=== PATIENT | male | born 1940 | race Caucasian/White ===

== ENCOUNTER 2017-03-28 22:15 | Emergency (ER) | payer MEDICARE, BC, OTHER ==
[2017-03-28 22:40] LABS: Hematocrit 40 % (42-52); Hemoglobin 13.2 g/dl (14.0-18.0); Mean Corpuscular HGB Conc 33 g/dl (31-36); Mean Corpuscular Hemoglobin 30 pg (27-31); Mean Corpuscular Volume 91 fL (80-94); Mean Platelet Volume 10 um3 (7.4-10.4); Red Blood Count 4.32 10^6/ul (4.0-5.4); Red Cell Distribution Width 13 % (10.5-15); White Blood Count 8.3 10^3/ul (3.5-10.8)
[2017-03-28 22:50] LABS: Albumin 4.1 g/dL (3.2-5.2); Calcium 8.6 mg/dL (8.6-10.3); EGFR African American 93.2 (>60); EGFR Non-African American 72.5 (>60); Globulin 2.7 g/dL (2-4); Potassium 3.8 mmol/L (3.5-5.0); Total Bilirubin 0.5 mg/dL (0.2-1.0); Total Protein 6.8 g/dL (6.4-8.9)
[2017-03-28 22:52] LABS: Troponin I 0.01 ng/mL (<0.04)
--- NOTE | 2017-03-28 23:06 | ED ---
Ronaldo Klein Benjamin, scribed for Say Sanford MD on 03/28/17 at 2226 . HPI Chest Pain - HPI Summary HPI Summary: 76yo male c/o sudden onset chest tightness tonight at rest watching TV. Pt has Hx of cardiac stent x2 and CABG. Pt states that deep breaths ease his pain. Previous CP episode was years ago. - History of Current Complaint Time Seen by Provider: 03/28/17 22:19 Hx Obtained From: Patient Onset/Duration: Started Hours Ago, Still Present Timing: Constant Initial Severity: Moderate Current Severity: Moderate Chest Pain Location: Diffuse Chest Pain Radiates: No Character: Tightness Aggravating Factor(s): Nothing Alleviating Factor(s): Other: - deep breaths Associated Signs and Symptoms: Positive: Negative - Additional Pertinent History Primary Care Physician: Dr Curran / Dr Johnson - Allergy/Home Medications Allergies/Adverse Reactions: Allergies Allergy/AdvReac Type Severity Reaction Status Date / Time Ciprofloxacin [From Cipro] Allergy Severe Spontaneous Verified 10/05/16 15:56 tendon rupture Diphenhydramine Allergy Severe See Comment Verified 10/05/16 15:56 [From Benadryl] Jaz Catechu Ext Allergy Intermediate Nausea And Verified 10/05/16 15:56 Vomiting Penicillins Allergy Unknown See Comment Verified 10/05/16 15:56 Mcrae Allergy ITCHY MOUTH Verified 10/05/16 15:56 GUM LAO Allergy Intermediate NAUSEA,VOMITING Uncoded 10/05/16 15:56 AND DIARRHEA opiates AdvReac See Comment Uncoded 10/05/16 15:56 PMH/Surg Hx/FS Hx/Imm Hx Endocrine/Hematology History: Reports: Hx Anticoagulant Therapy - plavix 75 mg po daily., Hx Thyroid Disease - thyroidectomy Denies: Hx Diabetes, Hx Anemia Cardiovascular History: Reports: Hx Angina, Hx Coronary Artery Disease, Hx Hypertension - on meds, Hx Myocardial Infarction, Other Cardiovascular Problems/ Disorders - CAD Denies: Hx Congestive Heart Failure, Hx Hypercholesterolemia, Hx Pacemaker/ ICD, Hx Valvular Heart Disease Respiratory History: Denies: Hx Asthma, Hx Chronic Obstructive Pulmonary Disease (COPD), Hx Lung Cancer GI History: Denies: Hx Gall Bladder Disease, Hx Gastrointestinal Bleed, Hx Jaundice, Hx Ulcer, Hx Urosepsis History: Reports: Hx Benign Prostatic Hyperplasia, Other Problems/ Disorders - BPH Denies: Hx Dialysis, Hx Kidney Stones, Hx Renal Disease Musculoskeletal History: Reports: Hx Gout Sensory History: Reports: Hx Contacts or Glasses Denies: Hx Hearing Aid Opthamlomology History: Reports: Hx Contacts or Glasses Neurological History: Reports: Hx Seizures - hit head 1982 and had 1 seizue. 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 Basal cell carcinoma left nose 07/2016 Hx Chemotherapy: No Hx Radiation Therapy: No Hx Palliative Cancer Treatment: No - Surgical History Surgery Procedure, Year, and Place: QUINTUPLE BYPASS/APPENDECTOMY/INGUINAL LEFT HERNIA REPAIR/Cardiac stent x 2 PROMUS ELEMENT OK FOR 1.5 OR 3T PER MRI SAFETY MANUAL , thyroidectomy, T&A Hx Anesthesia Reactions: No Infectious Disease History: Denies: Hx Clostridium Difficile, Hx Hepatitis, Hx Human Immunodeficiency Virus (HIV), Hx of Known/Suspected MRSA, Hx Shingles, Hx Tuberculosis, History Other Infectious Disease, Traveled Outside the in Last 30 Days - Family History Known Family History: Positive: None, Other - mother - CVA, father - leukemia - Social History Occupation: Retired Lives: With Family Alcohol Use: None Hx Substance Use: No Substance Use Type: Reports: None Hx Tobacco Use: No Smoking Status (MU): Never Smoked Tobacco Have You Smoked in the Last Year: No Review of Systems Constitutional: Negative Eyes: Negative ENT: Negative Positive: Chest Pain Respiratory: Negative Gastrointestinal: Negative Genitourinary: Negative Musculoskeletal: Negative Skin: Negative Neurological: Negative Psychological: Normal All Other Systems Reviewed And Are Negative: Yes Physical Exam Triage Information Reviewed: Yes Vital Signs On Initial Exam: Initial Vitals Temp Pulse Resp BP Pulse Ox 98 F 53 16 131/64 95 03/28/17 22:30 03/28/17 22:30 03/28/17 22:30 03/28/17 22:30 03/28/17 22:30 Vital Signs Reviewed: Yes Appearance: Positive: Well-Appearing, No Pain Distress Skin: Positive: Warm Head/Face: Positive: Normal Head/Face Inspection Eyes: Positive: BAM ENT: Positive: Hearing grossly normal Neck: Positive: Supple Respiratory/Lung Sounds: Positive: Clear to Auscultation, Breath Sounds Present Cardiovascular: Positive: RRR Abdomen Description: Positive: Nontender, No Organomegaly, Soft Bowel Sounds: Positive: Present Musculoskeletal: Positive: Strength/ROM Intact Neurological: Positive: Sensory/Motor Intact, Alert, Oriented to Person Place, Time, Normal Gait Psychiatric: Positive: Affect/Mood Appropriate Diagnostics - Vital Signs Vital Signs Temp Pulse Resp BP Pulse Ox 03/28/17 22:32 98 F 53 16 131/64 95 03/28/17 22:30 98 F 53 16 131/64 95 - Laboratory Lab Results: Lab Results 03/28/17 03/28/17 03/28/17 Range/Units 22:26 22:26 22:26 WBC 8.3 (3.5-10.8) 10^3/ul RBC 4.32 (4.0-5.4) 10^6/ul Hgb 13.2 L (14.0-18.0) g/dl Hct 40 L (42-52) % MCV 91 (80-94) fL MCH 30 (27-31) pg MCHC 33 (31-36) g/dl RDW 13 (10.5-15) % Plt Count 163 (150-450) 10^3/ul MPV 10 (7.4-10.4) um3 Neut % (Auto) 58.7 (38-83) % Lymph % (Auto) 20.4 L (25-47) % [place] % (Auto) 11.6 H (1-9) % Eos % (Auto) 8.5 H (0-6) % Baso % (Auto) 0.8 (0-2) % Absolute Neuts (auto) 4.9 (1.5-7.7) 10^3/ul Absolute Lymphs (auto) 1.7 (1.0-4.8) 10^3/ul Absolute Monos (auto) 1.0 H (0-0.8) 10^3/ul Absolute Eos (auto) 0.7 H (0-0.6) 10^3/ul Absolute Basos (auto) 0.1 (0-0.2) 10^3/ul Absolute Nucleated RBC 0 10^3/ul Nucleated RBC % 0 INR (Anticoag Therapy) (0.89-1.11) Sodium 137 (133-145) mmol/L Potassium 3.8 (3.5-5.0) mmol/L Chloride 100 L (101-111) mmol/L Carbon Dioxide 29 (22-32) mmol/L Anion Gap 8 (2-11) mmol/L BUN 27 H (6-24) mg/dL Creatinine 1.00 (0.67-1.17) mg/dL Est GFR ( Amer) 93.2 (>60) Est GFR (Non-Af Amer) 72.5 (>60) BUN/Creatinine Ratio 27.0 H (8-20) Glucose 106 H (70-100) mg/dL Lactic Acid 1.2 (0.5-2.0) mmol/L Calcium 8.6 (8.6-10.3) mg/dL Magnesium 2.0 (1.9-2.7) mg/dL Total Bilirubin 0.50 (0.2-1.0) mg/dL AST 21 (13-39) U/L ALT 16 (7-52) U/L Alkaline Phosphatase 48 (34-104) U/L Troponin I 0.01 (<0.04) ng/mL Total Protein 6.8 (6.4-8.9) g/dL Albumin 4.1 (3.2-5.2) g/dL Globulin 2.7 (2-4) g/dL Albumin/Globulin Ratio 1.5 (1-3) // Range/Units 22:26 WBC (3.5-10.8) 10^3/ul RBC (4.0-5.4) 10^6/ul Hgb (14.0-18.0) g/dl Hct (42-52) % MCV (80-94) fL MCH (27-31) pg MCHC (31-36) g/dl RDW (10.5-15) % Plt Count (150-450) 10^3/ul MPV (7.4-10.4) um3 Neut % (Auto) (38-83) % Lymph % (Auto) (25-47) % [place] % (Auto) (1-9) % Eos % (Auto) (0-6) % Baso % (Auto) (0-2) % Absolute Neuts (auto) (1.5-7.7) 10^3/ul Absolute Lymphs (auto) (1.0-4.8) 10^3/ul Absolute Monos (auto) (0-0.8) 10^3/ul Absolute Eos (auto) (0-0.6) 10^3/ul Absolute Basos (auto) (0-0.2) 10^3/ul Absolute Nucleated RBC 10^3/ul Nucleated RBC % INR (Anticoag Therapy) 0.90 (0.89-1.11) Sodium (133-145) mmol/L Potassium (3.5-5.0) mmol/L Chloride (101-111) mmol/L Carbon Dioxide (22-32) mmol/L Anion Gap (2-11) mmol/L BUN (6-24) mg/dL Creatinine (0.67-1.17) mg/dL Est GFR ( Amer) (>60) Est GFR (Non-Af Amer) (>60) BUN/Creatinine Ratio (8-20) Glucose (70-100) mg/dL Lactic Acid (0.5-2.0) mmol/L Calcium (8.6-10.3) mg/dL Magnesium (1.9-2.7) mg/dL Total Bilirubin (0.2-1.0) mg/dL AST (13-39) U/L ALT (7-52) U/L Alkaline Phosphatase (34-104) U/L Troponin I (<0.04) ng/mL Total Protein (6.4-8.9) g/dL Albumin (3.2-5.2) g/dL Globulin (2-4) g/dL Albumin/Globulin Ratio (1-3) Result Diagrams: 03/28/17 22:26 03/28/17 22:26 Lab Statement: Any lab studies that have been ordered have been reviewed, and results considered in the medical decision making process. - Radiology CXR Xray Interpretation: No Acute Changes Radiology Interpretation Completed By: Radiologist - EKG 0479. Cardiac Rate: Bradycardia - 56bpm EKG Rhythm: Sinus Bradycardia ST Segment: Normal Re-Evaluation - Re-Evaluation First Eval Re-Evaluation Time: 01:57 Comment: Discussed lab and imaging results with the pt, as well as disposition. Pt remains pain free Chest Pain Course/Dx - Diagnoses Provider Diagnoses: Chest pain Discharge - Discharge Plan Condition: Stable Disposition: HOME Patient Education Materials: Chest Pain (ED) Referrals: Andrzej Curran MD [Primary Care Provider] - The documentation as recorded by the Ronaldo mendez Benjamin accurately reflects the service I personally performed and the decisions made by me, Say Sanford MD.
--- NOTE | 2017-03-28 23:33 | RAD ---
INDICATION: Chest pain COMPARISON: Similar chest x-ray dated August 22, 2016 TECHNIQUE: PA and lateral views of the chest were obtained. FINDINGS: Postoperative findings include sternotomy wires overlying the midline chest. The heart and mediastinum are normal in size and contour. Similar to the previous chest x-ray the lungs appear hyperaerated, the diaphragm are flattened and there is a mildly increased retrosternal airspace. Otherwise the lungs are grossly clear. There is no evidence of large pleural effusion. Degenerative changes of the thoracic spine include loss of intervertebral disc height and marginal osteophyte formation, bridging at some levels. There is no radiographic evidence of free air beneath the diaphragm IMPRESSION: CHRONIC FINDINGS DESCRIBED ABOVE WITHOUT RADIOGRAPHIC EVIDENCE OF ACUTE CARDIOPULMONARY DISEASE.
[2017-03-29 02:10] VITALS: BP 132/71
== END 2017-03-29 02:09 | disposition home or self-care (01) ==
LOC: ED 22:15
DX: R07.9 Chest pain, unspecified (principal)
CPT/HCPCS: 36415; 71020; 80053; 83605; 83735; 84484; 85025; 85610; 93005; 99283

== ENCOUNTER 2017-06-02 07:17 | Day surgery (SDC) | payer MEDICARE, BC ==
--- NOTE | 2017-05-30 10:08 | HP ---
CC: Andrzej Curran MD * HISTORY AND PHYSICAL: DATE OF PLANNED ADMISSION AND SURGERY: 06/02/17 HISTORY OF PRESENT ILLNESS: Mr. Ryan is a 76-year-old white male, who is admitted with recurrent episodes of gross hematuria, prostate enlargement and bladder outlet obstruction and a 1 cm bladder calculus for cystoscopy and cystolitholapaxy. I have been following Mr. Ryan for the last 15 years because of prostate enlargement, elevated PSA, and bladder outlet obstruction. He had prostate biopsies in the past, which were benign. He had been maintained on tamsulosin and was placed in the past on finasteride because of prostate enlargement. He initially reported very good improvement in his voiding, however, he developed gynecomastia and the finasteride had to be discontinued. He has been maintained on tamsulosin only for his bladder outlet obstruction. The patient was worked up for microscopic hematuria and for recurrent episodes of gross painless hematuria. He had a CT urogram in October 2016 showing normal upper tracts without evidence of any renal masses or abnormal filling defects in the collecting systems or the ureters. The bladder wall was thickened and there was a large prostate and a 1 cm bladder calculus. Cystoscopy confirmed a large vascular prostate and a 1 cm calculus in the base of the bladder. The conclusion of the workup was that the gross hematuria is caused by either the bladder calculus or the vascular prostate enlargement or a combination of both. The patient's prostate was large measuring about 100 mL by transabdominal ultrasound. Because of the above history and findings, the patient is admitted for cystolitholapaxy. PAST MEDICAL HISTORY AND SYSTEM REVIEW: The patient gives past history of coronary artery disease and had undergone a coronary bypass surgery about 20 years ago. He has done very well and has had no recurrent cardiac symptoms. He was last evaluated by Dr. Johnson, his belt weaver, in November 2016. I am including a copy of his consultation note. Basically the patient is stable and has good cardiac function and has had no chest pain, shortness of breath, or cardiac symptoms. He takes a brisk walk of 2 miles every day. He denies any shortness of breath or difficulty breathing. The patient has hyperlipidemia, is maintained on Lipitor 40 mg daily. He is on 1 baby aspirin per day. He takes calcium supplement in the form of Tums and is on calcitriol 0.25 mcg twice a day because of hypoparathyroidism. He is on thyroid replacement. He is on enalapril 10 mg daily and on nitroglycerin sublingual as needed. He received Cipro in 2007 because of prostatitis. He developed a ruptured Achilles tendon and that was followed by a DVT of his lower extremity. He was maintained on anticoagulation and he did well and anticoagulation was discontinued. He was recently evaluated by Dr. Broussard because of spinal stenosis. The patient is scheduled to undergo a lumbar laminectomy in about 2 weeks. The patient otherwise is in very good health. ALLERGIES: The patient reports having allergy or intolerance to PENICILLIN, BENADRYL, NARCOTICS, QUINOLONES, FINASTERIDE, GUM SLOVENIAN. PHYSICAL EXAMINATION GENERAL: Pleasant, healthy and fit looking white male, who looks good for his age. VITAL SIGNS: Blood pressure 120/70, pulse of 55. LUNGS: Lungs are clear. HEART: Regular and rhythmic, no murmurs. ABDOMEN: Soft, no masses, no tenderness and no CVA tenderness. GENITALIA: External genitalia: he is circumcised. No penile lesions. Normal testes and no hernias. Rectal exam showed a large, but benign feeling prostate. IMPRESSION: Recurrent episodes of gross hematuria. The workup showed normal kidneys and ureters and a very large vascular prostate and a 1 cm bladder calculus. PLAN: Plan is for cystoscopy and cystolitholapaxy. If the gross hematuria persists in spite of the above procedure, then the patient will need a prostatectomy. I discussed the above plans with the patient. He understands that he might go into urinary retention postoperatively and might require catheter drainage. I also discussed his medical condition with his sugar cane planter machine operator, Dr. Curran, who reviewed his records and who had seen him recently for his physical. He thinks that the patient should tolerate the procedure and did not feel there is a need for a pre-op medical reevaluation and clearance. [id number]/[facility] #: [id number] ELADIO
[~2017-06-02 07:17] MED LIST: Buffered Lidocaine 0.9% SYRIN* 5 ML/SYR SYRINGE INTRADERM ONE
[2017-06-02] MEDS ORDERED: Midazolam* 1 MG/ML 2 ML VIAL (2 MG) ONE (09:15)
[2017-06-02] MEDS ORDERED: fentaNYL* 50 MCG/ML 2 ML VIAL (100 MCG VIAL) ONE (09:15)
[2017-06-02] MEDS ORDERED: Propofol* 10 MG/ML 20 ML BTL IV PUSH ONE (10:24)
[2017-06-02] MEDS ORDERED: Dexamethasone IV* 4 MG/ML 1 ML (4 MG) ONE (10:24)
[2017-06-02] MEDS ORDERED: Ondansetron INJ* 2 MG/ML VIAL ONE (10:24)
[2017-06-02] MEDS ORDERED: Lidocaine 2% PF * 5 ML VIAL ONE (10:24)
[2017-06-02] MEDS ORDERED: Acetaminophen TAB* 325 MG PO PRN (11:01)
[2017-06-02 12:42] VITALS: BP 135/75
--- NOTE | 2017-06-03 11:16 | OP ---
CC: Dr. Andrzej Curran. * DATE OF OPERATION: 06/02/17 - [facility] DATE OF : 38 SURGEON: Dr. Baldwin. ANESTHESIOLOGIST: Dr. Matthew. ANESTHESIA: General. PRE-OP DIAGNOSES: 1. Benign prostatic hyperplasia. 2. Bladder outlet obstruction due to above. 3. Bladder calculus. 4. Recurrent episodes of gross hematuria due to above. POST-OP DIAGNOSES: 1. Benign prostatic hyperplasia. 2. Bladder outlet obstruction due to above. 3. Bladder calculus. 4. Recurrent episodes of gross hematuria due to above. OPERATIVE PROCEDURES: 1. Cystoscopy. 2. Cystolitholapaxy. INDICATIONS FOR PROCEDURE: Mr. Ryan is a 76-year-old white male who has a large obstructing prostate who is maintained on tamsulosin. Finasteride had to be discontinued because of breast tenderness. He has had recurrent episodes of gross hematuria and had a full workup with CT urogram and cystoscopy and the only positive findings were large obstructing and vascular prostate and a 1 to 1.5 cm bladder calculus. Post void residual around 60 cc. The patient is now admitted for cystolitholapaxy to see if that would help decrease the frequency of the hematuria. PATHOLOGY AT CYSTOSCOPY: The penile and bulbar urethrae looked normal. The prostatic urethra measured about 4.5 cm in length and there was significant degree of obstruction by a large prostate with enlargement of the median as well as both lateral lobes. The prostate was very vascular and bled easily to instrumentation. There was elevation of the bladder neck. Examination of the bladder showed diffuse moderate to heavy trabeculations. The ureteral orifices looked normal. There were no suspicious bladder lesions seen. No diverticulae were noted. A 1.5 cm grayish spherical calculus was noted in the base of the bladder. DESCRIPTION OF PROCEDURE: After successful general anesthesia, the patient was placed in the lithotomy position and was prepped and draped for cystoscopy. Cystoscopy was performed. The findings in the prostatic urethra and in the bladder were noted. The stone crushing forceps were then introduced inside the bladder. The bladder was filled up with irrigation fluid. The bladder calculus was visualized, grabbed with the stone crusher supervisor and positioned in the middle of the bladder lumen away from the bladder wall. The stone was crushed. It was then crushed into multiple smaller pieces. This was performed without any injury to the bladder wall. The bladder was then irrigated and all the stone fragments were evacuated. After a final inspection, which showed intact bladder wall, there was still some bleeding from the prostatic urethra, and no residual stone fragments were noted. The scope was removed and an 18-Irish Ellison catheter was passed inside the bladder and the balloon inflated with 10 cc water. The patient tolerated the procedure well and left the operating room in good condition. The prostate is felt to be too large to perform a TURP in one setting. Will attempt to decrease the prostate volume and the prostate vascularity by starting him on dutasteride 0.4 mg daily. If he develops again breast tenderness or enlargement, it will be discontinued. I will see him next week in the office for followup [id number]/[facility] #: [id number] ELADIO
== END 2017-06-02 12:58 | disposition home or self-care (01) ==
LOC: OR 07:17
PROVIDERS: ATTEND Urology
DX: N21.0 Calculus in bladder (principal); R31.9 Hematuria, unspecified; N40.1 Benign prostatic hyperplasia with lower urinary tract symptoms; I25.10 Atherosclerotic heart disease of native coronary artery without angina pectoris; Z95.1 Presence of aortocoronary bypass graft; E78.5 Hyperlipidemia, unspecified; E03.9 Hypothyroidism, unspecified; Z79.82 Long term (current) use of aspirin; I10 Essential (primary) hypertension; J45.909 Unspecified asthma, uncomplicated
CPT/HCPCS: 82365; 88300; J1100; J1580; J2250; J2405; J2704; J3010

== ENCOUNTER 2017-07-11 06:19 | Observation (INO) | payer MEDICARE, BC ==
[~2017-07-11 06:19] MED LIST changes: -Buffered Lidocaine 0.9% SYRIN* 5 ML/SYR SYRINGE INTRADERM ONE; +Famotidine IV* 10 MG/ML 2 ML (20 mg) IV ONE; +Metoclopramide TAB* 10 MG PO ONE
[2017-07-11] MEDS ORDERED: Metoclopramide TAB* 10 MG ONE (06:38)
[2017-07-11] MEDS ORDERED: Famotidine IV* 10 MG/ML 2 ML (20 mg) ONE (06:38)
[2017-07-11] MEDS ORDERED: Clindamycin 900 MG IVPREMIX(* 900 MG/50 ML SDV IV ONE (06:39)
[2017-07-11] MEDS: Buffered Lidocaine 0.9% SYRIN* 5 ML/SYR SYRINGE INTRADERM ONE ×2 (07:09→17:15)
[2017-07-11] MEDS ORDERED: Bacitracin IV* 50,000 UNITS INJ ONE (07:10)
[2017-07-11] MEDS ORDERED: Lidocaine 1% MPF wEPI 200,000* 30 ML SDV ONE (07:10)
[2017-07-11] MEDS ORDERED: Thrombin 5,000 UNITS* 1 APPLIC KIT - topical use - TOPICAL ONE (07:10)
[2017-07-11] MEDS ORDERED: Artificial Tear OPHTH.OINT* 3.5 GM ONE (07:14)
[2017-07-11] MEDS ORDERED: Lidocaine 2% PF * 5 ML VIAL ONE (07:20)
[2017-07-11] MEDS ORDERED: Phenylephrine INJ* 10 MG/ML 1 ML VIAL (10 MG) ONE (07:20)
[2017-07-11] MEDS ORDERED: Ondansetron INJ* 2 MG/ML VIAL ONE (07:20)
[2017-07-11] MEDS ORDERED: Dexamethasone IV* 4 MG/ML 1 ML (4 MG) ONE (07:20)
[2017-07-11] MEDS ORDERED: Propofol* 10 MG/ML 20 ML BTL IV PUSH ONE (07:20)
[2017-07-11] MEDS ORDERED: EPHEDrine (Pressors)* 50 MG/ML VIAL ONE (07:20)
[2017-07-11] MEDS ORDERED: fentaNYL* 50 MCG/ML 5 ML VIAL (250 MCG VIAL) ONE (07:21)
[2017-07-11] MEDS ORDERED: Cisatracurium* 2 MG/ML MDV 5 ML ONE (07:21)
[2017-07-11] MEDS ORDERED: KETAMINE HCL* 50 MG/ML 10 ML VIAL ONE (07:21)
[2017-07-11] MEDS ORDERED: Midazolam* 1 MG/ML 5 ML VIAL (5 MG) ONE (07:21)
[2017-07-11] MEDS ORDERED: Ondansetron INJ* 2 MG/ML VIAL IV PRN ×2 (08:40→09:01)
[2017-07-11] MEDS ORDERED: Acetaminophen IV 1GM/100ML * 100 ML IVPB ONE (08:40)
[2017-07-11] MEDS ORDERED: Nitroglycerin TAB 0.4 MG* 0.4 MG TAB SL PRN (09:03)
[2017-07-11] MEDS ORDERED: Acetaminophen IV 1GM/100ML * 100 ML ONE (09:05)
[2017-07-11] MEDS ORDERED: traMADol TAB* 50 MG PO PRN (09:06)
--- NOTE | 2017-07-11 10:56 | RAD ---
INDICATION: L4-L5 lumbar laminectomy-operative control film COMPARISON: None TECHNIQUE: A single crosstable lateral image obtained at 0830 hours is submitted FINDINGS: There is a retractor in place which most closely approximates the L3-L4 level and there is a curved hemostat which is immediately inferior to L3-L4. IMPRESSION: OPERATIVE CONTROL FILMS ARE SUBMITTED.
[2017-07-11] MEDS ORDERED: Albuterol 2.5 MG/3 ML NEB.SOL* (0.083%) INH PRN (11:13)
--- NOTE | 2017-07-11 13:16 | CONS ---
CC: Dr. Curran; Dr. Broussard * CONSULTATION REPORT: DATE OF CONSULT: 07/11/17 PRIMARY CARE PROVIDER: Dr. Curran. ATTENDING PHYSICIAN WHILE IN THE HOSPITAL: Stephanie Farrell DO (report dictated by Scott Sawant NP). REQUESTING PHYSICIAN FOR CONSULT: Dr. Broussard. REASON FOR CONSULTATION: Evaluation and medical management of comorbid medical conditions. HISTORY OF PRESENT ILLNESS: Mr. Ryan is a 77-year-old male patient that presented to Dr. Broussard services in the outpatient setting with complaints of back pain and lumbar radiculopathy and with failing conservative therapy and ultimately he had an MRI, was evaluated and felt they may benefit from decompressive laminectomy at L4-5. The patient wished to proceed with this and he underwent the procedure. He does carry a history of hypertension, thyroid cancer, BPH, hyperlipidemia, CAD, [place], gout, and asthma. Because of his medical complexity, we were asked to evaluate in consult. He was evaluated in the postoperative surgical unit. He says that he just feel little drowsy. He denies having any chest pain or any shortness of breath. He denies having any abdominal pain. He says that he feels little hungry. He denies having any numbness or tingling in the lower extremities. He says he is having little pain at the incision sites probably 3/10. He says he denies any shortness of breath or chest pain currently and he did say that he saw Dr. Johnson just 4 days ago prior to his procedure for medical evaluation and risk stratification, but because of his complexity, we were asked to evaluate and consult. PAST MEDICAL HISTORY: Significant for: 1. Hypertension. 2. Thyroid cancer. 3. BPH. 4. Hyperlipidemia. 5. CAD. 6. [place]. 7. Gout. 8. Asthma. PAST SURGICAL HISTORY: 1. He has had CABG. 2. Cataract extraction. 3. Thyroidectomy. 4. Appendectomy. 5. Hernia. 6. Tonsillectomy. 7. Now recently had an L4-5 laminectomy. MEDICATIONS: Home meds according to the list provided include: 1. Vasotec 10 mg p.o. daily. 2. Dutasteride 0.5 mg p.o. daily. 3. Lotrisone 1 application topically b.i.d. 4. Aspirin 81 mg daily. 5. Flomax 0.4 mg p.o. q.p.m. 6. Nitro 0.4 mg sublingual every 5 minutes x3 p.r.n. chest pain. 7. Claritin 10 mg daily. 8. Synthroid 150 mcg daily. 9. Calcium carbonate 1000 mg p.o. 4 times a day. 10. Calcitriol 0.5 mcg p.o. b.i.d. 11. Lipitor 40 mg daily. 12. Lamisil spray 4% to the feet daily as needed. ALLERGIES: His allergies to medications include CIPRO, BENADRYL, CAM, PENICILLIN, ADHESIVE TAPE, CARDOZA, PROSCAR, LACTULOSE INTOLERANCE, GUM SLOVAK, CAT DANDER, HAY FEVER, OPIATES. FAMILY HISTORY: His mother had history of CVA and heart disease. His father had history of leukemia. SOCIAL HISTORY: The patient does not smoke, does not drink. Surrogate decision maker is his . REVIEW OF SYSTEMS: There is no documented fever. He denied having any significant weight change. There was no double vision. He denies having any ear discharge. There is no rhinorrhea. No sore throat, no thyroid enlargement. Denies having any chest pain. There is no orthopnea. There was no nocturnal dyspnea. There is no abdominal pain. There was no nausea, no vomiting. No dysuria, no frequency. No loss of consciousness, no pruritus, no skin ulcerations. Review of 14 systems was completed, all others negative. PHYSICAL EXAM: Vital signs: Reveals blood pressure 129/60, pulse 58, respirations 16, O2 sat 99% on 2 L, temperature 96.4. General: At this time, Mr. Ryan is a 77-year-old male patient. He is sitting in the surgical short stay bed. He does appear to be in any acute distress. HEENT: Head, atraumatic, normocephalic. Eyes, EOMs are intact. Sclerae anicteric. Neck: Supple. Throat, oral mucosa appears to be moist. No oropharyngeal erythema. Heart: Sounds S1, S2. Regular rate and rhythm. No murmurs, rubs, or gallops. Lungs: Clear to auscultation. No wheezes, rales, or rhonchi. Abdomen: Soft , flat, nontender. Bowel sounds present. Extremities: Pulses 2+ throughout. Able to move all 4 extremities with 5/5 strength. Neurologically, he is drowsy , but he is awake, he is alert, he is oriented x3. Consumer Educator were equal. Tongue midline. No gross focal deficits. Skin is intact with the exception he has CASI drain incision noted to the lumbar area of the spine, which is clean, dry, and intact. DIAGNOSTIC STUDIES/LAB DATA: His labs preoperatively revealed WBC of 7.8, RBC of 4.24, hemoglobin 13.1, hematocrit 38, platelet count of 204. His sodium 138 , potassium 4.3, chloride of 100, bicarb 31, BUN 20, creatinine of 1.06. He had preop chest x-ray showed no active cardiopulmonary disease. He had a preop EKG, which showed sinus bradycardia at rate of 55 with a PVC. No ST elevation or T- wave inversions. Old medical records were reviewed. ASSESSMENT AND PLAN: Mr. Ryan is a 77-year-old male patient with multiple medical problems coming into the hospital today for an elective L4-5 lumbar laminectomy. Hospitalist service was asked to evaluate in consult for medical management. Recommendations at this point are: 1. Status post L4-5 laminectomy. I defer further management with Dr. Broussard and his team. 2. Hypertension. We will continue meds as prescribed. 3. History of thyroid cancer. Continue his medications and he can follow up with his PCP and oncologist for surveillance. 4. Benign prostatic hypertrophy. Continue his Flomax and his Avodart. 5. Hyperlipidemia. Continue statin therapy. 6. Coronary artery disease. On aspirin, statin. We will continue these. He is not on beta-kingsley as his heart rates running around 60s to 50s. We will monitor. 7. Gout. Not an active issue. We will follow. 8. History of asthma. I have ordered p.r.n. albuterol. 9. Deep venous thrombosis prophylaxis. Deferred to primary team. 10. Code status. He is full code. 11. Fluid, electrolyte, nutrition. I would recommend heart healthy diet. TIME SPENT: Time spent on the consult was 60 minutes; greater than half that time was spent [id number] with the patient obtaining my history and physical, other half the time was spent going over the plan of care with the patient, implementing my plan of care. I discussed the plan of care with my attending, Dr. Farrell, she is in agreement. SCOTT SAWANT NP [id number]/[facility] #: [id number] ELADIO
[2017-07-11] MEDS: Calcium Carbonate CHEW TAB* 500 MG (TUMS) PO SCH ×3 (14:09→20:41)
[2017-07-11] MEDS: Acetaminophen TAB* 325 MG PO PRN ×2 (15:35→22:06)
[2017-07-11] MEDS ORDERED: Atorvastatin* 40 MG TAB PO SCH (18:00)
[2017-07-11] MEDS ORDERED: Tamsulosin CAP* 0.4 MG PO SCH (18:00)
[2017-07-11] MEDS: Calcitriol CAP* 0.25 MCG PO SCH (20:42)
[2017-07-11] MEDS: Clotrimazole/Betamethasone CREAM* 15 GM TOPICAL SCH (20:44)
[2017-07-12] MEDS: Acetaminophen TAB* 325 MG PO PRN (05:41)
[2017-07-12] MEDS ORDERED: Levothyroxine TAB* 150 MCG TAB PO SCH (06:00)
--- NOTE | 2017-07-12 07:51 | PN ---
Progress Note - Progress Note Date of Service: 07/12/17 SOAP: Subjective: [This is a 77 year old male s/p decompressive lumbar laminectomy L4-5, POD #1. He is feeling well this morning and pain is well controlled with tylenol. He does complain of some low back incisional discomfort. He has been up to ambulate. Pre-operative symptoms are improving. He is eating, drinking and voiding without difficulty. He denies headache. No nausea.] Objective: [ Vital Signs: Temp Pulse Resp BP Pulse Ox 97.8 F 79 16 131/73 95 07/12/17 03:44 07/12/17 03:44 07/12/17 03:44 07/12/17 03:44 07/12/17 03:44 General: Alert and oriented. No distress. Neuro: Motor and sensory intact. Incision: Intact with paulo. No swelling or infection. CASI drain removed today without complication. Extremities: Full ROM. CASI drain output 07/11/17 07/11/17 07/11/17 09:25 13:26 18:40 Output, CASI #1 20 85 30 07/11/17 07/12/17 07/12/17 22:00 02:05 05:40 Output, CASI #1 35 10 20 ] Assessment: [Satisfactory post-operative course. ] Plan: [1. Discharge home today. 2. Discharge instructions including activity level and follow up were discussed with the patient. ]
[2017-07-12 08:40] VITALS: BP 122/63
[2017-07-12] MEDS: Calcitriol CAP* 0.25 MCG PO SCH ×2 (08:40→08:42)
[2017-07-12] MEDS: Cetirizine* 10 MG TAB PO SCH ×2 (08:40→08:44)
[2017-07-12] MEDS: Calcium Carbonate CHEW TAB* 500 MG (TUMS) PO SCH (08:40)
[2017-07-12] MEDS: Clotrimazole/Betamethasone CREAM* 15 GM TOPICAL SCH (08:41)
[2017-07-12] MEDS ORDERED: DUTASTERIDE 0.5 MG PO SCH (09:00)
[2017-07-12] MEDS ORDERED: Enalapril TAB* 5 MG PO SCH (09:00)
[2017-07-12] MEDS ORDERED: Aspirin EC Low Dose* 81 MG TAB.EC PO SCH (09:00)
--- NOTE | 2017-07-13 02:23 | DS ---
DISCHARGE SUMMARY: DATE OF ADMISSION: 07/11/17 DATE OF DISCHARGE: 07/12/17 SUPERVISING PHYSICIAN: Dr. Broussard * (dictated by JANAY Deutsch) DISCHARGE DIAGNOSES: 1. Lumbar spinal stenosis, L4-5. 2. Hypertension. 3. Hyperlipidemia. 4. Hypothyroidism. 5. Coronary artery disease, status post CABG. SPECIAL PROCEDURES: Decompressive lumbar laminectomy, L4-5. HOSPITAL COURSE: This 77-year-old male was seen in office for symptomatic lumbar spinal stenosis at L4-5 consistent with MRI study. He failed to improve over several months with conservative treatment and was therefore admitted at this time for elective surgical treatment. On the day of admission, he was taken to surgery where under general anesthesia, a decompressive lumbar laminectomy at L4-5 operation was carried out. Postoperatively, he was feeling well. He was ambulating independently. He was eating, drinking, and voiding without difficulty. Pain was well controlled with oral Tylenol. On the first postoperative day, the CASI wound drain was removed and the patient was discharged home to the care of his family. DISCHARGE INSTRUCTIONS: Wound care and activity levels were discussed with the patient and information was provided. FOLLOWUP: The patient will be seen in office in approximately 7 days for followup and staple removal. DISCHARGE MEDICATIONS: None. JANAY DEUTSCH [id number]/[facility] #: [id number] MTDD
--- NOTE | 2017-07-24 09:07 | OP ---
DATE OF OPERATION: 07/11/17 - ROOM #335 DATE OF : 38. SURGEON: Rolando Broussard MD. IT NETWORK ADMINISTRATOR: JANAY Dennison. ANESTHESIA: General. PRE-OP DIAGNOSIS: Lumbar spinal stenosis, L4-5. POST-OP DIAGNOSIS: Lumbar spinal stenosis, L4-5. OPERATIVE PROCEDURE: Decompressive lumbar laminectomy, L4-5 with bilateral foraminotomies. DESCRIPTION OF PROCEDURE: After satisfactory general anesthesia was obtained, the patient was placed on the operating room table in the prone position with the chest supported on the Waldo frame and the back slightly flexed. The lumbar region was then clipped, prepped and draped in a sterile manner for lumbar laminectomy and a skin incision outlined from L4 to the sacrum. This incision was infiltrated with 1% Xylocaine with epinephrine, after which it was turned in sharply to level of the fascia. The fascia was divided along the spinous processes of L4 and L5 and the paraspinal musculature dissected free utilizing the periosteal elevator and monopolar cautery. An intraoperative x- ray was obtained verifying proper interspace localization, after which the L4 spinous process and the superior aspect of the L5 spinous process were removed with a combination of the Nancy rib shear and Leksell rongeur. A drill was then used to take down the inferior aspect of the L4 lamina and medial aspect of the facet complex after which a Kerrison was used to perform a decompression. The Kerrison was used to remove bone and ligament and this decompression was extended superiorly into the attachment and the ligament of flavum was taken down. The pathology at this level was noted to be a combination of ligamentous thickening as well as bony hypertrophy. The thickened ligament and lateral shielding edge of the overgrowth of the facet was removed and extended inferiorly until both the L5 nerve roots were noted to be free in their course. The disk was palpated and was noted to be quite firm and was not disturbed. After assuring adequate hemostasis, the wound was thoroughly irrigated after which a piece of Gelfoam was placed over the laminectomy defect. A drain was then placed in the epidural space and tunneled out toward the left side. The fascia was reapproximated with 0 Vicryl suture. The subcutaneous tissue was closed with 3-0 Vicryl and the skin closed with skin clips. The estimated blood loss was less than 50 mL and the final sponge, padding, and needle counts were correct. The patient was taken to the recovery room, extubated, and in stable condition. [id number]/[facility] #: [id number] [facility] CAMPUSTheresa
== END 2017-07-12 10:40 | disposition home or self-care (01) ==
LOC: OR 06:19 → SSU 09:01
PROVIDERS: ADMIT Neurological Surgery; ATTEND Neurological Surgery
DX: M48.06 Spinal stenosis, lumbar region (principal); J45.909 Unspecified asthma, uncomplicated; I10 Essential (primary) hypertension; I25.10 Atherosclerotic heart disease of native coronary artery without angina pectoris; E78.00 Pure hypercholesterolemia, unspecified; C73 Malignant neoplasm of thyroid gland; M54.5 Low back pain
CPT/HCPCS: 71020; 72100; 96374; A9270-GY; G0378; J1100; J2001; J2250; J2405; J2704; J3010

== ENCOUNTER 2017-07-13 07:45 | Emergency (ER) | payer MEDICARE, BC ==
[2017-07-13] MEDS ORDERED: NS 0.9% 1000 ML* 1,000 ML IV ONE (08:28)
[2017-07-13] MEDS ORDERED: traMADol TAB* 50 MG PO ONE ×2 (08:35→13:23)
[2017-07-13 08:52] LABS: Hematocrit 38 % (42-52); Hemoglobin 12.5 g/dl (14.0-18.0); Mean Corpuscular HGB Conc 33 g/dl (31-36); Mean Corpuscular Hemoglobin 30 pg (27-31); Mean Corpuscular Volume 90 fL (80-94); Mean Platelet Volume 9 um3 (7.4-10.4); Red Blood Count 4.16 10^6/ul (4.0-5.4); Red Cell Distribution Width 14 % (10.5-15); White Blood Count 12.1 10^3/ul (3.5-10.8)
[2017-07-13 09:07] LABS: Troponin I 0.01 ng/mL (<0.04)
[2017-07-13 09:09] LABS: Albumin 3.7 g/dL (3.2-5.2); BUN/Creatinine Ratio 19.8 (8-20); Calcium 8.2 mg/dL (8.6-10.3); EGFR African American 91.9 (>60); EGFR Non-African American 71.4 (>60); Globulin 2.9 g/dL (2-4); Magnesium 1.8 mg/dL (1.9-2.7); Potassium 3.7 mmol/L (3.5-5.0); Total Bilirubin 0.7 mg/dL (0.2-1.0); Total Protein 6.6 g/dL (6.4-8.9)
--- NOTE | 2017-07-13 09:23 | RAD ---
Indication: Fall, head and neck pain. CT of the brain was performed without IV contrast. Ventricular structures are midline. No midline shift is noted. The extra-axial spaces are unremarkable. There is hyperdensity in the right frontal lobe which is cortical in nature. This may be calcifications from prior AV malformation. Additional hyperdensity adjacent to the right occipital horn is also unchanged from previous exam. This was present on previous examination. A third hypodensity is noted right temporal horn of the right temporal lobe. The possibility of amyloid angiopathy should BE considered. Previous MRI demonstrates multiple areas of susceptibility artifact. Mastoid air cells and paranasal sinuses are otherwise unremarkable. IMPRESSION: Multiple hyperdensities in the right frontal convexity, right temporal lobe and adjacent to the atria of the right lateral ventricle likely represents areas of prior hemorrhage and calcifications. These are unchanged since 2012. Prior MRI demonstrates multiple areas of hemosiderin deposition and the possibility of amyloid angiopathy should BE considered.
--- NOTE | 2017-07-13 09:25 | RAD ---
Indication: Neck injury after fall. CT of the cervical spine was obtained in the axial plane. Sagittal and coronal reconstructed images were obtained. The mastoid air cells are well aerated. The skull base is unremarkable. The C1 ring is intact. Degenerative changes of the atlantoaxial joint is noted. At C2-C3 there is disc protrusion noted. No central foraminal stenosis is noted. At C3-C4 spondylitic ridge flattens the thecal sac. Right facet and right uncovertebral hypertrophy narrows the right foramen. At C4-C5 there is degenerative disc disease with spondylytic ridge flattening the thecal sac. Bilateral uncovertebral joint hypertrophy and facet arthropathy is noted. At C5-C6 spondylitic ridge with bilateral uncovertebral joint hypertrophy and facet arthropathy is noted. At C6-C7 spondylitic ridge flattens the thecal sac. No central or foraminal stenosis is noted. IMPRESSION: No fracture of the cervical spine is noted. Multilevel degenerative disc disease is noted.
[2017-07-13 09:48] LABS: TSH (Thyroid Stimulating Horm) 0.27 mcIU/mL (0.34-5.60)
--- NOTE | 2017-07-13 09:54 | RAD ---
Indication: Fall, myocardial infarction weakness. Single frontal view of the chest performed at 0853 hours was reviewed. Comparison is made with previous exam dated June 06, 2017. Cardiomegaly is noted. Lung jacobs are clear. Patient is status post transsternal thoracotomy. IMPRESSION: NO ACTIVE CARDIOPULMONARY DISEASE IS NOTED.
[2017-07-13 11:06] LABS: Urine Bilirubin Negative (Negative); Urine Glucose Negative (Negative); Urine Nitrite Negative (Negative)
[2017-07-13 11:20] VITALS: BP 116/61
--- NOTE | 2017-07-13 17:18 | ED ---
Kelly Klein Alfonso, scribed for Adeola Patten MD on 07/13/17 at 0812 . Adult Trauma - HPI Summary HPI Summary: This patient is a 77 year old M BIBA to [facility] accompanied by s/p fall earlier this morning. Patient states that he tripped and fell on his way out of the bathroom and it is hard for me to get up because it was painful when I fell. The pain is described as post-operative pain. The patient rates the pain 4/10 in severity. Pain aggravated by movement. Pain alleviated by nothing. reports head trauma (hit the back of his head on a dresser) and neck pain. Patient denies CP, SOB, bruising, LE pain, bleeding, urinary symptoms, and headache. PMHx includes CAD and HTN. PSHx includes Laminectomy L4-L5 surgery 2 days ago. 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 Character: Aching Aggravating Factor(s): Movement Alleviating Factor(s): Nothing Associated Signs & Symptoms: Positive: Other: - head trauma (hit the back of his head on a dresser) and neck pain. Patient denies CP, SOB, bruising, LE pain , bleeding, urinary symptoms, and headache. No LOC Related History: Anticoagulants - aspirin - Additional Pertinent History Primary Care Physician: [id number] - Allergy/Home Medications Allergies/Adverse Reactions: Allergies Allergy/AdvReac Type Severity Reaction Status Date / Time Ciprofloxacin [From Cipro] Allergy Severe Spontaneous Verified 07/11/17 06:48 tendon rupture Diphenhydramine Allergy Severe See Comment Verified 07/11/17 06:48 [From Benadryl] Jaz Catechu Ext Allergy Intermediate Nausea And Verified 07/11/17 06:48 Vomiting Penicillins Allergy Unknown Rash And Verified 07/11/17 06:48 Itching Adhesive Tape Allergy Rash Verified 07/11/17 06:48 Mcrae Allergy ITCHY MOUTH Verified 07/11/17 06:48 Finasteride Allergy TENDER Verified 07/11/17 06:48 BREAST TISSUE Lactose Intolerance (GI) Allergy Diarrhea Verified 07/11/17 06:48 GUM MAORI Allergy Intermediate NAUSEA,VOMITING Uncoded 07/11/17 06:48 AND DIARRHEA CAT DANDER Allergy Runny Nose Uncoded 07/11/17 06:48 HAY FEVER Allergy Runny Nose Uncoded 07/11/17 06:48 opiates AdvReac See Comment Uncoded 07/11/17 06:48 Home Medications: Home Medications Calcitriol CAP* [Rocaltrol CAP*] 0.5 mcg PO BID 07/13/17 [History Confirmed 05/22] Clotrimazole/Betamethasone* [Lotrisone Cream*] 1 applic TOPICAL BID 07/13/17 [ History Confirmed 07/13/17] LoraTADine TAB(NF) [Claritin 10 MG TAB(NF)] 10 mg PO DAILY 07/13/17 [History Confirmed 07/13/17] Terbinafine HCl (Topical) [Lamisil At [place]] 1 % TOPICAL DAILY PRN 07/13/17 [ History Confirmed 07/13/17] PMH/Surg Hx/FS Hx/Imm Hx Previously Healthy: No Endocrine/Hematology History: Reports: Hx Anticoagulant Therapy - aspirin , Hx Thyroid Disease - CANCER:thyroidectomy 2013 Denies: Hx Diabetes, Hx Anemia Cardiovascular History: Reports: Hx Angina, Hx Coronary Artery Disease - FOLLOWED BY DR SANTANA, Hx Hypertension - on meds, STATES WELL CONTROLLED, Hx Myocardial Infarction Denies: Hx Congestive Heart Failure, Hx Hypercholesterolemia, Hx Pacemaker/ ICD, Hx Valvular Heart Disease Respiratory History: Reports: Hx Asthma Denies: Hx Chronic Obstructive Pulmonary Disease (COPD), Hx Lung Cancer GI History: Reports: Other GI Disorders - lactose intolerance Denies: Hx Gall Bladder Disease, Hx Gastrointestinal Bleed, Hx Jaundice, Hx Ulcer, Hx Urosepsis History: Reports: Hx Benign Prostatic Hyperplasia, Other Problems/ Disorders - BPH, bladder stone, uti's Denies: Hx Dialysis, Hx Kidney Stones, Hx Renal Disease Musculoskeletal History: Reports: 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 Basal cell carcinoma left nose 07/2016 Hx Chemotherapy: No Hx Radiation Therapy: No Hx Palliative Cancer Treatment: No - Surgical History Surgery Procedure, Year, and Place: tonsillectomy and adenoidectomy as a child - [facility]. appendectomy - [place]. left inguinal hernia repair - [place] [facility] [place] [facility] [place] [facility] [place] [facility] [place] [facility] [place] [facility] [place] moh's [place]. Laminectomy 07/2017 [facility] [place] Hx Anesthesia Reactions: No Infectious Disease History: Denies: Hx Clostridium Difficile, Hx Hepatitis, Hx Human Immunodeficiency Virus (HIV), Hx of Known/Suspected MRSA, Hx Shingles, Hx Tuberculosis, History Other Infectious Disease, Traveled Outside the in Last 30 Days - Family History Known Family History: Positive: Other - mother - CVA, father - leukemia - Social History Occupation: Retired Lives: With Family Alcohol Use: None Hx Substance Use: No Substance Use Type: Reports: None Hx Tobacco Use: No Smoking Status (MU): Never Smoked Tobacco Have You Smoked in the Last Year: No Review of Systems Constitutional: Negative Eyes: Negative ENT: Negative Negative: Chest Pain Negative: Shortness Of Breath Gastrointestinal: Negative Positive: no symptoms reported Positive: Other - Fall, neck pain; Negative LE pain and headache. Positive: Other - Negative bleeding. Negative: Bruising Neurological: Other - head trauma Psychological: Normal All Other Systems Reviewed And Are Negative: Yes Physical Exam Triage Information Reviewed: Yes Vital Signs On Initial Exam: Initial Vitals Temp Pulse Resp BP Pulse Ox 99.0 F 58 20 110/49 96 07/13/17 07:48 07/13/17 07:48 07/13/17 07:48 07/13/17 07:48 07/13/17 07:48 Vital Signs Reviewed: Yes Appearance: Positive: Well-Appearing, Well-Nourished, Pain Distress Skin: Positive: Warm, Skin Color Reflects Adequate Perfusion, Other - No ecchymosis. Dressing in place. Head/Face: Positive: Normal Head/Face Inspection Eyes: Positive: Conjunctiva Clear ENT: Positive: Normal ENT inspection, Pharynx normal, TMs normal Neck: Positive: Supple, No Lymphadenopathy, Tenderness @ - posteriorly Respiratory/Lung Sounds: Positive: Clear to Auscultation, Breath Sounds Present , Other - no respiratory distress Cardiovascular: Positive: RRR, Pulses are Symmetrical in both Upper and Lower Extremities, Other - brisk capillary refill. Negative: Murmur Abdomen Description: Positive: Nontender, No Organomegaly, Soft Bowel Sounds: Positive: Present Musculoskeletal: Positive: Strength/ROM Intact, Other - No bony tenderness Neurological: Positive: Sensory/Motor Intact, Alert, Oriented to Person Place, Time, CN Intact II-III, Facial Symmetry, Speech Normal Psychiatric: Positive: Normal - [place] Coma Scale Coma Scale Total: 15 Diagnostics - Vital Signs Vital Signs Temp Pulse Resp BP Pulse Ox 07/13/17 07:50 99.0 F 63 20 110/49 96 07/13/17 07:48 99.0 F 58 20 110/49 96 - Laboratory Lab Results: Lab Results 07/13/17 07/13/17 07/13/17 Range/Units 08:43 08:43 08:43 WBC 12.1 H (3.5-10.8) 10^3/ul RBC 4.16 (4.0-5.4) 10^6/ul Hgb 12.5 L (14.0-18.0) g/dl Hct 38 L (42-52) % MCV 90 (80-94) fL MCH 30 (27-31) pg MCHC 33 (31-36) g/dl RDW 14 (10.5-15) % Plt Count 198 (150-450) 10^3/ul MPV 9 (7.4-10.4) um3 Neut % (Auto) 77.9 (38-83) % Lymph % (Auto) 7.9 L (25-47) % Reagan % (Auto) 11.5 H (1-9) % Eos % (Auto) 2.4 (0-6) % Baso % (Auto) 0.3 (0-2) % Absolute Neuts (auto) 9.4 H (1.5-7.7) 10^3/ul Absolute Lymphs (auto) 1.0 (1.0-4.8) 10^3/ul Absolute Monos (auto) 1.4 H (0-0.8) 10^3/ul Absolute Eos (auto) 0.3 (0-0.6) 10^3/ul Absolute Basos (auto) 0 (0-0.2) 10^3/ul Absolute Nucleated RBC 0 10^3/ul Nucleated RBC % 0 INR (Anticoag Therapy) 0.92 (0.89-1.11) APTT 26.5 (26.0-36.3) seconds Sodium (133-145) mmol/L Potassium (3.5-5.0) mmol/L Chloride (101-111) mmol/L Carbon Dioxide (22-32) mmol/L Anion Gap (2-11) mmol/L BUN (6-24) mg/dL Creatinine (0.67-1.17) mg/dL Est GFR ( Amer) (>60) Est GFR (Non-Af Amer) (>60) BUN/Creatinine Ratio (8-20) Glucose (70-100) mg/dL Lactic Acid (0.5-2.0) mmol/L Calcium (8.6-10.3) mg/dL Magnesium (1.9-2.7) mg/dL Total Bilirubin (0.2-1.0) mg/dL AST (13-39) U/L ALT (7-52) U/L Alkaline Phosphatase (34-104) U/L Troponin I (<0.04) ng/mL B-Natriuretic Peptide 70 ( - 100) pg/mL Total Protein (6.4-8.9) g/dL Albumin (3.2-5.2) g/dL Globulin (2-4) g/dL Albumin/Globulin Ratio (1-3) TSH (0.34-5.60) mcIU/mL Urine Color Urine Appearance Urine pH (5-9) Ur Specific [place] (1.010-1.030) Urine Protein (Negative) Urine Ketones (Negative) Urine Blood (Negative) Urine Nitrate (Negative) Urine Bilirubin (Negative) Urine Urobilinogen (Negative) Ur Leukocyte Esterase (Negative) Urine Glucose (Negative) 07/13/17 07/13/17 07/13/17 Range/Units 08:43 08:43 10:43 WBC (3.5-10.8) 10^3/ul RBC (4.0-5.4) 10^6/ul Hgb (14.0-18.0) g/dl Hct (42-52) % MCV (80-94) fL MCH (27-31) pg MCHC (31-36) g/dl RDW (10.5-15) % Plt Count (150-450) 10^3/ul MPV (7.4-10.4) um3 Neut % (Auto) (38-83) % Lymph % (Auto) (25-47) % Reagan % (Auto) (1-9) % Eos % (Auto) (0-6) % Baso % (Auto) (0-2) % Absolute Neuts (auto) (1.5-7.7) 10^3/ul Absolute Lymphs (auto) (1.0-4.8) 10^3/ul Absolute Monos (auto) (0-0.8) 10^3/ul Absolute Eos (auto) (0-0.6) 10^3/ul Absolute Basos (auto) (0-0.2) 10^3/ul Absolute Nucleated RBC 10^3/ul Nucleated RBC % INR (Anticoag Therapy) (0.89-1.11) APTT (26.0-36.3) seconds Sodium 138 (133-145) mmol/L Potassium 3.7 (3.5-5.0) mmol/L Chloride 100 L (101-111) mmol/L Carbon Dioxide 29 (22-32) mmol/L Anion Gap 9 (2-11) mmol/L BUN 20 (6-24) mg/dL Creatinine 1.01 (0.67-1.17) mg/dL Est GFR ( Amer) 91.9 (>60) Est GFR (Non-Af Amer) 71.4 (>60) BUN/Creatinine Ratio 19.8 (8-20) Glucose 111 H (70-100) mg/dL Lactic Acid 1.7 (0.5-2.0) mmol/L Calcium 8.2 L (8.6-10.3) mg/dL Magnesium 1.8 L (1.9-2.7) mg/dL Total Bilirubin 0.70 (0.2-1.0) mg/dL AST 20 (13-39) U/L ALT 17 (7-52) U/L Alkaline Phosphatase 57 (34-104) U/L Troponin I 0.01 (<0.04) ng/mL B-Natriuretic Peptide ( - 100) pg/mL Total Protein 6.6 (6.4-8.9) g/dL Albumin 3.7 (3.2-5.2) g/dL Globulin 2.9 (2-4) g/dL Albumin/Globulin Ratio 1.3 (1-3) TSH 0.27 L (0.34-5.60) mcIU/mL Urine Color Yellow Urine Appearance Clear Urine pH 7.0 (5-9) Ur Specific [place] 1.013 (1.010-1.030) Urine Protein Negative (Negative) Urine Ketones Negative (Negative) Urine Blood Negative (Negative) Urine Nitrate Negative (Negative) Urine Bilirubin Negative (Negative) Urine Urobilinogen Negative (Negative) Ur Leukocyte Esterase Negative (Negative) Urine Glucose Negative (Negative) Result Diagrams: 07/13/17 08:43 07/13/17 08:43 Lab Statement: Any lab studies that have been ordered have been reviewed, and results considered in the medical decision making process. - Radiology CXR Radiology Interpretation Completed By: Radiologist - NO ACTIVE CARDIOPULMONARY DISEASE IS NOTED. ED physician has reviewed this radiology report and agrees. C- Spine CT reveals No fracture of the cervical spine is noted. Multilevel degenerative disc disease is noted. ED physician has reviewed this radiology report and agrees. - CT brain CT Interpretation Completed By: Radiologist - Multiple hyperdensities in the right frontal convexity, right temporal lobe and adjacent to the atria of the right lateral ventricle likely represents areas of prior hemorrhage and calcifications. These are unchanged since 2012. Prior MRI demonstrates multiple areas of hemosiderin deposition and the possibility of amyloid angiopathy should BE considered. ED physician has reviewed this radiology report and agrees. c-spine CT Interpretation Completed By: Radiologist - No fracture of the cervical spine is noted. Multilevel degenerative disc disease is noted. ED physician has reviewed this radiology report and agrees. - EKG 0911 Cardiac Rate: Bradycardia - BPM 59 EKG Rhythm: Sinus Bradycardia EKG Interpretation: RBBB. Increased IV conduction time. Normal QTc. Normal axis. EKG Comparison: No Significant Change - 06/06/17 Re-Evaluation - Re-Evaluation First Eval Re-Evaluation Time: 10:28 Change: Improved Comment: Labs reviewed. Pt is feeling better. Adult Trauma Course/Dx - Course Assessment/Plan: This patient is a 77 year old M BIBA to [facility] accompanied by s/p fall earlier this morning. Patient states that he tripped and fell on his way out of the bathroom and it is hard for me to get up because it was painful when I fell. The pain is described as post-operative pain. The patient rates the pain 4/10 in severity. Pain aggravated by movement. Pain alleviated by nothing. reports head trauma (hit the back of his head on a dresser) and neck pain. Patient denies CP, SOB, bruising, LE pain, bleeding, urinary symptoms, and headache. PMHx includes CAD and HTN. PSHx includes Laminectomy L4-L5 surgery 2 days ago. Medications include Flomax, Lipitor, ASA 81 mg, Vasotec 10 mg, Synthroid, tums, Dutasteride, and Claritin 10 mg. An EKG reveals sinus bradycardia and RBBB. CXR reveals NO ACTIVE CARDIOPULMONARY DISEASE IS NOTED. ED physician has reviewed this radiology report and agrees. C- Spine CT reveals No fracture of the cervical spine is noted. Multilevel degenerative disc disease is noted. ED physician has reviewed this radiology report and agrees. CT brain reveals Multiple hyperdensities in the right frontal convexity, right temporal lobe and adjacent to the atria of the right lateral ventricle likely represents areas of prior hemorrhage and calcifications. These are unchanged since 2012. Prior MRI demonstrates multiple areas of hemosiderin deposition and the possibility of amyloid angiopathy should BE considered. Pt and are aware of these abnormalities and state the evaluation for amyloid angiopathy has been done. ED physician has reviewed this radiology report and agrees. Consulted [facility] (neurosurgery) at 1302 who recommends tramadol, and agrees with the case management and plan for discharge. Patient reports relief of the pain with tramadol. Patient will be discharged with follow up from PCP and Dr. Broussard as scheduled. The patient and are agreeable with this plan. - Diagnoses Differential Diagnosis/HQI/PQRI: Positive: Contusion(s), Sprain, Strain Provider Diagnoses: Fall, S/P laminectomy, CAD (coronary artery disease) - Physician Notifications Discussed Care Of Patient With: [place] Time Discussed With Above Provider: 13:37 Instructed by Provider To: Other - Consulted [facility] (neurosurgery) at 1302 who recommends tramadol, and agrees with the case management and plan for discharge. Discharge - Discharge Plan Condition: Stable Disposition: HOME Patient Education Materials: Acute Low Back Pain (ED) Referrals: Rolando Broussard MD [Medical Doctor] - (call the office today to be seen on Jul 19 for follow up. ) Andrzej Curran MD [Primary Care Provider] - () Additional Instructions: Your CT brain and CT cervical spine did not show any acute abnormalities. We have given you a copy of your labs and CTs. The urine test was also normal. Keep your appointment with Dr. Broussard for 07/19/17. Dr. Patten spoke with Dr. Bobo Sanders's PA, and she will send in a prescription for tramadol for you and she will notify Dr. Broussard that you have fallen and had this visit to the ER today. Return to the ER if you have any new or worsening symptoms. The documentation as recorded by the Kelly mendez Alfonso accurately reflects the service I personally performed and the decisions made by me, Adeola Patten MD.
== END 2017-07-13 13:46 | disposition home or self-care (01) ==
LOC: ED 07:45
DX: I25.10 Atherosclerotic heart disease of native coronary artery without angina pectoris (principal); M54.2 Cervicalgia; M96.1 Postlaminectomy syndrome, not elsewhere classified; Z91.81 History of falling; Z79.82 Long term (current) use of aspirin; Z79.01 Long term (current) use of anticoagulants
CPT/HCPCS: 36415; 70450; 71010; 72125; 80053; 81003; 83605; 83735; 83880; 84443; 84484; 85025; 85610; 85730; 93005; 99284; A9270-GY

== ENCOUNTER 2017-10-28 08:42 | Emergency (ER) | payer MEDICARE, BC, OTHER ==
[2017-10-28 08:57] VITALS: BP 136/85
--- NOTE | 2017-10-28 09:49 | UC ---
Respiratory Complaint HPI - HPI Summary HPI Summary: COUGH, CONGESTION AND ST FOR 2 DAYS. NO FEVER, EAR PAIN, N/V/D. - History of Current Complaint Chief Complaint: UCGeneralIllness Stated Complaint: cough Time Seen by Provider: 10/28/17 09:42 Hx Obtained From: Patient Onset/Duration: Gradual Onset, Lasting Days, Still Present Timing: Constant Severity Initially: Moderate Severity Currently: Moderate Pain Intensity: 2 Pain Scale Used: 0-10 Numeric Character: Cough: Nonproductive Aggravating Factors: Nothing Alleviating Factors: Nothing Associated Signs And Symptoms: Positive: URI, Nasal Congestion. Negative: Fever , Wheezing - Allergies/Home Medications Allergies/Adverse Reactions: Allergies Allergy/AdvReac Type Severity Reaction Status Date / Time Ciprofloxacin [From Cipro] Allergy Severe Spontaneous Verified 10/28/17 08:57 tendon rupture Diphenhydramine Allergy Severe See Comment Verified 10/28/17 08:57 [From Benadryl] Jaz Catechu Ext Allergy Intermediate Nausea And Verified 10/28/17 08:57 Vomiting Penicillins Allergy Unknown Rash And Verified 10/28/17 08:57 Itching Adhesive Tape Allergy Rash Verified 10/28/17 08:57 Mcrae Allergy ITCHY MOUTH Verified 10/28/17 08:57 Finasteride Allergy TENDER Verified 10/28/17 08:57 BREAST TISSUE Lactose Intolerance (GI) Allergy Diarrhea Verified 10/28/17 08:57 GUM KYRGYZ Allergy Intermediate NAUSEA,VOMITING Uncoded 10/28/17 08:57 AND DIARRHEA CAT DANDER Allergy Runny Nose Uncoded 10/28/17 08:57 HAY FEVER Allergy Runny Nose Uncoded 07/11/17 06:48 opiates AdvReac See Comment Uncoded 07/11/17 06:48 Home Medications: Home Medications Ibuprofen TAB* [Motrin TAB* 600 MG] 600 mg PO Q6H PRN 10/28/17 [History Confirmed 10/28/17] PMH/Surg Hx/FS Hx/Imm Hx Endocrine History: Thyroid Disease Cardiovascular History: Cardiac Disease, Hypertension Respiratory History: Asthma Other Cancer History: THYROID CANCER Other History Of: Anticoagulant Therapy - aspirin Negative For: HIV, Hepatitis B - ASA taken daily., Hepatitis C - Surgical History Surgical History: Yes Surgery Procedure, Year, and Place: tonsillectomy and adenoidectomy as a child - [facility]. appendectomy - [place]. [place]inal [place] repair - [place]. [place] [facility] [place] - [facility]. [place] [facility] [place] [facility] [place] [facility] [place]axy [place] [facility] [place]. [place] [facility] [place] [facility] [place] Family History Known Family History: Positive: Hypertension, Other - mother - CVA, father - leukemia - Social History Alcohol Use: None Substance Use Type: None Smoking Status (MU): Never Smoked Tobacco Have You Smoked in the Last Year: No - Immunization History Most Recent Influenza Vaccination: 2012 Most Recent Tetanus Shot: 2011 Most Recent Pneumonia Vaccination: 2003 Review of Systems Constitutional: Negative ENT: Sore Throat, Nasal Discharge Respiratory: Cough Cardiovascular: Negative Gastrointestinal: Negative All Other Systems Reviewed And Are Negative: Yes Physical Exam Triage Information Reviewed: Yes Appearance: Well-Appearing, No Pain Distress, Well-Nourished Vital Signs: Initial Vital Signs Temp 98 F 10/28/17 08:52 Pulse 69 10/28/17 08:52 Resp 18 10/28/17 08:52 BP 136/85 10/28/17 08:52 Pulse Ox 99 10/28/17 08:52 Vital Signs Reviewed: Yes Eyes: Positive: Conjunctiva Clear ENT: Positive: Hearing grossly normal, Pharynx normal, TMs normal Neck: Positive: Supple, Nontender, No Lymphadenopathy Respiratory Exam: Normal Cardiovascular Exam: Normal Abdomen Description: Positive: Soft Musculoskeletal: Positive: No Edema Neurological: Positive: Alert Psychological: Positive: Normal Response To Family, Age Appropriate Behavior Skin: Negative: rashes UC Diagnostic Evaluation - Laboratory O2 Sat by Pulse Oximetry: 99 Respiratory Course/Dx - Differential Dx/Diagnosis Provider Diagnoses: ACUTE URI Discharge - Discharge Plan Condition: Stable Disposition: HOME Prescriptions: Azithromycin [Azithromycin 500 MG TAB] 500 mg PO DAILY #5 tab Benzonatate CAP* [Tessalon CAP*] 1 - 2 cap PO TID PRN #30 cap PRN Reason: Cough Patient Education Materials: Upper Respiratory Infection (ED) Referrals: Andrzej Curran MD [Primary Care Provider] - If Needed Additional Instructions: YOUR SYMPTOMS ARE LIKELY VIRALLY MEDIATED AND SHOULD RESOLVE ON THEIR OWN WITH TIME. GIVEN YOUR COMORBIDITIES AND CONCERN FOR DEVELOPMENT OF SECONDARY BACTERIAL INFECTION WILL COVER WITH ANTIBIOTICS. REST, HYDRATE, OTC MEDS NEEDED. SEEK FOLLOW-UP IF YOU ARE NOT IMPROVING OVER THE NEXT 1-2 WEEKS. TRY OTC AFRIN FOR NASAL CONGESTION. OKAY TO USE 2-3 SPRAYS IN EACH NOSTRIL UP TO 2 TIMES DAILY. DO NOT USE FOR MORE THAN 3-4 CONSECUTIVE DAYS TO PREVENT DEVELOPING REBOUND CONGESTION.
== END 2017-10-28 10:14 | disposition home or self-care (01) ==
LOC: UCEAST 08:42
DX: J06.9 Acute upper respiratory infection, unspecified (principal); I10 Essential (primary) hypertension; J45.909 Unspecified asthma, uncomplicated; Z88.1 Allergy status to other antibiotic agents; Z88.8 Allergy status to other drugs, medicaments and biological substances; Z91.048 Other nonmedicinal substance allergy status; Z88.0 Allergy status to penicillin; Z91.018 Allergy to other foods; Z91.011 Allergy to milk products; Z88.5 Allergy status to narcotic agent
CPT/HCPCS: 99212; G0463

== ENCOUNTER 2017-10-28 13:47 | Inpatient (IN) | payer MEDICARE, BC ==
[2017-10-28] MEDS ORDERED: Acetaminophen TAB* 325 MG PO ONE (14:16)
[2017-10-28] MEDS ORDERED: Azithromycin IV(*) 500 MG in NS 0.9% 250 ML* 250 ML IVPB ONE (14:22)
[2017-10-28] MEDS ORDERED: cefTRIAXone(*) 1 GM in NS 0.9% 50 ML* 50 ML IVPB ONE (14:22)
[2017-10-28] MEDS: NS 0.9% 1000 ML*IV.FLUID IV ONE ×2 (14:33→16:13)
--- NOTE | 2017-10-28 14:57 | RAD ---
Indication: Fever, confusion. CT of the brain was performed without IV contrast. Comparison is made with previous exam dated July 13, 2017. Ventricular structures are midline. No midline shift is noted. The extra-axial spaces are unremarkable. Again noted are hypodensities high in the right parietal convexity, in the left periventricular temporal lobe, right periatrial parietal and right para ventricular temporal lobe. These were present previously. Prior MRI of the brain demonstrates multiple susceptibility artifacts in this area and this may represent amyloid angiopathy. There is mucus retention cyst in the right maxillary sinus. IMPRESSION: Scattered areas of hyperdensities throughout the periventricular white matter in both cerebral hemispheres. These are unchanged. This may be sequela from prior hemorrhage or amyloid angiopathy. No acute changes are noted. Mucous retention cyst in the right maxillary sinus.
[2017-10-28 15:04] LABS: ALT 20 U/L (7-52); Albumin 4.2 g/dL (3.2-5.2); Alkaline Phosphatase 61 U/L (34-104); BUN/Creatinine Ratio 17.3 (8-20); Blood Urea Nitrogen 18 mg/dL (6-24); C Reactive Protein 30.39 mg/L (< 5.00); CO2 Carbon Dioxide 30 mmol/L (22-32); Calcium 8.7 mg/dL (8.6-10.3); Chloride 98 mmol/L (101-111); EGFR African American 88.8 (>60); EGFR Non-African American 69.1 (>60); Glucose 116 mg/dL (70-100); Sodium 135 mmol/L (133-145); Total Protein 7.2 g/dL (6.4-8.9)
[2017-10-28 15:05] LABS: Anion Gap 7 mmol/L (2-11); Troponin I 0.02 ng/mL (<0.04)
--- NOTE | 2017-10-28 15:24 | RAD ---
Indication: Confusion. Single frontal view of the chest performed at 1501 hours was reviewed. Comparison is made with previous exam dated July 13, 2017. No mediastinal shift is noted. Heart is of normal size and configuration. Lung jacobs appear clear. IMPRESSION: NO ACTIVE CARDIOPULMONARY DISEASE IS NOTED.
[2017-10-28 16:23] LABS: Hematocrit 34 % (42-52); Hemoglobin 11.6 g/dl (14.0-18.0); Mean Corpuscular HGB Conc 35 g/dl (31-36); Mean Corpuscular Hemoglobin 31 pg (27-31); Mean Corpuscular Volume 89 fL (80-94); Mean Platelet Volume 10 um3 (7.4-10.4); Red Blood Count 3.77 10^6/ul (4.0-5.4); Red Cell Distribution Width 14 % (10.5-15); White Blood Count 7.3 10^3/ul (3.5-10.8)
[2017-10-28 17:47] LABS: Urine Bacteria 1+ (Absent); Urine Bilirubin Negative (Negative); Urine Glucose Negative (Negative); Urine Nitrite Negative (Negative)
--- NOTE | 2017-10-28 19:54 | ED ---
Sukhi Klein Natalie, scribed for Santosh Davila MD on 10/28/17 at 1422 . Altered Mental Status - HPI Summary HPI Summary: The pt is a 77 y/o M presenting to the ED from [facility] c/o weakness and confusion starting this morning. Per , the patient was taken to [facility] because he was coughing and had a runny nose. At [facility], he was given an antibiotic. After lunch , the patient was unable to ambulate so he his brought him to the ED after the pt refused to let his call the ambulance. Pt additionally c/o fever since coming to ED, but was not present at [facility]. Pt states he does not feel confused and is not in pain. - History Of Current Complaint Chief Complaint: EDWeakness Stated Complaint: WEAKNESS Time Seen by Provider: 10/28/17 14:09 Hx Obtained From: Patient, Family/Neon Glass Bender - Onset/Duration: Still Present Severity Initially: Moderate Severity Currently: Moderate Character: Confusion Aggravating Factor(s): Nothing Alleviating Factor(s): Nothing Associated Signs And Symptoms: Positive: Fever, Weakness - Allergies/Home Medications Allergies/Adverse Reactions: Allergies Allergy/AdvReac Type Severity Reaction Status Date / Time Ciprofloxacin [From Cipro] Allergy Severe Spontaneous Verified 10/28/17 08:57 tendon rupture Diphenhydramine Allergy Severe See Comment Verified 10/28/17 08:57 [From Benadryl] Jaz Catechu Ext Allergy Intermediate Nausea And Verified 10/28/17 08:57 Vomiting Penicillins Allergy Unknown Rash And Verified 10/28/17 08:57 Itching Adhesive Tape Allergy Rash Verified 10/28/17 08:57 Mcrae Allergy ITCHY MOUTH Verified 10/28/17 08:57 Finasteride Allergy TENDER Verified 10/28/17 08:57 BREAST TISSUE Lactose Intolerance (GI) Allergy Diarrhea Verified 10/28/17 08:57 GUM KOREAN Allergy Intermediate NAUSEA,VOMITING Uncoded 10/28/17 08:57 AND DIARRHEA CAT DANDER Allergy Runny Nose Uncoded 10/28/17 08:57 HAY FEVER Allergy Runny Nose Uncoded 07/11/17 06:48 opiates AdvReac See Comment Uncoded 07/11/17 06:48 PMH/Surg Hx/FS Hx/Imm Hx Previously Healthy: No Endocrine/Hematology History: Reports: Hx Anticoagulant Therapy - aspirin , Hx Thyroid Disease - CANCER:thyroidectomy 2013 Denies: Hx Diabetes, Hx Anemia Cardiovascular History: Reports: Hx Angina, Hx Coronary Artery Disease - FOLLOWED BY DR SANTANA, Hx Hypertension - on meds, STATES WELL CONTROLLED, Hx Myocardial Infarction, Other Cardiovascular Problems/Disorders - DR. SANTANA FOLLOWS-LAST SEEN ABOUT 1 YEAR AGO Denies: Hx Congestive Heart Failure, Hx Hypercholesterolemia, Hx Pacemaker/ ICD, Hx Valvular Heart Disease Respiratory History: Reports: Hx Asthma Denies: Hx Chronic Obstructive Pulmonary Disease (COPD), Hx Lung Cancer GI History: Reports: Other GI Disorders - lactose intolerance Denies: Hx Gall Bladder Disease, Hx Gastrointestinal Bleed, Hx Jaundice, Hx Ulcer, Hx Urosepsis History: Reports: Hx Benign Prostatic Hyperplasia, Other Problems/ Disorders - BPH, bladder stone, uti's Denies: Hx Dialysis, Hx Kidney Stones, Hx Renal Disease Musculoskeletal History: Reports: 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 Basal cell carcinoma left nose 07/2016 Hx Chemotherapy: No Hx Radiation Therapy: No Hx Palliative Cancer Treatment: No - Surgical History Surgery Procedure, Year, and Place: tonsillectomy and adenoidectomy as a child - [facility]. appendectomy - [place]. left inguinal hernia repair - [place]. cardiac stents x2 - [facility] [place] quintuple bypass - [facility]. nasal cautery - [facility] [place]ide[place] [facility] [place] bilateral cataract extraction with iol's [place] [facility] [place] cystolitholapaxy [place] [facility] [place] moh's repair - [place]. Laminectomy 07/2017 [facility] Hx Anesthesia Reactions: No Infectious Disease History: No Infectious Disease History: Denies: Hx Clostridium Difficile, Hx Hepatitis, Hx Human Immunodeficiency Virus (HIV), Hx of Known/Suspected MRSA, Hx Shingles, Hx Tuberculosis, History Other Infectious Disease, Traveled Outside the [place] in Last 30 Days - Family History Known Family History: Positive: Hypertension, Other - mother - CVA, father - leukemia - Social History Alcohol Use: None Hx Substance Use: No Substance Use Type: Reports: None Hx Tobacco Use: No Smoking Status (MU): Never Smoked Tobacco Have You Smoked in the Last Year: No Review of Systems Positive: Fever Positive: Cough, Other - rhinorrhea Positive: Other - unable to ambulate All Other Systems Reviewed And Are Negative: Yes Physical Exam Triage Information Reviewed: Yes Vital Signs On Initial Exam: Initial Vitals Temp Pulse Resp BP Pulse Ox 100.8 F 65 18 143/66 96 10/28/17 13:55 10/28/17 13:55 10/28/17 13:55 10/28/17 13:55 10/28/17 13:55 Vital Signs Reviewed: Yes Appearance: Positive: Well-Appearing, No Pain Distress Skin: Positive: Warm, Skin Color Reflects Adequate Perfusion Head/Face: Positive: Normal Head/Face Inspection Eyes: Positive: EOMI, BAM ENT: Positive: Other - Rhinorrhea Respiratory/Lung Sounds: Positive: Clear to Auscultation, Breath Sounds Present Cardiovascular: Positive: RRR. Negative: Tachycardia Abdomen Description: Positive: Nontender, Soft Bowel Sounds: Positive: Present Musculoskeletal: Positive: Normal, Strength/ROM Intact Neurological: Positive: Sensory/Motor Intact, Alert, Oriented to Person Place, Time, Other - confused, no focal neurological deficit Psychiatric: Positive: Affect/Mood Appropriate Diagnostics - Vital Signs Vital Signs Temp Pulse Resp BP Pulse Ox 10/28/17 13:55 100.8 F 65 18 143/66 96 - Laboratory Lab Results: Lab Results 10/28/17 10/28/17 10/28/17 Range/Units 14:23 14:23 14:23 WBC (3.5-10.8) 10^3/ul RBC (4.0-5.4) 10^6/ul Hgb (14.0-18.0) g/dl Hct (42-52) % MCV (80-94) fL MCH (27-31) pg MCHC (31-36) g/dl RDW (10.5-15) % Plt Count (150-450) 10^3/ul MPV (7.4-10.4) um3 Neut % (Auto) (38-83) % Lymph % (Auto) (25-47) % [place] % (Auto) (1-9) % Eos % (Auto) (0-6) % Baso % (Auto) (0-2) % Absolute Neuts (auto) (1.5-7.7) 10^3/ul Absolute Lymphs (auto) (1.0-4.8) 10^3/ul Absolute Monos (auto) (0-0.8) 10^3/ul Absolute Eos (auto) (0-0.6) 10^3/ul Absolute Basos (auto) (0-0.2) 10^3/ul Absolute Nucleated RBC 10^3/ul Nucleated RBC % INR (Anticoag Therapy) 0.85 (0.77-1.02) APTT 16.6 L (26.0-36.3) seconds Sodium 135 (133-145) mmol/L Potassium TNP Chloride 98 L (101-111) mmol/L Carbon Dioxide 30 (22-32) mmol/L Anion Gap 7 (2-11) mmol/L BUN 18 (6-24) mg/dL Creatinine 1.04 (0.67-1.17) mg/dL Est GFR ( Amer) 88.8 (>60) Est GFR (Non-Af Amer) 69.1 (>60) BUN/Creatinine Ratio 17.3 (8-20) Glucose 116 H (70-100) mg/dL Lactic Acid (0.5-2.0) mmol/L Calcium 8.7 (8.6-10.3) mg/dL Total Bilirubin 0.50 (0.2-1.0) mg/dL AST TNP ALT 20 (7-52) U/L Alkaline Phosphatase 61 (34-104) U/L Troponin I 0.02 (<0.04) ng/mL C-Reactive Protein 30.39 H (< 5.00) mg/L B-Natriuretic Peptide 139 H ( - 100) pg/mL Total Protein 7.2 (6.4-8.9) g/dL Albumin 4.2 (3.2-5.2) g/dL Globulin 3.0 (2-4) g/dL Albumin/Globulin Ratio 1.4 (1-3) 10/28/17 10/28/17 10/28/17 Range/Units 14:23 16:17 16:17 WBC 7.3 (3.5-10.8) 10^3/ul RBC 3.77 L (4.0-5.4) 10^6/ul Hgb 11.6 L (14.0-18.0) g/dl Hct 34 L (42-52) % MCV 89 (80-94) fL MCH 31 (27-31) pg MCHC 35 (31-36) g/dl RDW 14 (10.5-15) % Plt Count 137 L (150-450) 10^3/ul MPV 10 (7.4-10.4) um3 Neut % (Auto) 86.4 H (38-83) % Lymph % (Auto) 2.9 L (25-47) % [place] % (Auto) 8.5 (1-9) % Eos % (Auto) 1.3 (0-6) % Baso % (Auto) 0.9 (0-2) % Absolute Neuts (auto) 6.3 (1.5-7.7) 10^3/ul Absolute Lymphs (auto) 0.2 L (1.0-4.8) 10^3/ul Absolute Monos (auto) 0.6 (0-0.8) 10^3/ul Absolute Eos (auto) 0.1 (0-0.6) 10^3/ul Absolute Basos (auto) 0.1 (0-0.2) 10^3/ul Absolute Nucleated RBC 0 10^3/ul Nucleated RBC % 0 INR (Anticoag Therapy) (0.77-1.02) APTT (26.0-36.3) seconds Sodium (133-145) mmol/L Potassium 3.4 L Chloride (101-111) mmol/L Carbon Dioxide (22-32) mmol/L Anion Gap (2-11) mmol/L BUN (6-24) mg/dL Creatinine (0.67-1.17) mg/dL Est GFR ( Amer) (>60) Est GFR (Non-Af Amer) (>60) BUN/Creatinine Ratio (8-20) Glucose (70-100) mg/dL Lactic Acid 2.0 (0.5-2.0) mmol/L Calcium (8.6-10.3) mg/dL Total Bilirubin (0.2-1.0) mg/dL AST 20 ALT (7-52) U/L Alkaline Phosphatase (34-104) U/L Troponin I (<0.04) ng/mL C-Reactive Protein (< 5.00) mg/L B-Natriuretic Peptide ( - 100) pg/mL Total Protein (6.4-8.9) g/dL Albumin (3.2-5.2) g/dL Globulin (2-4) g/dL Albumin/Globulin Ratio (1-3) Result Diagrams: 10/28/17 16:17 10/28/17 16:17 Lab Statement: Any lab studies that have been ordered have been reviewed, and results considered in the medical decision making process. - Radiology CXR Xray Interpretation: No Acute Changes - No active cardiopulmonary disease is noted. ED physician has reviewed this report. Radiology Interpretation Completed By: Radiologist - CT Brain CT CT Interpretation: No Acute Changes - Scattered areas of hyperdensities throughout the periventricular white matter In both cerebral hemispheres. These are unchanged. This may be sequela from prior Hemorrhage or amyloid angiopathy. No acute changes are noted. Mucous retention cyst in the right maxillary sinus. ED physician has reviewed this report. CT Interpretation Completed By: Radiologist - EKG 14:49 Cardiac Rate: NL EKG Rhythm: Sinus Rhythm - 66 BPM EKG Interpretation: Nml ST. No ectopy. Positive RBBB. Altered Mental Statu Course/Dx - Course Course Of Treatment: BP noted and advised to follow up with PCP. Allergies noted. Medications reviewed. ADMIT HOSPITALIST. CRITICAL CARE TIME LESS THAN 30 MINUTES. - Diagnoses Discharge Diagnoses: Influenza, Fever, Confusion, Weakness Discharge - Discharge Plan Condition: Stable Disposition: ADMITTED TO [facility] The documentation as recorded by the Sukhi mednez Natalie accurately reflects the service I personally performed and the decisions made by , Santosh Davila MD.
[2017-10-28] MEDS: NS 0.9% w/ 20 Meq KCL 1000 ML* 1,000 ML IV SCH (22:43)
[2017-10-28] MEDS: Heparin VIAL(*) 5000 UNITS/ML VIAL (FIVE THOUSAND) SUBCUT SCH (22:47)
[2017-10-28] MEDS ORDERED: Acetaminophen TAB* 325 MG PO PRN (23:16)
--- NOTE | 2017-10-29 03:12 | HP ---
CC: Dr. Curran ADMISSION HISTORY AND PHYSICAL: DATE OF ADMISSION: 10/28/17 CHIEF COMPLAINT: Cough. HISTORY OF PRESENT ILLNESS: Mr. Ryan is a 77-year-old man with a history of heart disease and asthma, who developed URI symptoms yesterday with fatigue, sore throat, rhinorrhea. Overnight, this progressed to a constant cough and kept him up from sleeping. His brought him to the [facility] this morning and he was assessed there by a provider and advised that he has a viral URI. He was sent home with azithromycin and a cough medicine. He went back home around lunch and took 1 tablet of antibiotic and then became confused and unable to walk. The said both legs seemed not to work. She was able to find a walker in the house and get him to the car after he refused transfer by ambulance. He does report the cough is nonproductive. Denies fevers at home. He denies shortness of breath. The was concerned because he was admitted to this hospital in July 2014 with sepsis due to enterococcus urinary infection. At that time, he had presented with back pain and confusion and this seems very similar to her. He does report backache in the emergency room tonight. He is worried about UTI, but denies any dysuria or frequency or hematuria. PAST MEDICAL HISTORY: Includes coronary artery disease, history of myocardial infarction, gout, BPH, asthma, hypertension, hyperlipidemia, hypothyroidism. PAST SURGICAL HISTORY: Thyroidectomy due to thyroid cancer, coronary artery bypass graft, appendectomy, cataract removal bilaterally, inguinal hernia repair. He had a recent lumbar laminectomy at L4-L5 in July of this year at this hospital. MEDICATIONS: On admission: 1. Aspirin 81 mg p.o. daily. 2. Atorvastatin 40 mg p.o. q.p.m. 3. Azithromycin 500 mg p.o. daily, started today. 4. Benzonatate 100 mg one p.o. t.i.d. p.r.n. cough. 5. Calcitriol 0.5 mcg p.o. b.i.d. 7. Calcium carbonate 1000 mg p.o. 4 times a day. 8. Clotrimazole/betamethasone 1 topically b.i.d. as needed. 9. Dutasteride 0.5 mg p.o. q.a.m. 10. Enalapril 10 mg p.o. q.a.m. 11. Ibuprofen 600 mg p.o. q.6 hours p.r.n. pain. 12. Levothyroxine 150 mcg p.o. daily. 13. Claritin 10 mg p.o. daily p.r.n. 14. Nitroglycerin 0.4 mg sublingual q.5 minutes x3 p.r.n. chest pain. 15. Tamsulosin 0.4 mg p.o. q.p.m. 16. Lamisil topical daily as needed. ALLERGIES: CIPRO, BENADRYL, PENICILLIN, and OPIATES. FAMILY HISTORY: Notable for mother of stroke, but she also had heart disease. Brother is alive and has diabetes. Father of leukemia at age 70. 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 He is . He has 2 children. He never smoked. No alcohol or drug use. REVIEW OF SYSTEMS: The patient denies any anorexia or weight loss. He does have a fever today. The patient denies any chest pain or palpitations. The patient denies any hemoptysis or shortness of breath, but does have a cough. The patient denies any nausea, vomiting, diarrhea, constipation, or abdominal pain. The patient does admit to back pain, but is low lumbar near the area of his surgery. Remainder of a 14-point review of systems was negative other than mentioned in the HPI. PHYSICAL EXAMINATION GENERAL: He is an elderly man, in no acute distress. VITAL SIGNS: Temperature is 38.2, pulse is 63, respirations are 21, blood pressure is 140/53, O2 sat is 94%. HEENT: Head is normocephalic and atraumatic. Sclerae anicteric. Pupils are equal, round, and reactive to light and accommodation. Oropharynx is most. No lesions. NECK: No JVD. No carotid bruits. No thyromegaly. LUNGS: Clear to auscultation and percussion bilaterally. No rales or wheezes. HEART: Regular rate and rhythm without murmurs, rubs, or gallops. ABDOMEN: Soft, nontender. Positive bowel sounds. No hepatosplenomegaly. EXTREMITIES: No peripheral edema. Dorsalis pedis pulses 1+ bilaterally. NEUROLOGIC: Cranial nerves II through XII are intact. Motor strength is 5/5 throughout. Deep tendon reflexes are 2+ and symmetric. MENTAL STATUS EXAM: He is alert, he is oriented to place, person. He took a little while to figure out that it was Monday, but eventually got it. He knows that Mary is coming up. He is a vague historian. His says that this is not his baseline. DIAGNOSTIC STUDIES/LAB DATA: Laboratory data, sodium 135, potassium 3.4, chloride 98, bicarb 30, BUN 18, creatinine 1.04, glucose 116, calcium 8.7, lactic acid 2.0, BNP 139, albumin 4.2, AST 20, ALT 20, bilirubin 0.5. White count 7.3, hemoglobin 11.6, hematocrit 34%, platelets 137. INR 0.85. PTT 16.6. Urinalysis is pending. EKG, normal sinus rhythm, left axis deviation, right bundle-branch block. No ischemic changes. Chest x-ray is negative. No infiltrates or effusions. Head CT showed some scattered white matter changes. No stroke. There is a cyst in the right frontal sinus. ASSESSMENT AND PLAN: A 77-year-old man presenting with acute infectious illness , likely influenza versus urinary tract infection. He does have concern for systemic inflammatory response syndrome as his temperature is elevated and reportedly had some tachycardia earlier. His white count was normal, lactic acid was normal, so I do not think he has sepsis. He has received 2.5 L of intravenous crystalloids in the emergency department per protocol. We are going to check a urinalysis and a rapid flu swab. He has been treated empirically with ceftriaxone and azithromycin for possible bronchitis versus urinary tract infection and this can be continued. He will be started on telemetry given his presentation of sepsis a couple of years ago in a similar way. We think also given his heart disease and the stress of this illness, he will have serial troponins and telemetry monitoring. He has hypokalemia presumably due to poor p.o. intake. He will have this repleted intravenously and rechecked in the morning. For DVT prophylaxis, he will have subcutaneous heparin. [id number]/[facility] #: [id number] [facility] HOSPITALTheresa
[2017-10-29 06:47] LABS: Hematocrit 33 % (42-52); Hemoglobin 11.3 g/dl (14.0-18.0); Mean Corpuscular HGB Conc 34 g/dl (31-36); Mean Corpuscular Hemoglobin 31 pg (27-31); Mean Corpuscular Volume 90 fL (80-94); Mean Platelet Volume 10 um3 (7.4-10.4); Red Blood Count 3.72 10^6/ul (4.0-5.4); Red Cell Distribution Width 15 % (10.5-15); White Blood Count 6.2 10^3/ul (3.5-10.8)
[2017-10-29 07:05] LABS: BUN/Creatinine Ratio 14.6 (8-20); C Reactive Protein 47.63 mg/L (< 5.00); Calcium 7.2 mg/dL (8.6-10.3); EGFR African American 106.3 (>60); EGFR Non-African American 82.7 (>60); Potassium 3.4 mmol/L (3.5-5.0)
[2017-10-29 07:14] LABS: Troponin I 0.13 ng/mL (<0.04)
[2017-10-29] MEDS: NS 0.9% w/ 20 Meq KCL 1000 ML* 1,000 ML IV SCH ×2 (07:38→18:41)
[2017-10-29] MEDS ORDERED: Nitroglycerin TAB 0.4 MG* 0.4 MG TAB SL PRN (08:39)
[2017-10-29] MEDS ORDERED: cefTRIAXone(*) 1 GM in NS 0.9% 50 ML* 50 ML IVPB SCH (09:00)
[2017-10-29] MEDS: Calcium Carbonate CHEW TAB* 500 MG (TUMS) PO SCH ×4 (09:25→21:08)
[2017-10-29] MEDS: Aspirin EC Low Dose* 81 MG TAB.EC PO SCH (09:27)
[2017-10-29] MEDS: Levothyroxine TAB* 150 MCG TAB PO SCH (09:27)
[2017-10-29] MEDS: Enalapril TAB* 5 MG PO SCH (09:27)
[2017-10-29] MEDS: Heparin VIAL(*) 5000 UNITS/ML VIAL (FIVE THOUSAND) SUBCUT SCH ×2 (09:30→21:10)
[2017-10-29] MEDS: Oseltamivir CAP* 75 MG PO SCH ×2 (10:38→21:09)
[2017-10-29] MEDS: Calcitriol CAP* 0.25 MCG PO SCH ×2 (10:39→21:08)
[2017-10-29] MEDS: DUTASTERIDE 0.5 MG PO SCH (10:40)
--- NOTE | 2017-10-29 13:56 | PN ---
Subjective Date of Service: 10/29/17 Interval History: Patient continues to have bothersome cough, somewhat productive. Denies SOB. No chest pain. is concerned she will get influenza. Patient has had difficulty walking for a few days, this is somewhat better. Nursing reports patient is impulsive. Family History: Unchanged from Admission Social History: Unchanged from Admission Past Medical History: Unchanged from Admission Objective Active Medications: Acetaminophen (Tylenol Tab*) 650 mg PO Q6H PRN PRN Reason: FEVER/PAIN Last Admin: 10/28/17 23:41 Dose: 650 mg Aspirin (Aspirin Ec Low Dose*) 81 mg PO QAM [facility] Last Admin: 10/29/17 09:27 Dose: 81 mg Atorvastatin Calcium (Lipitor*) 40 mg PO QPM [facility] Benzonatate (Tessalon Cap*) 100 mg PO BID PRN PRN Reason: COUGH Calcitriol (Rocaltrol Cap*) 0.5 mcg PO BID [facility] Last Admin: 10/29/17 10:39 Dose: 0.5 mcg Calcium Carbonate (Tums*) 1,000 mg PO QID [facility] Last Admin: 10/29/17 09:25 Dose: 1,000 mg Dutasteride (Avodart (Nf)) 0.5 mg PO QAM [facility] PRN Reason: Protocol Last Admin: 10/29/17 10:40 Dose: Not Given Enalapril Maleate (Vasotec Tab*) 10 mg PO QAM [facility] Last Admin: 10/29/17 09:27 Dose: 10 mg Heparin Sodium (Porcine) (Heparin Vial(*)) 5,000 units SUBCUT Q12HR [facility] Last Admin: 10/29/17 09:30 Dose: 5,000 units Potassium Chloride/Sodium Chloride (Ns 0.9% W/ 20 Meq Kcl 1000 Ml*) 1,000 mls @ 125 mls/hr IV PER RATE [facility] Last Admin: 10/29/17 07:38 Dose: 125 mls/hr Ceftriaxone Sodium 1 gm/ (Sodium Chloride) 50 mls @ 200 mls/hr IVPB Q24H [facility] Last Admin: 10/29/17 09:30 Dose: 200 mls/hr Azithromycin 500 mg/ Sodium (Chloride) 250 mls @ 250 mls/hr IVPB Q24H [facility] Levothyroxine Sodium (Synthroid Tab*) 150 mcg PO DAILY@0600 [facility] Last Admin: 10/29/17 09:27 Dose: 150 mcg Nitroglycerin (Nitroglycerin Tab 0.4 Mg*) 0.4 mg SL Q5M PRN PRN Reason: chest pain Oseltamivir Phosphate (Tamiflu Cap*) 75 mg PO BID [facility] Stop: 11/02/17 21:01 Last Admin: 10/29/17 10:38 Dose: 75 mg Tamsulosin HCl (Flomax Cap*) 0.4 mg PO QPM [facility] Vital Signs - 8 hr 10/29/17 12:47 Temperature 37.9 C Pulse Rate 55 Respiratory 18 Rate Blood Pressure 137/54 (mmHg) O2 Sat by Pulse 95 Oximetry Oxygen Devices in Use Now: None Appearance: alert, no distress Eyes: No Scleral Icterus Ears/Nose/Mouth/Throat: Clear Oropharnyx Respiratory: Symmetrical Chest Expansion and Respiratory Effort, Clear to Auscultation Cardiovascular: NL Sounds; No Murmurs; No JVD, RRR Abdominal: NL Sounds; No Tenderness; No Distention Extremities: No Edema Neurological: Alert and Oriented x 3 Lines/Tubes/Other Access: Clean, Dry and Intact Peripheral IV Result Diagrams: 10/29/17 06:32 10/29/17 06:32 Additional Lab and Data: La Laboratory Tests 10/28/17 10/28/17 10/28/17 16:17 17:23 18:51 WBC Hct Plt Count Potassium 3.4 L Troponin I 0.04 H* C-Reactive Protein Influenza A (Rapid) Positive H Influenza B (Rapid) Negative 10/28/17 10/29/17 10/29/17 21:33 06:32 06:32 WBC 6.2 Hct 33 L Plt Count 133 L Potassium 3.4 L Troponin I 0.06 H* 0.13 H* C-Reactive Protein 47.63 H Influenza A (Rapid) Influenza B (Rapid) Assess/Plan/Problems-Billing Assessment: 77 year old man admitted w/ weakness, confusion found to have influenza - Patient Problems (1) Influenza A Current Visit: Yes Status: Acute Priority: High Code(s): J10.1 - FLU DUE TO OTH IDENT INFLUENZA VIRUS W OTH RESP MANIFEST SNOMED Code(s): 009424981 Comment: -patient has cough, weakness, diarrhea from influenza -has been started on Tamiflu -confusion may be due to viral encephalitis -will stop empiric antibiotics for pneumonia and UTI (2) Troponin level elevated Current Visit: Yes Status: Acute Priority: Medium Code(s): R74.8 - ABNORMAL LEVELS OF OTHER SERUM ENZYMES SNOMED Code(s): 780289978 Comment: -Patient has mildly elevated troponin, known h/o CAD -likely elevated by demand ischemia, acute illness -will trend to peak, and follow on telemetry (3) Hypokalemia Current Visit: Yes Status: Acute Priority: Medium Code(s): E87.6 - HYPOKALEMIA SNOMED Code(s): 63597872 Comment: -hypokalemia is mild, related to dehydration -will continue supplement IV, recheck in AM (4) DVT prophylaxis Current Visit: Yes Status: Acute Priority: Low Code(s): EXJ7220 - SNOMED Code(s): 100163396 Comment: -SC heparin Status and Disposition: continued observation due to confusion, inability to walk
[2017-10-29] MEDS ORDERED: Azithromycin IV(*) 500 MG in NS 0.9% 250 ML* 250 ML IVPB SCH (16:00)
[2017-10-29 16:39] LABS: BUN/Creatinine Ratio 16.1 (8-20); Calcium 7.1 mg/dL (8.6-10.3); EGFR African American 109.1 (>60); EGFR Non-African American 84.9 (>60); Potassium 3.6 mmol/L (3.5-5.0)
[2017-10-29] MEDS: Atorvastatin* 40 MG TAB PO SCH (17:46)
[2017-10-29] MEDS: Tamsulosin CAP* 0.4 MG PO SCH (17:47)
[2017-10-29] MEDS: Benzonatate CAP* 100 MG PO PRN (21:10)
[2017-10-30] MEDS: NS 0.9% w/ 20 Meq KCL 1000 ML* 1,000 ML IV SCH (03:22)
[2017-10-30] MEDS: Levothyroxine TAB* 150 MCG TAB PO SCH (05:23)
[2017-10-30 06:18] LABS: BUN/Creatinine Ratio 13.5 (8-20); EGFR African American 106.3 (>60); EGFR Non-African American 82.7 (>60); Magnesium 1.6 mg/dL (1.9-2.7); Potassium 3.2 mmol/L (3.5-5.0)
[2017-10-30 06:25] LABS: Troponin I 0.15 ng/mL (<0.04)
[2017-10-30] MEDS: DUTASTERIDE 0.5 MG PO SCH (09:22)
[2017-10-30] MEDS: Heparin VIAL(*) 5000 UNITS/ML VIAL (FIVE THOUSAND) SUBCUT SCH ×2 (09:26→21:29)
[2017-10-30] MEDS: Aspirin EC Low Dose* 81 MG TAB.EC PO SCH (09:27)
[2017-10-30] MEDS: Benzonatate CAP* 100 MG PO PRN ×2 (09:27→21:37)
[2017-10-30] MEDS: Calcium Carbonate CHEW TAB* 500 MG (TUMS) PO SCH ×4 (09:27→21:18)
[2017-10-30] MEDS: Enalapril TAB* 5 MG PO SCH (09:27)
[2017-10-30] MEDS: Calcitriol CAP* 0.25 MCG PO SCH ×2 (09:28→21:37)
[2017-10-30] MEDS: Oseltamivir CAP* 75 MG PO SCH ×2 (09:28→21:17)
[2017-10-30] MEDS: Loperamide CAP* 2 MG PO PRN ×2 (10:20→21:37)
[2017-10-30] MEDS: Potassium Chlor TAB* 10 MEQ TAB.ER PO SCH ×2 (10:51→21:17)
[2017-10-30] MEDS: Magnesium Oxide TAB* 400 MG PO SCH ×2 (10:51→21:17)
--- NOTE | 2017-10-30 12:00 | PN ---
Subjective Date of Service: 10/30/17 Interval History: Patient has continued cough, but slightly improved. There is no dyspnea. His walking is better, he feels he can walk to bathroom unsupported. He has new diarrhea, irritating perianal area. Family History: Unchanged from Admission Social History: Unchanged from Admission Past Medical History: Unchanged from Admission Objective Active Medications: Acetaminophen (Tylenol Tab*) 650 mg PO Q6H PRN PRN Reason: FEVER/PAIN Last Admin: 10/28/17 23:41 Dose: 650 mg Aspirin (Aspirin Ec Low Dose*) 81 mg PO QAM [facility] Last Admin: 10/30/17 09:27 Dose: 81 mg Atorvastatin Calcium (Lipitor*) 40 mg PO QPM [facility] Last Admin: 10/29/17 17:46 Dose: 40 mg Benzonatate (Tessalon Cap*) 100 mg PO BID PRN PRN Reason: COUGH Last Admin: 10/30/17 09:27 Dose: 100 mg Calcitriol (Rocaltrol Cap*) 0.5 mcg PO BID [facility] Last Admin: 10/30/17 09:28 Dose: 0.5 mcg Calcium Carbonate (Tums*) 1,000 mg PO QID [facility] Last Admin: 10/30/17 09:27 Dose: 1,000 mg Dutasteride (Avodart (Nf)) [facility] [facility] Reason: Protocol Last Admin: 10/30/17 09:22 Dose: Not Given Enalapril Maleate (Vasotec Tab*) 10 mg PO QAM [facility] Last Admin: 10/30/17 09:27 Dose: 10 mg Heparin Sodium (Porcine) (Heparin Vial(*)) 5,000 units SUBCUT Q12HR [facility] Last Admin: 10/30/17 09:26 Dose: 5,000 units Levothyroxine Sodium (Synthroid Tab*) 150 mcg PO DAILY@0600 [facility] Last Admin: 10/30/17 05:23 Dose: 150 mcg Loperamide HCl (Imodium Cap*) 2 mg PO .SEE DIRECTIONS PRN PRN Reason: DIARRHEA Last Admin: 10/30/17 10:20 Dose: 2 mg Magnesium Oxide (Magox 400 Tab*) 400 mg PO BID [facility] Last Admin: 10/30/17 10:51 Dose: 400 mg Nitroglycerin (Nitroglycerin Tab 0.4 Mg*) 0.4 mg SL Q5M PRN PRN Reason: chest pain Oseltamivir Phosphate (Tamiflu Cap*) 75 mg PO BID [facility] Stop: 11/02/17 21:01 Last Admin: 10/30/17 09:28 Dose: 75 mg Potassium Chloride (Klor Con Er Tab*) 10 meq PO BID [facility] Last Admin: 10/30/17 10:51 Dose: 10 meq Tamsulosin HCl (Flomax Cap*) 0.4 mg PO QPM [facility] Last Admin: 10/29/17 17:47 Dose: Not Given Vital Signs - 8 hr 10/30/17 10/30/17 10/30/17 08:10 08:29 10:20 Temperature 36.8 C Pulse Rate 47 Respiratory 15 14 20 Rate Blood Pressure 139/57 (mmHg) O2 Sat by Pulse 95 Oximetry Oxygen Devices in Use Now: None Appearance: no distress, conversant Eyes: No Scleral Icterus Neck: NL Appearance and Movements; NL JVP Respiratory: - - rales at RT base Cardiovascular: NL Sounds; No Murmurs; No JVD Neurological: Alert and Oriented x 3 Lines/Tubes/Other Access: Clean, Dry and Intact Peripheral IV Result Diagrams: 10/29/17 06:32 10/30/17 05:34 Additional Lab and Data: Laboratory Tests 10/29/17 10/30/17 10/30/17 14:02 05:34 10:37 Potassium 3.2 L Magnesium 1.6 L Troponin I 0.15 H* 0.15 H* 0.11 H* Assess/Plan/Problems-Billing Assessment: 77 year old man admitted w/ weakness, confusion found to have influenza - Patient Problems (1) Influenza A Current Visit: Yes Status: Acute Priority: High Code(s): J10.1 - FLU DUE TO OTH IDENT INFLUENZA VIRUS W OTH RESP MANIFEST SNOMED Code(s): 844282216 Comment: -responding well to Tamiflu, off antibiotics -confusion may have been due to viral encephalitis (2) Troponin level elevated Current Visit: Yes Status: Acute Priority: Medium Code(s): R74.8 - ABNORMAL LEVELS OF OTHER SERUM ENZYMES SNOMED Code(s): 234261142 Comment: -Patient has mildly elevated troponin, known h/o CAD -likely elevated by demand ischemia, acute illness -troponin now peaked, will follow on telemetry -echocardiogram tomorrow (3) Hypokalemia Current Visit: Yes Status: Acute Priority: Medium Code(s): E87.6 - HYPOKALEMIA SNOMED Code(s): 64230015 Comment: -hypokalemia is mild, related to dehydration -will switch supplement to PO, recheck in AM -also required magnesium supplement (4) DVT prophylaxis Current Visit: Yes Status: Acute Priority: Low Code(s): ZSZ1149 - SNOMED Code(s): 454198229 Comment: -SC heparin Status and Disposition: continued inpatient stay due to recent confusion, inability to walk likely discharge in 1-2 days
[2017-10-30] MEDS: Tamsulosin CAP* 0.4 MG PO SCH (16:23)
[2017-10-30] MEDS: Atorvastatin* 40 MG TAB PO SCH (16:54)
[2017-10-31 05:26] LABS: Hematocrit 34 % (42-52); Hemoglobin 11.9 g/dl (14.0-18.0); Mean Corpuscular HGB Conc 35 g/dl (31-36); Mean Corpuscular Hemoglobin 30 pg (27-31); Mean Corpuscular Volume 88 fL (80-94); Mean Platelet Volume 10 um3 (7.4-10.4); Red Cell Distribution Width 15 % (10.5-15); White Blood Count 3.7 10^3/ul (3.5-10.8)
[2017-10-31 05:39] LABS: BUN/Creatinine Ratio 15.5 (8-20); Calcium 7.4 mg/dL (8.6-10.3); EGFR African American 113.7 (>60); EGFR Non-African American 88.4 (>60); Magnesium 1.7 mg/dL (1.9-2.7); Potassium 3.2 mmol/L (3.5-5.0)
[2017-10-31] MEDS: Levothyroxine TAB* 150 MCG TAB PO SCH (06:36)
[2017-10-31] MEDS: Potassium Chlor TAB* 10 MEQ TAB.ER PO SCH (08:18)
[2017-10-31] MEDS: Magnesium Oxide TAB* 400 MG PO SCH (08:18)
[2017-10-31] MEDS: Calcium Carbonate CHEW TAB* 500 MG (TUMS) PO SCH (08:18)
[2017-10-31] MEDS: Oseltamivir CAP* 75 MG PO SCH (08:19)
[2017-10-31] MEDS: Calcitriol CAP* 0.25 MCG PO SCH (08:19)
[2017-10-31] MEDS: DUTASTERIDE 0.5 MG PO SCH (08:19)
[2017-10-31] MEDS: Aspirin EC Low Dose* 81 MG TAB.EC PO SCH (08:19)
[2017-10-31] MEDS: Heparin VIAL(*) 5000 UNITS/ML VIAL (FIVE THOUSAND) SUBCUT SCH (08:19)
[2017-10-31] MEDS ORDERED: Potassium Chlor TAB* 20 MEQ TAB.ER PO ONE (08:24)
[2017-10-31] MEDS: Enalapril TAB* 5 MG PO SCH (09:44)
[2017-10-31] MEDS ORDERED: Magnesium Sulfate 2 GM IV* 2 GM/50 ML BAG IVPB ONE (10:33)
--- NOTE | 2017-10-31 11:02 | ECHO ---
Patient: NANCY MERINO [facility] Rec#: [id number] : 1940 Date: 10/31/2017 Age: 77y Height: 175.26 cm / 69.0 in Weight: 76.2 kg / 167.9 lbs Sex: M BSA: 1.92 Room#: 437 Admit Date#: 10/29/2017 Type: Inpatient Referring: Inderjit James MD Reading: Preston Rodrigues MD Index Clerk: Lucia Weinberg [facility] CC: Andrzej Curran MD Transthoracic Echocardiogram Indication: Acute Coronary Syndrome BP: 157/63 HR: 47 Rhythm: Bradycardia Findings History: CAD,prior AR,s/p CABG.gout,BPH,asthma,HTN,HLD,hypothyroid. Technical Comments: The study quality is good. Completed at 1011. Left Ventricle: The left ventricular chamber size is normal. Septal wall hypertrophy is observed. There is increased basal septal hypertrophy noted without evidence of an increased gradient across the left ventricular outflow tract. There is normal left ventricular systolic function.Sigmoid septum with mild increase in LVOT velocity to 1.4 mps but no significant obstruction. The estimated ejection fraction is 60-65%. Post surgical hypokinesis of the interventricular septum is observed consistent with coronary artery bypass. Abnormal left ventricular diastolic function is observed. The left ventricular diastolic filling pattern is consistent with pseudonormalization. Left Atrium: The left atrium is mild to moderately dilated. Right Ventricle: The right ventricle is mildly dilated. The right ventricular global systolic function is low normal. Flattened in systole and diastole consistent with right ventricular pressure and volume overload. Right Atrium: The right atrium is moderately dilated. Aortic Valve: The aortic valve is trileaflet. There is no evidence of aortic valve thickening. There is trace to mild aortic regurgitation. There is no evidence of aortic stenosis. Mitral Valve: The mitral valve leaflets are mildly thickened. There is mild to moderate mitral regurgitation. There is no evidence of mitral stenosis. Tricuspid Valve: The tricuspid valve leaflets are normal. There is moderate tricuspid regurgitation. The tricuspid regurgitant jet is directed toward the septum. There is evidence of mild pulmonary hypertension. There is no tricuspid stenosis. Pulmonic Valve: The pulmonic valve appears normal. There is mild pulmonic regurgitation. There is no pulmonic stenosis. Pericardium: The pericardium appears normal. Aorta: There is no dilatation of the ascending aorta. There is no dilatation of the aortic arch. There is mild dilatation of the aortic root. Pulmonary Artery: The main pulmonary artery appears normal. Venous: The venous system is not well visualized. Conclusions There is normal left ventricular systolic function.Sigmoid septum with mild increase in LVOT velocity to 1.4 mps but no significant obstruction. The estimated ejection fraction is 60-65%. Post surgical hypokinesis of the interventricular septum is observed consistent with coronary artery bypass. The left ventricular diastolic filling pattern is consistent with pseudonormalization. The left atrium is mild to moderately dilated. The right ventricle is mildly dilated. The right ventricular global systolic function is low normal. Flattened in systole and diastole consistent with right ventricular pressure and volume overload. There is trace to mild aortic regurgitation. There is mild to moderate mitral regurgitation. There is moderate tricuspid regurgitation. The tricuspid regurgitant jet is directed toward the septum. There is evidence of mild pulmonary hypertension. There is mild pulmonic regurgitation. Compared to 2012, the septal wall motion abnormality is newly decribed (perhaps related to interval CABG or RV volume overload) and the MR has increased from trace and the TR has increased from mild then to moderate now. Measurements Name Value Normal Range RVIDd (AP) 2D 2.9 cm (0.9 - 2.6) RVDdMajor (2D) 2.9 cm (2.2 - 4.4) RAd ISD 4CH 5.6 cm (3.4 - 4.9) RA (A4C)W 4.6 cm (2.9 - 4.6) IVSd (2D) 1.2 cm (0.6 - 1) LVPWd (2D) 1 cm (0.6 - 1) LVIDd (2D) 4.5 cm (3.6 - 5.4) LVIDs (2D) 3.4 cm - LV FS (2D) 25 % (25 - 45) Aortic Annulus 2.3 cm (1.4 - 2.6) Ao root diameter (2D) 3.6 cm (2.1 - 3.5) Ascending Ao 3.3 cm (2.1 - 3.4) Aortic arch 2.6 cm (1.8 - 3.4) Descending Ao 0.6 cm - LA dimension (AP) 2D 4.5 cm (2.3 - 3.8) LAd ISD 4CH 5.3 cm (2.9 - 5.3) LA ISD 4CH W 3.3 cm (2.5 - 4.5) Name Value Normal Range LA ESV SP 4CH (A/L) 51 ml - LA ESV SP 2CH (A/L) 59 ml - LA ESV BP (A/L) 57 ml - LA ESV BP (A/L) index 29.77 ml/m2 - LA ESV SP 4CH (MOD) 44 ml - LA ESV SP 2CH (MOD) 58 ml - Name Value Normal Range MV E-wave Vmax 0.9 m/sec - MV deceleration time 209 msec - MV A-wave Vmax 0.9 m/sec - MV E:A ratio 1 ratio - LV septal e' Vmax 0.07 m/sec - LV lateral e' Vmax 0.08 m/sec - LV E:e' septal ratio 12.85 ratio - LV E:e' lateral ratio 11.25 ratio - Name Value Normal Range AV Vmax 1.4 m/sec - AV VTI 33.4 cm - AV peak gradient 7.7 mmHg - AV mean gradient 3.42 mmHg - LVOT Vmax 1.3 m/sec - LVOT VTI 34.4 cm - LVOT peak gradient 6.9 mmHg - LVOT mean gradient 2.67 mmHg - AR PHT 615 msec - AR peak gradient 16.36 mmHg - Name Value Normal Range MR Vmax 4 m/sec - MR VTI 125 cm - Name Value Normal Range TR Vmax 2.8 m/sec - TR peak gradient 32 mmHg - RAP 8 mmHg - RVSP 40 mmHg - Name Value Normal Range PV Vmax 1.1 m/sec - PV peak gradient 4.78 mmHg -
--- NOTE | 2017-10-31 11:11 | PN ---
Subjective Date of Service: 10/31/17 Interval History: Patient seen and examined at bedside. Patient denies shortness of breath, chest pain. Confusion resolved. Able to ambulate independently. Afebrile. Family History: Unchanged from Admission Social History: Unchanged from Admission Past Medical History: Unchanged from Admission Objective Active Medications: Acetaminophen (Tylenol Tab*) 650 mg PO Q6H PRN Aspirin (Aspirin Ec Low Dose*) 81 mg PO QAM [facility] Atorvastatin Calcium (Lipitor*) 40 mg PO QPM [facility] Benzonatate (Tessalon Cap*) 100 mg PO BID PRN Calcitriol (Rocaltrol Cap*) 0.5 mcg PO BID [facility] Calcium Carbonate (Tums*) 1,000 mg PO QID [facility] Dutasteride (Avodart (Nf)) 0.5 mg PO QAM [facility] Enalapril Maleate (Vasotec Tab*) 10 mg PO QAM [facility] Heparin Sodium (Porcine) (Heparin Vial(*)) 5,000 units SUBCUT Q12HR [facility] Magnesium Sulfate (Magnesium Sulfate 2 Gm Iv*) 2 gm in 50 mls @ 50 mls/hr IVPB ONCE ONE Levothyroxine Sodium (Synthroid Tab*) 150 mcg PO DAILY@0600 [facility] Loperamide HCl (Imodium Cap*) 2 mg PO .SEE DIRECTIONS PRN Magnesium Oxide (Magox 400 Tab*) 400 mg PO BID [facility] Nitroglycerin (Nitroglycerin Tab 0.4 Mg*) 0.4 mg SL Q5M PRN Oseltamivir Phosphate (Tamiflu Cap*) 75 mg PO BID [facility] Potassium Chloride (Klor Con Er Tab*) 10 meq PO Q12HR [facility] Tamsulosin HCl (Flomax Cap*) 0.4 mg PO QPM [facility] Vital Signs Temp Pulse Resp BP Pulse Ox 97.9 F 45 18 141/61 94 10/31/17 07:50 10/31/17 07:50 10/31/17 07:50 10/31/17 07:50 10/31/17 07:50 Oxygen Devices in Use Now: None Appearance: sitting up in bed, NAD Eyes: No Scleral Icterus Ears/Nose/Mouth/Throat: NL Teeth, Lips, Gums, Mucous Membranes Moist Neck: NL Appearance and Movements; NL JVP Respiratory: Symmetrical Chest Expansion and Respiratory Effort, Clear to Auscultation Cardiovascular: NL Sounds; No Murmurs; No JVD, RRR Abdominal: NL Sounds; No Tenderness; No Distention Extremities: No Edema Skin: No Rash or Ulcers Neurological: Alert and Oriented x 3, NL Muscle Strength and Tone Lines/Tubes/Other Access: Clean, Dry and Intact Peripheral IV Nutrition: Taking PO's Result Diagrams: 10/31/17 04:57 10/31/17 04:57 Additional Lab and Data: . Assess/Plan/Problems-Billing 77 year old man hx of CAD, HTNadmitted w/ weakness, confusion found to have influenza - Patient Problems (1) Influenza A Comment: Responding well to Tamiflu, off antibiotics. Confusion may have been due to viral encephalitis (2) Hypokalemia Comment: Replete Mg and KCl. Will not need supplements at discharge. (3) Troponin level elevated Comment: Likely demand ischemia. There is a new septal wall motionabnormality that could be post-surgical. Stress test not indicated now d/t illness. Recommend outpatient stress for f/u. Normal LV function with low normal RV function. (4) CAD (coronary artery disease) Comment: Continue ASA and Lipitor; hx of CABG likely elevated troponin from demand ischemia. (5) BPH (benign prostatic hyperplasia) Comment: Continue Flomax (6) Dyslipidemia Comment: Continue Lipitor (7) Hypertension Comment: Continue enalapril (8) DVT prophylaxis Comment: SQ Heparin (9) Full code status Status and Disposition: Inpatient. Stable for discharge home. Please see full dictated discharge summary for detail.
[2017-10-31 11:38] VITALS: BP 119/54
[2017-10-31] MEDS ORDERED: Potassium Chlor TAB* 10 MEQ TAB.ER PO SCH (13:00)
--- NOTE | 2017-11-01 04:12 | DS ---
CC: Dr. Curran * DISCHARGE SUMMARY: DATE OF ADMISSION: 10/27/17 DATE OF DISCHARGE: 10/31/17 PRIMARY CARE PROVIDER: Dr. Curran. ATTENDING PHYSICIAN: Janice Barkley MD * (report dictated by Audrey Jimenez NP). PRIMARY DIAGNOSES: 1. Altered mental status secondary to influenza A. 2. Indeterminate troponin. 3. Hypokalemia. SECONDARY DIAGNOSES: 1. Coronary artery disease, status post bypass. 2. Gout. 3. Benign prostatic hypertrophy. 4. Asthma. 5. Hypertension. 6. Hyperlipidemia. 7. Hypothyroidism. STUDIES WHILE IN THE HOSPITAL: 1. Chest x-ray portable 10/28/17, no active cardiopulmonary disease. 2. CT brain without contrast 10/28/17, scattered areas of hyperdensity throughout the periventricular white matter in both cerebellar hemispheres. These are unchanged. This may be sequelae from prior hemorrhage or amyloid angiopathy. No acute changes are noted. Mucus retention cyst in the right maxillary sinus. 3. Transthoracic echocardiogram 10/31/17, there is normal left ventricular systolic function. Sigmoid septum with mild increase in LV outflow tract velocity to 1.4 MPS, but no significant obstruction. The estimated ejection fraction is 60% to 65%. Postsurgical hypokinesis of the intraventricular septum is observed consistent with coronary artery disease. The left ventricular diastolic filling pattern is consistent with pseudonormalization. The left atrium is [id number] dilated. The right ventricle is mildly dilated. The right ventricular global systolic function is low normal. Flattened in systole and diastole consistent with right ventricular pressure and volume overload. There was trace to mild aortic regurgitation. There is [id number]-[id number] mitral regurgitation. There is moderate tricuspid regurgitation. The tricuspid regurgitant jet is directed toward the septum. There was evidence of mild pulmonary hypertension. There was mild pulmonic regurgitation. Compared to 2012, the septal wall motion abnormality is newly described perhaps related to interval CABG or perhaps RV volume overload and the MR has increased from trace and the TR has increased from mild to moderate now. MEDICATIONS AT THE TIME OF DISCHARGE: New medications: 1. Imodium 2 mg every 6 hours as needed for diarrhea. 2. Tamiflu 75 mg oral twice daily. 3. Robitussin, cough and chest 5/100 mg/5 mL 1 dose every 6 hours as needed. The following medications are the medications the patient came in on that he should continue on discharge: 1. Flomax 0.4 mg oral daily. 2. Lipitor 40 mg oral daily. 3. Aspirin 81 mg oral daily. 4. Enalapril 10 mg oral in the morning. 5. Synthroid 150 mcg oral daily. 6. Calcium carbonate, Tums 1000 mg oral 4 times a daily. 7. Nitro 0.4 mg sublingual every 5 minutes as needed. 8. Dutasteride 0.5 mg oral in the morning. 9. Calcitriol 0.5 mcg oral twice daily. 10. Claritin 10 mg oral daily as needed. 11. Lotrisone cream one application topical twice daily as needed. 12. Lamisil 1% topical daily as needed. 13. Ibuprofen 600 mg oral every 6 hours as needed. 14. Yordy 1 to 2 capsules oral 3 times daily as needed. HISTORY OF PRESENT ILLNESS AND HOSPITAL COURSE: Mr. Ryan is a 77-year-old male with history of heart disease, asthma who developed upper respiratory symptoms on 10/27/17. He went to [facility] the next day and was discharged home with Zithromax and cough medicine. Later that day, the patient became significantly weak and confused. He was brought to the emergency room for further evaluation. In the emergency room, the patient was pancultured. He was tachycardic. There was concern for systemic inflammatory response syndrome because of his tachycardia and elevated temperature. He was given 2.5 L of fluid and treated empirically with ceftriaxone and Zithromax. The patient was positive for influenza and was started on Tamiflu. With the Tamiflu treatment and IV fluids, his confusion and weakness slowly began to improve. He continued to have low grade temperature but last temperature was 10/29/17 of 100 at 11 p.m. at night. Fevers have now resolved and from the flu standpoint, he is stable to be discharged home. The patient's weakness and confusion also improved with IV fluids and treatment with Tamiflu. He was mentating back at his baseline and was able to ambulate independently. In addition on admission, the patient was found to have indeterminate troponin. Given his history of coronary artery disease, he was placed on telemetry and this was trended, troponin peaked at 0.15. Likely this was demand ischemia. He had a transthoracic echocardiogram that showed a normal ejection fraction. There was a septal wall defect that could be postsurgical given his history of CABG. This resulted in a low normal function of his right ventricle. The patient had no EKG changes and did not complain of any chest pain. The patient did receive a significant amount of fluid and this could be a result of that. The patient is not in any respiratory distress and diuretics at this time are not indicated. Regarding these small changes, the patient should follow up with his bpo specialist as an outpatient and have a stress test. Because he is currently recovering from the flu, a stress test during this hospitalization is not indicated. During this hospitalization, enalapril was continued for blood pressure, Synthroid was continued for hypothyroidism, atorvastatin, aspirin were continued for his coronary artery disease, and Flomax and dutasteride were continued for BPH. When the patient presented, his potassium was slightly low at 3.4. He was given repletion. Subsequently, the patient developed some diarrhea, which likely could have been from the antibiotic he received early on in the admission. His magnesium and potassium required aggressive repletion. The patient does not have any history of any cardiac arrhythmia; hence at this point, I have opting to not send him home on any potassium supplementation. He should have his potassium and magnesium checked in 1 week and at that point once he is out of this acute illness, then his primary care provider can determine whether or not he needs long-term oral supplementation. For his diarrhea, he was started on Imodium which has helped thus far. On 10/31/17, vitals are as follows: Temperature 97.8, heart rate 47, respiratory rate 20, blood pressure 119/54, oxygen saturation 95%. At this point, he was stable for discharge. DISCHARGE PLAN: The patient was discharged on a heart healthy diet with activity as tolerated. The patient should follow up with his primary care provider, Dr. Curran, within 4 to 7 days. The patient at that time should have labs checked for potassium and magnesium as he was deficient of those during the hospitalization. The patient should also follow up with Dr. Johnson and have an outpatient stress test scheduled the next month. The patient should return to hospital if he has any chest pain, worsening confusion, weakness, high fever , or shortness of breath. I have reviewed all these instructions with the patient and his , they are agreeable with his discharge today. This is a summarized report of a complex medical history and hospital stay. For more details, please see the entire medical record. Time for discharge was 60 minutes and over 35 minutes were spent [id number] with the patient discussing discharge plan and follow-up instructions. CONDITION ON DISCHARGE: Stable. AUDREY JIMENEZ NP [id number]/[facility] #: [id number] ELADIO
== END 2017-10-31 12:52 | disposition home or self-care (01) | DRG 195 ==
LOC: ED 13:47 → MEDTELE 16:58 → OBSVTOIN 10-29 15:04
PROVIDERS: ADMIT Internal Medicine; ATTEND Internal Medicine
DX: J10.1 Influenza due to other identified influenza virus with other respiratory manifestations (principal); I08.3 Combined rheumatic disorders of mitral, aortic and tricuspid valves; I27.20 Pulmonary hypertension, unspecified; E73.9 Lactose intolerance, unspecified; J45.909 Unspecified asthma, uncomplicated; E78.5 Hyperlipidemia, unspecified; I10 Essential (primary) hypertension; I25.2 Old myocardial infarction; M10.9 Gout, unspecified; N40.0 Benign prostatic hyperplasia without lower urinary tract symptoms; E89.0 Postprocedural hypothyroidism; E87.6 Hypokalemia; M19.011 Primary osteoarthritis, right shoulder; G43.909 Migraine, unspecified, not intractable, without status migrainosus; R74.8 Abnormal levels of other serum enzymes; R41.82 Altered mental status, unspecified; R19.7 Diarrhea, unspecified; I25.10 Atherosclerotic heart disease of native coronary artery without angina pectoris; Z95.1 Presence of aortocoronary bypass graft; Z98.42 Cataract extraction status, left eye; Z98.41 Cataract extraction status, right eye; Z88.1 Allergy status to other antibiotic agents; Z88.8 Allergy status to other drugs, medicaments and biological substances; Z88.5 Allergy status to narcotic agent; Z88.0 Allergy status to penicillin; Z82.49 Family history of ischemic heart disease and other diseases of the circulatory system; Z83.3 Family history of diabetes mellitus; Z80.6 Family history of leukemia; Z82.3 Family history of stroke; Z87.440 Personal history of urinary (tract) infections; Z91.018 Allergy to other foods; Z91.048 Other nonmedicinal substance allergy status; Z79.82 Long term (current) use of aspirin
CPT/HCPCS: 36415; 70450; 71010; 80048; 80053; 81003; 81015; 83605; 83735; 83880; 84484; 85025; 85610; 85730; 86140; 87040; 87086; 87502; 93005; 93306; 99212; A9270-GY; G0378; G0463; G8978-GP-CK; G8979-GP-CI; J0456; J0696; J1644; J3475

== ENCOUNTER 2017-11-01 02:03 | Emergency (ER) | payer MEDICARE, BC ==
[2017-11-01] MEDS ORDERED: Albuterol/Ipratropium NEB.SOL* Albuterol 2.5 MG/Ipratropium 0.5 MG 3 ML INH ONE (03:00)
[2017-11-01] MEDS ORDERED: Albuterol 2.5 MG/3 ML NEB.SOL* (0.083%) INH ONE (03:00)
[2017-11-01 03:30] LABS: ABS Basophils 0 10^3/ul (0-0.2); ABS Eosinophils 0.1 10^3/ul (0-0.6); ABS Monocytes 0.7 10^3/ul (0-0.8); ABS Neutrophils 2.6 10^3/ul (1.5-7.7); ABS Nucleated RBC 0 10^3/ul; Eosinophil % 2.3 % (0-6); Hematocrit 35 % (42-52); Hemoglobin 11.9 g/dl (14.0-18.0); Lymphocyte % 22.7 % (25-47); Mean Corpuscular HGB Conc 34 g/dl (31-36); Mean Corpuscular Hemoglobin 30 pg (27-31); Mean Corpuscular Volume 88 fL (80-94); Mean Platelet Volume 9 um3 (7.4-10.4); Nucleated Red Blood Cells % 0.1; Platelet Count 161 10^3/ul (150-450); Red Blood Count 3.95 10^6/ul (4.0-5.4); Red Cell Distribution Width 15 % (10.5-15); White Blood Count 4.4 10^3/ul (3.5-10.8)
[2017-11-01 03:42] LABS: EGFR Non-African American 75.8 (>60)
[2017-11-01] MEDS ORDERED: Magnesium Sulfate 2 GM IV* 2 GM/50 ML BAG IVPB ONE (04:10)
[2017-11-01] MEDS ORDERED: Potassium Chlor TAB* 20 MEQ TAB.ER PO ONE (04:10)
[2017-11-01] MEDS ORDERED: methylPREDNISolone 125 MG* 2 ML VIAL IV ONE (04:37)
--- NOTE | 2017-11-01 05:24 | ED ---
Yakov Klein Tecjoon, scribed for Tania Flores MD on 11/01/17 at 0333 . HPI Cardiac - HPI Summary HPI Summary: This patient is a 77 year old male BIBA to [facility] accompanied by with a chief complaint of SOB while coughing since 214. Patient states that he cannot breath in when he coughs. Patients states patient chokes when he coughs so much so he loses his bowel and bladder. Pt was discharged from this facility last night for a 4 day admission d/t flu. Pt discharged on Tamiflu. Patient denies chest pain, fever, productive cough. - History of Current Complaint Chief Complaint: EDShortnessOfBreath Stated Complaint: DIFF BREATHING Time Seen by Provider: 11/01/17 02:13 Hx Obtained From: Patient, Family/Road Crew Member Onset/Duration: Started Hours Ago - 214, Still Present Time of Onset: 02:15 Timing: Intermittent - during coughing episodes Pain Intensity: 0 Pain Scale Used: 0-10 Numeric Aggravating Factor(s): Nothing Alleviating Factor(s): Nothing Associated Signs and Symptoms: Positive: Negative - chest pain, fever, productive cough. - Additional Pertinent History Primary Care Physician: [id number] - Allergy/Home Medications Allergies/Adverse Reactions: Allergies Allergy/AdvReac Type Severity Reaction Status Date / Time Ciprofloxacin [From Cipro] Allergy Severe Spontaneous Verified 11/01/17 02:39 tendon rupture Diphenhydramine Allergy Severe See Comment Verified 11/01/17 02:39 [From Benadryl] Jaz Catechu Ext Allergy Intermediate Nausea And Verified 11/01/17 02:39 Vomiting Penicillins Allergy Unknown Rash And Verified 11/01/17 02:39 Itching Adhesive Tape Allergy Rash Verified 11/01/17 02:39 Mcrae Allergy ITCHY MOUTH Verified 11/01/17 02:39 Finasteride Allergy TENDER Verified 11/01/17 02:39 BREAST TISSUE Lactose Intolerance (GI) Allergy Diarrhea Verified 11/01/17 02:39 [place] Allergy Intermediate NAUSEA,VOMITING Uncoded 11/01/17 02:39 AND DIARRHEA CAT DANDER Allergy Runny Nose Uncoded 11/01/17 02:39 HAY FEVER Allergy Runny Nose Uncoded 11/01/17 02:39 opiates AdvReac See Comment Uncoded 11/01/17 02:39 PMH/Surg Hx/FS Hx/Imm Hx Previously Healthy: No Endocrine/Hematology History: Reports: Hx Anticoagulant Therapy - aspirin , Hx Thyroid Disease - CANCER:thyroidectomy 2013 Denies: Hx Diabetes, Hx Anemia Cardiovascular History: Reports: Hx Angina, Hx Coronary Artery Disease - FOLLOWED BY DR SANTANA, Hx Hypertension - on meds, STATES WELL CONTROLLED, Hx Myocardial Infarction, Other Cardiovascular Problems/Disorders - DR. SANTANA FOLLOWS-LAST SEEN ABOUT 1 YEAR AGO Denies: Hx Congestive Heart Failure, Hx Hypercholesterolemia, Hx Pacemaker/ ICD, Hx Valvular Heart Disease Respiratory History: Reports: Hx Asthma Denies: Hx Chronic Obstructive Pulmonary Disease (COPD), Hx Lung Cancer GI History: Reports: Other GI Disorders - lactose intolerance Denies: Hx Gall Bladder Disease, Hx Gastrointestinal Bleed, Hx Jaundice, Hx Ulcer, Hx Urosepsis History: Reports: Hx Benign Prostatic Hyperplasia, Other Problems/ Disorders - BPH, bladder stone, uti's Denies: Hx Dialysis, Hx Kidney Stones, Hx Renal Disease Musculoskeletal History: Reports: 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 Basal cell carcinoma left nose 07/2016 Hx Chemotherapy: No Hx Radiation Therapy: No Hx Palliative Cancer Treatment: No - Surgical History Surgery Procedure, Year, and Place: tonsillectomy and adenoidectomy as a child - [facility]. appendectomy - [facility] [facility]. left inguinal hernia repair - [facility]. cardiac stents x2 - [facility] [place] quintuple bypass - [facility] nasal cautery - [facility] [place]roidectomy [place] [facility] [place]. bilateral cataract extraction with iol's - [facility] [place]. cystolitholapaxy - [facility] [place]. moh's repair - [place]. Laminectomy 07/2017 [facility] Hx Anesthesia Reactions: No Infectious Disease History: No Infectious Disease History: Denies: Hx Clostridium Difficile, Hx Hepatitis, Hx Human Immunodeficiency Virus (HIV), Hx of Known/Suspected MRSA, Hx Shingles, Hx Tuberculosis, History Other Infectious Disease, Traveled Outside the [place] in Last 30 Days - Family History Known Family History: Positive: None, Hypertension, Other - mother - CVA, father - leukemia - Social History Alcohol Use: None Hx Substance Use: No Substance Use Type: Reports: None Hx Tobacco Use: No Smoking Status (MU): Never Smoked Tobacco Have You Smoked in the Last Year: No Review of Systems Negative: Fever Negative: Chest Pain Positive: Cough - non-productive All Other Systems Reviewed And Are Negative: Yes Physical Exam - Summary Physical Exam Summary: VITAL SIGNS: Reviewed. GENERAL: Patient is a well-developed and nourished male who is lying comfortable in the stretcher. Patient is not in any acute respiratory distress. HEAD AND FACE: No signs of trauma. No ecchymosis, hematomas or skull depressions. No sinus tenderness. EYES: PERRLA, EOMI x 2, No injected conjunctiva, no nystagmus. EARS: Hearing grossly intact. Ear canals and tympanic membranes are within normal limits. MOUTH: Oropharynx within normal limits. NECK: Supple, trachea is midline, no adenopathy, no JVD, no carotid bruit, no c- spine tenderness, neck with full ROM. CHEST: Symmetric, no tenderness at palpation LUNGS: Decreased breath sounds bilaterally CVS: Regular rate and rhythm, S1 and S2 present, no murmurs or gallops appreciated. ABDOMEN: Soft, non-tender. No signs of distention. No rebound no guarding, and no masses palpated. Bowel sounds are normal. EXTREMITIES: FROM in all major joints, no edema, no cyanosis or clubbing. NEURO: Alert and oriented x 3. No acute neurological deficits. Speech is normal and follows commands. SKIN: Dry and warm Vital Signs On Initial Exam: Initial Vitals Temp Pulse Resp BP Pulse Ox 98.6 F 48 20 144/71 92 11/01/17 02:13 11/01/17 02:13 11/01/17 02:13 11/01/17 02:13 11/01/17 02:13 - [place] Coma Scale Coma Scale Total: 15 Diagnostics - Vital Signs Vital Signs Temp Pulse Resp BP Pulse Ox 11/01/17 03:19 46 19 99 11/01/17 02:13 98.6 F 48 20 144/71 92 - Laboratory Result Diagrams: 11/01/17 03:19 11/01/17 03:19 Lab Statement: Any lab studies that have been ordered have been reviewed, and results considered in the medical decision making process. - Radiology CXR Xray Interpretation: No Acute Changes Radiology Interpretation Completed By: ED Physician, Radiologist Disposition - Course Course Of Treatment: This patient is a 77 year old male BIBA to [facility] accompanied by with a chief complaint of SOB while coughing since 214. Patient states that he cannot breath in when he coughs. Patients states patient chokes when he coughs so much so he loses his bowel and bladder. CXR reveals, per radiologist, Impression: No acute process. ED physician has reviewed this radiology report. Bloodwork Obtained. In the ED course the patient was given Albuterol, Potassium Chloride, Magnesium Sulfate. Patient is diagnosed with 1. coughing spells and 2. chronic hypocalcemia. Take prednisone as directed. Take calcium supplement and follow up with PCP in 1 week to check calcium levels. The patient is agreeable with this plan. - Diagnoses Provider Diagnoses: Constitutional chronic hypocalcemia, Coughing Discharge - Discharge Plan Condition: Fair Disposition: HOME Prescriptions: predniSONE TAB* [Deltasone TAB*] 40 mg PO DAILY #10 tab predniSONE TAB* [Deltasone TAB*] 40 mg PO DAILY #10 tab Patient Education Materials: Hypocalcemia (ED) Referrals: Andrzej Curran MD [Primary Care Provider] - 1 Week Additional Instructions: Patient is diagnosed with 1. coughing spells and 2. chronic hypocalcemia. Take prednisone as directed. Take calcium supplement and follow up with PCP in 1 week to check calcium levels. The patient is agreeable with this plan. RETURN TO EMERGENCY DEPARTMENT FOR ANY NEW OR WORSENING SYMPTOMS The documentation as recorded by the Yakov mendez Tecjoon accurately reflects the service I personally performed and the decisions made by , Tania Flores MD.
[2017-11-01 05:31] VITALS: BP 139/62
--- NOTE | 2017-11-01 06:32 | ED ---
Yakov Klein Tecjoon, scribed for Tania Flores MD on 11/01/17 at 0527 . Course/Dx - Course Course Of Treatment: Patient is diagnosed with Low calcium level that is asymptomatic and most likely chronic. - Diagnoses Provider Diagnoses: Constitutional chronic hypocalcemia, Coughing The documentation as recorded by the Yakov mendez Tecjoon accurately reflects the service I personally performed and the decisions made by Sandra hines Abdul, MD.
--- NOTE | 2017-11-01 08:18 | RAD ---
INDICATION: Cough COMPARISON: Chest x-ray October 28, 2017 TECHNIQUE: Single AP portable view of the chest was obtained. FINDINGS: Image quality is compromised due to the relative inferiority of a portable chest x-ray. The heart and mediastinum exhibit normal size and contour. There is linear density at the left lung base consistent with atelectasis or less likely consolidation. Otherwise the lungs are adequately aerated. There is no evidence of a large pleural effusion. Visualized bones are normal for the patient's age. IMPRESSION: New linear density the left lung base could represent atelectasis or infectious pneumonia.
== END 2017-11-01 05:30 | disposition home or self-care (01) ==
LOC: ED 02:03
DX: E83.51 Hypocalcemia (principal); R05 Cough; R50.9 Fever, unspecified
CPT/HCPCS: 36415; 71010; 80053; 85025; 86140; 94640; 96374; 96375; 99283; A9270-GY; J2930; J3475

== ENCOUNTER 2018-01-04 15:41 | Emergency (ER) | payer MEDICARE, BC ==
[2018-01-04 15:53] VITALS: BP 136/66
--- NOTE | 2018-01-04 19:31 | ED ---
Back Pain - HPI Summary HPI Summary: Patient is a 77-year-old male who presents to the ED with chief complaint of right sided lower back pain which occurred 2 days ago while he was straining doing something. He states the pain radiates superiorly over to the right kidney, but denies any urinary symptoms. He denies any pain currently, but states the pain comes and goes depending on how he moves. He has been taking ibuprofen [id number] for relief. He has a long history of back pain specifically over the lumbar spine which he recently had spinal fusion. He denies any back pain over the cervical lumbar or thoracic spine. He does not have a history of sciatica and this pain does not radiate down into the buttocks or into the leg. He denies any fevers, sweats, chills, bladder or bowel dysfunction. - History of Current Complaint Chief Complaint: EDBackInjuryPain Stated Complaint: BACK PAIN Time Seen by Provider: 01/04/18 17:09 Hx Obtained From: Patient Onset/Duration: Sudden Onset Onset/Duration: Started Days Ago Timing: Constant Back Pain Location: Is Discrete @ Severity Initially: Moderate Severity Currently: Moderate Pain Intensity: 0 Pain Scale Used: 0-10 Numeric Character: Aching - Lower back Aggravating Symptom(s): Movement, Lifting, Bending Alleviating Symptom(s): Rest, Position Associated Signs And Symptoms: Positive: Negative. Negative: Weakness, Numbness , Tingling, Abdominal Pain, Bladder Incontinence, Bowel Incontinence, Weight Loss, Pain with Weight Bearing - Risk Factors AAA Risk Factors: Negative TAD Risk Factors: Negative Cauda Equina Risk Factors: Negative Epidural Abscess Risk Factors: Negative - Allergies/Home Medications Allergies/Adverse Reactions: Allergies Allergy/AdvReac Type Severity Reaction Status Date / Time hesham Allergy Nausea And Verified 01/04/18 17:10 Vomiting Adhesive Tape Allergy Rash Verified 01/04/18 15:51 dubon Allergy See Comment Verified 01/04/18 17:09 ciprofloxacin [From Cipro] Allergy See Comment Verified 01/04/18 17:05 diphenhydramine Allergy See Comment Verified 01/04/18 17:06 [From Benadryl] finasteride Allergy See Comment Verified 01/04/18 17:08 lactose Allergy Diarrhea Verified 01/04/18 17:09 Penicillins Allergy Rash And Verified 01/04/18 17:07 Itching GUM INDONESIAN Allergy Intermediate NAUSEA,VOMITING Uncoded 01/04/18 15:51 AND DIARRHEA CAT DANDER Allergy Runny Nose Uncoded 01/04/18 15:51 HAY FEVER Allergy Runny Nose Uncoded 01/04/18 15:51 opiates AdvReac See Comment Uncoded 01/04/18 15:51 PMH/Surg Hx/FS Hx/Imm Hx Previously Healthy: Yes Endocrine/Hematology History: Reports: Hx Anticoagulant Therapy - aspirin , Hx Thyroid Disease - CANCER:thyroidectomy 2013 Denies: Hx Diabetes, Hx Anemia Cardiovascular History: Reports: Hx Angina, Hx Coronary Artery Disease - FOLLOWED BY DR SANTANA, Hx Hypertension - on meds, STATES WELL CONTROLLED, Hx Myocardial Infarction, Other Cardiovascular Problems/Disorders - DR. SANTANA FOLLOWS-LAST SEEN ABOUT 1 YEAR AGO Denies: Hx Congestive Heart Failure, Hx Hypercholesterolemia, Hx Pacemaker/ ICD, Hx Valvular Heart Disease Respiratory History: Reports: Hx Asthma Denies: Hx Chronic Obstructive Pulmonary Disease (COPD), Hx Lung Cancer GI History: Reports: Other GI Disorders - lactose intolerance Denies: Hx Gall Bladder Disease, Hx Gastrointestinal Bleed, Hx Jaundice, Hx Ulcer, Hx Urosepsis History: Reports: Hx Benign Prostatic Hyperplasia, Other Problems/ Disorders - BPH, bladder stone, uti's Denies: Hx Dialysis, Hx Kidney Stones, Hx Renal Disease Musculoskeletal History: Reports: 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 Basal cell carcinoma left nose 07/2016 Hx Chemotherapy: No Hx Radiation Therapy: No Hx Palliative Cancer Treatment: No - Surgical History Surgery Procedure, Year, and Place: tonsillectomy and adenoidectomy as a child - [facility]. appendectomy - [place]. left inguinal hernia repair - [place]. cardiac stents x2 - [facility] [place] quintuple bypass - [facility] nasal cautery - [facility] [place] thyroidectomy - [facility] [place] bilateral cataract extraction with iol's - [facility] [place] cystolitholapaxy - [facility] [place]. moh's repair - [place]. Laminectomy 07/2017 [facility] [place] Hx Anesthesia Reactions: No - Immunization History Hx Pertussis Vaccination: No Immunizations Up to Date: Unable to Obtain/Confirm Infectious Disease History: No Infectious Disease History: Denies: Hx Clostridium Difficile, Hx Hepatitis, Hx Human Immunodeficiency Virus (HIV), Hx of Known/Suspected MRSA, Hx Shingles, Hx Tuberculosis, History Other Infectious Disease, Traveled Outside the in Last 30 Days - Family History Known Family History: Positive: None, Hypertension, Other - mother - CVA, father - leukemia - Social History Occupation: Unemployed Lives: With Family Alcohol Use: None Hx Substance Use: No Substance Use Type: Reports: None Hx Tobacco Use: No Smoking Status (MU): Never Smoked Tobacco Have You Smoked in the Last Year: No Review of Systems Constitutional: Negative Negative: Fever, Chills, Fatigue Eyes: Negative Cardiovascular: Negative Negative: Abdominal Pain, Vomiting, Diarrhea, Nausea Genitourinary: Negative Positive: no symptoms reported, see HPI Musculoskeletal: Negative Skin: Negative Negative: Headache, Weakness, Paresthesia, Numbness Psychological: Normal All Other Systems Reviewed And Are Negative: Yes Physical Exam Triage Information Reviewed: Yes Vital Signs On Initial Exam: Initial Vitals Temp Pulse Resp BP Pulse Ox 98.1 F 63 16 136/66 98 01/04/18 15:51 01/04/18 15:51 01/04/18 15:51 01/04/18 15:51 01/04/18 15:51 Vital Signs Reviewed: Yes Appearance: Positive: Well-Appearing, Well-Nourished Skin: Positive: Warm, Skin Color Reflects Adequate Perfusion Head/Face: Positive: Normal Head/Face Inspection Eyes: Positive: EOMI, BAM, Conjunctiva Clear Neck: Positive: Supple, No Lymphadenopathy Respiratory/Lung Sounds: Positive: Clear to Auscultation, Breath Sounds Present Cardiovascular: Positive: Normal, RRR, Pulses are Symmetrical in both Upper and Lower Extremities Musculoskeletal: Positive: Pain @ - right lower back. Negative: Edema Left, Edema Right Neurological: Positive: Speech Normal Psychiatric: Positive: Normal, Affect/Mood Appropriate Diagnostics - Vital Signs Vital Signs Temp Pulse Resp BP Pulse Ox 01/04/18 18:35 98.3 F 63 16 136/66 99 01/04/18 15:51 98.1 F 63 16 136/66 98 - Laboratory Lab Statement: Any lab studies that have been ordered have been reviewed, and results considered in the medical decision making process. Back Pain Course/Dx - Course Course Of Treatment: During the course of treatment, the patient's evaluated for right lower back pain. He does not have a history of sciatica and this pain does not radiate. He has discrete pain over the right lower side which radiates upward into the costovertebral angle. He denies any urinary symptoms or pulmonary symptoms. I have offered him Flexeril and he agrees to this. He is encouraged to take ibuprofen 600 mg 3 times a day and use lidocaine patches for relief. Lidocaine patches are not applying he is to use moist heat as much as possible. He will follow back up with his CP as soon as possible. I am not concerned with a kidney stone, pyelonephritis, UTI. I have offered a chest x- ray as the pain radiates up into the right posterior back over to the right lower lung but he declines this at this time as he has no other symptoms. - Diagnoses Provider Diagnoses: Muscle strain Discharge - Discharge Plan Condition: Stable Disposition: HOME Prescriptions: Cyclobenzaprine TAB* [Flexeril TAB*] 10 mg PO BID PRN #15 tab PRN Reason: Pain Lidocaine PATCH 5%* [Lidoderm 5% Patch*] 2 patch TRANSDERM DAILY #10 patch Patient Education Materials: Muscle Strain (ED), Muscle Spasm (ED), Lower Back Exercises (ED) Referrals: Andrzej Curran MD [Primary Care Provider] - Additional Instructions: Flexeril: Take up to 3 times daily, but attempt to only take twice daily for muscle pains Ibuprofen 600 mg 3 times daily for inflammation and pain Lidocaine patch apply and leave on for 12 hours at a time Do not use any heat if you are using lidocaine If he did not use the lidocaine patch, apply moist heat to the low right lower back as much as possible Low back exercise stretches have been given to you Possible Schedule: 8am Ibuprofen 600mg 11am Flexeril 10mg 2pm Ibuprofen 600mg 5pm Flexeril 10mg (if needed) 8pm Ibuprofen Immediately before bed (any time): Flexeril 10mg
== END 2018-01-04 18:36 | disposition home or self-care (01) ==
LOC: ED 15:41
DX: S39.012A Strain of muscle, fascia and tendon of lower back, initial encounter (principal); M54.5 Low back pain; X58.XXXA Exposure to other specified factors, initial encounter; Y92.9 Unspecified place or not applicable; Z79.01 Long term (current) use of anticoagulants; Z79.82 Long term (current) use of aspirin
CPT/HCPCS: 93005; 99281

== ENCOUNTER 2018-02-28 23:43 | Observation (INO) | payer MEDICARE, BC ==
[2018-03-01 00:54] LABS: ABS Basophils 0.1 10^3/ul (0-0.2); ABS Eosinophils 0.3 10^3/ul (0-0.6); ABS Lymphocytes 0.8 10^3/ul (1.0-4.8); ABS Monocytes 1.1 10^3/ul (0-0.8); ABS Neutrophils 9.6 10^3/ul (1.5-7.7); ABS Nucleated RBC 0 10^3/ul; Eosinophil % 2.6 % (0-6); Hematocrit 36 % (42-52); Hemoglobin 12.1 g/dl (14.0-18.0); Mean Corpuscular HGB Conc 34 g/dl (31-36); Mean Corpuscular Hemoglobin 30 pg (27-31); Mean Corpuscular Volume 89 fL (80-94); Mean Platelet Volume 9.6 um3 (7.4-10.4); Nucleated Red Blood Cells % 0; Platelet Count 179 10^3/ul (150-450); Red Blood Count 4.04 10^6/ul (4.0-5.4); Red Cell Distribution Width 14 % (10.5-15)
[2018-03-01 01:12] LABS: EGFR Non-African American 84.9 (>60)
[2018-03-01] MEDS ORDERED: NS 0.9% 1000 ML* 1,000 ML IV ONE (01:20)
[2018-03-01 01:22] LABS: INR 0.94 (0.77-1.02)
--- NOTE | 2018-03-01 02:22 | ED ---
Dizziness - HPI Summary HPI Summary: Complains of sudden onset tremors, dizziness, nausea lasting 10 minutes. Symptoms have resolved. He has no current complaints. states last time patient had tremors he was admitted to the hospital for urosepsis. Denies focal deficits, slurred speech, facial droop, unilateral weakness, vision change , change in mental status, CORCORAN, fever, cough, sore throat, CV, SOB, N/V/D, abdomen pain, change in urinary or BM. Medical hx = htn, hdl, CAD, thyroid, history of cardiac bypass 20 years ago, cardiac stents 2. states cardiac stress test 6 months ago negative. - History Of Current Complaint Chief Complaint: EDDizziness Stated Complaint: GENERAL ILLNESS Time Seen by Provider: 02/28/18 23:54 Hx Obtained From: Patient, Family/Hand Flesher Onset/Duration: Resolved Timing: Minutes Severity Initially: Moderate Severity Currently: None Character: Dizzy Aggravating Factor(s): Nothing Alleviating Factor(s): Nothing Associated Signs And Symptoms: Positive: Negative - Risk Factors Cardiac Risk Factors: Hypertension, Prior [place], CAD CVA Risk Factor: Hypertension, Hyperlipidemia - Allergies/Home Medications Allergies/Adverse Reactions: Allergies Allergy/AdvReac Type Severity Reaction Status Date / Time hesham Allergy Nausea And Verified 01/04/18 17:10 Vomiting Adhesive Tape Allergy Rash Verified 01/04/18 15:51 dubon Allergy See Comment Verified 01/04/18 17:09 ciprofloxacin [From Cipro] Allergy See Comment Verified 01/04/18 17:05 diphenhydramine Allergy See Comment Verified 01/04/18 17:06 [From Benadryl] finasteride Allergy See Comment Verified 01/04/18 17:08 lactose Allergy Diarrhea Verified 01/04/18 17:09 Penicillins Allergy Rash And Verified 01/04/18 17:07 Itching tramadol Allergy See Comment Verified 02/28/18 23:52 GUM TURKMEN Allergy Intermediate NAUSEA,VOMITING Uncoded 01/04/18 15:51 AND DIARRHEA CAT DANDER Allergy Runny Nose Uncoded 01/04/18 15:51 HAY FEVER Allergy Runny Nose Uncoded 01/04/18 15:51 opiates AdvReac See Comment Uncoded 01/04/18 15:51 PMH/Surg Hx/FS Hx/Imm Hx Endocrine/Hematology History: Reports: Hx Anticoagulant Therapy - aspirin , Hx Thyroid Disease - CANCER:thyroidectomy 2013 Denies: Hx Diabetes, Hx Anemia Cardiovascular History: Reports: Hx Angina, Hx Coronary Artery Disease - FOLLOWED BY DR SANTANA, Hx Hypertension - on meds, STATES WELL CONTROLLED, Hx Myocardial Infarction, Other Cardiovascular Problems/Disorders - DR. SANTANA FOLLOWS-LAST SEEN ABOUT 1 YEAR AGO Denies: Hx Congestive Heart Failure, Hx Hypercholesterolemia, Hx Pacemaker/ ICD, Hx Valvular Heart Disease Respiratory History: Reports: Hx Asthma Denies: Hx Chronic Obstructive Pulmonary Disease (COPD), Hx Lung Cancer GI History: Reports: Other GI Disorders - lactose intolerance Denies: Hx Gall Bladder Disease, Hx Gastrointestinal Bleed, Hx Jaundice, Hx Ulcer, Hx Urosepsis History: Reports: Hx Benign Prostatic Hyperplasia, Other Problems/ Disorders - BPH, bladder stone, uti's Denies: Hx Dialysis, Hx Kidney Stones, Hx Renal Disease Musculoskeletal History: Reports: Hx 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 Basal cell carcinoma left nose 07/2016 Hx Chemotherapy: No Hx Radiation Therapy: No Hx Palliative Cancer Treatment: No - Surgical History Surgery Procedure, Year, and Place: tonsillectomy and adenoidectomy as a child - [facility]. appendectomy - [place]. left inguinal hernia repair - [place]. cardiac stents x2 - [facility] [place]. quintuple bypass - [facility]. nasal cautery - [facility] [place]. thyroidectomy - [facility] [place] bilateral cataract extraction with iol's - [facility] [place]. cystolitholapaxy - [facility] [place]. moh's repair - [place]. Laminectomy 07/2017 [facility] Hx Anesthesia Reactions: No - Immunization History Date of Tetanus Vaccine: utd Date of Influenza Vaccine: fall 2016 Infectious Disease History: No Infectious Disease History: Denies: Hx Clostridium Difficile, Hx Hepatitis, Hx Human Immunodeficiency Virus (HIV), Hx of Known/Suspected MRSA, Hx Shingles, Hx Tuberculosis, History Other Infectious Disease, Traveled Outside the [place] in Last 30 Days - Family History Known Family History: Positive: None, Hypertension, Other - mother - CVA, father - leukemia - Social History Alcohol Use: None Hx Substance Use: No Substance Use Type: Reports: None Hx Tobacco Use: No Smoking Status (MU): Never Smoked Tobacco Have You Smoked in the Last Year: No Review of Systems Constitutional: Negative Eyes: Negative ENT: Negative Cardiovascular: Negative Respiratory: Negative Gastrointestinal: Negative Genitourinary: Negative Skin: Negative Neurological: Negative Psychological: Normal All Other Systems Reviewed And Are Negative: Yes Physical Exam - Summary Physical Exam Summary: Neuro exam normal. No active tremors during exam. Triage Information Reviewed: Yes Vital Signs On Initial Exam: Initial Vitals Temp Pulse Resp BP Pulse Ox 99.2 F 66 24 158/76 94 02/28/18 23:49 02/28/18 23:49 02/28/18 23:49 02/28/18 23:49 02/28/18 23:49 Vital Signs Reviewed: Yes Appearance: Positive: Well-Appearing Skin: Positive: Warm Head/Face: Positive: Normal Head/Face Inspection Eyes: Positive: Normal Neck: Positive: Supple Respiratory/Lung Sounds: Positive: Clear to Auscultation Cardiovascular: Positive: Normal Abdomen Description: Positive: Nontender Musculoskeletal: Positive: Normal Neurological: Positive: Normal Psychiatric: Positive: Normal AVPU Assessment: Alert - Irving Coma Scale Best Eye Response: 4 - Spontaneous Best Motor Response: 6 - Obeys Commands Best Verbal Response: 5 - Oriented Coma Scale Total: 15 Diagnostics - Vital Signs Vital Signs Temp Pulse Resp BP Pulse Ox 02/28/18 23:49 99.2 F 66 24 158/76 94 - Laboratory Lab Results: Lab Results 03/01/18 03/01/18 03/01/18 Range/Units 00:40 00:40 00:40 WBC 12.0 H (3.5-10.8) 10^3/ul RBC 4.04 (4.0-5.4) 10^6/ul Hgb 12.1 L (14.0-18.0) g/dl Hct 36 L (42-52) % MCV 89 (80-94) fL MCH 30 (27-31) pg MCHC 34 (31-36) g/dl RDW 14 (10.5-15) % Plt Count 179 (150-450) 10^3/ul MPV 9.6 (7.4-10.4) um3 Neut % (Auto) 80.5 (38-83) % Lymph % (Auto) 7.0 L (25-47) % Dorado % (Auto) 9.4 H (0-7) % Eos % (Auto) 2.6 (0-6) % Baso % (Auto) 0.5 (0-2) % Absolute Neuts (auto) 9.6 H (1.5-7.7) 10^3/ul Absolute Lymphs (auto) 0.8 L (1.0-4.8) 10^3/ul Absolute Monos (auto) 1.1 H (0-0.8) 10^3/ul Absolute Eos (auto) 0.3 (0-0.6) 10^3/ul Absolute Basos (auto) 0.1 (0-0.2) 10^3/ul Absolute Nucleated RBC 0 10^3/ul Nucleated RBC % 0 INR (Anticoag Therapy) (0.77-1.02) Sodium 136 L (139-145) mmol/L Potassium 3.7 (3.5-5.0) mmol/L Chloride 100 L (101-111) mmol/L Carbon Dioxide 27 (22-32) mmol/L Anion Gap 9 (2-11) mmol/L BUN 26 H (6-24) mg/dL Creatinine 0.87 (0.67-1.17) mg/dL Est GFR ( Amer) 109.1 (>60) Est GFR (Non-Af Amer) 84.9 (>60) BUN/Creatinine Ratio 29.9 H (8-20) Glucose 109 H (70-100) mg/dL Lactic Acid (0.5-2.0) mmol/L Calcium 8.3 L (8.6-10.3) mg/dL Total Bilirubin 0.80 (0.2-1.0) mg/dL AST 14 (13-39) U/L ALT 11 (7-52) U/L Alkaline Phosphatase 62 (34-104) U/L Troponin I 0.01 (<0.04) ng/mL B-Natriuretic Peptide 47 ( - 100) pg/mL Total Protein 6.5 (6.4-8.9) g/dL Albumin 3.8 (3.2-5.2) g/dL Globulin 2.7 (2-4) g/dL Albumin/Globulin Ratio 1.4 (1-3) TSH 0.08 L (0.34-5.60) mcIU/mL 03/01/18 03/01/18 Range/Units 00:40 00:40 WBC (3.5-10.8) 10^3/ul RBC (4.0-5.4) 10^6/ul Hgb (14.0-18.0) g/dl Hct (42-52) % MCV (80-94) fL MCH (27-31) pg MCHC (31-36) g/dl RDW (10.5-15) % Plt Count (150-450) 10^3/ul MPV (7.4-10.4) um3 Neut % (Auto) (38-83) % Lymph % (Auto) (25-47) % Dorado % (Auto) (0-7) % Eos % (Auto) (0-6) % Baso % (Auto) (0-2) % Absolute Neuts (auto) (1.5-7.7) 10^3/ul Absolute Lymphs (auto) (1.0-4.8) 10^3/ul Absolute Monos (auto) (0-0.8) 10^3/ul Absolute Eos (auto) (0-0.6) 10^3/ul Absolute Basos (auto) (0-0.2) 10^3/ul Absolute Nucleated RBC 10^3/ul Nucleated RBC % INR (Anticoag Therapy) 0.94 (0.77-1.02) Sodium (139-145) mmol/L Potassium (3.5-5.0) mmol/L Chloride (101-111) mmol/L Carbon Dioxide (22-32) mmol/L Anion Gap (2-11) mmol/L BUN (6-24) mg/dL Creatinine (0.67-1.17) mg/dL Est GFR ( Amer) (>60) Est GFR (Non-Af Amer) (>60) BUN/Creatinine Ratio (8-20) Glucose (70-100) mg/dL Lactic Acid 0.8 (0.5-2.0) mmol/L Calcium (8.6-10.3) mg/dL Total Bilirubin (0.2-1.0) mg/dL AST (13-39) U/L ALT (7-52) U/L Alkaline Phosphatase (34-104) U/L Troponin I (<0.04) ng/mL B-Natriuretic Peptide ( - 100) pg/mL Total Protein (6.4-8.9) g/dL Albumin (3.2-5.2) g/dL Globulin (2-4) g/dL Albumin/Globulin Ratio (1-3) TSH (0.34-5.60) mcIU/mL Result Diagrams: 03/01/18 00:40 03/01/18 00:40 Lab Statement: Any lab studies that have been ordered have been reviewed, and results considered in the medical decision making process. - Radiology cxr Xray Interpretation: No Acute Changes Radiology Interpretation Completed By: ED Physician - CT head CT Interpretation: Positive (See Comments) - MULTIPLE HYPERDENSITIES, STABLE SINCE 2017, WITH ONE NEW HYPERDENSITY IN LEFT PARIETAL LOBE THAT MIGHT BE BLEED CT Interpretation Completed By: Radiologist - EKG 1 Cardiac Rate: NL EKG Rhythm: Sinus Rhythm ST Segment: Non-Specific Ectopy: None EKG Interpretation: right bundle-branch block Re-Evaluation - Re-Evaluation 1 Re-Evaluation Time: 02:30 Change: Unchanged Comment: Patient remained stable, no new onset tremors Dizzy Course/Dx - Course Course Of Treatment: We'll admit for observation and short term follow-up of new hyperdensity in the left parietal lobe. DR Mcrae RADIOLOGY recommends reimaging in 6-8 hours. - Diagnoses Provider Diagnoses: Brain metastasis - Provider Notifications Discussed Care Of Patient With: Rafiq Montes De Oca Instructed by Provider To: Admit As Inpatient Discharge - Sign-Out/Discharge Documenting (check all that apply): Discharge/Admit/Transfer - Discharge Plan Condition: Stable Disposition: ADMITTED TO [facility] Referrals: Andrzej Curran MD [Primary Care Provider] - - Billing Disposition and Condition Condition: STABLE Disposition: [facility]P-[facility] [place]
[2018-03-01 04:59] LABS: Urine Appearance Cloudy; Urine Blood 3+ (Negative); Urine Color Yellow; Urine Ketones Negative (Negative); Urine Protein 1+(30 mg/dL) (Negative); Urine Urobilinogen Negative (Negative)
[2018-03-01] MEDS ORDERED: Levothyroxine TAB* 150 MCG TAB PO SCH (06:00)
--- NOTE | 2018-03-01 06:59 | HP ---
H&P (Free Text) History and Physical: PCP: Marcos Curran MD Date/Time: 03/01/2018 0645 CC: shaking HPI: Mr Ryan is a 77YO male HX thyroid CA s/p thyroidectomy, CAD/FL/CABG/ stent who was at home last evening when he had an ~10 minute episode of generalized shaking w/o loss of consciousness, focal W/N/T, headache, loss of bowel/bladder, chest pain, SOB, N/V, diarrhea, F/C, sweats, visual changes, or other issues. He had a CT of the brain WO performed read as metastatic disease, but after being admitted it was discovered that he has CT's in the system dating back to 2011 of these findings. As such, we will repeat his CT this AM as recommended by outside radiology and have it compared to his priors. Will also check EEG for completeness PMedHx thyroid CA s/p thyroidectomy hypothyroidism CAD/FL/CABG/stent HTN HLD BPH gout asthma Ambulatory Orders Nursing to reconcile. Aspirin EC TAB* [Ecotrin EC Low Dose 81 MG*] 81 mg PO QAM 03/22/13 Atorvastatin* [Lipitor 40 MG*] 40 mg PO QPM 03/22/13 Tamsulosin CAP* [Flomax CAP*] 0.4 mg PO QPM 03/22/13 Enalapril TAB* [Vasotec TAB*] 10 mg PO QAM 07/24/14 Levothyroxine TAB* [Synthroid 150 MCG TAB*] 150 mcg PO DAILY 07/24/14 Calcium Carbonate CHEW TAB* [Tums*] 1,000 mg PO QID 09/19/16 Dutasteride 0.5 mg PO QAM 06/06/17 Nitroglycerin TAB 0.4 MG* 0.4 mg SL Q5M PRN 06/06/17 Calcitriol CAP* [Rocaltrol CAP*] 0.5 mcg PO BID 07/13/17 Ibuprofen TAB* [Motrin TAB* 600 MG] 600 mg PO Q6H PRN 10/28/17 Loperamide CAP* [Imodium CAP*] 2 mg PO Q6H PRN #10 cap 10/31/17 Allergies hesham Allergy (Verified 01/04/18 17:10) Nausea And Vomiting Adhesive Tape Allergy (Verified 01/04/18 15:51) Rash dubon Allergy (Verified 01/04/18 17:09) See Comment ciprofloxacin [From Cipro] Allergy (Verified 01/04/18 17:05) See Comment diphenhydramine [From Benadryl] Allergy (Verified 01/04/18 17:06) See Comment urtheral spasms finasteride Allergy (Verified 01/04/18 17:08) See Comment lactose Allergy (Verified 01/04/18 17:09) Diarrhea Penicillins Allergy (Verified 01/04/18 17:07) Rash And Itching tramadol Allergy (Verified 02/28/18 23:52) See Comment causes severe tremors GUM URDU Allergy (Intermediate, Uncoded 01/04/18 15:51) NAUSEA,VOMITING AND DIARRHEA CAT DANDER Allergy (Uncoded 01/04/18 15:51) Runny Nose HAY FEVER Allergy (Uncoded 01/04/18 15:51) Runny Nose opiates Adverse Reaction (Uncoded 01/04/18 15:51) See Comment Urinary retention PSurgHx thyroidectomy for cancer CABG tonsillectomy OU cataracts appendecomy inguinal hernia repair lumbar laminectomy SocHx: no tobacco, alcohol, or recreational drugs; lives with his ; 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 Father passed of an unknown cancer ROS: as above, otherwise reviewed and all were negative vitals: Vital Signs Temp 37.3 C 02/28/18 23:49 Pulse 60 03/01/18 07:00 Resp 18 03/01/18 07:00 BP 141/83 03/01/18 06:51 Pulse Ox 93 03/01/18 07:00 Intake & Output 02/28/18 02/28/18 03/01/18 11:59 23:59 11:59 Intake Total 1000 Balance 1000 Weight 72.575 kg Intake: IV Fluids 1000 Constitutional: NAD, normally developed, well-nourished elderly white male HEENM: atraumatic; sclera/conjunctiva: anicteric/clear; hearing: clinically intact; oropharynx: clear, mucosa moist Neck: soft tissue: non-tender; thyroid: surgically absent Pulmonary: clear to auscultation bilaterally, good aeration, no accessory muscle use CV: RR/RR, normal S1S2, no carotid bruit, no jugular venous distention, 2+ B DP/ PT, no edema Abdominal: soft, non-distended, mild tender LLQ tenderness, no rebound/guarding/ rigidity, normoactive bowel sounds, no hepatosplenomegaly or masses, no costovertebral angle tenderness Musculoskeletal: general: grossly intact, non-tender to palpation Integumental: normal appearance and texture of exposed skin Psychiatric orientation: AA&O to PPS affect: calm mood: cooperative eye contact: fair content: reliable responses: timely insight: fair Testing: Lab Results 03/01/18 03/01/18 03/01/18 Range/Units 00:40 00:40 00:40 WBC 12.0 H (3.5-10.8) 10^3/ul RBC 4.04 (4.0-5.4) 10^6/ul Hgb 12.1 L (14.0-18.0) g/dl Hct 36 L (42-52) % MCV 89 (80-94) fL MCH 30 (27-31) pg MCHC 34 (31-36) g/dl RDW 14 (10.5-15) % Plt Count 179 (150-450) 10^3/ul MPV 9.6 (7.4-10.4) um3 Neut % (Auto) 80.5 (38-83) % Lymph % (Auto) 7.0 L (25-47) % Millard % (Auto) 9.4 H (0-7) % Eos % (Auto) 2.6 (0-6) % Baso % (Auto) 0.5 (0-2) % Absolute Neuts (auto) 9.6 H (1.5-7.7) 10^3/ul Absolute Lymphs (auto) 0.8 L (1.0-4.8) 10^3/ul Absolute Monos (auto) 1.1 H (0-0.8) 10^3/ul Absolute Eos (auto) 0.3 (0-0.6) 10^3/ul Absolute Basos (auto) 0.1 (0-0.2) 10^3/ul Absolute Nucleated RBC 0 10^3/ul Nucleated RBC % 0 INR (Anticoag Therapy) (0.77-1.02) Sodium 136 L (139-145) mmol/L Potassium 3.7 (3.5-5.0) mmol/L Chloride 100 L (101-111) mmol/L Carbon Dioxide 27 (22-32) mmol/L Anion Gap 9 (2-11) mmol/L BUN 26 H (6-24) mg/dL Creatinine 0.87 (0.67-1.17) mg/dL Est GFR ( Amer) 109.1 (>60) Est GFR (Non-Af Amer) 84.9 (>60) BUN/Creatinine Ratio 29.9 H (8-20) Glucose 109 H (70-100) mg/dL Lactic Acid (0.5-2.0) mmol/L Calcium 8.3 L (8.6-10.3) mg/dL Total Bilirubin 0.80 (0.2-1.0) mg/dL AST 14 (13-39) U/L ALT 11 (7-52) U/L Alkaline Phosphatase 62 (34-104) U/L Troponin I 0.01 (<0.04) ng/mL B-Natriuretic Peptide 47 ( - 100) pg/mL Total Protein 6.5 (6.4-8.9) g/dL Albumin 3.8 (3.2-5.2) g/dL Globulin 2.7 (2-4) g/dL Albumin/Globulin Ratio 1.4 (1-3) TSH 0.08 L (0.34-5.60) mcIU/mL Urine Color Urine Appearance Urine pH (5-9) Ur Specific Franklin (1.010-1.030) Urine Protein (Negative) Urine Ketones (Negative) Urine Blood (Negative) Urine Nitrate (Negative) Urine Bilirubin (Negative) Urine Urobilinogen (Negative) Ur Leukocyte Esterase (Negative) Urine WBC (Auto) (Absent) Urine RBC (Auto) (Absent) Urine Bacteria (Absent) Urine Yeast (Absent) Urine Glucose (Negative) 03/01/18 03/01/18 03/01/18 Range/Units 00:40 00:40 02:50 WBC (3.5-10.8) 10^3/ul RBC (4.0-5.4) 10^6/ul Hgb (14.0-18.0) g/dl Hct (42-52) % MCV (80-94) fL MCH (27-31) pg MCHC (31-36) g/dl RDW (10.5-15) % Plt Count (150-450) 10^3/ul MPV (7.4-10.4) um3 Neut % (Auto) (38-83) % Lymph % (Auto) (25-47) % Millard % (Auto) (0-7) % Eos % (Auto) (0-6) % Baso % (Auto) (0-2) % Absolute Neuts (auto) (1.5-7.7) 10^3/ul Absolute Lymphs (auto) (1.0-4.8) 10^3/ul Absolute Monos (auto) (0-0.8) 10^3/ul Absolute Eos (auto) (0-0.6) 10^3/ul Absolute Basos (auto) (0-0.2) 10^3/ul Absolute Nucleated RBC 10^3/ul Nucleated RBC % INR (Anticoag Therapy) 0.94 (0.77-1.02) Sodium (139-145) mmol/L Potassium (3.5-5.0) mmol/L Chloride (101-111) mmol/L Carbon Dioxide (22-32) mmol/L Anion Gap (2-11) mmol/L BUN (6-24) mg/dL Creatinine (0.67-1.17) mg/dL Est GFR ( Amer) (>60) Est GFR (Non-Af Amer) (>60) BUN/Creatinine Ratio (8-20) Glucose (70-100) mg/dL Lactic Acid 0.8 (0.5-2.0) mmol/L Calcium (8.6-10.3) mg/dL Total Bilirubin (0.2-1.0) mg/dL AST (13-39) U/L ALT (7-52) U/L Alkaline Phosphatase (34-104) U/L Troponin I (<0.04) ng/mL B-Natriuretic Peptide ( - 100) pg/mL Total Protein (6.4-8.9) g/dL Albumin (3.2-5.2) g/dL Globulin (2-4) g/dL Albumin/Globulin Ratio (1-3) TSH (0.34-5.60) mcIU/mL Urine Color Yellow Urine Appearance Cloudy Urine pH 6.0 (5-9) Ur Specific Franklin 1.020 (1.010-1.030) Urine Protein 1+(30 mg/dl) A (Negative) Urine Ketones Negative (Negative) Urine Blood 3+ A (Negative) Urine Nitrate Negative (Negative) Urine Bilirubin Negative (Negative) Urine Urobilinogen Negative (Negative) Ur Leukocyte Esterase Negative (Negative) Urine WBC (Auto) 1+(6-10/hpf) A (Absent) Urine RBC (Auto) 3+(>10/hpf) A (Absent) Urine Bacteria Absent (Absent) Urine Yeast Present A (Absent) Urine Glucose Negative (Negative) 03/01/18 03/01/18 Range/Units 03:35 06:20 WBC (3.5-10.8) 10^3/ul RBC (4.0-5.4) 10^6/ul Hgb (14.0-18.0) g/dl Hct (42-52) % MCV (80-94) fL MCH (27-31) pg MCHC (31-36) g/dl RDW (10.5-15) % Plt Count (150-450) 10^3/ul MPV (7.4-10.4) um3 Neut % (Auto) (38-83) % Lymph % (Auto) (25-47) % Millard % (Auto) (0-7) % Eos % (Auto) (0-6) % Baso % (Auto) (0-2) % Absolute Neuts (auto) (1.5-7.7) 10^3/ul Absolute Lymphs (auto) (1.0-4.8) 10^3/ul Absolute Monos (auto) (0-0.8) 10^3/ul Absolute Eos (auto) (0-0.6) 10^3/ul Absolute Basos (auto) (0-0.2) 10^3/ul Absolute Nucleated RBC 10^3/ul Nucleated RBC % INR (Anticoag Therapy) (0.77-1.02) Sodium (139-145) mmol/L Potassium (3.5-5.0) mmol/L Chloride (101-111) mmol/L Carbon Dioxide (22-32) mmol/L Anion Gap (2-11) mmol/L BUN (6-24) mg/dL Creatinine (0.67-1.17) mg/dL Est GFR ( Amer) (>60) Est GFR (Non-Af Amer) (>60) BUN/Creatinine Ratio (8-20) Glucose (70-100) mg/dL Lactic Acid (0.5-2.0) mmol/L Calcium (8.6-10.3) mg/dL Total Bilirubin (0.2-1.0) mg/dL AST (13-39) U/L ALT (7-52) U/L Alkaline Phosphatase (34-104) U/L Troponin I 0.01 0.01 (<0.04) ng/mL B-Natriuretic Peptide ( - 100) pg/mL Total Protein (6.4-8.9) g/dL Albumin (3.2-5.2) g/dL Globulin (2-4) g/dL Albumin/Globulin Ratio (1-3) TSH (0.34-5.60) mcIU/mL Urine Color Urine Appearance Urine pH (5-9) Ur Specific Franklin (1.010-1.030) Urine Protein (Negative) Urine Ketones (Negative) Urine Blood (Negative) Urine Nitrate (Negative) Urine Bilirubin (Negative) Urine Urobilinogen (Negative) Ur Leukocyte Esterase (Negative) Urine WBC (Auto) (Absent) Urine RBC (Auto) (Absent) Urine Bacteria (Absent) Urine Yeast (Absent) Urine Glucose (Negative) ECG, personally reviewed: sinus RBBB bradycardia rate 56, T-wave inversion V4-6 , Q-waves II/II/AVF CXR, personally reviewed: scoliosis, no acute process CT brain WO, personally reviewed: Findings suspicious for progressing metastatic disease. Impression: 77M presents with brief episode of lucent shaking w/ CT findings reported as concerning for metastatic disease DIAGNOSIS & PLAN Primary abnormal CT brain : repeat CT brain WO this AM : neurochecks : EEG this AM : in-house radiology should read & compare CT brains : supportive care Secondary thyroid CA s/p thyroidectomy hypothyroidism : review meds once reconciled CAD/FL/CABG/stent : review meds once reconciled HTN : review meds once reconciled HLD : review meds once reconciled BPH : review meds once reconciled gout : review meds once reconciled asthma : review meds once reconciled Admission Rational: observation for abnormal CT brain DVTp: SCDs Code Status: full HCP:
[2018-03-01] MEDS ORDERED: Acetaminophen TAB* 325 MG PO PRN (07:31)
[2018-03-01] MEDS ORDERED: Ondansetron INJ* 2 MG/ML VIAL IV PRN (07:31)
[2018-03-01] MEDS ORDERED: NS 0.9% 1000 ML* 1,000 ML IV SCH (07:45)
[2018-03-01 08:03] LABS: ABS Basophils 0.1 10^3/ul (0-0.2); ABS Eosinophils 0.2 10^3/ul (0-0.6); ABS Lymphocytes 0.9 10^3/ul (1.0-4.8); ABS Monocytes 1.1 10^3/ul (0-0.8); ABS Neutrophils 9.4 10^3/ul (1.5-7.7); ABS Nucleated RBC 0 10^3/ul; Eosinophil % 1.7 % (0-6); Hematocrit 36 % (42-52); Lymphocyte % 7.5 % (25-47); Mean Corpuscular HGB Conc 34 g/dl (31-36); Mean Corpuscular Hemoglobin 30 pg (27-31); Mean Corpuscular Volume 89 fL (80-94); Mean Platelet Volume 9.5 um3 (7.4-10.4); Nucleated Red Blood Cells % 0.1; Platelet Count 169 10^3/ul (150-450); Red Blood Count 3.98 10^6/ul (4.0-5.4); Red Cell Distribution Width 14 % (10.5-15); White Blood Count 11.6 10^3/ul (3.5-10.8)
--- NOTE | 2018-03-01 08:18 | RAD ---
INDICATION: Shakiness COMPARISON: Most recent comparison chest x-rays November 01, 2017 TECHNIQUE: Single AP portable view of the chest was obtained. FINDINGS: Image quality is compromised due to the relative inferiority of a portable chest x-ray. Again seen are sternotomy wires. The heart and mediastinum exhibit normal size and contour. The lungs are grossly clear. There is no evidence of a large pleural effusion. Visualized bones are normal for the patient's age. IMPRESSION: No radiographic evidence for acute cardiopulmonary abnormality on this portable chest x-ray.
--- NOTE | 2018-03-01 08:31 | RAD ---
HISTORY: Follow-up abnormal CT scan, history of papillary thyroid cancer COMPARISONS: March 01, 2018 at 1:15 AM, head CT dated July 13, 2017, MRI dated October 11, 2016 TECHNIQUE: Multiple contiguous axial CT scans were obtained of the head without intravenous contrast. FINDINGS: HEMORRHAGE/INFARCT: Again noted are multiple foci of increased attenuation throughout the cerebral hemispheres bilaterally. These are stable from the previous examination. Elsewhere, there is no hemorrhage or acute infarct MASSES/SHIFT: There is no space-occupying lesion or shift. EXTRA-AXIAL SPACES: There are no extra-axial fluid collections. SULCI AND VENTRICLES: The sulci and ventricles are normal in size and position for the patient's stated age. CEREBRUM: As noted above, there are multiple foci of increased attenuation throughout the cerebral hemispheres bilaterally. The largest is noted within the right frontal lobe measuring 1 cm in size. There has been mild progression compared to July 13, 2017. BRAINSTEM: There are no focal parenchymal abnormalities. CEREBELLUM: There are no focal parenchymal abnormalities. VESSELS: The vessels are grossly normal. PARANASAL SINUSES: The paranasal sinuses are clear. ORBITS: The orbits are unremarkable. BONES AND SOFT TISSUE: No bone or soft tissue abnormalities are noted. OTHER: None IMPRESSION: AGAIN NOTED ARE MULTIPLE HYPERATTENUATING LESIONS OF THE CEREBRAL HEMISPHERES BILATERALLY, MOST CONSISTENT WITH HEMORRHAGIC OR CALCIFIED METASTATIC DISEASE GIVEN THE HISTORY OF PAPILLARY THYROID CANCER. THESE HAVE BEEN IDENTIFIED ON PREVIOUS EXAMINATIONS, THOUGH THERE HAS BEEN SLIGHT PROGRESSION WHEN COMPARED TO 2016. RECOMMEND CONSIDERATION OF CONTRAST-ENHANCED MRI OF THE BRAIN IN THE NONACUTE SETTING.
--- NOTE | 2018-03-01 08:35 | RAD ---
INDICATION: Tremors and dizziness COMPARISON: CT of the brain dated October 28, 2017 TECHNIQUE: Contiguous axial sections of the brain were obtained from the skull base to the vertex without contrast. FINDINGS: Unless otherwise specified comparisons below reference to October 28, 2017 CT of the brain. The ventricles, cisterns and sulci are within normal limits. Again seen are multifocal hyperintense lesions in the brain. At the right of midline vertex there is an 11 mm hypodense lesion, previously 10 mm. At the gallagher-white matter junction of the left temporal lobe (image 21) there is a 6 mm lesion that was barely visible on the previous CT examination. At the left centrum semiovale (image 20) there is a 1 cm hypoattenuating lesion unchanged in the prior CT examination. At the white matter tracts of the right parietal-occipital lobe (image 18) there is a 9 mm lesion, previously 8 mm. A lesion at the right temporal lobe (image 12) measures 5 mm unchanged from the previous CT examination. There is no evidence for intracranial hemorrhage. No significant focal osseous abnormality is present. Fluid density inspissated secretion occupies most of the right maxillary sinus. There is mild mucosal thickening of the anterior ethmoid air cells. This is similar to the previous CT of the brain. There is partial effusion of the dependent right mastoid air cells that is new since the previous CT of the brain. IMPRESSION: 1. Again seen are multiple hypoattenuating foci throughout the brain, some of which are slightly larger when compared to the October 28, 2017 CT of the brain indicating progression. Superior characterization can be made with MRI of the brain. 2. Interval development of partial right mastoid air cell effusion of uncertain clinical significance.
[2018-03-01] MEDS ORDERED: Enalapril TAB* 5 MG PO SCH (09:00)
[2018-03-01] MEDS ORDERED: Calcitriol CAP* 0.25 MCG PO SCH (09:00)
[2018-03-01] MEDS ORDERED: Docusate CAP* 100 MG PO SCH (09:00)
[2018-03-01] MEDS ORDERED: DUTASTERIDE 0.5 MG PO SCH (09:00)
[2018-03-01 15:01] VITALS: BP 139/68
[2018-03-01] MEDS ORDERED: Gadoteridol* (CONTRAST) 279.3 MG/ML 10 ML IV ONE (15:20)
--- NOTE | 2018-03-01 15:49 | RAD ---
HISTORY: Abnormal CT scan, loss COMPARISONS: March 01, 2018 PET/CT, MRI dated October 11, 2016 TECHNIQUE: The following sequences were obtained of the head: Sagittal T1-weighted images, axial T2-weighted images, axial FLAIR images, axial susceptibility weighted images, axial T1-weighted images. Additionally, axial diffusion-weighted images were obtained with calculated apparent diffusion coefficients. Additionally, sagittal, coronal, and axial T1-weighted images were obtained after contrast enhancement with a gadolinium-based intravenous contrast agent. FINDINGS: HEMORRHAGE/INFARCT: There is no acute hemorrhage or acute infarct.. MASSES/SHIFT: There is no space-occupying lesion. There is no shift. EXTRA-AXIAL SPACES/MENINGES: There are no extra-axial fluid collections. SULCI AND VENTRICLES: Again noted is enlargement of the sulci and ventricles with disproportionate volume loss involving the mesial temporal bilaterally, stable. CEREBRUM: Again noted are innumerable foci susceptibility artifact throughout the cerebral hemispheres bilaterally. This includes lesions that demonstrate high precontrast T1 and FLAIR signal without appreciable enhancement. While direct comparison is limited due to the number of lesions, these appear stable when compared to October 11, 2016. There are scattered nonenhancing white matter lesions, also stable. BRAINSTEM: There are small foci of stability artifact within the brainstem, stable. CEREBELLUM: There are multiple foci of susceptibility effect within the cerebellum, including a high precontrast T1 and T2 signal lesion of the left inferior cerebellum, also stable from the previous examination. The cerebellar tonsils are normal in size and position. SELLA: The sella is normal. PINEAL: The pineal region is clear. CP ANGLE/TEMPORAL BONES: The labyrinthine structures are grossly normal. VESSELS: Normal flow-voids are noted within the visualized vertebral vasculature. DIFFUSION ABNORMALITIES: There are no diffusion abnormalities. PARANASAL SINUSES/MASTOIDS: There is a mucous retention cyst of the right maxillary sinus. There is large right mastoid effusion. ORBITS: The orbits are unremarkable. BONES AND SOFT TISSUE: No bone or soft tissue abnormalities are noted. OTHER: None IMPRESSION: 1. AGAIN NOTED ARE INNUMERABLE FOCI OF SUSCEPTIBILITY ARTIFACT THROUGHOUT THE CEREBRAL HEMISPHERES, BRAINSTEM, AND CEREBELLUM, WITH SEVERAL HIGH T1 AND HIGH T2 SIGNAL PRECONTRAST LESIONS. THE DIFFERENTIAL, MULTIPLE CAVERNOUS ANGIOMAS, WHICH CAN BE ASSOCIATED WITH THE SEQUELA OF WHOLE BRAIN RADIATION; MULTIPLE CHRONIC SMALL HEMORRHAGIC METASTASES; MULTIPLE AREAS OF CHRONIC HEMORRHAGIC EMBOLI; OR MULTIPLE CHRONIC MICROHEMORRHAGES IN THE SETTING OF UNCONTROLLED HYPERTENSION. WHEN COMPARED TO THE OctoberAPRIL 25, 2016 EXAMINATION, THERE HAS BEEN NO SIGNIFICANT CHANGE IN THE SIZE, NUMBER, AND DISTRIBUTION OF THESE LESIONS. THERE IS NO ASSOCIATED VASOGENIC EDEMA. 2. THERE ARE STABLE SCATTERED NONSPECIFIC WHITE MATTER CHANGES. 3. THERE IS NO RESTRICTED DIFFUSION TO SUGGEST ACUTE INFARCT. 4. RIGHT MASTOID EFFUSION.
[2018-03-01] MEDS ORDERED: Tamsulosin CAP* 0.4 MG PO SCH (18:00)
[2018-03-01] MEDS ORDERED: Atorvastatin* 40 MG TAB PO SCH (18:00)
--- NOTE | 2018-03-01 21:46 | DS ---
CC: Dr. Curran; Dr. Lewis* DISCHARGE SUMMARY: DATE OF ADMISSION: 02/28/18 DATE OF DISCHARGE: 03/01/18 HISTORY OF PRESENT ILLNESS: A 77-year-old man presented with a shaking spell. It was last evening at home that lasted 15 to 20 minutes. He shook both arms, there was no loss of consciousness or falling down. No incontinence or other associated changes. The patient had total thyroidectomy for papillary cancer of thyroid in 2013. He has had multiple CT scans, he had one in 2011 and several since 2016. The one in 2011 showed multiple lesions scattered in the right cerebral hemisphere. The report mentions that there was a prior MRI showing hemosiderin deposition. The patient and his remember Dr. Hobbs who said he had multiple old bleeds. This would be consistent with the MRI findings, although I cannot locate the MRI report or images. The current CT scan was reported as showing slight progression in the lesions and them being bilateral. I am not certain how much of a change this actually is. He is going to have an MRI scan with contrast this afternoon on the day of discharge. He will also have an EEG, which is being done very shortly. A thyroid tumor marker blood test was sent and the results should be available in a few days. I spoke to Dr. Lewis who will see the patient again and co-relate all these test results as mentioned above. The patient had no further spells in the hospital. I am not sure exactly how to explain the shaking episode. They did not seem typical of seizure and they have not recurred. He has not had a temperature. He had a white count of 12.0 with repeat of 11.6. I will not change any of his medications. I do note, however, that his TSH is below normal. Adjustment of his thyroid dose is a consideration, but I will leave this to Dr. Lewis. FINAL DIAGNOSES: 1. Shaking spell. 2. Hypothyroidism, status post thyroidectomy for thyroid cancer. 3. Prostatism. 4. Episode of hematuria. 5. Hyperlipidemia. DISCHARGE MEDICATIONS: 1. Tamsulosin 0.4 mg h.s. 2. Atorvastatin 40 mg h.s. 3. Aspirin 81 mg daily. 4. Enalapril 10 mg daily. 5. Levothyroxine 100 mcg daily. 6. Calcium carbonate 1000 mg 4 times a day. 7. Nitroglycerin 0.4 mg every 5 minutes p.r.n. 8. Dutasteride 0.5 mg daily. 9. Calcitriol 0.5 mg b.i.d. 10. Ibuprofen 600 mg every 6 hours p.r.n. 11. Loperamide 2 mg every 6 hours p.r.n. [id number]/[facility] #: [id number] MTDD
--- NOTE | 2018-03-01 22:29 | EEG ---
ELECTROENCEPHALOGRAPHY: DATE OF STUDY: 03/01/18 LOCATION: The patient is an inpatient. ORDERING PHYSICIAN: Dr. Montes De Oca. CLINICAL PROBLEM: This is a 77-year-old man with a history of thyroid cancer status post thyroidecto my, coronary artery disease as well as myocardial infarction who was admitted for a single shaking ep isode, which was witnessed by his last evening. His stated that he had a 10 minute episode of bilateral nonsynchronous upper extremity shaking without loss of consciousness. He has been conf used since the event and does not recall it. Prior to he felt dizzy and nauseated. His does no t feel he is back to his baseline yet. EEG is requested to evaluate for epileptiform abnormalities. MEDICATIONS: 1. Zofran. 2. Tylenol. 3. Flomax. 4. Lipitor. 5. Vasotec. 6. Avodart. 7. Colace. 8. Rocaltrol. 9. Synthroid. REPORT: The waking background showed appropriate organization with clearly defined anterior to poste rior voltage and frequency gradients. There was a well-defined posterior dominant rhythm of 9 Hz, wh ich was symmetrical and showed normal reactivity. Anteriorly, there was an expected pattern of lower voltage, irregular, mixed faster frequencies. The patient easily becomes drowsy during the study an d during drowsiness, there is excessive, frontally predominant intermittent rhythmic delta slowing in the 2 Hz range (FIRDA). Anteriorly, there is an expected pattern of lower voltage, irregular, mixed faster frequencies. Photic stimulation and hyperventilation were not performed. Attenuation of the occipital rhythm accompanied drowsiness. The sleep background was appropriately o rganized with well developed sleep spindles and vertex waves. The sleep transients showed appropriate morphology and were bilaterally synchronous and symmetrical. Throughout the recording, there were no epileptiform discharges. CLINICAL IMPRESSION: This is an abnormal waking and sleep EEG due to the presence of frontally predo minant intermittent rhythmic delta slowing during drowsiness. Findings are suggestive of a mild, nons pecific, diffuse encephalopathy. There are no epileptiform abnormalities. [id number]/[facility] #: [id number]
== END 2018-03-01 17:58 | disposition home or self-care (01) ==
LOC: ED 23:43 → MEDTELE 03-01 06:48
PROVIDERS: ADMIT Hospitalist; ATTEND Internal Medicine
DX: R94.02 Abnormal brain scan (principal); G25.89 Other specified extrapyramidal and movement disorders; Z85.850 Personal history of malignant neoplasm of thyroid; E03.9 Hypothyroidism, unspecified; N40.0 Benign prostatic hyperplasia without lower urinary tract symptoms; R31.9 Hematuria, unspecified; E78.5 Hyperlipidemia, unspecified; I25.10 Atherosclerotic heart disease of native coronary artery without angina pectoris; I25.2 Old myocardial infarction; Z95.1 Presence of aortocoronary bypass graft; J45.909 Unspecified asthma, uncomplicated; M10.9 Gout, unspecified; Z79.899 Other long term (current) drug therapy; Z88.1 Allergy status to other antibiotic agents; Z88.5 Allergy status to narcotic agent; Z88.0 Allergy status to penicillin; Z88.8 Allergy status to other drugs, medicaments and biological substances
CPT/HCPCS: 36415; 70450; 70553; 71045; 80053; 81003; 81015; 83605; 83880; 84432; 84443; 84484; 85025; 85610; 86800; 87086; 93005; 95819; 99283; A9270-GY; A9579; G0378

== ENCOUNTER 2018-03-02 08:19 | Emergency (ER) | payer MEDICARE, BC ==
[2018-03-02 09:57] LABS: ABS Basophils 0 10^3/ul (0-0.2); ABS Eosinophils 0.2 10^3/ul (0-0.6); ABS Lymphocytes 0.6 10^3/ul (1.0-4.8); ABS Monocytes 0.7 10^3/ul (0-0.8); ABS Nucleated RBC 0 10^3/ul; Eosinophil % 1.8 % (0-6); Hematocrit 35 % (42-52); Hemoglobin 12.1 g/dl (14.0-18.0); Lymphocyte % 6.6 % (25-47); Mean Corpuscular HGB Conc 34 g/dl (31-36); Mean Corpuscular Hemoglobin 31 pg (27-31); Mean Corpuscular Volume 89 fL (80-94); Mean Platelet Volume 9.5 um3 (7.4-10.4); Nucleated Red Blood Cells % 0; Platelet Count 181 10^3/ul (150-450); Red Blood Count 3.94 10^6/ul (4.0-5.4); Red Cell Distribution Width 14 % (10.5-15); White Blood Count 9.5 10^3/ul (3.5-10.8)
[2018-03-02 10:07] LABS: INR 1.02 (0.77-1.02)
[2018-03-02 10:49] LABS: Urine Appearance Clear; Urine Blood 3+ (Negative); Urine Color Yellow; Urine Ketones Negative (Negative); Urine Protein Negative (Negative); Urine Specific Gravity 1.008 (1.010-1.030); Urine Urobilinogen Negative (Negative)
[2018-03-02] MEDS ORDERED: Potassium Chloride LIQUID* 20 MEQ PACKET PO ONE (11:52)
--- NOTE | 2018-03-02 15:39 | ED ---
Cailin Klein Julia, scribed for Susi Mojica MD on 03/02/18 at 0859 . GI/ HPI - HPI Summary HPI Summary: This patient is a 77 year old M presenting to [facility] accompanied by his with a chief complaint of hematuria and significant bloody stool beginning this morning. Patient reports mild lower abdominal pain. Pt reports diarrhea occurring every half hour beginning yesterday afternoon, prior to being discharged from [facility] around 17:00. Pt was admitted to [facility] from the ED at 23:30 on 02/28/18 due to extreme tremors, possibly related to metastatic brain cancer. Pts states he had a history of thyroid cancer. She reports imaging, performed years ago, that was read as old bleeds, but are now told there is a possibility of cancer. reports enlarged prostate. PMHx includes UTIs resulting in sepsis, CABG, CAD (with 2 stents), thyroid cancer, herniated disc repair, [place], and appendectomy. - History of Current Complaint Chief Complaint: EDUrogenitalProblems Time Seen by Provider: 03/02/18 08:38 Stated Complaint: ABNORMAL BLEEDING Hx Obtained From: Patient Onset/Duration: Started Hours Ago, Still Present Timing: Constant Severity: Worse Since: - this morning Pain Intensity: 0 Location of Pain: Suprapubic Associated Signs and Symptoms: Positive: Blood w/Stool, Diarrhea, Hematuria, Abdominal Pain. Negative: Vomiting - Additional Pertinent History Primary Care Physician: [id number] - Allergy/Home Medications Allergies/Adverse Reactions: Allergies Allergy/AdvReac Type Severity Reaction Status Date / Time hesham Allergy Nausea And Verified 03/02/18 08:23 Vomiting Adhesive Tape Allergy Rash Verified 03/02/18 08:23 dubon Allergy See Comment Verified 03/02/18 08:23 ciprofloxacin [From Cipro] Allergy See Comment Verified 03/02/18 08:23 diphenhydramine Allergy See Comment Verified 03/02/18 08:23 [From Benadryl] finasteride Allergy See Comment Verified 03/02/18 08:23 lactose Allergy Diarrhea Verified 03/02/18 08:23 Penicillins Allergy Rash And Verified 03/02/18 08:23 Itching tramadol Allergy See Comment Verified 03/02/18 08:23 GUM SLOVAK Allergy Intermediate NAUSEA,VOMITING Uncoded 03/02/18 08:23 AND DIARRHEA CAT DANDER Allergy Runny Nose Uncoded 03/02/18 08:23 HAY FEVER Allergy Runny Nose Uncoded 03/02/18 08:23 opiates AdvReac See Comment Uncoded 03/02/18 08:23 Home Medications: Home Medications Dutasteride (NF) [Avodart (NF)] 0.5 mg PO QAM 03/02/18 [History Confirmed ] PMH/Surg Hx/FS Hx/Imm Hx Endocrine/Hematology History: Reports: Hx Anticoagulant Therapy - aspirin , Hx Thyroid Disease - CANCER:thyroidectomy 2013 Denies: Hx Diabetes, Hx Anemia Cardiovascular History: Reports: Hx Angina, Hx Coronary Artery Disease - FOLLOWED BY DR SANTANA, Hx Hypertension - on meds, STATES WELL CONTROLLED, Hx Myocardial Infarction Denies: Hx Congestive Heart Failure, Hx Hypercholesterolemia, Hx Pacemaker/ ICD, Hx Valvular Heart Disease Respiratory History: Reports: Hx Asthma Denies: Hx Chronic Obstructive Pulmonary Disease (COPD), Hx Lung Cancer GI History: Reports: Other GI Disorders - lactose intolerance Denies: Hx Gall Bladder Disease, Hx Gastrointestinal Bleed, Hx Jaundice, Hx Ulcer, Hx Urosepsis History: Reports: Hx Benign Prostatic Hyperplasia, Other Problems/ Disorders - BPH, bladder stone, uti's Denies: Hx Dialysis, Hx Kidney Stones, Hx Renal Disease Musculoskeletal History: Reports: Hx 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 Basal cell carcinoma left nose 07/2016 Hx Chemotherapy: No Hx Radiation Therapy: No Hx Palliative Cancer Treatment: No - Surgical History Surgery Procedure, Year, and Place: tonsillectomy and adenoidectomy as a child - [facility]. appendectomy - [place]. left inguinal hernia repair [place]. [place] [facility] [place] [facility]. [place] [facility] [place] [facility] [place] with [place]ol's [place] [facility] [place]olapaxy [place] [facility] [place]. moh's repair - [facility]. L[facility]ctomy 07/2017 [facility] Hx Anesthesia Reactions: No - Immunization History Date of Tetanus Vaccine: utd Date of Influenza Vaccine: fall 2016 Infectious Disease History: No Infectious Disease History: Denies: Hx Clostridium Difficile, Hx Hepatitis, Hx Human Immunodeficiency Virus (HIV), Hx of Known/Suspected MRSA, Hx Shingles, Hx Tuberculosis, History Other Infectious Disease, Traveled Outside the in Last 30 Days - Family History Known Family History: Positive: Hypertension, Other - mother - CVA, father - leukemia - Social History Lives: With Family Alcohol Use: None Hx Substance Use: No Substance Use Type: Reports: None Hx Tobacco Use: No Smoking Status (MU): Never Smoked Tobacco Have You Smoked in the Last Year: No Review of Systems Gastrointestinal: Other - bloody stool Positive: Abdominal Pain, Diarrhea. Negative: Vomiting Positive: hematuria All Other Systems Reviewed And Are Negative: Yes Physical Exam - Summary Physical Exam Summary: GENERAL: Patient is a well developed and nourished M who is lying comfortable in the stretcher. Patient is not in any acute respiratory distress. HEAD AND FACE: Normocephalic EYES: PERRLA, EOMI x 2. EARS: Hearing grossly intact. MOUTH: Oropharynx within normal limits. NECK: Supple, trachea is midline, no adenopathy, no JVD, no carotid bruit. CHEST: Symmetric, no tenderness at palpation LUNGS: Clear to auscultation bilaterally. No wheezing or crackles. CVS: Regular rate and rhythm, S1 and S2 present, no murmurs or gallops appreciated. ABDOMEN: Soft, non-tender. Bowel sounds are normal. No abdominal abnormal pulsations. EXTREMITIES: Full ROM in all major joints, no edema, no cyanosis or clubbing. NEURO: Alert and oriented x 3. No acute neurological deficits. Speech is normal and follows commands. SKIN: Dry and warm /GI: no gross bleeding, no hemorrhoids Triage Information Reviewed: Yes Vital Signs On Initial Exam: Initial Vitals Temp Pulse Resp BP Pulse Ox 98.3 F 72 16 121/59 95 03/02/18 08:23 03/02/18 08:23 03/02/18 08:23 03/02/18 08:23 03/02/18 08:23 Vital Signs Reviewed: Yes Diagnostics - Vital Signs Vital Signs Temp Pulse Resp BP Pulse Ox 03/02/18 08:23 98.3 F 72 16 121/59 95 - Laboratory Lab Results: Lab Results 03/02/18 03/02/18 03/02/18 Range/Units 09:37 09:37 09:37 WBC 9.5 (3.5-10.8) 10^3/ul RBC 3.94 L (4.0-5.4) 10^6/ul Hgb 12.1 L (14.0-18.0) g/dl Hct 35 L (42-52) % MCV 89 (80-94) fL MCH 31 (27-31) pg MCHC 34 (31-36) g/dl RDW 14 (10.5-15) % Plt Count 181 (150-450) 10^3/ul MPV 9.5 (7.4-10.4) um3 Neut % (Auto) 84.1 H (38-83) % Lymph % (Auto) 6.6 L (25-47) % [place] % (Auto) 7.0 (0-7) % Eos % (Auto) 1.8 (0-6) % Baso % (Auto) 0.5 (0-2) % Absolute Neuts (auto) 8.0 H (1.5-7.7) 10^3/ul Absolute Lymphs (auto) 0.6 L (1.0-4.8) 10^3/ul Absolute Monos (auto) 0.7 (0-0.8) 10^3/ul Absolute Eos (auto) 0.2 (0-0.6) 10^3/ul Absolute Basos (auto) 0 (0-0.2) 10^3/ul Absolute Nucleated RBC 0 10^3/ul Nucleated RBC % 0 INR (Anticoag Therapy) 1.02 (0.77-1.02) APTT 29.0 (26.0-36.3) seconds Sodium 138 L (139-145) mmol/L Potassium 3.1 L (3.5-5.0) mmol/L Chloride 102 (101-111) mmol/L Carbon Dioxide 28 (22-32) mmol/L Anion Gap 8 (2-11) mmol/L BUN 15 (6-24) mg/dL Creatinine 0.98 (0.67-1.17) mg/dL Est GFR ( Amer) 95.1 (>60) Est GFR (Non-Af Amer) 74.0 (>60) BUN/Creatinine Ratio 15.3 (8-20) Glucose 198 H (70-100) mg/dL Calcium 7.8 L (8.6-10.3) mg/dL Total Bilirubin 0.70 (0.2-1.0) mg/dL AST 13 (13-39) U/L ALT 10 (7-52) U/L Alkaline Phosphatase 65 (34-104) U/L Total Protein 6.2 L (6.4-8.9) g/dL Albumin 3.5 (3.2-5.2) g/dL Globulin 2.7 (2-4) g/dL Albumin/Globulin Ratio 1.3 (1-3) Urine Color Urine Appearance Urine pH (5-9) Ur Specific [place] (1.010-1.030) Urine Protein (Negative) Urine Ketones (Negative) Urine Blood (Negative) Urine Nitrate (Negative) Urine Bilirubin (Negative) Urine Urobilinogen (Negative) Ur Leukocyte Esterase (Negative) Urine WBC (Auto) (Absent) Urine RBC (Auto) (Absent) Urine Bacteria (Absent) Urine Glucose (Negative) Blood Type Antibody Screen 03/02/18 03/02/18 Range/Units 09:37 10:30 WBC (3.5-10.8) 10^3/ul RBC (4.0-5.4) 10^6/ul Hgb (14.0-18.0) g/dl Hct (42-52) % MCV (80-94) fL MCH (27-31) pg MCHC (31-36) g/dl RDW (10.5-15) % Plt Count (150-450) 10^3/ul MPV (7.4-10.4) um3 Neut % (Auto) (38-83) % Lymph % (Auto) (25-47) % [place] % (Auto) (0-7) % Eos % (Auto) (0-6) % Baso % (Auto) (0-2) % Absolute Neuts (auto) (1.5-7.7) 10^3/ul Absolute Lymphs (auto) (1.0-4.8) 10^3/ul Absolute Monos (auto) (0-0.8) 10^3/ul Absolute Eos (auto) (0-0.6) 10^3/ul Absolute Basos (auto) (0-0.2) 10^3/ul Absolute Nucleated RBC 10^3/ul Nucleated RBC % INR (Anticoag Therapy) (0.77-1.02) APTT (26.0-36.3) seconds Sodium (139-145) mmol/L Potassium (3.5-5.0) mmol/L Chloride (101-111) mmol/L Carbon Dioxide (22-32) mmol/L Anion Gap (2-11) mmol/L BUN (6-24) mg/dL Creatinine (0.67-1.17) mg/dL Est GFR ( Amer) (>60) Est GFR (Non-Af Amer) (>60) BUN/Creatinine Ratio (8-20) Glucose (70-100) mg/dL Calcium (8.6-10.3) mg/dL Total Bilirubin (0.2-1.0) mg/dL AST (13-39) U/L ALT (7-52) U/L Alkaline Phosphatase (34-104) U/L Total Protein (6.4-8.9) g/dL Albumin (3.2-5.2) g/dL Globulin (2-4) g/dL Albumin/Globulin Ratio (1-3) Urine Color Yellow Urine Appearance Clear Urine pH 6.0 (5-9) Ur Specific [place] 1.008 L (1.010-1.030) Urine Protein Negative (Negative) Urine Ketones Negative (Negative) Urine Blood 3+ A (Negative) Urine Nitrate Negative (Negative) Urine Bilirubin Negative (Negative) Urine Urobilinogen Negative (Negative) Ur Leukocyte Esterase Negative (Negative) Urine WBC (Auto) Trace(0-5/hpf) (Absent) Urine RBC (Auto) 3+(>10/hpf) A (Absent) Urine Bacteria Absent (Absent) Urine Glucose 1+(50 mg/dl) A (Negative) Blood Type A Positive Antibody Screen Negative Result Diagrams: 03/02/18 09:37 03/02/18 09:37 Lab Statement: Any lab studies that have been ordered have been reviewed, and results considered in the medical decision making process. Re-Evaluation - Re-Evaluation 1 Re-Evaluation Time: 14:45 Comment: Recommended transfer. Pt agrees to transfer. Pt is requesting to be transferred to [place]. GIGU Course/Dx - Course Course Of Treatment: 77 y/o M presents to ED c/o birght red blood per rectum. Workup remarakable for hemaglobin in stool. H&H and coag studies unremarkable. Spoke with Dr. Dewitt's PA (gastro) at he agree to see pt at 11:13. He called back at 14:30 saying he was tied up with OR pts and is unable to see this pt tonight. Due to lack of GI coverage tomorrow the decision was made to transfer to [facility] where there is GI coverage. Pt is accepted by Dr. Romeo. Pt is hemodyncamically stable at time for transfer. - Diagnoses Provider Diagnoses: Lower GI bleed - Physician Notifications Discussed Care Of Patient With: Gregory Dewitt - GI Time Discussed With Above Provider: 11:13 Instructed by Provider To: MD Will See In ED Discharge - Sign-Out/Discharge Documenting (check all that apply): Discharge/Admit/Transfer - transfer - Discharge Plan Condition: Stable Disposition: TRANS HIGHER LVL OF CARE FAC Referrals: Andrzej Curran MD [Primary Care Provider] - - Billing Disposition and Condition Condition: STABLE Disposition: EMTALA Consult Consult: At 11:13 Dr. Dewitt agrees to see this pt in the ED. At 14:30, Dr. Dewitt states he will no be seeing patient in the ED. At 15:00, Dr. Romeo at [facility] accepts the patient. The documentation as recorded by the Cailin mendez Julia accurately reflects the service I personally performed and the decisions made by me, Susi Mojica MD.
[2018-03-02 15:45] VITALS: BP 163/78
[2018-03-02] MEDS ORDERED: NS 0.9% 1000 ML* 1,000 ML IV SCH (16:00)
== END 2018-03-02 16:32 | disposition short-term general hospital (02) ==
LOC: ED 08:19
DX: K92.2 Gastrointestinal hemorrhage, unspecified (principal); Z85.850 Personal history of malignant neoplasm of thyroid; Z85.828 Personal history of other malignant neoplasm of skin; Z79.82 Long term (current) use of aspirin; I10 Essential (primary) hypertension; I25.2 Old myocardial infarction; J45.909 Unspecified asthma, uncomplicated
CPT/HCPCS: 36415; 80053; 81003; 81015; 82270; 85025; 85610; 85730; 86850; 86900; 86901; 87086; 96360; 99284; A9270-GY

== ENCOUNTER 2018-06-05 08:34 | Emergency (ER) | payer MEDICARE, BC ==
[2018-06-05] MEDS ORDERED: Meclizine TAB* 12.5 MG PO ONE (08:43)
--- NOTE | 2018-06-05 09:20 | ED ---
Dizziness - HPI Summary HPI Summary: The patient is a 77 y/o male BIBA to the [facility] c/o sudden onset dizziness since this morning, spontaneously resolved en route to ED. He had just left the bathroom when he felt like the room was spinning and fell into his bed. Staying still does not alleviate sx. He notes nausea but denies fever, CORCORAN, coughs, vomiting and a Hx of vertigo. The EMS report that the pt's blood sugar was 129mg/dL. This is jlibliz Zeng documenting for attending Dr. Kofi Martin - History Of Current Complaint Chief Complaint: EDDizziness Stated Complaint: DIZZINESS Hx Obtained From: Patient Onset/Duration: Still Present, Suddenly - This morning Timing: Hours - This morning after showering Character: Room Spinning, Lightheaded, Dizzy Alleviating Factor(s): Nothing - Not alleviated by staying still. Associated Signs And Symptoms: Positive: Nausea - Allergies/Home Medications Allergies/Adverse Reactions: Allergies Allergy/AdvReac Type Severity Reaction Status Date / Time hesham Allergy Nausea And Verified 06/05/18 08:52 Vomiting Adhesive Tape Allergy Rash Verified 06/05/18 08:52 dubon Allergy See Comment Verified 06/05/18 08:52 ciprofloxacin [From Cipro] Allergy See Comment Verified 06/05/18 08:52 diphenhydramine Allergy See Comment Verified 06/05/18 08:52 [From Benadryl] finasteride Allergy See Comment Verified 06/05/18 08:52 lactose Allergy Diarrhea Verified 06/05/18 08:52 Penicillins Allergy Rash And Verified 06/05/18 08:52 Itching tramadol Allergy See Comment Verified 06/05/18 08:52 GUM UZBEK Allergy Intermediate NAUSEA,VOMITING Uncoded 06/05/18 08:52 AND DIARRHEA CAT DANDER Allergy Runny Nose Uncoded 06/05/18 08:52 HAY FEVER Allergy Runny Nose Uncoded 06/05/18 08:52 opiates AdvReac See Comment Uncoded 06/05/18 08:52 PMH/Surg Hx/FS Hx/Imm Hx Previously Healthy: No Endocrine/Hematology History: Reports: Hx Anticoagulant Therapy - aspirin , Hx Thyroid Disease - CANCER:thyroidectomy 2013 Denies: Hx Diabetes, Hx Anemia Cardiovascular History: Reports: Hx Angina, Hx Coronary Artery Disease - FOLLOWED BY DR SANTANA, Hx Hypercholesterolemia, Hx Hypertension - on meds, STATES WELL CONTROLLED, Hx Myocardial Infarction, Other Cardiovascular Problems/ Disorders - DR. 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 Basal cell carcinoma left nose 07/2016 Hx Chemotherapy: No Hx Radiation Therapy: No Hx Palliative Cancer Treatment: No - Surgical History Surgery Procedure, Year, and Place: tonsillectomy and adenoidectomy as a child - [facility]. appendectomy - [place]. [place]inal [place] [facility] [place] [facility]. Typanostomy of the Right Ear. [place] [facility] [place] [facility] [place] [facility] [place] [facility] [place] moh's [place] - [place]. Laminectomy 07/2017 [facility] Hx Anesthesia Reactions: No - Immunization History Date of Tetanus Vaccine: utd Date of Influenza Vaccine: fall 2016 Infectious Disease History: No Infectious Disease History: Denies: Hx Clostridium Difficile, Hx Hepatitis, Hx Human Immunodeficiency Virus (HIV), Hx of Known/Suspected MRSA, Hx Shingles, Hx Tuberculosis, History Other Infectious Disease, Traveled Outside the [place] in Last 30 Days - Family History Known Family History: Positive: Hypertension, Other - mother - CVA, father - leukemia - Social History Occupation: Retired Lives: With Family Alcohol Use: None Hx Substance Use: No Substance Use Type: Reports: None Hx Tobacco Use: No Smoking Status (MU): Never Smoked Tobacco Have You Smoked in the Last Year: No Review of Systems Negative: Fever Negative: Cough Positive: Nausea. Negative: Vomiting Neurological: Other - Positive: Dizziness Negative: Headache All Other Systems Reviewed And Are Negative: Yes Physical Exam - Summary Physical Exam Summary: Appearance: Well appearing, no pain distress Skin: warm, dry, reflects adequate perfusion Head/face: normal Eyes: EOMI, BAM ENT: Tympanostomy tube in R. ear Neck: supple, non-tender Respiratory: CTA, breath sounds present Cardiovascular: RRR, pulses symmetrical Abdomen: non-tender, soft Bowel Sounds: present Musculoskeletal: normal, strength/ROM intact Neuro: Hallpike test negative,Brief episode of Vertigo w/o nystagmus after Hallpike on the right side Triage Information Reviewed: Yes Vital Signs On Initial Exam: Initial Vitals Temp Pulse Resp BP Pulse Ox 98.3 F 60 16 112/86 97 06/05/18 08:50 06/05/18 08:50 06/05/18 08:50 06/05/18 08:50 06/05/18 08:50 Vital Signs Reviewed: Yes Diagnostics - Vital Signs Vital Signs Temp Pulse Resp BP Pulse Ox 06/05/18 08:50 98.3 F 60 16 112/86 97 - Laboratory Lab Statement: Any lab studies that have been ordered have been reviewed, and results considered in the medical decision making process. Re-Evaluation - Re-Evaluation First Eval Re-Evaluation Time: 09:29 Change: Improved - Pt. reports feeling better and is ready to go home Dizzy Course/Dx - Course Course Of Treatment: Patient with abrupt onset of rotational dizziness on changing position this morning. By the time he presented to the ER his symptoms were gone. He does have a history of ear trouble with the right ear. He did have some symptoms following the Hallpike maneuver to his right. The patient was given oral meclizine with complete relief. He walked through the department and was able to change positions easily without rotational dizziness. He was instructed in the use of Isabella maneuvers and will follow up closely with his primary care physician. - Diagnoses Differential Diagnosis/HQI/PQRI: Benign Paroxysmal Positional Vertigo, Hypovolemia, Labyrinthitis, Medication Reaction Provider Diagnoses: Positional vertigo of right ear Discharge - Sign-Out/Discharge Documenting (check all that apply): Patient Departure - Discharged home - Discharge Plan Condition: Improved Disposition: HOME Prescriptions: Meclizine TAB* [Antivert 12.5 TAB*] 25 mg PO TID PRN #30 tab PRN Reason: Dizziness Patient Education Materials: Vertigo (ED) Referrals: Andrzej Curran MD [Primary Care Provider] - Additional Instructions: Do not drive today. Meclizine as needed. Stay well-hydrated. Watching video of Eply maneuvers and perform should you experience rotational dizziness. Return if worse, new symptoms, headaches, weakness/numbness, or other concerns. Call today to schedule appointment with her primary care physician. - Billing Disposition and Condition Condition: IMPROVED Disposition: Home
[2018-06-05 09:51] VITALS: BP 123/67
== END 2018-06-05 09:50 | disposition home or self-care (01) ==
LOC: ED 08:34
DX: H81.11 Benign paroxysmal vertigo, right ear (principal); I10 Essential (primary) hypertension; I25.10 Atherosclerotic heart disease of native coronary artery without angina pectoris; I25.2 Old myocardial infarction; Z95.1 Presence of aortocoronary bypass graft; Z95.5 Presence of coronary angioplasty implant and graft; Z79.899 Other long term (current) drug therapy; Z79.82 Long term (current) use of aspirin; Z88.3 Allergy status to other anti-infective agents; Z88.8 Allergy status to other drugs, medicaments and biological substances; Z88.5 Allergy status to narcotic agent; Z88.0 Allergy status to penicillin; R11.2 Nausea with vomiting, unspecified; I45.10 Unspecified right bundle-branch block; J98.11 Atelectasis; I25.119 Atherosclerotic heart disease of native coronary artery with unspecified angina pectoris; Z88.1 Allergy status to other antibiotic agents; Z91.048 Other nonmedicinal substance allergy status; Z85.828 Personal history of other malignant neoplasm of skin
CPT/HCPCS: 99283; A9270-GY

== ENCOUNTER 2018-06-05 20:13 | Emergency (ER) | payer MEDICARE, BC ==
[2018-06-05] MEDS ORDERED: Ondansetron INJ* 2 MG/ML VIAL IV ONE (20:41)
--- NOTE | 2018-06-05 20:41 | ED ---
Dizziness - HPI Summary HPI Summary: This is vanessa Valencia documenting for attending Pepe Hastings MD. This patient is a 77 year old M BIBA to [facility] accompanied by his with a chief complaint of dizziness that was worse tonight after his dinner. Pt states after dinner he stood up became dizzy and vomited, after 10 min the vomiting and dizziness resolved. The patient rates the pain 0/10 in severity. Patient reports nausea and vomiting. Pt was seen in the ED recently for the same sx and states that he never received a prescription so took OTC medication for motion sickness which did not alleviate his sx. - History Of Current Complaint Chief Complaint: EDDizziness Stated Complaint: DIZZINESS Time Seen by Provider: 06/05/18 20:17 Hx Obtained From: Patient Onset/Duration: Resolved Timing: Intermittent Episode Lasting - 10 min Severity Initially: Moderate Severity Currently: None Character: Dizzy Associated Signs And Symptoms: Positive: Nausea, Vomiting - Allergies/Home Medications Allergies/Adverse Reactions: Allergies Allergy/AdvReac Type Severity Reaction Status Date / Time hesham Allergy Nausea And Verified 06/05/18 08:52 Vomiting Adhesive Tape Allergy Rash Verified 06/05/18 08:52 dubon Allergy See Comment Verified 06/05/18 08:52 ciprofloxacin [From Cipro] Allergy See Comment Verified 06/05/18 08:52 diphenhydramine Allergy See Comment Verified 06/05/18 08:52 [From Benadryl] finasteride Allergy See Comment Verified 06/05/18 08:52 lactose Allergy Diarrhea Verified 06/05/18 08:52 Penicillins Allergy Rash And Verified 06/05/18 08:52 Itching tramadol Allergy See Comment Verified 06/05/18 08:52 GUM MAORI Allergy Intermediate NAUSEA,VOMITING Uncoded 06/05/18 08:52 AND DIARRHEA CAT DANDER Allergy Runny Nose Uncoded 06/05/18 08:52 HAY FEVER Allergy Runny Nose Uncoded 06/05/18 08:52 opiates AdvReac See Comment Uncoded 06/05/18 08:52 PMH/Surg Hx/FS Hx/Imm Hx Endocrine/Hematology History: Reports: Hx Anticoagulant Therapy - aspirin , Hx Thyroid Disease - CANCER:thyroidectomy 2013 Denies: Hx Diabetes, Hx Anemia Cardiovascular History: Reports: Hx Angina, Hx Coronary Artery Disease - FOLLOWED BY DR SANTANA, Hx Hypercholesterolemia, Hx Hypertension - on meds, STATES WELL CONTROLLED, Hx Myocardial Infarction, Other Cardiovascular Problems/ Disorders - DR. 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 Basal cell carcinoma left nose 07/2016 Hx Chemotherapy: No Hx Radiation Therapy: No Hx Palliative Cancer Treatment: No - Surgical History Surgery Procedure, Year, and Place: tonsillectomy and adenoidectomy as a child - [facility]. appendectomy - [place]. left inguinal hernia repair - [place]. [place] [facility] [place] quintuple bypass - [facility]. Typanostomy of the Right Ear. [place] [facility] [place] [facility] [place]. bilateral [place]ol's [place] [facility] [place]. [place]apaxy [place] [facility] [place]. moh's repair - [place]. Laminectomy 07/2017 [facility] [place] Hx Anesthesia Reactions: No - Immunization History Date of Tetanus Vaccine: utd Date of Influenza Vaccine: fall 2016 Infectious Disease History: No Infectious Disease History: Denies: Hx Clostridium Difficile, Hx Hepatitis, Hx Human Immunodeficiency Virus (HIV), Hx of Known/Suspected MRSA, Hx Shingles, Hx Tuberculosis, History Other Infectious Disease, Traveled Outside the in Last 30 Days - Family History Known Family History: Positive: None, Hypertension, Other - mother - CVA, father - leukemia - Social History Alcohol Use: None Hx Substance Use: No Substance Use Type: Reports: None Hx Tobacco Use: No Smoking Status (MU): Never Smoked Tobacco Have You Smoked in the Last Year: No Review of Systems Positive: Vomiting, Nausea Neurological: Other - dizziness All Other Systems Reviewed And Are Negative: Yes Physical Exam - Summary Physical Exam Summary: Appearance: Well appearing, no pain distress Skin: warm, dry, reflects adequate perfusion Head/face: normal Eyes: EOMI, BAM ENT: normal Neck: supple, non-tender Respiratory: CTA, breath sounds present Cardiovascular: RRR, pulses symmetrical Abdomen: non-tender, soft Bowel: present Musculoskeletal: normal, strength/ROM intact Neuro: normal, sensory motor intact, A&Ox3 Triage Information Reviewed: Yes Vital Signs On Initial Exam: Initial Vitals Temp Pulse Resp BP Pulse Ox 97.3 F 54 17 151/74 95 06/05/18 20:14 06/05/18 20:14 06/05/18 20:14 06/05/18 20:14 06/05/18 20:14 Vital Signs Reviewed: Yes Diagnostics - Vital Signs Vital Signs Temp Pulse Resp BP Pulse Ox 06/05/18 20:14 97.3 F 54 17 151/74 95 - Laboratory Result Diagrams: 06/05/18 20:47 06/05/18 20:47 Lab Statement: Any lab studies that have been ordered have been reviewed, and results considered in the medical decision making process. - Radiology CXR Radiology Interpretation Completed By: ED Physician - no acute disease, pending official report. - CT CT head CT Interpretation Completed By: Radiologist - no acute intracranial abnormality. 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 - EKG 2053 Cardiac Rate: Bradycardia EKG Rhythm: Sinus Bradycardia - at 56 BPM EKG Interpretation: RBBB Dizzy Course/Dx - Course Assessment/Plan: This patient is a 77 year old M BIBA to [facility] accompanied by his with a chief complaint of dizziness that was worse tonight after his dinner. Pt states after dinner he stood up became dizzy and vomited, after 10 min the vomiting and dizziness resolved. The patient rates the pain 0/10 in severity. Patient reports nausea and vomiting. Pt states that he never received a prescription and took OTC medication for motion sickness which did not alleviate his sx. I reviewed the patients previous visit and his discharge paperwork where he was given a rx for meclizine. CXR reveals, no acute disease , pending official report. CT Head reveals, per radiology, no acute intracranial abnormality. 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 Patient is being followed for the metastases and will be seeing Dr. Silver, neurology next week. When offered admission the patient declined. Blood work obtained. Patient will be discharged with prescription for meclizine and follow up from PCP and Dr. Silver. The patient is agreeable with this plan. - Diagnoses Differential Diagnosis/HQI/PQRI: CVA, Dysrhythmia, Meniere's Disease, Metabolic Abnormality, Vasovagal Reaction Provider Diagnoses: Dizziness, Vertigo Discharge - Sign-Out/Discharge Documenting (check all that apply): Patient Departure - Discharge Plan Condition: Stable Disposition: HOME Patient Education Materials: Vertigo (ED), Dizziness (ED) Referrals: Andrzej Curran MD [Primary Care Provider] - 3 Days Additional Instructions: RETURN TO THE EMERGENCY DEPARTMENT FOR CHANGING OR WORSENING SYMPTOMS - Billing Disposition and Condition Condition: STABLE Disposition: Home
[2018-06-05] MEDS ORDERED: Meclizine TAB* 12.5 MG PO ONE ×2 (20:42→23:48)
[2018-06-05] MEDS ORDERED: Ondansetron ODT TAB* 4 MG ONE (20:51)
[2018-06-05] MEDS ORDERED: Ondansetron ODT TAB* 4 MG PO ONE (20:53)
[2018-06-05 21:01] LABS: ABS Basophils 0.1 10^3/ul (0-0.2); ABS Eosinophils 0.5 10^3/ul (0-0.6); ABS Lymphocytes 1.1 10^3/ul (1.0-4.8); ABS Monocytes 0.6 10^3/ul (0-0.8); ABS Neutrophils 5.1 10^3/ul (1.5-7.7); ABS Nucleated RBC 0 10^3/ul; Eosinophil % 6.3 % (0-6); Hematocrit 39 % (42-52); Hemoglobin 13.3 g/dl (14.0-18.0); Lymphocyte % 14.9 % (25-47); Mean Corpuscular HGB Conc 34 g/dl (31-36); Mean Corpuscular Hemoglobin 31 pg (27-31); Mean Corpuscular Volume 89 fL (80-94); Mean Platelet Volume 9.6 um3 (7.4-10.4); Nucleated Red Blood Cells % 0.1; Platelet Count 188 10^3/ul (150-450); Red Blood Count 4.37 10^6/ul (4.00-5.40); Red Cell Distribution Width 15 % (10.5-15); White Blood Count 7.3 10^3/ul (3.5-10.8)
[2018-06-05 21:08] LABS: INR 0.91 (0.77-1.02)
[2018-06-05 21:20] LABS: EGFR Non-African American 71.4 (>60)
[2018-06-05 22:53] VITALS: BP 123/63
[2018-06-05 23:18] LABS: Urine Appearance Clear; Urine Blood 1+ (Negative); Urine Color Straw; Urine Ketones Negative (Negative); Urine Protein Negative (Negative); Urine Red Blood Cell Trace(0-2/hpf) (Absent); Urine Urobilinogen Negative (Negative); Urine White Blood Cell Trace(0-5/hpf) (Absent)
--- NOTE | 2018-06-06 07:42 | RAD ---
HISTORY: dizzy COMPARISONS: March 01, 2018 VIEWS: 1: frontal portable view of the chest at 9:05 PM FINDINGS: LINES AND TUBES: None. CARDIOMEDIASTINAL SILHOUETTE: The cardiomediastinal silhouette is normal for portable technique. PLEURA: The costophrenic angles are sharp. No pleural abnormalities are noted. LUNG PARENCHYMA: There is a calcified granuloma of the left upper lung. There is minimal linear opacification of the left lung base. ABDOMEN: The upper abdomen is clear. There is no subphrenic gas. BONES AND SOFT TISSUES: The patient is status post median sternotomy. IMPRESSION: MINIMAL LINEAR ATELECTASIS OF LEFT LUNG BASE. R2
--- NOTE | 2018-06-06 09:29 | RAD ---
Indication: Dizziness. CT of the brain was performed without IV contrast. Ventricular structures are midline. No midline shift is noted. Central and cortical atrophy is noted. Hyperdense subcortical masses are noted in the left frontal, right frontal and left periventricular and right periventricular areas. Additional small hyperdense mass is noted adjacent to the atria of the right lateral ventricle. Larger hyperdense lesion is noted in the right temporal lobe. These all appear to be stable since previous exam. These may represent hemorrhagic or calcified metastatic disease. Overall, no change is noted since previous exam. These have been present as far back as July 13, 2017 and as far back as September 26, 2012. IMPRESSION: No acute changes are noted with vague hyperdense nodules scattered throughout the subcortical and periventricular white matter. This likely represents calcified or hemorrhagic metastatic lesions. These have been present as far back as 2011.
== END 2018-06-06 00:04 | disposition home or self-care (01) ==
LOC: ED 20:13
DX: R42 Dizziness and giddiness (principal); R11.2 Nausea with vomiting, unspecified; I45.10 Unspecified right bundle-branch block; J98.11 Atelectasis; I25.119 Atherosclerotic heart disease of native coronary artery with unspecified angina pectoris; I10 Essential (primary) hypertension; Z79.82 Long term (current) use of aspirin; Z88.1 Allergy status to other antibiotic agents; Z88.5 Allergy status to narcotic agent; Z88.0 Allergy status to penicillin; Z88.8 Allergy status to other drugs, medicaments and biological substances; Z91.048 Other nonmedicinal substance allergy status; Z85.828 Personal history of other malignant neoplasm of skin
CPT/HCPCS: 36415; 70450; 71045; 80053; 81003; 81015; 83605; 84484; 85025; 85610; 87086; 93005; 99283; A9270-GY

== ENCOUNTER 2018-06-29 16:48 | Emergency (ER) | payer MEDICARE, BC, OTHER ==
[2018-06-29 17:41] LABS: ABS Basophils 0.1 10^3/ul (0-0.2); ABS Eosinophils 0.7 10^3/ul (0-0.6); ABS Lymphocytes 1.3 10^3/ul (1.0-4.8); ABS Monocytes 0.8 10^3/ul (0-0.8); ABS Neutrophils 4.2 10^3/ul (1.5-7.7); ABS Nucleated RBC 0 10^3/ul; Eosinophil % 10.3 % (0-6); Hematocrit 38 % (42-52); Hemoglobin 12.8 g/dl (14.0-18.0); Lymphocyte % 18.6 % (25-47); Mean Corpuscular HGB Conc 34 g/dl (31-36); Mean Corpuscular Hemoglobin 30 pg (27-31); Mean Corpuscular Volume 89 fL (80-94); Mean Platelet Volume 9.9 um3 (7.4-10.4); Nucleated Red Blood Cells % 0; Platelet Count 177 10^3/ul (150-450); Red Blood Count 4.24 10^6/ul (4.00-5.40); Red Cell Distribution Width 15 % (10.5-15); White Blood Count 7.2 10^3/ul (3.5-10.8)
[2018-06-29 17:48] LABS: INR 0.89 (0.77-1.02)
[2018-06-29 17:51] LABS: EGFR Non-African American 70.5 (>60)
--- NOTE | 2018-06-29 18:08 | RAD ---
Indication: Chest pain. Single frontal view of the chest performed at 1733 hours was reviewed. Comparison is made with previous exam dated June 05, 2018. No mediastinal shift is noted. Heart is of normal size and configuration. Lung jacobs appear clear. IMPRESSION: NO ACTIVE CARDIOPULMONARY DISEASE IS NOTED.
--- NOTE | 2018-06-29 19:13 | ED ---
HPI Chest Pain - HPI Summary HPI Summary: Patient is a 78 y/o M w/ c/o midsternal chest pain onsetting today about 1550. Chest pain lasted 40 minutes and resolved. He states he did not take any medication. Hx of stents, cardiac bypass. Bypass was [address] Johnson, his early childhood lead teacher, saw him a couple of weeks ago, did cardiogram, and found nothing abnormal. He denies SOB, tachycardia. Pain is described as pressure. He denies HX of clots in heart or lungs. Home medications and allergies reviewed, on triage nothing is noted to aggravate/alleviate Sx. - History of Current Complaint Chief Complaint: EDChestPainROMI Time Seen by Provider: 06/29/18 17:17 Hx Obtained From: Patient Onset/Duration: Started Minutes Ago - onset 1550, Resolved Current Severity: None - pain denied in room Pain Intensity: 0 Pain Scale Used: 0-10 Numeric - 0/10 Chest Pain Location: Mid Sternal Character: Pressure/Squeezing Aggravating Factor(s): Nothing Alleviating Factor(s): Nothing Associated Signs and Symptoms: Positive: Chest Pain, Other: - NEGATIVE: tachycardia. Negative: Shortness of Breath - Additional Pertinent History Primary Care Physician: [id number] - Allergy/Home Medications Allergies/Adverse Reactions: Allergies Allergy/AdvReac Type Severity Reaction Status Date / Time hesham Allergy Nausea And Verified 06/05/18 08:52 Vomiting Adhesive Tape Allergy Rash Verified 06/05/18 08:52 dubon Allergy See Comment Verified 06/05/18 08:52 ciprofloxacin [From Cipro] Allergy See Comment Verified 06/05/18 08:52 diphenhydramine Allergy See Comment Verified 06/05/18 08:52 [From Benadryl] finasteride Allergy See Comment Verified 06/05/18 08:52 lactose Allergy Diarrhea Verified 06/05/18 08:52 Penicillins Allergy Rash And Verified 06/05/18 08:52 Itching tramadol Allergy See Comment Verified 06/05/18 08:52 GUM CZECH Allergy Intermediate NAUSEA,VOMITING Uncoded 06/05/18 08:52 AND DIARRHEA CAT DANDER Allergy Runny Nose Uncoded 06/05/18 08:52 HAY FEVER Allergy Runny Nose Uncoded 06/05/18 08:52 opiates AdvReac See Comment Uncoded 07/31/18 08:52 PMH/Surg Hx/FS Hx/Imm Hx Endocrine/Hematology History: Reports: Hx Anticoagulant Therapy - aspirin , Hx Thyroid Disease - CANCER:thyroidectomy 2013 Denies: Hx Diabetes, Hx Anemia Cardiovascular History: Reports: Hx Angina, Hx Coronary Artery Disease - FOLLOWED BY DR JOHNSON, Hx Hypercholesterolemia, Hx Hypertension - on meds, STATES WELL CONTROLLED, Hx Myocardial Infarction, Other Cardiovascular Problems/ Disorders - DR. 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 Basal cell carcinoma left nose 07/2016 Hx Chemotherapy: No Hx Radiation Therapy: No Hx Palliative Cancer Treatment: No - Surgical History Surgery Procedure, Year, and Place: tonsillectomy and adenoidectomy as a child - [facility]. appendectomy - [place]. left inguinal hernia repair [place]. [place] [facility] [place] quint[place] - [facility]. Typanostomy of the Right Ear. nasal cautery [place] [facility] [place] [facility] [place]ol's [place] [facility] [place] cystolitholapaxy [place] [facility] [place]. moh's repair - [place]. Laminectomy 07/2017 [facility] Hx Anesthesia Reactions: No - Immunization History Date of Tetanus Vaccine: utd Date of Influenza Vaccine: fall 2016 Infectious Disease History: No Infectious Disease History: Denies: Hx Clostridium Difficile, Hx Hepatitis, Hx Human Immunodeficiency Virus (HIV), Hx of Known/Suspected MRSA, Hx Shingles, Hx Tuberculosis, History Other Infectious Disease, Traveled Outside the [place] in Last 30 Days - Family History Known Family History: Positive: Hypertension, Other - mother - CVA, father - leukemia - Social History Alcohol Use: None Hx Substance Use: No Substance Use Type: Reports: None Hx Tobacco Use: No Smoking Status (MU): Never Smoked Tobacco Have You Smoked in the Last Year: No Review of Systems Positive: Chest Pain, Other - NEGATIVE: tachycardia Negative: Shortness Of Breath All Other Systems Reviewed And Are Negative: Yes Physical Exam - Summary Physical Exam Summary: PE Normal GENERAL: Patient is a well developed and nourished male who is lying comfortable in the stretcher. Patient is not in any acute respiratory distress. HEAD AND FACE: Normocephalic EYES: PERRLA, EOMI x 2. MOUTH: Oropharynx within normal limits. NECK: Supple, trachea is midline, no adenopathy, no JVD, no carotid bruit. CHEST: Symmetric, no tenderness at palpation LUNGS: Clear to auscultation bilaterally. No wheezing or crackles. CVS: Regular rate and rhythm, S1 and S2 present, no murmurs or gallops appreciated. ABDOMEN: Soft, non-tender. Bowel sounds are normal. No abdominal abnormal pulsations. EXTREMITIES: Full ROM in all major joints, no edema, no cyanosis or clubbing. NEURO: Alert and oriented x 3. No acute neurological deficits. Speech is normal and follows commands. SKIN: Dry and warm Triage Information Reviewed: Yes Vital Signs On Initial Exam: Initial Vitals Temp Pulse Resp BP Pulse Ox 97.6 F 58 16 146/71 96 06/29/18 16:52 06/29/18 16:52 06/29/18 16:52 06/29/18 16:52 06/29/18 16:52 Vital Signs Reviewed: Yes Diagnostics - Vital Signs Vital Signs Temp Pulse Resp BP Pulse Ox 06/29/18 16:52 97.6 F 58 16 146/71 96 - Laboratory Lab Results: Lab Results 06/29/18 06/29/18 06/29/18 Range/Units 17:26 17:26 17:26 WBC 7.2 (3.5-10.8) 10^3/ul RBC 4.24 (4.00-5.40) 10^6/ul Hgb 12.8 L (14.0-18.0) g/dl Hct 38 L (42-52) % MCV 89 (80-94) fL MCH 30 (27-31) pg MCHC 34 (31-36) g/dl RDW 15 (10.5-15) % Plt Count 177 (150-450) 10^3/ul MPV 9.9 (7.4-10.4) um3 Neut % (Auto) 58.7 (38-83) % Lymph % (Auto) 18.6 L (25-47) % [place] % (Auto) 11.4 H (0-7) % Eos % (Auto) 10.3 H (0-6) % Baso % (Auto) 1.0 (0-2) % Absolute Neuts (auto) 4.2 (1.5-7.7) 10^3/ul Absolute Lymphs (auto) 1.3 (1.0-4.8) 10^3/ul Absolute Monos (auto) 0.8 (0-0.8) 10^3/ul Absolute Eos (auto) 0.7 H (0-0.6) 10^3/ul Absolute Basos (auto) 0.1 (0-0.2) 10^3/ul Absolute Nucleated RBC 0 10^3/ul Nucleated RBC % 0 INR (Anticoag Therapy) 0.89 (0.77-1.02) APTT 27.6 (26.0-36.3) seconds Sodium 139 (135-145) mmol/L Potassium 3.8 (3.5-5.0) mmol/L Chloride 103 (101-111) mmol/L Carbon Dioxide 29 (22-32) mmol/L Anion Gap 7 (2-11) mmol/L BUN 25 H (6-24) mg/dL Creatinine 1.02 (0.67-1.17) mg/dL Est GFR ( Amer) 85.2 (>60) Est GFR (Non-Af Amer) 70.5 (>60) BUN/Creatinine Ratio 24.5 H (8-20) Glucose 95 (70-100) mg/dL Lactic Acid (0.5-2.0) mmol/L Calcium 8.5 L (8.6-10.3) mg/dL Magnesium 1.9 (1.9-2.7) mg/dL Total Bilirubin 0.50 (0.2-1.0) mg/dL AST 18 (13-39) U/L ALT 16 (7-52) U/L Alkaline Phosphatase 59 (34-104) U/L Troponin I 0.01 (<0.04) ng/mL B-Natriuretic Peptide ( - 100) pg/mL Total Protein 6.5 (6.4-8.9) g/dL Albumin 4.0 (3.2-5.2) g/dL Globulin 2.5 (2-4) g/dL Albumin/Globulin Ratio 1.6 (1-3) 06/29/18 06/29/18 Range/Units 17:26 17:26 WBC (3.5-10.8) 10^3/ul RBC (4.00-5.40) 10^6/ul Hgb (14.0-18.0) g/dl Hct (42-52) % MCV (80-94) fL MCH (27-31) pg MCHC (31-36) g/dl RDW (10.5-15) % Plt Count (150-450) 10^3/ul MPV (7.4-10.4) um3 Neut % (Auto) (38-83) % Lymph % (Auto) (25-47) % [place] % (Auto) (0-7) % Eos % (Auto) (0-6) % Baso % (Auto) (0-2) % Absolute Neuts (auto) (1.5-7.7) 10^3/ul Absolute Lymphs (auto) (1.0-4.8) 10^3/ul Absolute Monos (auto) (0-0.8) 10^3/ul Absolute Eos (auto) (0-0.6) 10^3/ul Absolute Basos (auto) (0-0.2) 10^3/ul Absolute Nucleated RBC 10^3/ul Nucleated RBC % INR (Anticoag Therapy) (0.77-1.02) APTT (26.0-36.3) seconds Sodium (135-145) mmol/L Potassium (3.5-5.0) mmol/L Chloride (101-111) mmol/L Carbon Dioxide (22-32) mmol/L Anion Gap (2-11) mmol/L BUN (6-24) mg/dL Creatinine (0.67-1.17) mg/dL Est GFR ( Amer) (>60) Est GFR (Non-Af Amer) (>60) BUN/Creatinine Ratio (8-20) Glucose (70-100) mg/dL Lactic Acid 0.8 (0.5-2.0) mmol/L Calcium (8.6-10.3) mg/dL Magnesium (1.9-2.7) mg/dL Total Bilirubin (0.2-1.0) mg/dL AST (13-39) U/L ALT (7-52) U/L Alkaline Phosphatase (34-104) U/L Troponin I (<0.04) ng/mL B-Natriuretic Peptide 137 H ( - 100) pg/mL Total Protein (6.4-8.9) g/dL Albumin (3.2-5.2) g/dL Globulin (2-4) g/dL Albumin/Globulin Ratio (1-3) Result Diagrams: 06/29/18 17:26 06/29/18 17:26 Lab Statement: Any lab studies that have been ordered have been reviewed, and results considered in the medical decision making process. - Radiology CXR Xray Interpretation: No Acute Changes Radiology Interpretation Completed By: Radiologist - no active cardiopulmonary disease is noted. This report was reviewed by ED physician. - EKG 1700 Cardiac Rate: Bradycardia - rate of 57 BPM EKG Rhythm: Sinus Bradycardia EKG Interpretation: RBBB EKG Comparison: Other - present EKG similar to one on 06/05/18 Re-Evaluation - Re-Evaluation First Eval Re-Evaluation Time: 18:21 Comment: Because it is weekend, patient was offered admission but explained cannot get nclear stress test until Monday. Patient would prefer to go home and arrange with early childhood lead teacher with stress test. We are going to trend patients trop here in ED and patient will be sign out. Chest Pain Course/Dx - Course Course Of Treatment: Patient is a 78 y/o M w/ c/o midsternal chest pain onsetting today about 1550. Chest pain lasted 40 minutes and resolved. He states he did not take any medication. Hx of stents, cardiac bypass. Bypass was [address] Johnson, his early childhood lead teacher, saw him a couple of weeks ago, did cardiogram, and found nothing abnormal. He denies SOB, tachycardia. Pain is described as pressure. He denies HX of clots in heart or lungs. Physical exam normal, CXR normal, EKG shows bradycardia and RBBB. No change from earlier EKG. BNP 137, lactic acid 0.8. Re-eval at 18:21 -- Because it is weekend, patient was offered admission but explained cannot get nclear stress test until Monday. Patient would prefer to go home and arrange with early childhood lead teacher with stress test. We are going to trend patients trop here in ED and patient will be sign out. Patient diagnosed with chest pain and signed out to Dr. Mcknight. - Diagnoses Provider Diagnoses: Chest pain Discharge - Sign-Out/Discharge Documenting (check all that apply): Sign-Out Patient Signing out patient TO: Martin Mcknight Receiving patient FROM: Susi Mojica - Discharge Plan Referrals: Andrzej Curran MD [Primary Care Provider] - - Attestation Statements Document Initiated by Scribe: Yes Documenting Scribe: Esdras James Provider For Whom Scribe is Documenting (Include Credential): Suis Mojica M.D. Scribe Attestation: Esdras Klein, scribed for Susi Mojica M.D. on 06/29/18 at 1917.
--- NOTE | 2018-06-29 21:32 | ED ---
Re-Evaluation - Re-Evaluation First Eval Re-Evaluation Time: 18:21 Comment: Because it is weekend, patient was offered admission but explained cannot get nclear stress test until Monday. Patient would prefer to go home and arrange with occupational medicine specialist with stress test. We are going to trend patients trop here in ED and patient will be sign out. Course/Dx - Course Course Of Treatment: Patient is a 78 y/o M w/ c/o midsternal chest pain onsetting today about 1550. Chest pain lasted 40 minutes and resolved. He states he did not take any medication. Hx of stents, cardiac bypass. Bypass was [address] Johnson, his occupational medicine specialist, saw him a couple of weeks ago, did cardiogram, and found nothing abnormal. He denies SOB, tachycardia. Pain is described as pressure. He denies HX of clots in heart or lungs. Physical exam normal, CXR normal, EKG shows bradycardia and RBBB. No change from earlier EKG. BNP 137, lactic acid 0.8. Re-eval at 18:21 -- Because it is weekend, patient was offered admission but explained cannot get nclear stress test until Monday. Patient would prefer to go home and arrange with occupational medicine specialist with stress test. We are going to trend patients trop here in ED and patient will be sign out. Patient diagnosed with chest pain and signed out to Dr. Mcknight. - Diagnoses Provider Diagnoses: Chest pain Discharge - Sign-Out/Discharge Documenting (check all that apply): Patient Departure, Receiving Sign-Out Signing out patient TO: Martin Mcknight Receiving patient FROM: Susi Mojica - Discharge Plan Condition: Good Disposition: HOME Patient Education Materials: Chest Pain (ED) Referrals: Andrzej Curran MD [Primary Care Provider] - - Billing Disposition and Condition Condition: GOOD Disposition: Home
[2018-06-29 21:48] VITALS: BP 134/74
--- NOTE | 2018-06-29 22:08 | ED ---
Progress - Progress Note Progress Note: This patient is signed out from Dr. Mojica, awaiting second troponin. Discharge - Sign-Out/Discharge Documenting (check all that apply): Patient Departure - Discharge - Discharge Plan Condition: Good Disposition: HOME Patient Education Materials: Chest Pain (ED) Referrals: Andrzej Curran MD [Primary Care Provider] - - Attestation Statements Document Initiated by Scribe: Yes Documenting Scribe: Fransisca Link Provider For Whom Scribe is Documenting (Include Credential): Martin Mcknight MD Scribe Attestation: IFransisca, scribed for Martin Mcknight MD on 06/29/18 at 2208.
== END 2018-06-29 21:47 | disposition home or self-care (01) ==
LOC: ED 16:48
DX: R07.9 Chest pain, unspecified (principal); Z79.01 Long term (current) use of anticoagulants; I25.10 Atherosclerotic heart disease of native coronary artery without angina pectoris
CPT/HCPCS: 36415; 71045; 80053; 83605; 83735; 83880; 84484; 85025; 85610; 85730; 93005; 99283

== ENCOUNTER 2019-01-19 09:04 | Emergency (ER) | payer MEDICARE, BC ==
[2019-01-19 09:17] VITALS: BP 113/64
[2019-01-19 09:42] LABS: Influenza A Molecular NEGATIVE (Negative); Influenza B Molecular NEGATIVE (Negative)
--- NOTE | 2019-01-19 10:00 | UC ---
FLU HPI - HPI Summary HPI Summary: 78 y/o male presents to the urgent care accompany by c/o body aches, sore throat, chills, dry cough, nasal congestion w/ clear discharge since yesterday. Pain is 2/10. He reports he had the influenza vaccine this season. However he thinks he has been exposed to the flu recently. Pt states last year he was hospitalized due to the flu. He has taken Tylenol PO to alleviate symptoms. Pt denies fever, CORCORAN, dizziness, SOB, chest pain,abdominal pain, N/V/D. - History of Current Complaint Chief Complaint: UCGeneralIllness Stated Complaint: SORE THOAT/FLU SYMP Time Seen by Provider: 01/19/19 09:37 Hx Obtained From: Patient Onset/Duration: Gradual Onset, Lasting Days - 1 day, Still Present Severity Currently: Mild Severity Initially: Mild Pain Intensity: 3 - sore throat Pain Scale Used: 0-10 Numeric Associated Signs & Symptoms: Positive: Myalgia, Sore Throat, Nasal Congestion - clear. Negative: Headache Related Hx: Possible Flu/Infectious Exposure - Risk Factors Influenza Risk Factors: Negative - Allergy/Home Medications Allergies/Adverse Reactions: Allergies Allergy/AdvReac Type Severity Reaction Status Date / Time hesham Allergy Diarrhea Verified 01/19/19 09:19 Adhesive Tape Allergy Rash Verified 01/19/19 09:19 dubon Allergy Hives Verified 01/19/19 09:19 ciprofloxacin [From Cipro] Allergy Tore an Verified 01/19/19 09:19 achilles tendon diphenhydramine Allergy See Comment Verified 01/19/19 09:19 [From Benadryl] finasteride Allergy Hives Verified 01/19/19 09:19 lactose Allergy Gas Verified 01/19/19 09:19 Penicillins Allergy Hives Verified 01/19/19 09:19 tramadol Allergy See Comment Verified 01/19/19 09:19 GUM DANISH Allergy Intermediate Intestinal Uncoded 01/19/19 09:19 cramps CAT DANDER Allergy Anaphylatic Uncoded 01/19/19 09:19 Shock HAY FEVER Allergy Runny Nose Uncoded 01/19/19 09:19 opiates Allergy See Comment Uncoded 01/19/19 09:19 PMH/Surg Hx/FS Hx/Imm Hx Previously Healthy: Yes Endocrine History: Hypothyroidism, Dyslipidemia Cardiovascular History: Cardiac Disease, Hypertension Other GI/ History: BPH Other History Of: Anticoagulant Therapy - aspirin Negative For: HIV, Hepatitis B - ASA taken daily., Hepatitis C - Surgical History Surgical History: Yes Surgery Procedure, Year, and Place: tonsillectomy and adenoidectomy as a child - [facility]. appendectomy - [place]. left inguinal hernia repair - [place]. cardiac stents x2 - [facility] – [place]. quintuple bypass - [facility]. Typanostomy of the Right Ear. nasal cautery - [facility] [place]. thyroidectomy - [facility] [place]. bilateral cataract extraction with iol's - [facility] [place]. cystolitholapaxy - [facility] [place]. moh's repair - [place]. Laminectomy 07/2017 [facility] [place] - Family History Known Family History: Positive: Hypertension, Other - mother - CVA, father - leukemia - Social History Occupation: Retired Lives: With Family Alcohol Use: None Substance Use Type: None Smoking Status (MU): Never Smoked Tobacco Have You Smoked in the Last Year: No - Immunization History Most Recent Influenza Vaccination: 2016 Most Recent Tetanus Shot: 2011 Most Recent Pneumonia Vaccination: 2003 Review of Systems All Other Systems Reviewed And Are Negative: Yes Constitutional: Positive: Chills, Other - body ahces Skin: Positive: Negative Eyes: Positive: Negative ENT: Positive: Sore Throat, Nasal Discharge - clear, Sinus Congestion Respiratory: Positive: Negative Cardiovascular: Positive: Negative Gastrointestinal: Positive: Negative Genitourinary: Positive: Negative Motor: Positive: Negative Neurovascular: Positive: Negative Musculoskeletal: Positive: Myalgia Neurological: Positive: Negative Psychological: Positive: Negative Is Patient Immunocompromised?: No Physical Exam - Summary Physical Exam Summary: VITAL SIGNS: Reviewed. GENERAL: Patient is a well developed and nourished old male who is sitting comfortable in the examining table. Patient is not in any acute respiratory distress. HEAD AND FACE: No signs of trauma. No ecchymosis, hematomas or skull depressions. No sinus tenderness. EYES: PERRLA, EOMI x 2, No injected conjunctiva, no nystagmus. No photophobia. EARS: Hearing grossly intact. Ear canals and tympanic membranes are within normal limits. Nose: edematous and erythematous nasal mucosa w/ clear nasal discharge. MOUTH: Positive no erythema, no tonsillar enlargement. Uvula in midline. NECK: Supple, trachea is midline, Positive anterior cervical lymphadenopathy, no JVD, no carotid bruit, no c-spine tenderness, neck with full ROM. No meningeal signs, no Kernig's or brudzinskis signs. CHEST: Symmetric, no tenderness at palpation LUNGS: Clear to auscultation bilaterally. No wheezing or crackles. CVS: Regular rate and rhythm, S1 and S2 present, no murmurs or gallops appreciated. ABDOMEN: Soft, non-tender. No signs of distention. No rebound no guarding, and no masses palpated. Bowel sounds are normal. EXTREMITIES: FROM in all major joints, no edema, no cyanosis or clubbing. NEURO: Alert and oriented x 3. No acute neurological deficits. Speech is normal and follows commands. SKIN: Dry and warm Triage Information Reviewed: Yes Vital Signs: Initial Vital Signs Temp 97.8 F 01/19/19 09:15 Pulse 69 01/19/19 09:15 Resp 16 01/19/19 09:15 BP 113/64 01/19/19 09:15 Pulse Ox 99 01/19/19 09:15 Flu Course/Dx - Course Course Of Treatment: 78 y/o male presents to the urgent care accompany by c/o body aches, sore throat, chills, dry cough, nasal congestion w/ clear discharge since yesterday. Pain is 2/10. He reports he had the influenza vaccine this season. However he thinks he has been exposed to the flu recently. Pt states last year he was hospitalized due to the flu. He has taken Tylenol PO to alleviate symptoms. Pt denies fever, CORCORAN, dizziness, SOB, chest pain,abdominal pain, N/V/D. Hx obtained. pt w/ viral syndrome on examination. Pt is hemodynamically stable, O2SAt:99%, Rapid influenza A&B:negative. However since influenza exposure. Pt will be Tx prophylactically w/ Tamiflu PO as directed below. Pt advised if symptoms worsen to f/u w/ his PCP for further management. D/C instructions explained. Pt understood and agreed w/ plan of care. - Differential Dx/Diagnosis Differential Diagnosis/HQI/PQRI: Influenza, Upper Respiratory Infection Provider Diagnosis: Viral syndrome Discharge - Sign-Out/Discharge Documenting (check all that apply): Patient Departure - d/c home All imaging exams completed and their final reports reviewed: No Studies - Discharge Plan Condition: Stable Disposition: HOME Prescriptions: Oseltamivir CAP* [Tamiflu CAP*] 75 mg PO DAILY #10 cap Patient Education Materials: Viral Syndrome (ED) Referrals: Andrzej Curran MD [Primary Care Provider] - Additional Instructions: 1- Please take the full course of the antiviral to avoid resistance for prophylactic treatment against the influenza. Encourage hand washing and wear a mask to avoid spreading. 2-Please continue taking Tylenol PO q6-8hrs prn as instructed after meals to alleviate sore throat. Increase fluid intake, eat well, rest and avoid strenuous exercise 3-If symptoms do not improve or worsen please return to the urgent care or f/u with your PCP in 3 days for further evaluation and treatment. - Billing Disposition and Condition Condition: STABLE Disposition: Home
== END 2019-01-19 10:12 | disposition home or self-care (01) ==
LOC: UCEAST 09:04
DX: B34.9 Viral infection, unspecified (principal); J02.9 Acute pharyngitis, unspecified; I10 Essential (primary) hypertension; M79.10 Myalgia, unspecified site; R05 Cough; R09.81 Nasal congestion; R68.83 Chills (without fever); Z88.8 Allergy status to other drugs, medicaments and biological substances; Z91.09 Other allergy status, other than to drugs and biological substances; Z91.018 Allergy to other foods; Z88.1 Allergy status to other antibiotic agents; Z91.011 Allergy to milk products; Z88.0 Allergy status to penicillin; Z88.5 Allergy status to narcotic agent; Z79.82 Long term (current) use of aspirin
CPT/HCPCS: 99212; G0463

== ENCOUNTER 2019-01-28 03:20 | Emergency (ER) | payer MEDICARE, BC ==
--- NOTE | 2019-01-28 03:36 | ED ---
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 The patient rates the pain 0/10 in severity. Symptoms aggravated by nothing. Symptoms alleviated by nothing. Patient reports nausea. Patient states he has previously had vertigo. - History Of Current Complaint Chief Complaint: EDDizziness Stated Complaint: "VERTIGO" PER EMS Time Seen by Provider: 01/28/19 03:24 Hx Obtained From: Patient Onset/Duration: Still Present Timing: Constant Severity Initially: Mild Severity Currently: Mild Character: Room Spinning Aggravating Factor(s): Nothing Alleviating Factor(s): Nothing Associated Signs And Symptoms: Positive: Nausea - Allergies/Home Medications Allergies/Adverse Reactions: Allergies Allergy/AdvReac Type Severity Reaction Status Date / Time hesham Allergy Diarrhea Verified 01/19/19 09:19 Adhesive Tape Allergy Rash Verified 01/19/19 09:19 dubon Allergy Hives Verified 01/19/19 09:19 ciprofloxacin [From Cipro] Allergy Tore an Verified 01/19/19 09:19 achilles tendon diphenhydramine Allergy See Comment Verified 01/19/19 09:19 [From Benadryl] finasteride Allergy Hives Verified 01/19/19 09:19 lactose Allergy Gas Verified 01/19/19 09:19 Penicillins Allergy Hives Verified 01/19/19 09:19 tramadol Allergy See Comment Verified 01/19/19 09:19 GUM CHINESE Allergy Intermediate Intestinal Uncoded 01/19/19 09:19 cramps CAT DANDER Allergy Anaphylatic Uncoded 01/19/19 09:19 Shock HAY FEVER Allergy Runny Nose Uncoded 01/19/19 09:19 opiates Allergy See Comment Uncoded 01/19/19 09:19 PMH/Surg Hx/FS Hx/Imm Hx Previously Healthy: No Endocrine/Hematology History: Reports: Hx Anticoagulant Therapy - aspirin , Hx Thyroid Disease - CANCER:thyroidectomy 2013 Denies: Hx Diabetes, Hx Anemia Cardiovascular History: Reports: Hx Angina, Hx Coronary Artery Disease - FOLLOWED BY DR SANTANA, Hx Hypercholesterolemia, Hx Hypertension - on meds, STATES WELL CONTROLLED, Hx Myocardial Infarction, Other Cardiovascular Problems/ Disorders - DR. 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 Basal cell carcinoma left nose 07/2016 Hx Chemotherapy: No Hx Radiation Therapy: No Hx Palliative Cancer Treatment: No - Surgical History Surgery Procedure, Year, and Place: tonsillectomy and adenoidectomy as a child - [facility]. appendectomy - [place]. left inguinal hernia repair - [place]. cardiac [place]2 [place] [facility] [place] quintuple bypass - [facility]. Typanostomy of the Right Ear. nasal cautery - [facility] [place]. [place] - [facility] [place]. bilateral cataract extraction with iol's - [facility] [place]. cystolitholapaxy - [facility] [place]. moh's repair - [place]. Laminectomy 07/2017 [facility] Hx Anesthesia Reactions: No - Immunization History Date of Tetanus Vaccine: utd Date of Influenza Vaccine: fall 2016 Infectious Disease History: No Infectious Disease History: Denies: Hx Clostridium Difficile, Hx Hepatitis, Hx Human Immunodeficiency Virus (HIV), Hx of Known/Suspected MRSA, Hx Shingles, Hx Tuberculosis, History Other Infectious Disease, Traveled Outside the in Last 30 Days - Family History Known Family History: Positive: Hypertension, Other - mother - CVA, father - leukemia - Social History Occupation: Retired Lives: With Family Alcohol Use: None Hx Substance Use: No Substance Use Type: Reports: None Hx Tobacco Use: No Smoking Status (MU): Never Smoked Tobacco Have You Smoked in the Last Year: No Review of Systems Positive: Nausea Neurological: Other - Positive dizziness All Other Systems Reviewed And Are Negative: Yes Physical Exam - Summary Physical Exam Summary: VITAL SIGNS: Reviewed. GENERAL: Patient is a well-developed and nourished male who is lying comfortable in the stretcher. Patient is not in any acute respiratory distress. HEAD AND FACE: No signs of trauma. No ecchymosis, hematomas or skull depressions. No sinus tenderness. EYES: PERRLA, EOMI x 2, No injected conjunctiva, no nystagmus. EARS: Hearing grossly intact. Ear canals and tympanic membranes are within normal limits. MOUTH: Oropharynx within normal limits. NECK: Supple, trachea is midline, no adenopathy, no JVD, no carotid bruit, no c- spine tenderness, neck with full ROM. CHEST: Symmetric, no tenderness at palpation LUNGS: Clear to auscultation bilaterally. No wheezing or crackles. CVS: Regular rate and rhythm, S1 and S2 present, no murmurs or gallops appreciated. ABDOMEN: Soft, non-tender. No signs of distention. No rebound no guarding, and no masses palpated. Bowel sounds are normal. EXTREMITIES: FROM in all major joints, no edema, no cyanosis or clubbing. NEURO: Alert and oriented x 3. No acute neurological deficits. Speech is normal and follows commands. SKIN: Dry and warm Triage Information Reviewed: Yes Vital Signs On Initial Exam: Initial Vitals Temp Pulse Resp BP Pulse Ox 98.6 F 61 18 122/72 94 01/28/19 03:23 01/28/19 03:23 01/28/19 03:23 01/28/19 03:23 01/28/19 03:23 Vital Signs Reviewed: Yes Diagnostics - Vital Signs Vital Signs Temp Pulse Resp BP Pulse Ox 01/28/19 03:23 98.6 F 61 18 122/72 94 - Laboratory Result Diagrams: 01/28/19 03:57 01/28/19 03:57 Lab Statement: Any lab studies that have been ordered have been reviewed, and results considered in the medical decision making process. - EKG 406 Cardiac Rate: Bradycardia EKG Rhythm: Sinus Rhythm - 56 BPM Summary of EKG Findings: An EKG taken at 0407 reveals sinus bradycardia at 56 BPM with first degree AV block and RBBB. Re-Evaluation - Re-Evaluation First Eval Re-Evaluation Time: 04:40 Change: Improved Comment: Patieng ambulated. 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 Physical Exam Findings : Nml. An EKG taken at 0407 reveals sinus bradycardia at 56 BPM with first degree AV block and RBBB. Bloodwork obtained. In the ED course the patient was given meclizine, fluids, and Zofran. Patient will be discharged with prescription for Meclizine and follow up from PCP. The patient is agreeable with this plan. - Diagnoses Provider Diagnoses: Benign positional vertigo Discharge - Sign-Out/Discharge Documenting (check all that apply): Patient Departure - Discharge home Patient Received Moderate/Deep Sedation with Procedure: No - Discharge Plan Condition: Stable Disposition: HOME Patient Education Materials: Vertigo (ED) Referrals: Andrzej Curran MD [Primary Care Provider] - 2 Days Additional Instructions: RETURN TO THE EMERGENCY DEPARTMENT FOR NEW OR WORSENING SYMPTOMS - Attestation Statements Document Initiated by Scribe: Yes Documenting Scribe: Tori Mcdonald Provider For Whom Scribe is Documenting (Include Credential): Dr. Tania Flores MD Scribe Attestation: I, Tori Mcdonald, scribed for Dr. Tania Flores MD on 01/28/19 at 0443. Status of Scribe Document: Ready
[2019-01-28] MEDS ORDERED: NS 0.9% 1000 ML** 1,000 ML IV ONE (03:37)
[2019-01-28] MEDS ORDERED: Ondansetron INJ* 2 MG/ML VIAL IV ONE (03:37)
[2019-01-28] MEDS ORDERED: Meclizine TAB* 12.5 MG PO ONE (03:38)
[2019-01-28] MEDS ORDERED: Meclizine TAB* 12.5 MG ONE (04:01)
[2019-01-28 04:05] LABS: ABS Basophils 0.1 10^3/ul (0-0.2); ABS Eosinophils 0.3 10^3/ul (0-0.6); ABS Lymphocytes 1.1 10^3/ul (1.0-4.8); ABS Monocytes 0.5 10^3/ul (0-0.8); ABS Neutrophils 5.6 10^3/ul (1.5-7.7); ABS Nucleated RBC 0 10^3/ul; Eosinophil % 3.8 %; Hematocrit 40 % (36-46); Hemoglobin 13.5 g/dL (14.0-18.0); Lymphocyte % 14.9 %; Mean Corpuscular HGB Conc 33 g/dL (31-36); Mean Corpuscular Hemoglobin 30 pg (27-31); Mean Corpuscular Volume 90 fL (80-94); Mean Platelet Volume 9.1 fL (7.4-10.4); Nucleated Red Blood Cells % 0; Platelet Count 206 10^3/uL (150-450); Red Blood Count 4.51 10^6 /uL (4.18-5.48); Red Cell Distribution Width 14 % (10.5-15); White Blood Count 7.6 10^3/uL (3.5-10.8)
[2019-01-28 04:11] LABS: Activated Partial Thrombo Time 27.3 seconds (26.0-36.3); INR 0.9 (0.77-1.02)
[2019-01-28 04:20] LABS: Albumin/Globulin Ratio 1.5 (1-3); BUN/Creatinine Ratio 19.6 (8-20); Calcium 8.4 mg/dL (8.6-10.3); EGFR African American 85.2 (>60); EGFR Non-African American 70.5 (>60); Globulin 2.6 g/dL (2-4); Potassium 3.8 mmol/L (3.5-5.0); Total Bilirubin 0.5 mg/dL (0.2-1.0); Total Protein 6.6 g/dL (6.4-8.9)
[2019-01-28 05:05] VITALS: BP 112/64
== END 2019-01-28 04:50 | disposition home or self-care (01) ==
LOC: ED 03:20
DX: H81.10 Benign paroxysmal vertigo, unspecified ear (principal); R11.0 Nausea; R00.1 Bradycardia, unspecified; I44.0 Atrioventricular block, first degree; I45.10 Unspecified right bundle-branch block; I25.119 Atherosclerotic heart disease of native coronary artery with unspecified angina pectoris; I25.2 Old myocardial infarction; I10 Essential (primary) hypertension; Z79.82 Long term (current) use of aspirin; Z95.5 Presence of coronary angioplasty implant and graft; Z95.1 Presence of aortocoronary bypass graft; Z88.1 Allergy status to other antibiotic agents; Z88.5 Allergy status to narcotic agent; Z88.0 Allergy status to penicillin; Z88.8 Allergy status to other drugs, medicaments and biological substances; Z91.018 Allergy to other foods; Z91.048 Other nonmedicinal substance allergy status
CPT/HCPCS: 36415; 80053; 85025; 85610; 85730; 93005; 96361; 96374; 99283; A9270-GY; J2405

== ENCOUNTER 2019-02-23 08:24 | Emergency (ER) | payer MEDICARE, BC ==
--- OUTSIDE RECORDS SUMMARY | 2019-02-23 08:34 | XMS REPORT | Continuity of Care Document ---
:1940 External Reference #:[id number] Author Name Maria Fernanda Montes PA-C Address [address] [place] [address] Care Team Providers Name Role Phone Deib Reza M.D. 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 [place] [address] Policy Number: [id number] [facility] Bradley Ryan PayID: [id number] [address] [place] [address] Advance Directives Description No Information Available Problems Date Description Provider Status Onset: 11/11/2010 Essential hypertension Nena Red NP Active Family History Date Family Member(s) Observation Comments General Allergies General Asthma General Heart Disease Social History Type Date Description Comments Sex Unknown Occupation Retired Tobacco Use Start: Unknown Never Smoked Cigarettes Tobacco Use Start: Unknown Never Smoked Cigars Tobacco Use Start: Unknown Never Smoked A Pipe Smokeless Tobacco Never Used Smokeless Tobacco ETOH Use Currently rarely consumes alcohol Tobacco Use Start: Unknown Patient has never smoked Smoking Status Reviewed: 01/29/19 Patient has never smoked Allergies, Adverse Reactions, Alerts Date Description Reaction Status Severity Comments 11/11/2010 Penicillin Active 11/11/2010 Opiates Active 11/11/2010 Benadryl Active 11/11/2010 Gum Setswana Active Medications Medication Date Status Form Strength Qnty SIG Indications Ordering Provider Enalapril / Active 10mg Bina, Maleate 0000 Andrzej CANTRELL Baby Aspirin / Active 81mg Bina, 0000 Andrzej CANTRELL Levothyroxine / Active Tablets 150mcg 1 by Bina, Sodium 0000 mouth Andrzej CANTRELL every day Calcitriol / Active Capsules 0.5mcg 1 tab by Matt Curran MD twice daily Lipitor / Active Tablets 40mg 1 by Bina 0000 brittney Donnelly MD every day Tamsulosin HCL / Active Capsules 0.4mg 1 by Matt Curran MD every day Tums / Active Chewtabs 500mg 1 po qid Matt Curran MD Medrol 04/26/ Hx TBPK 4mg 1pack take as Preston 2018 - directed Mary Nance 01/28/ 2018 Fluticasone 12/20/ Hx Suspension 50mcg/Act 16gm 2 sprays Preston Propionate 2017 - each Mary Nance 01/28/ nostril 2018 daily Diflucan 11/11/ Hx Tablets 100mg 11tabs 2 tabs by Preston 2010 - mouth on Mary Nance, MD ozzy 2015 then 1 tablet a day until finished Clotrimazole Hx Lozenges 10mg 50unit 1 lozenge Preston 2010 - s 5 times a Mary Nance 2015 Atenolol / Hx Unknown - 2015 Simvastatin / Hx Unknown - 2015 Afrin Nodrip / Hx Solution 0.05% as needed Unknown Sinus - 2018 Immunizations CPT Code Status Date Vaccine Lot # [id number] Given Unknown Influenza Virus Vaccine, 3 Years Of Age And Above, Intramuscular Vital Signs Date Vital Result Comment 01/29/2019 10:03am Weight 165.00 lb Weight 74.844 kg Height 69 inches 5'9" Height in cm's 175.3 cm BMI (Body Mass Index) 24.4 kg/m2 07/31/2018 10:39am Weight 162.00 lb Weight 73.483 kg Height 69 inches 5'9" Height in cm's 175.3 cm BMI (Body Mass Index) 23.9 kg/m2 04/26/2018 11:38am Weight 162.00 lb Weight 73.483 kg Height 69 inches 5'9" Height in cm's 175.3 cm BMI (Body Mass Index) 23.9 kg/m2 03/27/2018 8:39am Weight 162.00 lb Weight 73.483 kg Height 69 inches 5'9" Height in cm's 175.3 cm BMI (Body Mass Index) 23.9 kg/m2 02/22/2018 8:35am Weight 162.00 lb Weight 73.483 kg Height 69 inches 5'9" Height in cm's 175.3 cm BMI (Body Mass Index) 23.9 kg/m2 01/25/2018 10:38am Weight 162.00 lb Weight 73.483 kg Height 69 inches 5'9" Height in cm's 175.3 cm BMI (Body Mass Index) 23.9 kg/m2 12/20/2017 2:43pm Weight 162.00 lb Weight 73.483 kg Height 69 inches 5'9" Height in cm's 175.3 cm BMI (Body Mass Index) 23.9 kg/m2 09/28/2016 4:12pm BP Systolic 128 mmHg BP Diastolic 82 mmHg Heart Rate 55 /min Respiratory Rate 17 /min Weight 156.00 lb Weight 70.762 kg Height 69 inches 5'9" Height in cm's 175.3 cm BMI (Body Mass Index) 23.0 kg/m2 02/25/2016 11:12am BP Systolic 108 mmHg BP Diastolic 61 mmHg Heart Rate 50 /min Respiratory Rate 17 /min Weight 156.00 lb Weight 70.762 kg Height 69 inches 5'9" Height in cm's 175.3 cm BMI (Body Mass Index) 23.0 kg/m2 02/12/2016 10:25am BP Systolic 103 mmHg BP Diastolic 67 mmHg Heart Rate 60 /min Respiratory Rate 17 /min Weight 156.00 lb Weight 70.762 kg Height 69 inches 5'9" Height in cm's 175.3 cm BMI (Body Mass Index) 23.0 kg/m2 02/11/2016 2:51pm BP Systolic 118 mmHg BP Diastolic 67 mmHg Heart Rate 59 /min Respiratory Rate 16 /min Weight 156.00 lb Weight 70.762 kg Height 69 inches 5'9" Height in cm's 175.3 cm BMI (Body Mass Index) 23.0 kg/m2 11/11/2010 2:54pm BP Systolic 118 mmHg BP Diastolic 79 mmHg Heart Rate 59 /min Respiratory Rate 16 /min Results Test Date Facility Test Result H/L Range Note Laboratory test [facility] Blood Urea 26 mg/ dL High 6-24 finding 6 c/o Department of [place] [address] [phone] Creatinine [facility] Creatinine 1.09 mg/dL N 0.67-1.17 6 c/o Department of Laboratories [place], [place] [id number] [phone] Egfr Non- 65.6 N >60 Egfr 84.4 N >60 1 1 Because ethnic data is not always readily available, this report includes an eGFR for both -Americans and non- Americans. The National Kidney Disease Education Program (NKDEP) does not endorse the use of the MDRD equation for patients that are not between the ages of 18 and 70, are , have extremes of body size, muscle mass, or nutritional status, or are non- or non-. According to the National Kidney Foundation, irrespective of diagnosis, the stage of the disease is based on the level of kidney function: Stage Description GFR(mL/min/1.73 m(2)) 1 Kidney damage with normal or decreased GFR 90 2 Kidney damage with mild decrease in GFR 60-89 3 Moderate decrease in GFR 30-59 4 Severe decrease in GFR 15-29 5 Kidney failure <15 (or dialysis) Procedures Date Code Description Status 01/29/2019 70335 Binocular Microscopy Completed 05/14/2018 47469 Tympanometry Completed 05/14/2018 62823 Comprehensive Audiogram Completed 04/19/2018 21857 Tympanometry Completed 04/19/2018 99019 Comprehensive Audiogram Completed 02/22/2018 51674 Tympanostomy W/Tube Local Or Topical Anes. Completed 01/25/2018 22242 Nasopharyngoscopy Completed 10/20/2016 18142 Tympanometry Completed 10/20/2016 16514 Comprehensive Audiogram Completed 02/12/2016 13443 Contol Nasal Hemorrhage, Anterior, Simple Completed 02/11/2016 62409 Contol Nasal Hemorrhage, Anterior, Simple Completed 11/03/2010 79090 Endoscopic Nasal Cautery Completed Encounters Type Date Location Provider Dx Diagnosis Office Visit 01/29/2019 [place],After Maria Fernanda Montes, S00.451A Superficial foreign 10:00a 11/06/07 PA-C body of right ear, initial encounter Office Visit 07/31/2018 [place],After Preston Hernandez H90.3 Sensorineural 10:15a 11/06/07 MD Goyo hearing loss, bilateral H81.399 Other peripheral vertigo, unspecified ear Office Visit 04/26/2018 11:30a [place],After Preston Hernandez 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 ear, w unrestr hear cntra side Office Visit 02/25/2016 11:00a [place],After Preston Hernandez R04.0 Epistaxis 11/06/07 MD Goyo Office Visit 02/11/2016 3:00p [place],After Preston Hernandez R04.0 Epistaxis 11/06/07 MD Goyo Office Visit 12/16/2010 10:15a [place],After Preston Hernandez 112.0 Thrush, Oral Or 11/06/07 MD Goyo Mouth 784.7 Epistaxis 401.9 High Blood Pressure Or Hypertension/Unspecified Office Visit 12/02/2010 10:15a [place],After 11/06/07 Preston Hernandez 112.0 Thrush, Oral MD Goyo Or Mouth 401.9 High Blood Pressure Or Hypertension/Unspecified Office Visit 11/11/2010 2:30p [place],After 11/06/07 Nena Red 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
[2019-02-23 08:35] VITALS: BP 117/65
--- NOTE | 2019-02-23 08:53 | UC ---
Skin Complaint HPI - HPI Summary HPI Summary: Last night started w/ itchy/pruritic scrotum. 2.5% hydrocortizone cream helped a bit, nothing makes it worse. - History of Current Complaint Chief Complaint: UCGU Time Seen by Provider: 02/23/19 08:41 Stated Complaint: PERSONAL Hx Obtained From: Patient Onset/Duration: Sudden Onset Pain Intensity: 6 Pain Scale Used: 0-10 Numeric - Allergy/Home Medications Allergies/Adverse Reactions: Allergies Allergy/AdvReac Type Severity Reaction Status Date / Time hesham Allergy Diarrhea Verified 01/19/19 09:19 Adhesive Tape Allergy Rash Verified 02/23/19 08:35 dubon Allergy Hives Verified 02/23/19 08:35 ciprofloxacin [From Cipro] Allergy Tore an Verified 02/23/19 08:35 achilles tendon diphenhydramine Allergy See Comment Verified 02/23/19 08:35 [From Benadryl] finasteride Allergy Hives Verified 02/23/19 08:35 lactose Allergy Gas Verified 02/23/19 08:35 Penicillins Allergy Hives Verified 02/23/19 08:35 tramadol Allergy See Comment Verified 02/23/19 08:35 GUM TAJIK Allergy Intermediate Intestinal Uncoded 02/23/19 08:35 cramps CAT DANDER Allergy Anaphylatic Uncoded 02/23/19 08:35 Shock HAY FEVER Allergy Runny Nose Uncoded 02/23/19 08:35 opiates Allergy See Comment Uncoded 02/23/19 08:35 PMH/Surg Hx/FS Hx/Imm Hx Previously Healthy: Yes Endocrine History: Thyroid Disease Cardiovascular History: Cardiac Disease Cancer History: Other - thyroid Other History Of: Anticoagulant Therapy - aspirin Negative For: HIV, Hepatitis B - ASA taken daily., Hepatitis C - Surgical History Surgical History: Yes Surgery Procedure, Year, and Place: tonsillectomy and adenoidectomy as a child - [facility]. appendectomy - [place]. left inguinal hernia repair [place]. [place] [facility] [place] - [facility]. Typanostomy of the Right Ear. nasal cautery [place] [facility] [place] [facility] [place] bilateral cataract [place] with iol's [place] [facility] [place]apaxy [place] [facility] [place]oh's [place]. [place] [facility] [place] Family History Known Family History: Positive: Hypertension, Other - mother - CVA, father - leukemia - Social History Alcohol Use: None Substance Use Type: None Smoking Status (MU): Never Smoked Tobacco Have You Smoked in the Last Year: No - Immunization History Most Recent Influenza Vaccination: 2016 Most Recent Tetanus Shot: 2011 Most Recent Pneumonia Vaccination: 2003 Review of Systems All Other Systems Reviewed And Are Negative: Yes Constitutional: Positive: Negative Skin: Positive: Rash, Other - itching Genitourinary: Positive: Other - itching groin/scrotum. Negative: Dysuria, Vaginal/Penile Discharge, Vaginal/Penile Pain, Ulceration/Lesion Physical Exam Triage Information Reviewed: Yes Appearance: Well-Appearing Vital Signs: Initial Vital Signs Temp 97.4 F 02/23/19 08:31 Pulse 66 02/23/19 08:31 Resp 18 02/23/19 08:31 BP 117/65 02/23/19 08:31 Pulse Ox 98 02/23/19 08:31 Vital Signs Reviewed: Yes Male Genital Exam: Positive: Normal Genitalia, Other - L groin there was a healing skin ulceration from procedure.. Negative: Lesions, Scrotum Tenderness (R), Scrotum Tenderness (L), Testicular Tenderness (R), Testicular Tenderness (L ) Skin: Negative: Rashes - in scrotal area. Course/Dx - Course Course Of Treatment: Started w/ scrotal pruritus last night. Early signs of possible tinea and nystatin rx'd. There is an area in the groin where a derm procedure was performed that is healing which could also contribute to pruritus. Vitals are good. Not infectious. - Differential Diagnoses - Skin Complaint Differential Diagnoses: Poison Kaia, Scabies, Tinea - Diagnoses Provider Diagnosis: Jock itch Discharge - Sign-Out/Discharge Documenting (check all that apply): Patient Departure All imaging exams completed and their final reports reviewed: No Studies - Discharge Plan Condition: Good Disposition: HOME Prescriptions: Nystatin TOP POWDER* 1 applic TOPICAL BID 7 Days #1 btl Patient Education Materials: Danilo Itch (ED) Referrals: Andrzej Curran MD [Primary Care Provider] - Additional Instructions: I do think you may be developing a fungal infection but the itching could also be the area where you got your dermatology procedure as it heals it can itch. - Billing Disposition and Condition Condition: GOOD Disposition: Home
== END 2019-02-23 09:05 | disposition home or self-care (01) ==
LOC: UCEAST 08:24
DX: B35.6 Tinea cruris (principal); E07.9 Disorder of thyroid, unspecified; I51.9 Heart disease, unspecified; Z95.5 Presence of coronary angioplasty implant and graft; Z95.1 Presence of aortocoronary bypass graft; Z79.82 Long term (current) use of aspirin; Z88.1 Allergy status to other antibiotic agents; Z88.5 Allergy status to narcotic agent; Z88.0 Allergy status to penicillin; Z88.8 Allergy status to other drugs, medicaments and biological substances; Z91.048 Other nonmedicinal substance allergy status
CPT/HCPCS: 99212; G0463

== ENCOUNTER 2019-04-26 14:43 | Emergency (ER) | payer MEDICARE, BC ==
[2019-04-26 15:19] VITALS: BP 104/58
--- NOTE | 2019-04-26 16:50 | UC ---
Hand/Wrist HPI - HPI Summary HPI Summary: 78 y/o male presents to the urgent care c/o Right hand third finger pain- pain started two days ago. Does not remember injuring it. Hurts to bend. - History Of Current Complaint Chief Complaint: UCUpperExtremity Stated Complaint: FINGER PAIN Time Seen by Provider: 04/26/19 16:48 Hx Obtained From: Patient Pain Intensity: 6 - Allergies/Home Medications Allergies/Adverse Reactions: Allergies Allergy/AdvReac Type Severity Reaction Status Date / Time hesham Allergy Diarrhea Verified 04/26/19 15:20 Adhesive Tape Allergy Rash Verified 04/26/19 15:20 dubon Allergy Hives Verified 04/26/19 15:20 ciprofloxacin [From Cipro] Allergy Tore an Verified 04/26/19 15:20 achilles tendon diphenhydramine Allergy See Comment Verified 04/26/19 15:20 [From Benadryl] finasteride Allergy Hives Verified 04/26/19 15:20 lactose Allergy Gas Verified 04/26/19 15:20 Penicillins Allergy Hives Verified 04/26/19 15:20 tramadol Allergy See Comment Verified 04/26/19 15:20 GUM PERSIAN Allergy Intermediate Intestinal Uncoded 02/23/19 08:35 cramps CAT DANDER Allergy Anaphylatic Uncoded 02/23/19 08:35 Shock HAY FEVER Allergy Runny Nose Uncoded 02/23/19 08:35 opiates Allergy See Comment Uncoded 02/23/19 08:35 PMH/Surg Hx/FS Hx/Imm Hx Previously Healthy: Yes Endocrine History: Hypothyroidism Cardiovascular History: Hypertension Other History Of: Anticoagulant Therapy - aspirin Negative For: HIV, Hepatitis B - ASA taken daily., Hepatitis C - Surgical History Surgical History: Yes Surgery Procedure, Year, and Place: tonsillectomy and adenoidectomy as a child - [facility]. appendectomy - [place]. [place]inal [place] [facility] [place] bypass - [facility]. Typanostomy of the Right Ear. nasal [place] [facility] [place] [facility] [place] bilateral cataract extraction with [place]ol's [place] [facility] [place]apaxy [place] [facility] [place] moh's [place] - [place]. L[place]ctomy 07[place]2017 [facility] [place] - Family History Known Family History: Positive: Hypertension, Other - mother - CVA, father - leukemia - Social History Alcohol Use: Occasionally Substance Use Type: None Smoking Status (MU): Never Smoked Tobacco Have You Smoked in the Last Year: No - Immunization History Most Recent Influenza Vaccination: 2016 Most Recent Tetanus Shot: 2011 Most Recent Pneumonia Vaccination: 2003 Physical Exam Vital Signs: Initial Vital Signs Temp 98.6 F 04/26/19 15:15 Pulse 61 04/26/19 15:15 Resp 12 04/26/19 15:15 BP 104/58 04/26/19 15:15 Pulse Ox 96 04/26/19 15:15 Hand/Wrist Course/Dx - Differential Dx/Diagnosis Differential Diagnosis/HQI/PQRI: Contusion, Fracture, Gout, Sprain, Strain, Tendonitis, Other - osteoarthritis 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 2-Please immerse your finger in ice water, avoid repetitive movement w/ your finger of heavy lifting. 3- Please f/u with Orthopedic from Sports Medicine or your PCP in 3 days if not improvement of symptoms for further evaluation and treatment. - Billing Disposition and Condition Condition: STABLE Disposition: Home
== END 2019-04-26 17:45 | disposition home or self-care (01) ==
LOC: UCEAST 14:43
DX: M19.041 Primary osteoarthritis, right hand (principal); E03.9 Hypothyroidism, unspecified; I10 Essential (primary) hypertension; Z79.82 Long term (current) use of aspirin; Z88.5 Allergy status to narcotic agent; Z88.0 Allergy status to penicillin; Z91.011 Allergy to milk products
CPT/HCPCS: 73140; 99212; G0463

== ENCOUNTER 2019-08-01 04:53 | Observation (INO) | payer MEDICARE, BC ==
[2019-08-01 05:37] LABS: ABS Basophils 0.1 10^3/ul (0-0.2); ABS Eosinophils 0.6 10^3/ul (0-0.6); ABS Lymphocytes 1.3 10^3/ul (1.0-4.8); ABS Monocytes 0.6 10^3/ul (0-0.8); ABS Neutrophils 3.1 10^3/ul (1.5-7.7); Eosinophil % 10.9 %; Hematocrit 38 % (42-52); Hemoglobin 12.8 g/dL (14.0-18.0); Lymphocyte % 23.2 %; Mean Corpuscular HGB Conc 33 g/dL (31-36); Mean Corpuscular Hemoglobin 30 pg (27-31); Mean Corpuscular Volume 90 fL (80-94); Mean Platelet Volume 9.3 fL (7.4-10.4); Nucleated Red Blood Cells % 0.1; Platelet Count 176 10^3/uL (150-450); Red Blood Count 4.26 10^6 /uL (4.18-5.48); Red Cell Distribution Width 14 % (10-15); White Blood Count 5.8 10^3/uL (3.5-10.8)
[2019-08-01 06:00] LABS: Albumin 3.9 g/dL (3.2-5.2); Albumin/Globulin Ratio 1.7 (1-3); BUN/Creatinine Ratio 24.5 (8-20); EGFR Non-African American 73.6 (>60); Globulin 2.3 g/dL (2-4); Potassium 3.8 mmol/L (3.5-5.0); Total Bilirubin 0.5 mg/dL (0.2-1.0); Total Protein 6.2 g/dL (6.4-8.9)
--- OUTSIDE RECORDS SUMMARY | 2019-08-01 06:28 | XMS REPORT | Continuity of Care Document ---
:1940 External Reference #:[id number] Author Name Preston Nance MD Address [address] [address] Care Team Providers Name Role Phone Andrzej Curran MD Primary Care Physician Unavailable Payers Date Identification Numbers Payment Provider Subscriber Policy Number: [id number] [place] [employer] Bradley Ryan PayID: [id number] 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/2010 Family History Date Family Member(s) Observation Comments [...] Patient has never smoked Smoking Status Reviewed: 06/06/19 Patient has never smoked Allergies, Adverse Reactions, Alerts Active Allergies Reaction Severity Comments Date Penicillin 11/11/2010 Opiates 11/11/2010 Benadryl 11/11/2010 Gum Yi 11/11/2010 Medications Active Medications SIG Qnty Indications Ordering Date Provider Mupirocin apply to left 22gm Preston Hernandez 06/06/2019 2% Ointment nostril twice a MD Goyo day for 2 weeks Clonazepam 1 by mouth every 30tabs Preston Hernandez 06/06/2019 0.5mg Tablets 12 hours as MD Goyo Dispers needed for vertigo Ondansetron 1 by mouth every 30tabs Preston Hernandez 06/06/2019 8mg Tablets 8 hours as needed MD Goyo Dispers for nausea Meclizine HCL Take 2 Tablets By Unknown 12.5mg Mouth Three Times Tablets A Day as Needed For Dizziness Colchicine Take 2 Tablets By Unknown 0.6mg Tablets Mouth With Gout Flare Then 1 Tablet 1 Hour Later Tums 1 po qid Bina Andrzej 500mg Chewtabs Tamsulosin HCL 1 by mouth every Bina [facility] 0.4mg day MD Capsules Lipitor 1 by mouth every Bina [facility] 40mg Tablets day Calcitriol 1 tab by mouth Bina [facility] 0.5mcg twice daily MD Capsules Levothyroxine Sodium 1 by mouth every Bina Andrzej day 150mcg Tablets Baby Aspirin Bina [facility] 81mg Enalapril Maleate Bina [facility] 10mg History Medications Medrol take as directed 1pack Preston Hernandez 04/26/2018 - 4mg TBPK MD Goyo 01/28/2019 Fluticasone Propionate 2 sprays each 16gm Preston Hernandez 12/20/2017 - nostril daily MD Goyo 01/28/2019 50mcg/Act Suspension Diflucan 2 tabs by mouth 11tabs Preston Hernandez 11/11/2010 - 100mg Tablets on day one, then MD Goyo 02/11/2016 1 tablet a day until finished Clotrimazole 1 lozenge 5 times 50units Preston Hernandez 11/11/2010 - 10mg a day MD Goyo 02/11/2016 Lozenges Atenolol Unknown - 02/11/2016 Simvastatin Unknown - 02/11/2016 Afrin Nodrip Sinus as needed Unknown - 0.05% 01/28/2019 Solution Immunizations CPT Code Status Date Vaccine Lot # [id number] Given Unknown Influenza Virus Vaccine, 3 Years Of Age And Above, Intramuscular Vital Signs Date Vital Result Comment 06/06/2019 10:31am Weight 165.00 lb Weight 74.844 kg Height 69 inches 5'9" Height in cm's 175.3 cm BMI (Body Mass Index) 24.4 kg/m2 01/29/2019 10:03am Weight 165.00 lb Weight 74.844 [...] Test Result H/L Range Note Laboratory test [facility] Blood Urea 26 mg/ dL High 6-24 finding 6 c/o Department [place] [address] [phone] [facility] Creatinine 1.09 mg/dL Normal 0.67-1.17 6 c/o [place] [address] [phone] Egfr Non- 65.6 Normal >60 Egfr 84.4 Normal >60 1 1 Because ethnic data is [...] (or dialysis) Procedures Date Code Description Status 06/06/2019 00418 Tympanometry Completed 06/06/2019 58858 Comprehensive Audiogram Completed 01/29/2019 18141 Binocular Microscopy Completed 05/14/2018 12377 Tympanometry Completed 05/14/2018 42490 Comprehensive Audiogram Completed 04/19/2018 41750 Tympanometry Completed 04/19/2018 45296 Comprehensive Audiogram Completed 02/22/2018 85822 Tympanostomy W/Tube Local Or Topical Anes. 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 10:30a 11/06/07 MD Goyo otitis media, right ear H90.3 Sensorineural hearing loss, bilateral H81.399 Other peripheral vertigo, unspecified ear Office Visit 01/29/2019 [place],After Maria Fernanda Montes, S00.451A Superficial 10:00a 11/06/07 PA-C foreign body of right ear, initial encounter Office Visit 07/31/2018 [place],After Preston Hernandez H90.3 Sensorineural 10:15a 11/06/07 MD Goyo hearing loss, bilateral H81.399 Other peripheral vertigo, unspecified ear Office Visit 04/26/2018 11:30a [place],After Preston Hernandez H91.22 Sudden 11/06/07 MD Goyo idiopathic hearing loss, left ear Office Visit 03/27/2018 8:45a [place],After Preston Hernandez 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 ear, w unrestr hear cntra side Office Visit 02/25/2016 11:00a [place],After Preston Hernandez R04.0 Epistaxis 11/06/07 MD Goyo Office Visit 02/11/2016 3:00p [place],After Preston Hernandez R04.0 Epistaxis 11/06/07 MD Goyo Office Visit 12/16/2010 10:15a [place],After Preston Hernandez 112.0 Thrush, Oral Or 11/06/07 MD Goyo Mouth 784.7 Epistaxis 401.9 High Blood Pressure Or Hypertension/Unspecified Office Visit 12/02/2010 10:15a [place],After 11/06/07 Preston Hernandez 112.0 Thrush, Oral MD Goyo Or Mouth 401.9 High Blood Pressure Or Hypertension/Unspecified Office Visit 11/11/2010 2:30p [place],After 11/06/07 Nena Red 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
--- OUTSIDE RECORDS SUMMARY | 2019-08-01 06:28 | XMS REPORT | Continuity of Care Document ---
:1940 External Reference #:[id number] Author Name Onesimo Johnson M.D. (transmitted by agent of provider Isha Guerrero) Address [address] [place] [id number] Care Team Providers Name Role Phone Jc Lewis MD - Endocrinology, Care Team Information Promotion Writer Diabetes & Metabolism Janae Riley MD - Gastroenterology Care Team Information Promotion Writer Isiah Silver M.D. - Neurology Care Team Information Promotion Writer Problems Active Problems Provider Date Coronary arteriosclerosis Inderjit James M.D.,FACP Onset: 11/01/2010 Gout Inderjit James M.D.,FACP Onset: 11/01/2010 Chest pain Andrzej Curran M.D. Onset: 02/27/2012 Plain X-ray skull abnormal Andrzej Curran M.D. Onset: 11/12/2012 Chronic ischemic heart disease Andrzej Curran M.D. Onset: 12/11/2012 Benign essential hypertension Andrzej Curran M.D. Onset: 12/11/2012 Pure hypercholesterolemia Andrzej Curran M.D. 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 Onset: 04/03/2014 Spinal stenosis of lumbar region Rolando Broussard M.D. Onset: 04/28/2017 Convalescence after surgery Rolando Broussard M.D. Onset: 07/19/2017 Benign paroxysmal positional vertigo Isiah Silver M.D. Onset: 06/14/2018 Cerebrovascular disease Isiah Silver M.D. Onset: 06/14/2018 Mild cognitive disorder Isiah Silver M.D. Onset: 06/14/2018 Abnormal gait Isiah Silver M.D. Onset: 06/14/2018 Chronic fatigue syndrome Isiah Silver M.D. Onset: 06/14/2018 Dizziness and giddiness Isiah Silver M.D. Onset: 09/21/2018 Mild cognitive disorder Isiah Silver M.D. Onset: 11/05/2018 Social History Type Date Description Comments Sex Unknown Tobacco Use Start: Unknown Never Smoked Cigarettes ETOH Use Denies alcohol use Tobacco Use Start: Unknown Patient has never smoked Recreational Drug Use Denies Drug Use Smoking Status Reviewed: 07/23/19 Patient has never smoked Exercise Type/Frequency Exercises regularly 30 minutes daily walking Allergies, Adverse Reactions, Alerts Active Allergies Reaction Severity Comments Date PCN 06/11/2007 Benadryl 06/11/2007 narcotics 06/11/2007 Jaz 06/11/2007 Cipro tore achilles tendon 01/16/2012 Proscar itching/hives 12/04/2014 Cat Dander 01/19/2015 Pollen 04/30/2015 Fresh Mcrae itchy throat per patient 04/30/2015 Tramadol tremors 07/19/2017 Medications Active Medications SIG Qnty Indications Ordering Date Provider Calcitriol As directed Other Ordering 06/14/2018 0.5mcg Provider Capsules Colcrys 2 by mouth with 6tabs Andrzej Hernandez 03/07/2017 0.6mg Tablets acute gout flare, Miya Curran then 1 tab 1 hour later Levothyroxine Sodium Take One Tablet 90tabs Andrzej Hernandez 05/28/2014 By Mouth Every Miya Curran 150mcg Tablets Day Enalapril Maleate 1 tab by mouth 90tabs Onesimo Lopez 07/29/2013 10mg every day Miya Johnson Tablets Nitroglycerin 1 sl as needed 25tabs Susanna Armstrong 0.4mg M.DChey Tablets Sub Lipitor 1 tab by mouth 90tabs Gerber Daily 40mg Tablets every day Miya Russo, FACC, FASNC Tylenol 2 tabs by mouth Unknown 325mg Tablets every 4 hours as needed Claritin 1 by mouth every Unknown 10mg Tablets day as needed Tums Ultra 1000 4 tabs daily Unknown 1000mg Chewtabs Meclizine HCL 1 tab by mouth as Unknown 25mg needed Tablets Aspirin Adult Low Dose 1 by mouth every Unknown day 81mg Tablets DR History Medications Doxycycline Hyclate 1 tablet twice a 20tabs Debi Reza, 01/28/2019 - 100mg day x 10 days M.D. 02/07/2019 Tablets Tessalon Perles 1-2 tab by mouth 14caps Debi Reza, 01/24/2019 - 100mg daily at night M.D. 02/20/2019 Capsules for cough Medications Administered in Office Medication SIG Qnty Indications Ordering Provider Date Technetium TC 99M Onesimo Guardado M.D. 10/23/2013 Per Unit Dose Up To 40 Millicuries Injection Immunizations CPT Code Status Date Vaccine Lot # [id number] Given 07/23/2018 Fluzone High Dose 04423 Given 07/27/2017 Influenza Virus Vaccine, Quadrivalent, Split, [id number] Preservative Free 65387 Given 09/01/2016 Influ Virus Vaccine, Quadrivalent, Split Virus, [place] [id number] [address] Given 07/20/2015 Influenza Virus Vaccine, Quadrivalent, Split, [id number] Preservative Free 89096 Given 01/19/2015 Pneumococcal Conjugate Vaccine 13 Valent For [id number] Intramuscular Use 84355 Given 08/12/2014 Influenza Virus Vaccine, Quadrivalent, Split, [id number] Preservative Free 15290 Given 08/23/2013 Flu Vaccine Split Virus Preservative Free For [id number] Indiv 3Yr Older 56666 Given 09/26/2012 Tdap - Tetanus/Diptheria/Acellular Pertussis Q2038 Given 08/03/2012 Fluzone Vaccine 81022 Given 08/17/2011 Influenza Virus 3Yrs & Over 84790 Given 08/15/2010 Influenza Virus 3Yrs & Over 44010 Given 08/14/2008 Influenza Virus 3Yrs & Over 59182 Given 08/13/2007 Influenza Virus 3Yrs & Over 39564 Given 08/13/2007 Influenza Virus 3Yrs & Over 32482 02483 Given 11/22/2004 Pneumovax (History By Patient) 68064 Given 09/13/2002 Td (History By Patient) Vital Signs Date Vital Result Comment 07/23/2019 9:59am Height 68 inches 5'8" Weight 156.00 lb Heart Rate 55 /min BP Systolic 110 mmHg BP Diastolic 72 mmHg BMI (Body Mass Index) 23.7 kg/m2 05/14/2019 11:01am Height 68 inches 5'8" Weight 159.00 lb Heart Rate 56 /min BP Systolic Sitting 108 mmHg BP Diastolic Sitting 65 mmHg O2 % BldC Oximetry 95 % BMI (Body Mass Index) 24.2 kg/m2 Results Test Date Facility Test Result H/L Range Note Comp Metabolic 03/06/2019 [facility] Sodium 143 mmol/L Normal 135-145 1 Panel [address] [place] [address] [phone] Potassium 3.8 mmol/L Normal 3.5-5.0 Chloride 103 mmol/L Normal 101-111 Co2 Carbon Dioxide 30 mmol/L Normal 22-32 Anion Gap 10 mmol/L Normal 2-11 Glucose 94 mg/dL Normal 70-100 Blood Urea Nitrogen 21 mg/dL Normal 6-24 Creatinine 1.05 mg/dL Normal 0.67-1.17 BUN/Creatinine Ratio 20.0 Normal 8-20 Calcium 9.2 mg/dL Normal 8.6-10.3 Total Protein 7.0 g/dL Normal 6.4-8.9 Albumin 4.5 g/dL Normal 3.2-5.2 Globulin 2.5 g/dL Normal 2-4 Albumin/Globulin Ratio 1.8 Normal 1-3 Total Bilirubin 0.70 mg/dL Normal 0.2-1.0 Alkaline Phosphatase 60 U/L Normal 34-104 Alt 19 U/L Normal 7-52 Ast 22 U/L Normal 13-39 Egfr Non- 68.1 >60 Egfr 82.4 >60 2 Urinalysis Profile 03/06/2019 [facility] Urine Color Yellow [address] [place] [address] [phone] Urine Appearance Clear Urine Specific [place] 1.011 Normal 1.010-1.030 Urine pH 6.0 Normal 5-9 Urine Urobilinogen Negative Negative Urine Ketones Negative Negative Urine Protein Negative Negative Urine Leukocytes Negative Negative Urine Blood 1+ Abnormal Negative Urine Nitrite Negative Negative Urine Bilirubin Negative Negative Urine Glucose Negative Negative Urine White Blood Cell Trace(0-5/hpf) Absent Urine Red Blood Cell 1+(3-5/hpf) Abnormal Absent Urine Bacteria Absent Absent Lipid Profile 03/06/2019 [facility] Triglycerides 126 mg/dL 3 (Trig/Chol/HDL) [address] [place] [address] [phone] Cholesterol 146 mg/dL 4 HDL Cholesterol 34.0 mg/dL 5 LDL Cholesterol 87 mg/dL 6 Testosterone Free 03/06/2019 [facility] Free 8.10 3.08-11.3 7 & Total [address] Testosterone ng/[place] [address] ng/dl [phone] Testosterone 352 ng/dL 240-950 8 Laboratory test 03/06/2019 [facility] TSH (Thyroid 0.08 Low 0.34-5.60 [address] Stim Horm) mcIU/[place] [address] [phone] Thyroglobulin 03/06/2019 [facility] Thyroglobulin <1.8 <4.0 Tumor Mark[address] Antibody IU/mL [place], [place] [id number] [phone] Thyroglobulin Tumor Marker <0.1 ng/mL 10 Thyroglobulin Interpretation See Comment 11 Urine Culture And 03/06/2019 [facility] Urine SEE RESULT [address] [place] [address] [phone] Inr/Protime 01/28/2019 [facility] Inr 0.90 Normal 0.[address] -1.0 [place] [address] 2 [phone] Laboratory test 01/28/2019 [facility] Partial 27.3 Normal 26.[address] Thrombo Time seconds -36. [place] [address] PTT 3 [phone] CBC Auto Diff 01/28/2019 [facility] White Blood 7.6 10^3/uL Normal 3.5- [address] Count 10.8 [place] [address] [phone] Red Blood Count 4.51 10^6/uL Normal 4.18-5.48 Hemoglobin 13.5 g/dL Low 14.0-18.0 Hematocrit 40 % Normal 36-46 Mean Corpuscular Volume 90 fL Normal 80-94 Mean Corpuscular Hemoglobin 30 pg Normal 27-31 Mean Corpuscular HGB Conc 33 g/dL Normal 31-36 Red Cell Distribution Width 14 % Normal 10.5-15 Platelet Count 206 10^3/uL Normal 150-450 Mean Platelet Volume 9.1 fL Normal 7.4-10.4 Abs Neutrophils 5.6 10^3/uL Normal 1.5-7.7 Abs Lymphocytes 1.1 10^3/uL Normal 1.0-4.8 Abs Monocytes 0.5 10^3/uL Normal 0-0.8 Abs Eosinophils 0.3 10^3/uL Normal 0-0.6 Abs Basophils 0.1 10^3/uL Normal 0-0.2 Abs Nucleated RBC 0 10^3/uL Granulocyte % 73.3 % Lymphocyte % 14.9 % Monocyte % 7.1 % Eosinophil % 3.8 % Basophil % 0.9 % Nucleated Red Blood Cells % 0 Comp Metabolic 01/28/2019 [facility] Sodium 137 mmol/L Normal 135-[address] [place] [id number] [phone] Potassium 3.8 mmol/L Normal 3.5-5.0 Chloride 102 mmol/L Normal 101-111 Co2 Carbon Dioxide 28 mmol/L Normal 22-32 Anion Gap 7 mmol/L Normal 2-11 Glucose 120 mg/dL High 70-100 Blood Urea Nitrogen 20 mg/dL Normal 6-24 Creatinine 1.02 mg/dL Normal 0.67-1.17 BUN/Creatinine Ratio 19.6 Normal 8-20 Calcium 8.4 mg/dL Low 8.6-10.3 Total Protein 6.6 g/dL Normal 6.4-8.9 Albumin 4.0 g/dL Normal 3.2-5.2 Globulin 2.6 g/dL Normal 2-4 Albumin/Globulin Ratio 1.5 Normal 1-3 Total Bilirubin 0.50 mg/dL Normal 0.2-1.0 Alkaline Phosphatase 62 U/L Normal 34-104 Alt 18 U/L Normal 7-52 Ast 19 U/L Normal 13-39 Egfr Non- 70.5 >60 Egfr 85.2 >60 13 1 FASTING 2 Because ethnic data is not always readily [...] 15-29 5 Kidney failure <15 (or dialysis) 3 Desirable: <150 Borderline High: 150-199 High: 200-499 Very High: >500 4 Desirable: <200 Borderline High: 200-239 High: >239 5 Low: <40 Desirable: 40-60 High: >60 6 Desirable: <100 Near Optimal: 100-129 Borderline High: 130-159 High: 160-189 Very High: >189 7 ADDITIONAL INFORMATION Testing performed by [facility]. This test was developed and its performance characteristics determined by [facility] in a manner consistent with CLIA requirements. This test has not been cleared or approved by the U.S. Food and Drug Administration. 8 ADDITIONAL INFORMATION Testing performed by Liquid Chromatography-Tandem Mass Spectrometry (LC-MS/MS). This test was developed and its performance characteristics determined by [facility] in a manner consistent with CLIA requirements. This test has not been cleared or approved by the U.S. Food and Drug Administration. Test Performed by: [facility] - [address] [address] 9 FASTING 10 REFERENCE VALUE Athyrotic <0.1 Intact Thyroid <=33 11 Thyroglobulin (Tg) levels must be interpreted in the context of TSH levels, serial Tg measurements and radioiodine ablation status. Tg levels <0.1 ng/mL in athyrotic individuals on suppressive therapy indicate a minimal risk (<1-2%) of clinically detectable recurrent papillary/follicular thyroid cancer. ADDITIONAL INFORMATION PLEASE NOTE: Thyroglobulin flagging is based on athyrotic reference values. The thyroglobulin and thyroglobulin antibody testing methods are immunoenzymatic assays manufactured by [employer]. and performed on the [employer] 800. Values obtained from different assay methods or kits may be different and cannot be used interchangeably. The results cannot be interpreted as absolute evidence for the presence or absence of malignant disease. Test Performed by: [facility] [address] [place] [id number] 12 SEE RESULT BELOW Name: NANCY MERINO : [address]: Andrzej Curran III, MD Acct: [id number] Unit: [id number] AGE: 78 Location: [facility] Re03/06/19 SEX: M Status: REG REF SPEC: [id number] GIULIA: 03/06/[address]: Andrzej Curran III, MD REQ: [id number] RECD: 03/06/19 STATUS: COMP _ SOURCE: URINE SPDESC: ORDERED: Urine Culture Procedure Result Reported Site Urine Culture Final 03/07/19- 1211 ML No Growth (<1,000 CFU/mL) * ML - Main Lab . END OF REPORT DEPARTMENT OF PATHOLOGY, [address] [place] [address] Vinicio Mendoza M.D. Director [facility] # [id number] 13 Because ethnic data is not always readily [...] (or dialysis) Procedures Date Code Description Status 02/15/2019 24696997 Mammogram Completed 10/25/2018 [id number] Colonoscopy Completed 01/21/2014 [id number] Colonoscopy Completed 02/20/2013 [id number] Diabetic Foot Exam Completed 08/09/2007 [id number] Colonoscopy Completed Medical Devices Description No Information Available Encounters Type Date Location Provider Dx Diagnosis Office Visit 05/14/2019 [facility] Hilario Sawant, R42 Dizziness and 11:00a N.P. giddiness G31.84 Mild cognitive impairment, so stated I68.0 Cerebral amyloid angiopathy Office Visit 03/11/2019 9:00a [facility] Internal Andrzej Hernandez L98.9 Disorder of the Medicine - Miya Curran skin and Adithyaob subcutaneous tissue, unspecified R31.9 Hematuria, unspecified Office Visit 02/21/2019 Amada Silver, G31.84 Mild cognitive 11:15a Neurologic M.DChey impairment, so Services [facility] stated I68.0 Cerebral amyloid angiopathy Office Visit 02/11/2019 3:40p [facility] Internal Andrzej Hernandez Z80.3 Family history of Medicine - Jing Curran M.D. malignant neoplasm of breast Office Visit 01/21/2019 9:50a DoNotUse [facility] Debi J06.9 Acute upper Internal Miya Reza respiratory Medicine-[facility] infection, od unspecified T16.1xxA Foreign body in right ear, initial encounter Assessments Date Code Description Provider 07/23/2019 G31.84 Mild cognitive impairment, so stated Hilario Sawant, N.P. 07/23/2019 I68.0 Cerebral amyloid angiopathy Hilario Sawant N.P. 07/23/2019 R42 Dizziness and giddiness Hilario Sawant N.P. 05/14/2019 R42 Dizziness and giddiness Hilario Sawant, N.P. 05/14/2019 G31.84 Mild cognitive impairment, so stated Hilario Sawant, N.P. 05/14/2019 I68.0 Cerebral amyloid angiopathy Hilario Sawant, N.P. 03/11/2019 L98.9 Disorder of the skin and subcutaneous Andrzej Curran M.D. tissue, unspecified 03/11/2019 R31.9 Hematuria, unspecified Andrzej Curran M.D. 03/05/2019 Z00.00 Encounter for general adult medical Andrzej Curran M.D. examination without abno 03/05/2019 R68.82 Decreased libido Andrzej Curran M.D. 03/05/2019 N52.9 Male erectile dysfunction, unspecified Andrzej Curran M.D. 03/05/2019 I10 Essential (primary) hypertension Andrzej Curran M.D. 03/05/2019 I25.10 Atherosclerotic heart disease of [place] Andrzej Curran M.D. coronary artery with 03/05/2019 C73 Malignant neoplasm of thyroid gland Andrzej Curran M.D. 03/05/2019 N40.0 Benign prostatic hyperplasia without lower Andrzej Curran M.D. urinary tract sym 03/05/2019 E78.00 Pure hypercholesterolemia, enidified Andrzej Curran M.D. 03/05/2019 R35.0 Frequency of micturition Andrzej Curran M.D. 02/21/2019 G31.84 Mild cognitive impairment, so stated Isiah Silver M.D. 02/21/2019 I68.0 Cerebral amyloid angiopathy Isiah Silver M.D. 02/11/2019 Z80.3 Family history of malignant neoplasm of Andrzej Curran M.D. breast 01/21/2019 J06.9 Acute upper respiratory infection, Debi Reza M.D. unspecified 01/21/2019 T16.1xxA Foreign body in right ear, initial Debi Reza M.D. encounter Plan of Treatment Future Appointment(s):10/15/2019 9:15 am - Isiah Silver M.D. at [facility]09/04/2019 9:00 am - Andrzej Curran M.D. at [facility] Internal [facility] - [facility]07/23/2019 - Hilario Sawant N.P.G31.84 Mild cognitive impairment, so statedFollow up:3 [id number] Cerebral amyloid [id number] Dizziness and giddiness Functional Status Description No Information Available Mental Status Description No Information Available Referrals Refer to Dr Reason for Referral Status Appt Date Preston Nance MD Sent [address] [place] [address] [phone] Preston Nance MD Received Partial 01/29/2019 [address] [place] [address] [phone]
--- OUTSIDE RECORDS SUMMARY | 2019-08-01 06:28 | XMS REPORT | Continuity of Care Document ---
:1940 External Reference #:[id number] Author Name Hilario Sawant N.P. (transmitted by agent of provider Yary Pittman) Address [address], [place] [address] Care Team Providers Name Role Phone Jc Lewis MD - Endocrinology, Care Team Information Ground Wirer [phone] Diabetes & Metabolism Janae Riley MD - Gastroenterology Care Team Information Ground Wirer [phone] Isiah Silver M.D. - Neurology Care Team Information Ground Wirer Problems Active Problems Provider Date Coronary arteriosclerosis [...] Capsules Colcrys 2 by mouth with 6tabs Andrezj Hernandez 03/07/2017 0.6mg Tablets acute gout flareBina M.D. then 1 tab 1 hour later Levothyroxine Sodium Take One Tablet 90tabs Andrzej Hernandez 05/28/2014 By Mouth Every Miya Curran 150mcg Tablets Day Enalapril Maleate 1 tab by mouth 90tabs Onesimo Lopez 07/29/2013 10mg every day Miya Johnson Tablets Nitroglycerin 1 sl as needed 25tabs Susanna Armstrong, 0.4mg M.DChey Tablets Sub Lipitor 1 tab by mouth 90tabs Gerber Daily 40mg Tablets every day Miya Russo, FAC, FASNC Tylenol 2 tabs by mouth Unknown [...] CPT Code Status Date Vaccine Lot # [id number] Given 07/23/2018 Fluzone High Dose 29792 Given 07/27/2017 Influenza Virus Vaccine, Quadrivalent, Split, [id number] Preservative Free 38930 Given 09/01/2016 Influ Virus Vaccine, Quadrivalent, Split Virus, [place] [id number] [address] Given 07/20/2015 Influenza Virus Vaccine, Quadrivalent, Split, [id number] Preservative Free 39531 Given 01/19/2015 Pneumococcal Conjugate Vaccine 13 Valent For [id number] Intramuscular Use 99508 Given 08/12/2014 Influenza Virus Vaccine, Quadrivalent, Split, [id number] Preservative Free 32499 Given 08/23/2013 Flu Vaccine Split Virus Preservative Free For [id number] Indiv 3Yr Older 10365 Given 09/26/2012 Tdap - Tetanus/Diptheria/Acellular Pertussis [id number] Given 08/03/2012 Fluzone Vaccine 71768 Given 08/17/2011 Influenza Virus 3Yrs & Over 30480 Given 08/15/2010 Influenza Virus 3Yrs & Over 98533 Given 08/14/2008 Influenza Virus 3Yrs & Over 66650 Given 08/13/2007 Influenza Virus 3Yrs & Over 18484 Given 08/13/2007 Influenza Virus 3Yrs & Over 28079 17080 Given 11/22/2004 Pneumovax (History By Patient) 51188 Given 09/13/2002 Td (History By Patient) Vital [...] Result H/L Range Note Comp Metabolic 03/06/2019 [facility] Sodium 143 mmol/L Normal 135-145 1 Panel [address] [place] [address] [phone] Potassium 3.8 mmol/L Normal 3.5-5.0 Chloride 103 [...] Egfr 82.4 >60 2 Urinalysis Profile 03/06/2019 [facility] Urine Color Yellow [address] [place] [address] [phone] Urine Appearance Clear Urine Specific [place] 1.011 Normal 1.010-1.030 Urine pH 6.0 Normal 5-9 Urine Urobilinogen Negative Negative Urine Ketones Negative Negative Urine Protein Negative Negative Urine Leukocytes Negative Negative Urine Blood 1+ Abnormal Negative Urine Nitrite Negative Negative Urine Bilirubin Negative Negative Urine Glucose Negative Negative Urine White Blood Cell Trace(0-5/hpf) Absent Urine Red Blood Cell 1+(3-5/hpf) Abnormal Absent Urine Bacteria Absent Absent Lipid Profile 03/06/2019 [facility] Triglycerides 126 mg/dL 3 (Trig/Chol/HDL) [address] [place] [address] [phone] Cholesterol 146 mg/dL 4 HDL Cholesterol 34.0 mg/dL 5 LDL Cholesterol 87 mg/dL 6 Testosterone Free 03/06/2019 [facility] Free 8.10 3.08-11.3 7 & Total [address] Testosterone ng/[place] [address] ng/dl [phone] Testosterone 352 ng/dL 240-950 8 Laboratory test 03/06/2019 [facility] TSH (Thyroid 0.08 Low 0.34-5.60 [address] Stim Horm) mcIU/[place] [address] [phone] Thyroglobulin 03/06/2019 [facility] Thyroglobulin <1.8 <4.0 Tumor Mark[address] Antibody IU/mL [place], [place] [address]47 [phone] Thyroglobulin Tumor Marker <0.1 ng/mL 10 Thyroglobulin Interpretation See Comment 11 Urine Culture And 03/06/2019 [facility] Urine SEE RESULT [address] [place] [address] [phone] Inr/Protime 01/28/2019 [facility] Inr 0.90 Normal 0.[address] -1.0 [place] [address] 2 [phone] Laboratory test 01/28/2019 [facility] Partial 27.3 Normal 26.[address] Thrombo Time seconds -36. [place] [address] PTT 3 [phone] CBC Auto Diff 01/28/2019 [facility] White Blood 7.6 10^3/uL Normal 3.5- [address] Count 10.8 [place] [address] [phone] Red Blood Count 4.51 10^6/uL Normal 4.18-5.48 [...] Blood Cells % 0 Comp Metabolic 01/28/2019 [facility] Sodium 137 mmol/L Normal 135-[address] [place] [address] [phone] Potassium 3.8 mmol/L Normal 3.5-5.0 Chloride 102 [...] developed and its performance characteristics determined by [facility] in a manner consistent with CLIA requirements. This test has not been cleared or approved by the U.S. Food and Drug Administration. 8 ADDITIONAL INFORMATION Testing performed by Liquid Chromatography-Tandem Mass Spectrometry (LC-MS/MS). This test was developed and its performance characteristics determined by [facility] in a manner consistent with CLIA requirements. This test has not been cleared or approved by the U.S. Food and Drug Administration. Test Performed by: [facility] [address] [place] [id number] 9 FASTING 10 REFERENCE VALUE Athyrotic <0.1 [...] testing methods are immunoenzymatic assays manufactured by [employer] and performed on the [employer] 800. Values obtained from different assay methods or kits may be different and cannot be used interchangeably. The results cannot be interpreted as absolute evidence for the presence or absence of malignant disease. Test Performed by: [facility] [address] [place] [id number] 12 SEE RESULT BELOW Name: NANCY MERINO : [address]: Andrzej Curran III, MD Acct: [id number] Unit: [id number] AGE: 78 Location: [facility] Re03/06/19 SEX: M Status: REG REF SPEC: [id number] GIULIA: 03/06/[address]: Andrzej Curran III, MD REQ: [id number] RECD: 03/06/19 STATUS: COMP _ SOURCE: URINE [facility]: ORDERED: Urine Culture Procedure Result Reported Site Urine Culture Final 03/07/19- 1211 ML No Growth (<1,000 CFU/mL) * ML - Main Lab . END OF REPORT DEPARTMENT OF PATHOLOGY, [address] [place] [address] Vinicio Mendoza M.D. Director [facility] # [id number] 13 Because ethnic data is not always [...] dialysis) Procedures Date Code Description Status 02/15/2019 66194156 Mammogram Completed 10/25/2018 27397224 Colonoscopy Completed 01/21/2014 [id number] Colonoscopy Completed 02/20/2013 518586090 Diabetic Foot Exam Completed 08/09/2007 06617635 Colonoscopy Completed Medical Devices Description No Information Available Encounters Type Date Location Provider Dx Diagnosis Office Visit 07/23/2019 [facility] Hilario Sawant, G31.84 Mild cognitive 10:00a [facility] N.PChey impairment, so stated I68.0 Cerebral amyloid angiopathy R42 Dizziness and giddiness Office Visit 05/14/2019 [facility] Hilario R4Rick Dizziness and 11:00a [facility] Jese NChelsie giddiness G31.84 Mild cognitive impairment, so stated I68.0 Cerebral amyloid angiopathy Office Visit 03/11/2019 9:00a [facility] Internal Andrzej Hernandez L98.9 Disorder of the Medicine - Miya Curran skin and Adithyaob subcutaneous tissue, unspecified R31.9 Hematuria, unspecified Office Visit 02/21/2019 [place] Isiah Silver G31.84 Mild cognitive 11:15a [facility]rolog[facility] MOtis impairment, so [facility] G31.84 Mild cognitive impairment, so stated Hilario Sawant N.PChey 07/23/2019 I68.0 Cerebral amyloid angiopathy Hilario Sawant, N.P. 07/23/2019 R42 Dizziness and giddiness Hilario Sawant, N.P. 05/14/2019 R42 Dizziness and giddiness Hilario [...] M.D. 03/05/2019 I25.10 Atherosclerotic heart disease of [place] Andrzej Curran M.D. coronary artery with 03/05/2019 [...] 9:15 am - Isiah Silver M.D. at [facility]09/04/2019 9:00 am - Andrzej Curran M.D. at [facility] Internal [facility] - [facility]07/23/2019 - Hilario Sawant N.P.G31.84 Mild cognitive impairment, so statedFollow up:3 atndyjV10.0 Cerebral amyloid [id number] Dizziness and giddiness Functional Status Description No Information Available Mental Status Description No Information Available Referrals Refer to Dr Reason for Referral Status Appt Date Preston Nance MD Sent [address] [place] [address] [phone] Preston Nance MD Received Partial 01/29/2019 [address] [place] [address] [phone]
--- OUTSIDE RECORDS SUMMARY | 2019-08-01 06:28 | XMS REPORT | Continuity of Care Document ---
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 [phone] Problems Active Problems Provider Date Essential hypertension Nena Red NP Onset: 11/11/2010 Social History Type Date Description Comments Sex [...] Penicillin 11/11/2010 Opiates 11/11/2010 Benadryl 11/11/2010 Gum Telugu 11/11/2010 Medications Active Medications SIG Qnty Indications [...] as needed MD Goyo Dispers for nausea Enalapril Maleate Andrzej Curran 10mg Baby Aspirin Andrzej Curran 81mg Levothyroxine Sodium 1 by mouth every Andrzej Curran day 150mcg Tablets Calcitriol 1 tab by mouth Andrzej Curran 0.5mcg twice daily MD Capsules Lipitor 1 by mouth every Andrzej Curran 40mg Tablets day Tamsulosin HCL 1 by mouth every Andrzej Curran 0.4mg day Capsules Tums 1 po qid Andrzej Curran 500mg Chewtabs Colchicine Take 2 Tablets By Unknown 0.6mg Tablets Mouth With Gout Flare Then 1 Tablet 1 Hour Later Meclizine HCL Take 2 Tablets By Unknown 12.5mg Mouth Three Times Tablets A Day as Needed For Dizziness History Medications Ofloxacin (Otic) 4 drops to right 10ml Preston Nance, 06/20/2019 - 0.3% ear twice a day 07/25/2019 Solution for 3 days Immunizations CPT Code Status Date Vaccine Lot # [id number] Given Unknown Influenza Virus Vaccine, 3 Years Of Age And Above, Intramuscular Vital Signs Date Vital Result Comment 07/25/2019 9:23am Weight 165.00 lb Weight 74.844 kg Height 69 inches 5'9" Height in cm's 175.3 cm BMI (Body Mass Index) 24.4 kg/m2 06/20/2019 11:11am Weight 165.00 lb Weight 74.844 kg Height 69 inches 5'9" Height in cm's 175.3 cm BMI (Body Mass Index) 24.4 kg/m2 Results Description No Information Available Procedures Date Code Description Status 06/20/2019 26227 Tympanostomy W/Tube Local Or Topical Anes. Completed 06/06/2019 78048 Tympanometry Completed 06/06/2019 21298 Comprehensive Audiogram Completed 01/29/2019 38140 Binocular Microscopy Completed Medical Devices Description No Information Available Encounters Type Date Location Provider Dx Diagnosis Office Visit 07/25/2019 [place] Preston Hernandez 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 9:30a 11/06/07 MD Goyo otitis media, right ear H90.3 Sensorineural hearing loss, bilateral Office Visit 06/06/2019 10:30a [place] 11/06/07 Preston Hernandez 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 MD [place]oyo otitis media, right ear H90.3 Sensorineural hearing loss, bilateral H81.399 Other peripheral vertigo, unspecified ear Office Visit 01/29/2019 10:00a [place] Maria Fernanda Corona S00.451A Superficial 11/06/07 NELA [place] foreign body of right ear, initial encounter Assessments Date Code Description Provider 07/25/2019 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, right Preston Nance MD ear 07/25/2019 H90.3 Sensorineural hearing loss, Preston Nance MD bilateral 06/20/2019 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, right Preston Nance MD ear 06/06/2019 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, right Preston Nance MD ear 06/06/2019 H90.3 Sensorineural hearing loss, Romel Vazquez MA, [facility] bilateral 06/06/2019 H90.3 Sensorineural hearing loss, Preston Nance MD bilateral 06/06/2019 H81.399 Other peripheral vertigo, Preston Nance MD unspecified ear 01/29/2019 S00.451A Superficial foreign body of right Maria Fernanda [place] PA-C ear, initial encounter Plan of Treatment Future Appointment(s):01/24/2020 9:00 am - Maria Fernanda [place] PA-C at [place],After Functional Status Description No Information Available Mental Status Description No Information Available Referrals Description No Information Available
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
--- OUTSIDE RECORDS SUMMARY | 2019-08-01 06:28 | XMS REPORT | Continuity of Care Document ---
:1940 External Reference #:[id number] Author Name Onesimo Johnson M.D. 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 Onset: 02/27/2012 Plain X-ray skull abnormal Andrzej Curran M.D. Onset: 11/12/2012 Chronic ischemic heart disease Andrzje Curran M.D. Onset: 12/11/2012 Benign essential hypertension [...] Use Denies Drug Use Smoking Status Reviewed: 07/24/19 Patient has never smoked Exercise Type/Frequency Exercises [...] CPT Code Status Date Vaccine Lot # [id number] Given 07/23/2018 Fluzone High Dose 44767 Given 07/27/2017 Influenza Virus Vaccine, Quadrivalent, Split, [id number] Preservative Free 29350 Given 09/01/2016 Influ Virus Vaccine, Quadrivalent, Split Virus, [id number] [address] Given 07/20/2015 Influenza Virus Vaccine, Quadrivalent, Split, [id number] Preservative Free 90553 Given 01/19/2015 Pneumococcal Conjugate Vaccine 13 Valent For [id number] Intramuscular Use 82025 Given 08/12/2014 Influenza Virus Vaccine, Quadrivalent, Split, [id number] Preservative Free 38430 Given 08/23/2013 Flu Vaccine Split Virus Preservative Free For [id number] Indiv 3Yr Older 34946 Given 09/26/2012 Tdap - Tetanus/Diptheria/Acellular Pertussis [id number] Given 08/03/2012 Fluzone Vaccine 38318 Given 08/17/2011 Influenza Virus 3Yrs & Over 84828 Given 08/15/2010 Influenza Virus 3Yrs & Over 53019 Given 08/14/2008 Influenza Virus 3Yrs & Over 62100 Given 08/13/2007 Influenza Virus 3Yrs & Over 10188 Given 08/13/2007 Influenza Virus 3Yrs & Over 09182 80850 Given 11/22/2004 Pneumovax (History By Patient) 92647 Given 09/13/2002 Td (History By Patient) Vital Signs Date Vital Result Comment 07/24/2019 3:31pm Height 68 inches 5'8" Weight 161.00 lb with shoes Heart Rate 62 /min BP Systolic Sitting 108 mmHg RUe reg cuff BP Diastolic Sitting 70 mmHg RUe reg cuff BP Systolic Standing 102 mmHg Rue reg cuff BP Diastolic Standing 80 mmHg Rue reg cuff Respiratory Rate 13 /min BMI (Body Mass Index) 24.5 kg/m2 Ejection Fraction 50-55% ECHO 08/07/2013 07/23/2019 9:59am Height 68 inches 5'8" Weight 156.00 lb Heart Rate 55 /min BP Systolic 110 mmHg BP Diastolic 72 mmHg BMI (Body Mass Index) 23.7 kg/m2 Results Test Date Facility Test Result H/L Range Note Comp Metabolic 03/06/2019 [facility] Sodium 143 mmol/L Normal 135-145 1 Panel [address] [place] [address] [phone] Potassium 3.8 mmol/L Normal 3.5-5.0 Chloride 103 [...] Egfr 82.4 >60 2 Urinalysis Profile 03/06/2019 [facility] Urine Color Yellow [address] [place] [address] [phone] Urine Appearance Clear Urine Specific Diamond 1.011 Normal 1.010-1.030 Urine pH 6.0 Normal 5-9 Urine Urobilinogen Negative Negative Urine Ketones Negative Negative Urine Protein Negative Negative Urine Leukocytes Negative Negative Urine Blood 1+ Abnormal Negative Urine Nitrite Negative Negative Urine Bilirubin Negative Negative Urine Glucose Negative Negative Urine White Blood Cell Trace(0-5/hpf) Absent Urine Red Blood Cell 1+(3-5/hpf) Abnormal Absent Urine Bacteria Absent Absent Lipid Profile 03/06/2019 [facility] Triglycerides 126 mg/dL 3 (Trig/Chol/HDL) [address] [place] [id number] [phone] Cholesterol 146 mg/dL 4 HDL Cholesterol 34.0 mg/dL 5 LDL Cholesterol 87 mg/dL 6 Testosterone Free 03/06/2019 [facility] Free 8.10 3.08-11.3 7 & Total [address] DR[address] Testosterone ng/[place] [address] ng/dl [phone] Testosterone 352 ng/dL 240-950 8 Laboratory test 03/06/2019 [facility] TSH (Thyroid 0.08 Low 0.34-5.60 [address] Stim Horm) mcIU/[place] [address] [phone] Thyroglobulin 03/06/2019 [facility] Thyroglobulin <1.8 <4.0 Tumor Marker [address] Antibody IU/mL [place], [place] [address] [phone] Thyroglobulin Tumor Marker <0.1 ng/mL 10 Thyroglobulin Interpretation See Comment 11 Urine Culture And 03/06/2019 [facility] Urine SEE RESULT [address] [place] [address] [phone] Inr/Protime 01/28/2019 [facility] Inr 0.90 Normal 0.[address] -1.0 [place] [address] 2 [phone] Laboratory test 01/28/2019 [facility] Partial 27.3 Normal 26.[address] Thrombo Time seconds -36. [place] [address] PTT 3 [phone] CBC Auto Diff 01/28/2019 [facility] White Blood 7.6 10^3/uL Normal 3.5- [address] Count 10.8 [place] [address] [phone] Red Blood Count 4.51 10^6/uL Normal 4.18-5.48 [...] Blood Cells % 0 Comp Metabolic 01/28/2019 [facility] Sodium 137 mmol/L Normal 135-[address] [place] [address] [phone] Potassium 3.8 mmol/L Normal 3.5-5.0 Chloride 102 [...] developed and its performance characteristics determined by [facility] in a manner consistent with CLIA requirements. This test has not been cleared or approved by the U.S. Food and Drug Administration. 8 ADDITIONAL INFORMATION Testing performed by Liquid Chromatography-Tandem Mass Spectrometry (LC-MS/MS). This test was developed and its performance characteristics determined by [facility] in a manner consistent with CLIA requirements. This test has not been cleared or approved by the U.S. Food and Drug Administration. Test Performed by: [facility] - [address] [address] 9 FASTING 10 REFERENCE VALUE Athyrotic <0.1 [...] testing methods are immunoenzymatic assays manufactured by [employer]. and performed on the [employer] 800. Values obtained from different assay methods or kits may be different and cannot be used interchangeably. The results cannot be interpreted as absolute evidence for the presence or absence of malignant disease. Test Performed by: [facility] - [facility] [address] [place] [address] 12 SEE RESULT BELOW Name: NANCY MERINO : [address]: Andrzej Curran III, MD Acct: [id number] Unit: [id number] AGE: 78 Location: [facility] Re03/06/19 SEX: M Status: REG REF SPEC: [id number] GIULIA: 03/06/[address]: Andrzej Curran III, MD REQ: [id number] RECD: 03/06/19 STATUS: COMP _ SOURCE: URINE SPDESC: ORDERED: Urine Culture Procedure Result Reported Site Urine Culture Final 03/07/19- 1211 ML No Growth (<1,000 CFU/mL) * ML - Main Lab . END OF REPORT DEPARTMENT OF PATHOLOGY, [address] [place] [address] Vinicio Mendoza M.D. Director [facility] # [id number] 13 Because ethnic data is not always [...] (or dialysis) Procedures Date Code Description Status 07/24/2019 92883 EKG Tracing & Interpretation Completed 02/15/2019 93069317 Mammogram Completed 10/25/2018 [id number] Colonoscopy Completed 01/21/2014 [id number] Colonoscopy Completed 02/20/2013 [id number] Diabetic Foot Exam Completed 08/09/2007 [id number] Colonoscopy Completed Medical Devices Description No Information Available Encounters Type Date Location Provider Dx Diagnosis Office Visit 05/14/2019 [facility] Hilario Sawant, R42 Dizziness and 11:00a N.P. giddiness G31.84 Mild cognitive impairment, so stated I68.0 Cerebral amyloid angiopathy Office Visit 03/11/2019 9:00a [facility] Andrzej Hernandez L98.9 Disorder of the Medicine - Miya Curran skin and Adithyaob subcutaneous tissue, unspecified R31.9 Hematuria, unspecified Office Visit 02/21/2019 Amada Joyce Nadeem, G31.84 Mild cognitive 11:15a Neurologic M.DChey impairment, so [facility] stated I68.0 Cerebral amyloid angiopathy Office Visit 02/11/2019 3:40p [facility] Andrzej Hernandez Z80.3 Family history of Medicine - Jing Curran M.D. malignant neoplasm of breast Assessments Date Code Description Provider 07/24/2019 I10 Essential (primary) hypertension Onesimo Johnson M.D. 07/24/2019 I25.10 Atherosclerotic heart disease of ute Onesimo Johnson M.D. coronary artery with 07/23/2019 G31.84 Mild cognitive impairment, so stated Hilario Sawant N.P. 07/23/2019 I68.0 Cerebral amyloid angiopathy Hilario Sawant, [...] M.D. 03/05/2019 I25.10 Atherosclerotic heart disease of ute Andrzej Curran M.D. coronary artery with 03/05/2019 C73 Malignant neoplasm of thyroid gland Andrzej Curran M.D. 03/05/2019 N40.0 Benign prostatic hyperplasia without lower Andrzej Curran M.D. urinary tract sym 03/05/2019 E78.00 Pure hypercholesterolemia, unspecified Andrzej Curran M.D. 03/05/2019 R35.0 Frequency of micturition Andrzej Curran M.D. 02/21/2019 G31.84 Mild cognitive impairment, so stated Isiah Silver M.D. 02/21/2019 I68.0 Cerebral amyloid angiopathy Isiah Silver M.D. 02/11/2019 Z80.3 Family history of malignant neoplasm of Andrzej Curran M.D. breast Plan of Treatment Future Appointment(s):10/15/2019 9:15 am - Isiah Silver M.D. at [facility]09/04/2019 9:00 am - Andrzej Curran M.D. at [facility] Internal Medicine - [facility]07/24/2019 - Onesimo Johnson M.D.I10 Essential ( primary) hypertensionFollow up:1 yearI25.10 Atherosclerotic heart disease of ute coronary artery with Functional Status Description No Information Available Mental Status Description No Information Available Referrals Refer to Dr Reason for Referral Status Appt Date Preston Nance MD Sent [address] [place] [address] [phone]
--- NOTE | 2019-08-01 06:36 | ED ---
HPI Chest Pain - HPI Summary HPI Summary: Pt is an 79 y/o M presenting to the ED for chest pain that began at 04:00 on . When the chest pain began, the pt took NTG and rates the pain as a 3/10. Pt does not regularly take NTG. The pain is on the left side of the chest, did not radiate, and is now resolved. The pt describes the pain as a sharp sensation. Pt also had associated palpitations and SOB. Pt admits similar chest pain in the past. He has a PMHx of angina, HTN, a cardiac stent placement 10 years ago, and bypass surgery 20 years ago. He also notes occasional gout and memory problems for which he takes medication. Pt denies nausea, diaphoresis, fever, cough, or being sick recently. Allergies noted. - History of Current Complaint Chief Complaint: EDChestPainROMI Time Seen by Provider: 08/01/19 04:57 Hx Obtained From: Patient, Family/Rn Allergy - Onset/Duration: Started Hours Ago, Atraumatic, Resolved Timing: Lasting Hours Initial Severity: Mild Current Severity: None Pain Intensity: 3 Pain Scale Used: 0-10 Numeric Chest Pain Location: Diffuse Chest Pain Radiates: No Character: Sharp/Stabbing Aggravating Factor(s): Nothing Alleviating Factor(s): NTG 123 Associated Signs and Symptoms: Positive: Chest Pain, Shortness of Breath, Palpitations, Other: - Negative recent sickness.. Negative: Fever, Diaphoresis , Nausea, Cough, Productive Cough, Nonproductive Cough - Additional Pertinent History Primary Care Physician: JOHN - Allergy/Home Medications Allergies/Adverse Reactions: Allergies Allergy/AdvReac Type Severity Reaction Status Date / Time hesham Allergy Diarrhea Verified 04/26/19 15:20 Adhesive Tape Allergy Rash Verified 04/26/19 15:20 cat dander Allergy Anaphylatic Verified 08/01/19 08:01 Shock dubon Allergy Hives Verified 04/26/19 15:20 ciprofloxacin [From Cipro] Allergy Tore an Verified 04/26/19 15:20 achilles tendon diphenhydramine Allergy See Comment Verified 04/26/19 15:20 [From Benadryl] finasteride Allergy Hives Verified 04/26/19 15:20 lactose Allergy Gas Verified 04/26/19 15:20 Opioids - Morphine Analogues Allergy See Comment Verified 08/01/19 08:00 Opioids-Meperidine and Allergy See Comment Verified 08/01/19 08:00 Related Opioids-Methadone and Related Allergy See Comment Verified 08/01/19 08:00 Penicillins Allergy Hives Verified 04/26/19 15:20 tramadol Allergy See Comment Verified 04/26/19 15:20 GUM OCCITAN Allergy Intermediate Intestinal Uncoded 02/23/19 08:35 cramps HAY FEVER Allergy Runny Nose Uncoded 02/23/19 08:35 PMH/Surg Hx/FS Hx/Imm Hx Previously Healthy: Yes Endocrine/Hematology History: Reports: Hx Anticoagulant Therapy - aspirin , Hx Thyroid Disease - CANCER:thyroidectomy 2013 Denies: Hx Diabetes, Hx Anemia Cardiovascular History: Reports: Hx Angina, Hx Coronary Artery Disease - FOLLOWED BY DR SANTANA, Hx Hypercholesterolemia, Hx Hypertension - on meds, STATES WELL CONTROLLED, Hx Myocardial Infarction, Other Cardiovascular Problems/ Disorders - DR. 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 Basal cell carcinoma left nose 07/2016 Hx Chemotherapy: No Hx Radiation Therapy: No Hx Palliative Cancer Treatment: No - Surgical History Surgery Procedure, Year, and Place: tonsillectomy and adenoidectomy as a child - [facility]. appendectomy - [place]. left inguinal hernia repair - [place] [facility] [place] Typanostomy - TUBE IN EAR FOR FLUID - Right Ear. [place] [facility] [place] [facility] [place] [facility] [place] [facility] [place] moh's repair [place] [facility]. LUMBAR -Laminectomy 07/2017 [facility] Hx Anesthesia Reactions: No - Immunization History Date of Tetanus Vaccine: utd Date of Influenza Vaccine: fall 2016 Immunizations Up to Date: Yes Infectious Disease History: No Infectious Disease History: Denies: Hx Clostridium Difficile, Hx Hepatitis, Hx Human Immunodeficiency Virus (HIV), Hx of Known/Suspected MRSA, Hx Shingles, Hx Tuberculosis, History Other Infectious Disease, Traveled Outside the in Last 30 Days - Family History Known Family History: Positive: Hypertension, Other - mother - CVA, father - leukemia - Social History Alcohol Use: Occasionally Hx Substance Use: No Substance Use Type: Reports: None Hx Tobacco Use: No Smoking Status (MU): Never Smoked Tobacco Have You Smoked in the Last Year: No Review of Systems - ROS Summary Review of Systems Summary: Pt is an 79 y/o M presenting to the ED for chest pain that began at 04:00 on . When the chest pain began, the pt took NTG and rates the pain as a 3/10. . Pt does not regularly take NTG. The pain is on the left side of the chest, did not radiate, and is now resolved. The pt describes the pain as a sharp sensation. Pt also had associated palpitations and SOB. Pt admits similar chest pain in the past. He has a PMHx of angina, a cardiac stent placement 10 years ago, a bypass surgery, occasional gout, memory problems, and HTN for which he takes medication. Pt denies nausea, diaphoresis, fever, cough, or being sick recently. Allergies noted. Positive: Other - No recent sickness. Negative: Fever, Skin Diaphoresis Positive: Palpitations, Chest Pain Positive: Shortness Of Breath. Negative: Cough Negative: Nausea All Other Systems Reviewed And Are Negative: Yes Physical Exam - Summary Physical Exam Summary: General: Well-developed, Well-nourished. Male. No acute distress. HEENT: Normocephalic, Atraumatic. Eyes: Conjuctiva normal, PERRL. Ears: TMs within normal limits. Nares: (-) discharge, (-) erythema. Oropharynx: Clear, mucous membranes moist, (-) exudates. Neck: Soft, FROM, (-) lymphadenopathy, (-) thyromegaly, (-) JVD. Cardiovascular: Normal sinus rhythm, (-) murmur. Lungs: Clear to auscultation bilaterally (-) wheezes, (-) rales, (-) rhonchi. Abdomen: Soft, non-tender, non-distended, (-) organomegaly, normal bowel sounds. Back: (-) CVA tenderness Extremities: No edema. Skin: Warm, dry, (-) rash. Neuro: Alert and oriented x3, no focal deficits. Psychiatric: Mood normal, affect normal. Triage Information Reviewed: Yes Vital Signs On Initial Exam: Initial Vitals Temp Pulse Resp BP Pulse Ox 97.3 F 51 18 133/66 94 08/01/19 04:57 08/01/19 04:57 08/01/19 04:57 08/01/19 04:57 08/01/19 04:57 Vital Signs Reviewed: Yes Diagnostics - Vital Signs Vital Signs Temp Pulse Resp BP Pulse Ox 08/01/19 05:06 19 129/63 08/01/19 04:57 97.3 F 51 18 133/66 94 - Laboratory Lab Results: Lab Results 08/01/19 08/01/19 08/01/19 Range/Units 05:17 05:17 05:17 WBC 5.8 (3.5-10.8) 10^3/uL RBC 4.26 (4.18-5.48) 10^6 /uL Hgb 12.8 L (14.0-18.0) g/dL Hct 38 L (42-52) % MCV 90 (80-94) fL MCH 30 (27-31) pg MCHC 33 (31-36) g/dL RDW 14 (10-15) % Plt Count 176 (150-450) 10^3/uL MPV 9.3 (7.4-10.4) fL Neut % (Auto) 53.8 % Lymph % (Auto) 23.2 % Reeves % (Auto) 11.0 % Eos % (Auto) 10.9 % Baso % (Auto) 1.1 % Absolute Neuts (auto) 3.1 (1.5-7.7) 10^3/ul Absolute Lymphs (auto) 1.3 (1.0-4.8) 10^3/ul Absolute Monos (auto) 0.6 (0-0.8) 10^3/ul Absolute Eos (auto) 0.6 (0-0.6) 10^3/ul Absolute Basos (auto) 0.1 (0-0.2) 10^3/ul Absolute Nucleated RBC 0.0 10^3/ul Nucleated RBC % 0.1 INR (Anticoag Therapy) 1.00 (0.82-1.09) Sodium 140 (135-145) mmol/L Potassium 3.8 (3.5-5.0) mmol/L Chloride 104 (101-111) mmol/L Carbon Dioxide 29 (22-32) mmol/L Anion Gap 7 (2-11) mmol/L BUN 24 (6-24) mg/dL Creatinine 0.98 (0.67-1.17) mg/dL Est GFR ( Amer) 89.0 (>60) Est GFR (Non-Af Amer) 73.6 (>60) BUN/Creatinine Ratio 24.5 H (8-20) Glucose 93 (70-100) mg/dL Lactic Acid (0.5-2.0) mmol/L Calcium 8.0 L (8.6-10.3) mg/dL Total Bilirubin 0.50 (0.2-1.0) mg/dL AST 19 (13-39) U/L ALT 17 (7-52) U/L Alkaline Phosphatase 64 (34-104) U/L Troponin I 0.00 (<0.04) ng/mL B-Natriuretic Peptide (<=100) pg/mL Total Protein 6.2 L (6.4-8.9) g/dL Albumin 3.9 (3.2-5.2) g/dL Globulin 2.3 (2-4) g/dL Albumin/Globulin Ratio 1.7 (1-3) 08/01/19 08/01/19 Range/Units 05:17 05:17 WBC (3.5-10.8) 10^3/uL RBC (4.18-5.48) 10^6 /uL Hgb (14.0-18.0) g/dL Hct (42-52) % MCV (80-94) fL MCH (27-31) pg MCHC (31-36) g/dL RDW (10-15) % Plt Count (150-450) 10^3/uL MPV (7.4-10.4) fL Neut % (Auto) % Lymph % (Auto) % Reeves % (Auto) % Eos % (Auto) % Baso % (Auto) % Absolute Neuts (auto) (1.5-7.7) 10^3/ul Absolute Lymphs (auto) (1.0-4.8) 10^3/ul Absolute Monos (auto) (0-0.8) 10^3/ul Absolute Eos (auto) (0-0.6) 10^3/ul Absolute Basos (auto) (0-0.2) 10^3/ul Absolute Nucleated RBC 10^3/ul Nucleated RBC % INR (Anticoag Therapy) (0.82-1.09) Sodium (135-145) mmol/L Potassium (3.5-5.0) mmol/L Chloride (101-111) mmol/L Carbon Dioxide (22-32) mmol/L Anion Gap (2-11) mmol/L BUN (6-24) mg/dL Creatinine (0.67-1.17) mg/dL Est GFR ( Amer) (>60) Est GFR (Non-Af Amer) (>60) BUN/Creatinine Ratio (8-20) Glucose (70-100) mg/dL Lactic Acid 1.3 (0.5-2.0) mmol/L Calcium (8.6-10.3) mg/dL Total Bilirubin (0.2-1.0) mg/dL AST (13-39) U/L ALT (7-52) U/L Alkaline Phosphatase (34-104) U/L Troponin I (<0.04) ng/mL B-Natriuretic Peptide 49 (<=100) pg/mL Total Protein (6.4-8.9) g/dL Albumin (3.2-5.2) g/dL Globulin (2-4) g/dL Albumin/Globulin Ratio (1-3) Result Diagrams: 08/01/19 05:17 08/01/19 05:17 Lab Statement: Any lab studies that have been ordered have been reviewed, and results considered in the medical decision making process. - Radiology CXR Radiology Interpretation Completed By: Radiologist Summary of Radiographic Findings: IMPRESSION: NO ACTIVE CARDIOPULMONARY DISEASE. THIS REPORT WAS REVIEWED BY ED PHYSICIAN. - EKG 04:56 Cardiac Rate: Bradycardia - 48 BPM EKG Rhythm: Sinus Bradycardia ST Segment: Normal Ectopy: None Summary of EKG Findings: EKG at 04:56 shows 48 BPM with sinus bradycardia, no STEMI, no acute changes. Reviewed and interpreted by ED physician. Chest Pain Course/Dx - Course Course Of Treatment: Pt is an 79 y/o M presenting to the ED for chest pain that began at 04:00 on 08/01/19. When the chest pain began, the pt took NTG and rates the pain as a 3/10. Pt does not regularly take NTG. The pain is on the left side of the chest, did not radiate, and is now resolved. The pt describes the pain as a sharp sensation. Pt also had associated palpitations and SOB. Pt admits similar chest pain in the past. He has a PMHx of angina, HTN, a cardiac stent placement 10 years ago, and bypass surgery 20 years ago. He also notes occasional gout and memory problems for which he takes medication. Pt denies nausea, diaphoresis, fever, cough, or being sick recently. Allergies noted. On exam, unremarkable findings. Trop was negative. Laboratory abnormal findings: Hgb 12.8, Hct 38, BUN/Creatinine ratio 24.5, calcium 8.0, and total protein 6.2. EKG at 04:56 shows 48 BPM with sinus bradycardia, no STEMI, no acute changes. Pt's case was discussed with Dr. Farrell at 0616. Patient will be admitted to [facility] with a diagnosis of chest pain and bradycardia. - Diagnoses Provider Diagnoses: Chest pain, Bradycardia - Provider Notifications Discussed Care Of Patient With: Stephanie Farrell Time Discussed With Above Provider: 06:16 Instructed by Provider To: Other - Pt's case was discussed with Dr. Farrell at 0616. Patient will be admitted to [facility] Discharge ED - Sign-Out/Discharge Documenting (check all that apply): Patient Departure - Admit Patient Received Moderate/Deep Sedation with Procedure: No - Discharge Plan Condition: Stable Disposition: ADMITTED TO [facility] - Billing Disposition and Condition Condition: STABLE Disposition: Admitted to [facility] - Attestation Statements Document Initiated by Scribe: Yes Documenting Scribe: Esdras James Provider For Whom Davinibe is Documenting (Include Credential): Nadine Howard MD. Scribe Attestation: Esdras Klein, scribed for Nadine Howard MD. on 08/02/19 at 0038. Scribe Documentation Reviewed: Yes Provider Attestation: The documentation as recorded by the davinibEsdras hill accurately reflects the service I personally performed and the decisions made by me, Nadine Howard MD. Status of Scribe Document: Viewed
[2019-08-01] MEDS ORDERED: Morphine INJ* 2 MG/ML 1 ML SYRINGE (TWO MG - NEW SYRINGE VERSION) IV PRN (07:53)
[2019-08-01] MEDS ORDERED: Acetaminophen TAB* 325 MG PO PRN (07:53)
[2019-08-01] MEDS ORDERED: Nitroglycerin TAB 0.4 MG* 0.4 MG TAB SL PRN (07:57)
[2019-08-01] MEDS ORDERED: NS 0.9% 1000 ML** 1,000 ML IV SCH (08:15)
[2019-08-01] MEDS ORDERED: Docusate CAP* 100 MG PO SCH (09:00)
[2019-08-01] MEDS ORDERED: Levothyroxine TAB* 150 MCG TAB PO SCH (09:00)
[2019-08-01] MEDS ORDERED: Aspirin EC TAB* 81 MG TAB.EC PO SCH (09:00)
[2019-08-01 09:10] VITALS: BP 136/67
[2019-08-01 09:13] LABS: TSH (Thyroid Stimulating Horm) 0.04 mcIU/mL (0.34-5.60)
--- NOTE | 2019-08-01 11:06 | HP ---
CC: Dr. Curran; Dr. Silver; Scott Sawant, CHUNG; Dr. Johnson; Dr. Lewis. * HISTORY AND PHYSICAL: DATE OF ADMISSION: 08/01/19 PRIMARY CARE PROVIDER: Dr. Curran. CHIEF COMPLAINT: Chest pain. HISTORY OF PRESENT ILLNESS: Bradley Ryan is an 79-year-old male with history of coronary artery disease status post stenting in 2012 as well as coronary bypass grafting remotely who presented to the hospital complaining of chest pain. The patient has problems with memory and his is helping with recalling the recent events. The patient stated that he woke up in the middle of the night, felt somewhat short of breath and felt sensation of mild to moderate pain in his left chest. He also stated that his heart was beating fast. He stated that he woke up his who decided to give him nitroglycerin and the pain resolved within 10 minutes. The patient stated that he does not remember the last time he had pain like that or needed to use nitroglycerin. He stated that when he had his stent in 2012, he developed jaw pain. The patient has a history of bradycardia and his heart rate in the emergency department was noted to be in the 50s and there was 1 brief episode when it was recorded at 39, but after discussing it with the nurse the thought was that maybe there was a problem with telemetry sensitivity settings and the patient throughout the remaining observation in the emergency department, did not have heart rate below 40. The patient currently is chest pain free. He is going to be placed on overnight observation with followup troponins and if troponins continue to be negative, a treadmill stress test is going to be administered. PAST MEDICAL HISTORY: 1. History of coronary artery disease status post 5-vessel bypass in 1995. 2. Last cardiac catheterization was in 2012, which resulted in drug-eluting stent to ostial and SVG. 3. The patient's last stress test documented in Dr. Johnson's note was in October 2013, was noted to have EF of 68%, TID of 0.95, and no perfusion defects. 4. The patient has history of hypertension. 5. Dyslipidemia. 6. History of bladder stent in 2016. 7. History of thyroidectomy. 8. History of basal cell carcinoma. 9. History of spinal surgery. 10. History of recent ear surgery performed by Dr. Nance. 11. History of episodes of dizziness that resolved after ear surgery a couple of months ago. 12. History of chronic fatigue syndrome. 13. History of memory issues for which the patient is seeing Dr. Silver and Scott Sawant NP. MEDICATIONS: Include: 1. Aspirin 81 mg daily. 2. Calcium carbonate 1000 mg 4 times a day. 3. Calcitriol 0.5 mcg b.i.d. 4. Atorvastatin 40 mg daily. 5. Levothyroxine 150 mcg daily. 6. Ibuprofen on a p.r.n. basis. 7. Enalapril 10 mg daily. 8. Flomax 0.4 mg daily. 9. Nitroglycerin on a p.r.n. basis. 10. Meclizine 25 mg t.i.d. p.r.n. 11. Tylenol on a p.r.n. basis. ALLERGIES: ADHESIVE TAPE, CAT DANDER, CARDOZA, CIPROFLOXACIN, CAM TREE, BENADRYL, FINASTERIDE, LACTOSE, OPIOIDS cause urinary retention, PENICILLIN causes hives, TRAMADOL causes severe tremors. FAMILY HISTORY: Father due to leukemia, with history of colon cancer. Mother due to stroke. 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 He denies any alcohol, drug use, or tobacco use. He lives with his who is his healthcare proxy. He is a full code. REVIEW OF SYSTEMS: Please see history of present illness. As above mentioned, the patient stated that he walks on a daily basis for about 30 minutes and he has not had any problems with exercise intolerance. He does not remember when was the last time he had chest pain like that. Last night he ate at about 9 p.m. and for dinner he had a castro chicken made by his . All the remaining 12 systems were reviewed with the patient and were otherwise negative. PHYSICAL EXAMINATION GENERAL: The patient is a very pleasant 79-year-old male who is in no acute distress. Alert, awake, and oriented x3. VITAL SIGNS: Blood pressure of 136/75, heart rate of 52 and regular, respiratory rate 16, oxygen saturation 94% on room air, temperature 97.9. HEENT: Head atraumatic and normocephalic. Eyes: Pupils are equal, round, and reactive to light and accommodation. Oropharynx clear. Mucosa moist. NECK: Supple. No JVD. No bruits bilaterally. RESPIRATORY: Clear to auscultation bilaterally. CARDIOVASCULAR: Regular rate and rhythm. No murmur. ABDOMEN: Soft and nontender. Bowel sounds are present in all 4 quadrants. EXTREMITIES: There is no edema, pulses +2 bilaterally. No clubbing or cyanosis. NEUROLOGIC: Speech is clear. Cranial nerves II through XII grossly intact. Motor strength is 5/5 bilaterally. PSYCHIATRIC: The patient is pleasant and cooperative with evaluation. Oriented x3. He seems to have problems with memory and occasionally he would defer to his for details. LABORATORY DATA: Shows white blood cell count of 5.8, hemoglobin of 12.8, hematocrit of 37, and platelets 176,000. Sodium of 140, potassium 3.8, chloride 104, carbon dioxide 29, BUN 24, creatinine 0.98. Liver functions are unremarkable. Troponin of 0. TSH pending. Portable chest x-ray. Impression: "No active cardiopulmonary disease." The patient's EKG showed known right bundle branch block with sinus bradycardia and a heart rate of 48 beats per minute. ASSESSMENT AND PLAN: 1. In regards to the patient's chest pain. It resolved with nitroglycerin. Otherwise, interestingly so, the patient has had very good exercise tolerance without any evidence of decreased exercise tolerance or chest pain with exercise in the past indicating angina. At this point, the patient is going to be placed on overnight observation and after his troponins reported negative, the patient will likely undergo a treadmill Myoview tonight. 2. In regards to the patient's bradycardia. This is chronic. He is not on any rate controlling agents. His heart rate had been in the 50s after this 1 episode when he was actually at a lower rate. He is not hemodynamically unstable and his episodes of dizziness resolved after his ear surgery. At this point, I do not believe that he needs to be evaluated for a pacemaker. His TSH is pending at the time of dictation. 3. In regards to the patient's hypothyroidism, his Synthroid is going to be continued at home dose. 4. For DVT prophylaxis, the patient will be placed on heparin subcutaneously. 5. The patient's code status is full. His surrogate is his . TIME SPENT: Approximately 62 minutes were spent on admission of this patient, more than half that time was spent [id number] with the patient during the interview, physical exam. [id number]/[facility] #: [id number] [facility]
[2019-08-01] MEDS ORDERED: Regadenoson* 0.4 MG/5 ML SYRINGE ONE (11:44)
[2019-08-01] MEDS ORDERED: Heparin VIAL(*) 5000 UNITS/ML VIAL (FIVE THOUSAND) SUBCUT SCH (14:00)
[2019-08-01] MEDS ORDERED: Calcium Carbonate TAB* 1250 MG (CALCIUM 500 MG) PO ONE (14:53)
[2019-08-01] MEDS ORDERED: Calcium Carbonate CHEW TAB* 500 MG (TUMS) PO SCH (17:00)
[2019-08-01] MEDS ORDERED: Tamsulosin CAP* 0.4 MG PO SCH (18:00)
[2019-08-01] MEDS ORDERED: Atorvastatin* 40 MG TAB PO SCH (18:00)
--- NOTE | 2019-08-01 19:53 | ECHO ---
*[facility]* [place] [address] Fax #: [phone] Transthoracic Echocardiogram Patient: Bradley Ryan : 1940 Study Date: 08/01/2019 Age: 79 Gender: M HR: 56 bpm Height: 69 in /175.3 cm BSA: 1.86 m^2 Weight: 155.7 lb /70.8 kg BMI: 23 kg/m^2 *Scheduling Manager: * Evelin Lee [facility] *Referring Physician: * Janice Barkley *Reading Physician: * Pipo Gómez MD Indications: Chest Pain, unspecified. History: Palpitations and dyspnea. Asthma. Risk factors: Hypertension. Dyslipidemia. Labs, prior tests, procedures, and surgery: Catheterization. There was a stenosis which was treated with a stent. Coronary artery bypass grafting. Conclusions Summary: - Left ventricle: Systolic function is normal. The estimated ejection fraction is 60-65%. - Left atrium: The atrium is mildly dilated. - Right atrium: The atrium is mildly dilated. - Mitral valve: There is mild to moderate regurgitation. - Aortic valve: There is trace to mild regurgitation. - C/t 10/31/2017, no overt sig changes. Study data: Transthoracic echocardiogram. Procedure: Transthoracic echocardiography was performed. Image quality was good. Complete 2D, spectral Doppler, and color flow Doppler. Location: Bedside. Patient status: Inpatient. Patient room number: 442-2. Rhythm: Bradycardia. Findings Left ventricle: The cavity size is below normal. Wall thickness is moderately increased. Systolic function is normal. The estimated ejection fraction is 60-65%. Regional wall motion abnormalities: Hypokinesis of the basalanterolateral and inferior myocardium. Doppler parameters are consistent with abnormal left ventricular relaxation (grade 1 diastolic dysfunction). Right ventricle: The cavity size is mildly dilated. Systolic function is low normal. Systolic pressure is within the normal range. Ventricular septum: There is septal flattening of the interventricular septum consistent with RV volume or pressure overload. Left atrium: The atrium is mildly dilated. Right atrium: The atrium is mildly dilated. Mitral valve: The leaflets are mildly thickened. There is no evidence of stenosis. There is mild to moderate regurgitation. Aortic valve: The valve is trileaflet. The leaflets are mildly thickened. Thickening, consistent with sclerosis. There is no evidence of stenosis. There is trace to mild regurgitation. Tricuspid valve: The leaflets are normal thickness. There is no evidence of stenosis. There is trace to mild regurgitation. Pulmonic valve: The leaflets are normal thickness. There is no evidence of stenosis. There is trace to mild regurgitation. Aorta: Aortic root: The aortic root is appears normal. Ascending aorta: The ascending aorta is appears normal. Aortic arch: The aortic arch is poorly visualized. Pericardium: A prominent pericardial fat pad is present. There is no significant pericardial effusion. Pulmonary arteries: The main pulmonary artery is normal-sized. Systolic pressure is within the normal range. Systemic veins: Inferior vena cava: The vessel is normal in size. There is (>= 50%) respiratory change in the IVC dimension. Measurements Left ventricle Value Ref Aortic valve Value Ref IDRIS, LAX (L) 3.5 cm 4.2 - 5.8 Nabeel diam, ED 2.0 cm ----- ESD, LAX (L) 2.3 cm 2.5 - 4.0 Peak v, S 1.21 m/sec ----- FS, LAX 35 % 25 - 43 VTI, S 28.8 cm ----- PW, ED, LAX (H) 1.4 cm 0.6 - 1.0 Mean grad, S 3.0 mm Hg ----- FS 35 % 25 - 43 Peak grad, S 6.0 mm Hg ----- PW, ED (H) 1.4 cm 0.6 - 1.0 LVOT/AV, VTI ratio 0.8 ----- E', lat nabeel, TDI (L) 7.3 cm/sec >=10.0 E/e', lat nabeel, 11 Mitral valve Value Ref TDI Peak E 0.79 m/sec ----- E', med nabeel, TDI (L) 6.6 cm/sec >=7.0 Peak A 0.91 m/sec --- -- E/e', med nabeel, 12 Decel time 190 ms ----- TDI Peak grad, D 2.5 mm Hg ----- E', avg, TDI 7.0 cm/sec Peak E/A ratio 0.9 ----- E/e', avg, TDI 11 <=14 Pulmonic valve Value Ref LVOT Value Ref Peak v, S 0.92 m/sec ----- Peak salvador, S 1.17 m/sec Peak grad, S 3.0 mm Hg ----- VTI, S 23.0 cm AL v, ED 0.81 m/sec ----- Peak grad, S 5 mm Hg Mean grad, S 3 mm Hg Tricuspid valve Value Ref TR peak v 2.4 m/sec <=2.8 Ventricular septum Value Ref Peak RV-RA grad, S 23 mm Hg ----- IVS, ED (H) 1.6 cm 0.6 - 1.0 Aortic root Value Ref Right ventricle Value Ref Root diam 3.2 cm <4.0 AW thickness, ED (H) 0.6 cm 0.1 - 0.5 IDRIS, LAX 4.0 cm Ascending aorta Value Ref IDRIS minor ax, A4C (H) 4.7 cm 1.9 - 3.5 AAo AP diam, S 3.3 cm ----- mid Pressure, S 26 mm Hg Decending aorta Value Ref Sridevi peak salvador 0.77 m/sec ----- Left atrium Value Ref AP dim, ES 3.00 cm 3.00 - Pulmonary artery Value Ref 4.00 Pressure, S 23.0 mm Hg ----- ML dim, A4C 4.3 cm SI dim, A4C 5.8 cm Inferior vena cava Value Ref Vol/bsa, ES, 1-p 29 ml/m^2 12 - 37 Diam 1.4 cm ----- A4C Vol/bsa, ES, A/L 30 ml/m^2 16 - 34 Right atrium Value Ref SI dim, ES 5.2 cm 3.4 - 5.3 ML dim, ES, A4C (H) 5.1 cm 2.6 - 4.4 SI dim, ES, A4C 5.2 cm 3.4 - 5.3 Estimated RAP 3 mm Hg Legend: (L) and (H) arie values outside specified reference range. Prepared and electronically signed by Pipo Gómez MD 08/01/2019 19:53
[2019-08-01] MEDS ORDERED: Calcitriol CAP* 0.25 MCG PO SCH (21:00)
--- NOTE | 2019-08-01 23:22 | DS ---
CC: Dr. Johnson; Dr. Curran; Dr. Silver; Scott Sawant NP * DISCHARGE SUMMARY: DATE OF ADMISSION: 08/01/19 DATE OF DISCHARGE: 08/01/19 PRIMARY CARE PROVIDER: Dr. Curran. ASSISTANT PROFESSOR: Dr. Johnson. CONDITION ON DISCHARGE: Stable. DISPOSITION ON DISCHARGE: Home. DISCHARGE DIAGNOSIS: Chest pain with low probability cardiac stress test documented on 08/01/19. MEDICATIONS AT DISCHARGE: Unchanged from admission and include: 1. Tylenol on a p.r.n. basis. 2. Antivert 25 mg t.i.d. p.r.n. 3. Nitroglycerin 0.4 mg sublingually p.r.n. 4. Levothyroxine 150 mcg daily. 5. Ibuprofen on a p.r.n. basis. 6. Vasotec 10 mg daily. 7. Calcium carbonate 1000 mg 4 times a day. 8. Calcitriol 0.5 mcg b.i.d. 9. Lipitor 40 mg daily. 10. Aspirin 81 daily. LABORATORY DATA DURING THE HOSPITAL: Included troponin that ranged from 0 to 0.01. The patient had a pharmacologic cardiac stress test documented on 08/01/19, showed impression: "Small area of reversible change in the anteroseptal wall. Normal ejection fraction. Assessment: Low risk." HOSPITALIZATION COURSE: Bradley Ryan is an 79-year-old male with history of coronary artery disease, who presented to the hospital with complaining of chest pain. For further details, please see history and physical dictated on the same day for details. Shortly, the patient experienced no further chest pain at admission. He was placed on observation, during which telemetry monitoring showed no marked abnormalities. He had troponins that were negative throughout his hospital stay and his chest pain did not recur. Later on into his hospital stay, he had a pharmacologic cardiac stress, which showed low risk , although it did show a small area of reversibility in the septum. I discussed with the patient that the area is likely from a very small blood vessel and at this point cardiac catheterization is not indicated. The patient was educated that he can take dose of nitroglycerin for chest pain and if it goes away, he should be monitored for chest pain, but does not necessary have to come to the hospital emergently. He can call Dr. Johnson for further advice. If the pain does not go away, he should to the hospital or call 911. The patient understood the recommendations. His medications are unchanged from admission. He is recommended to follow up his primary care provider with a scheduled appointment on 08/07/[address] Johnson in approximately 2 weeks after discharge. Physical exam at discharge is unchanged from admission. [id number]/[facility] #: [id number] ELADIO
[2019-08-02] MEDS ORDERED: Enalapril TAB* 5 MG PO SCH (09:00)
== END 2019-08-01 16:48 | disposition home or self-care (01) ==
LOC: ED 04:53 → MEDTELE 07:53
PROVIDERS: ADMIT Internal Medicine; ATTEND Internal Medicine
DX: R07.9 Chest pain, unspecified (principal); I25.10 Atherosclerotic heart disease of native coronary artery without angina pectoris; I10 Essential (primary) hypertension; I25.2 Old myocardial infarction; E78.5 Hyperlipidemia, unspecified; Z79.82 Long term (current) use of aspirin; Z79.899 Other long term (current) drug therapy; R00.2 Palpitations; Z95.5 Presence of coronary angioplasty implant and graft; E03.9 Hypothyroidism, unspecified; R00.1 Bradycardia, unspecified
CPT/HCPCS: 36415; 71045; 78452; 80053; 83605; 83880; 84443; 84484; 85025; 85610; 93005; 93017; 93306; 96372; 99285; A9270-GY; A9502; G0378; J1644; J2785

== ENCOUNTER 2019-08-05 18:38 | Emergency (ER) | payer MEDICARE, BC ==
--- OUTSIDE RECORDS SUMMARY | 2019-08-05 18:53 | XMS REPORT | Continuity of Care Document ---
:1940 External Reference #:[id number] Author Name Rolando Mcfarland Care Team Providers Name Role Phone Jc Lewis MD - Endocrinology, Care Team Information Train Operator Diabetes & Metabolism Janae Riley MD - Gastroenterology Care Team Information Train Operator Isiah Silver M.D. - Neurology Care Team Information Train Operator Problems Active Problems Provider Date Coronary arteriosclerosis Inderjit James M.D.,FACP Onset: 11/01/2010 Gout Inderjit James M.D.,ARJUNP Onset: 11/01/2010 Chest pain Andrzej Curran M.D. [...] 12/04/2014 Cat Dander 01/19/2015 Pollen 04/30/2015 Fresh Mcare itchy throat per patient 04/30/2015 Tramadol tremors 07/19/2017 Medications Active Medications SIG Qnty Indications Ordering Date Provider Calcitriol As directed Other Ordering 06/14/2018 0.5mcg Provider Capsules Colcrys 2 by mouth with 6tabs Andrzej Hernandez 03/07/2017 0.6mg Tablets acute gout flare, Miya Curran then 1 tab 1 hour later Levothyroxine Sodium Take One Tablet 90tabs Andrzej Hernandez 05/28/2014 By Mouth Eileen Curran M.D. 150mcg Tablets Day Enalapril Maleate 1 tab by mouth 90tabs Onesimo Lopez 07/29/2013 10mg every day Miya Johnson Tablets Nitroglycerin 1 sl as needed 25tabs Susanna Armstrong, 0.4mg Miya Tablets Sub Lipitor 1 tab by mouth 90tabs Gerber Daily 40mg Tablets every day Miya Russo, FAC, FASHERLINDA Tylenol 2 tabs by mouth Unknown 325mg Tablets every 4 hours as needed Claritin 1 by mouth every Unknown 10mg Tablets day as needed Tums Ultra 1000 4 tabs daily Unknown 1000mg Chewtabs Meclizine HCL 1 tab by mouth as Unknown 25mg needed Tablets Aspirin Adult Low Dose 1 by mouth every Unknown day 81mg Tablets DR Medications Administered in Office Medication SIG Qnty Indications Ordering Provider Date Technetium TC 99M Onesimo Guardado M.D. 10/23/2013 Per Unit Dose Up To 40 Millicuries Injection Immunizations CPT Code Status Date Vaccine Lot # [id number] Given 07/26/2019 Influenza Virus Vaccine, Quadrivalent, Split, Preservative Free [id number] Given 07/23/2018 Fluzone High Dose 70045 Given 07/27/2017 Influenza Virus Vaccine, Quadrivalent, Split, [id number] Preservative Free 81349 Given 09/01/2016 Influ Virus Vaccine, Quadrivalent, Split Virus, [place] [id number] [address] Given 07/20/2015 Influenza Virus Vaccine, Quadrivalent, Split, [id number] Preservative Free 92652 Given 01/19/2015 Pneumococcal Conjugate Vaccine 13 Valent For [id number] Intramuscular Use 43680 Given 08/12/2014 Influenza Virus Vaccine, Quadrivalent, Split, [id number] Preservative Free 11697 Given 08/23/2013 Flu Vaccine Split Virus Preservative Free For [id number] Indiv 3Yr Older 14186 Given 09/26/2012 Tdap - Tetanus/Diptheria/Acellular Pertussis [id number] Given 08/03/2012 Fluzone Vaccine 40188 Given 08/17/2011 Influenza Virus 3Yrs & Over 95925 Given 08/15/2010 Influenza Virus 3Yrs & Over 74625 Given 08/14/2008 Influenza Virus 3Yrs & Over 92783 Given 08/13/2007 Influenza Virus 3Yrs & Over 17892 Given 08/13/2007 Influenza Virus 3Yrs & Over 69910 69069 Given 11/22/2004 Pneumovax (History By Patient) 36456 Given 09/13/2002 Td (History By Patient) Vital [...] Test Result H/L Range Note Laboratory test [facility] B-Type 49 pg/mL <=100 finding [address] [place] [address] Peptide BNP [phone] CBC Auto Diff [facility] White Blood 5.8 10^3/uL Normal 3.5-10.[address] [place] [address] [phone] Red Blood Count 4.26 10^6/uL Normal 4.18-5.48 Hemoglobin 12.8 g/dL Low 14.0-18.0 Hematocrit 38 % Low 42-52 Mean Corpuscular Volume 90 fL Normal 80-94 Mean Corpuscular Hemoglobin 30 pg Normal 27-31 Mean Corpuscular HGB Conc 33 g/dL Normal 31-36 Red Cell Distribution Width 14 % Normal 10-15 Platelet Count 176 10^3/uL Normal 150-450 Mean Platelet Volume 9.3 fL Normal 7.4-10.4 Abs Neutrophils 3.1 10^3/uL Normal 1.5-7.7 Abs Lymphocytes 1.3 10^3/uL Normal 1.0-4.8 Abs Monocytes 0.6 10^3/uL Normal 0-0.8 Abs Eosinophils 0.6 10^3/uL Normal 0-0.6 Abs Basophils 0.1 10^3/uL Normal 0-0.2 Abs Nucleated RBC 0.0 10^3/uL Granulocyte % 53.8 % Lymphocyte % 23.2 % Monocyte % 11.0 % Eosinophil % 10.9 % Basophil % 1.1 % Nucleated Red Blood Cells % 0.1 Inr/Protime 08/01/2019 [facility] Inr 1.00 Normal 0.82-1.[address] [place] [address] [phone] Laboratory test 08/01/2019 [facility] Lactic Acid 1.3 Normal 0.5-2.0 [address] mmol/[place] [address] [phone] Comp Metabolic 08/01/2019 [facility] Sodium 140 Normal 135- [address] mmol/[place] [address] [phone] Potassium 3.8 mmol/L Normal 3.5-5.0 Chloride 104 mmol/L Normal 101-111 Co2 Carbon Dioxide 29 mmol/L Normal 22-32 Anion Gap 7 mmol/L Normal 2-11 Glucose 93 mg/dL Normal 70-100 Blood Urea Nitrogen 24 mg/dL Normal 6-24 Creatinine 0.98 mg/dL Normal 0.67-1.17 BUN/Creatinine Ratio 24.5 High 8-20 Calcium 8.0 mg/dL Low 8.6-10.3 Total Protein 6.2 g/dL Low 6.4-8.9 Albumin 3.9 g/dL Normal 3.2-5.2 Globulin 2.3 g/dL Normal 2-4 Albumin/Globulin Ratio 1.7 Normal 1-3 Total Bilirubin 0.50 mg/dL Normal 0.2-1.0 Alkaline Phosphatase 64 U/L Normal 34-104 Alt 17 U/L Normal 7-52 Ast 19 U/L Normal 13-39 Egfr Non- 73.6 >60 Egfr 89.0 >60 3 Laboratory test 08/01/2019 [facility] Troponin-I (TnI) 0.00 ng/ mL <0.[address] [place] [address] [phone] TSH (Thyroid Stim Horm) 0.04 mcIU/mL Low 0.34-5.60 Comp Metabolic 03/06/2019 [facility] Sodium 143 mmol/L Normal 135-145 [address] [place] [address] [phone] Potassium 3.8 mmol/L Normal 3.5-5.0 Chloride 103 [...] Egfr Non- 68.1 >60 Egfr 82.4 >60 6 Urinalysis Profile 03/06/2019 [facility] Urine Color Yellow [address] [place] [address] [phone] Urine Appearance Clear Urine Specific Brewster 1.011 Normal 1.010-1.030 Urine pH 6.0 Normal 5-9 Urine Urobilinogen Negative Negative Urine Ketones Negative Negative Urine Protein Negative Negative Urine Leukocytes Negative Negative Urine Blood 1+ Abnormal Negative Urine Nitrite Negative Negative Urine Bilirubin Negative Negative Urine Glucose Negative Negative Urine White Blood Cell Trace(0-5/hpf) Absent Urine Red Blood Cell 1+(3-5/hpf) Abnormal Absent Urine Bacteria Absent Absent Lipid Profile 03/06/2019 [facility] Triglycerides 126 mg/dL 7 (Trig/Chol/HDL) [address] [place] [address] [phone] Cholesterol 146 mg/dL 8 HDL Cholesterol 34.0 mg/dL 9 LDL Cholesterol 87 mg/dL 10 Testosterone 03/06/2019 [facility] Free 8.10 3.08-11.3 11 Free & Total 101 Testosterone ng/[place] [address] ng/dl [phone] Testosterone 352 ng/dL 240-950 12 Laboratory test 03/06/2019 [facility] TSH (Thyroid 0.08 Low 0.34-5.60 13 finding 101 Stim Horm) mcIU/[place] [address] [phone] Thyroglobulin 03/06/2019 [facility] Thyroglobulin <1.8 <4.0 Tumor Marker 101 Antibody IU/[place] [address] [phone] Thyroglobulin Tumor Marker <0.1 ng/mL 14 Thyroglobulin Interpretation See Comment 15 Urine Culture And 03/06/2019 [facility] Urine Culture SEE RESULT [address] BELOW [place] [id number] [phone] 1 Standard intensity warfarin therapeutic range: 2.0-3.0 High intensity warfarin therapeutic range: 2.5-3.5 2 [place] Severe Sepsis and Septic Shock Management Bundle Measure requires all lactic acids initially measuring >2.0 mmol/L be repeated. 3 Because ethnic data is not always readily [...] 15-29 5 Kidney failure <15 (or dialysis) 4 Troponin-I testing on Plasma Separator Tubes (PST) has a known false positive rate of 0.20-0.40%. All positive troponins reflex immediately to secondary confirmatory testing. Using the [employer] DxI 800 Access Immunoassay systems, the 99th percentile upper reference limit was demonstrated to be < 0.03 ng/mL. 5 FASTING 6 Because ethnic data is not always readily [...] 15-29 5 Kidney failure <15 (or dialysis) 7 Desirable: <150 Borderline High: 150-199 High: 200-499 Very High: >500 8 Desirable: <200 Borderline High: 200-239 High: >239 9 Low: <40 Desirable: 40-60 High: >60 10 Desirable: <100 Near Optimal: 100-129 Borderline High: 130-159 High: 160-189 Very High: >189 11 ADDITIONAL INFORMATION Testing performed by [facility]. This test was developed and its performance characteristics determined by [facility] in a manner consistent with CLIA requirements. This test has not been cleared or approved by the U.S. Food and Drug Administration. 12 ADDITIONAL INFORMATION Testing performed by Liquid Chromatography-Tandem Mass Spectrometry (LC-MS/MS). This test was developed and its performance characteristics determined by [facility] in a manner consistent with CLIA requirements. This test has not been cleared or approved by the U.S. Food and Drug Administration. Test Performed by: [facility] [address] [place] [id number] 13 FASTING 14 REFERENCE VALUE Athyrotic <0.1 Intact Thyroid <=33 15 Thyroglobulin (Tg) levels must be interpreted in [...] testing methods are immunoenzymatic assays manufactured by [employer] and performed on the TRUECar DXI 800. Values obtained from different assay methods or kits may be different and cannot be used interchangeably. The results cannot be interpreted as absolute evidence for the presence or absence of malignant disease. Test Performed by: [facility] [address] [place] [address] 16 SEE RESULT BELOW Name: WILBERNANCY Patino : [address]: Andrzej Curran III, MD Acct: [id number] Unit: [id number] AGE: 78 Location: [facility] Re03/06/19 SEX: M Status: REG REF SPEC: [id number] GIULIA: 03/06/19 [facility] DR: Andrzej Curran III, MD REQ: [id number] RECD: 03/06/19 STATUS: COMP _ SOURCE: URINE SPDESC: ORDERED: Urine Culture Procedure Result Reported Site Urine Culture Final 03/07/19- 1211 ML No Growth (<1,000 CFU/mL) * ML - Main Lab . END OF REPORT DEPARTMENT OF PATHOLOGY, [address] [place] [address] Vinicio Mendoza M.D. Director [facility] # [id number] Procedures Date Code Description Status 07/24/2019 20853 EKG Tracing & Interpretation Completed 02/15/2019 [id number] Mammogram Completed 10/25/2018 [id number] Colonoscopy Completed 01/21/2014 [id number] Colonoscopy Completed 02/20/2013 [id number] Diabetic Foot Exam Completed 08/09/2007 [id number] Colonoscopy Completed Medical Devices Description No Information Available Encounters Type Date Location Provider Dx Diagnosis Office Visit 07/24/2019 [facility] Onesimo Lopez I10 Essential ( primary) 3:45p Of Alexis Johnson M.D. hypertension I25.10 Athscl heart disease of [place] coronary artery w/o ang pctrs Office Visit 07/23/2019 10:00a Amada Rich G31.84 Mild cognitive Neurologic Yelena Sawant impairment, so [facility] stated I68.0 Cerebral amyloid angiopathy R42 Dizziness and giddiness Office Visit 05/14/2019 [facility] Hilario R42 Dizziness and 11:00a [facility] Sawant, N.P. giddiness G31.84 Mild cognitive impairment, so stated I68.0 Cerebral amyloid angiopathy Office Visit 03/11/2019 9:00a [facility] Internal Andrzej Hernandez L98.9 Disorder of the Medicine - Miya Curran skin and Adithyaob subcutaneous tissue, unspecified R31.9 Hematuria, unspecified Office Visit 02/21/2019 Amada Silver, G31.84 Mild cognitive 11:15a Neurologic M.D. impairment, so [facility] stated I68.0 Cerebral amyloid angiopathy Office Visit 02/11/2019 3:40p [facility] Internal Andrzej Hernandez Z80.3 Family history of Medicine - Jing Curran M.D. malignant neoplasm of breast Assessments Date Code Description Provider 07/24/2019 I10 Essential (primary) hypertension Onesimo Johnson M.D. 07/24/2019 I25.10 Atherosclerotic heart disease of [place] Onesimo Johnson M.D. coronary artery with 07/23/2019 G31.84 Mild cognitive impairment, so stated Hilario Sawant, N.P. 07/23/2019 I68.0 Cerebral amyloid angiopathy Hilario Sawant, N.P. 07/23/2019 R42 Dizziness and giddiness Hilario Sawant, N.P. 05/14/2019 R42 Dizziness and giddiness Hilario Sawant, N.P. 05/14/2019 G31.84 Mild cognitive impairment, so stated Hilario Sawant, N.P. 05/14/2019 I68.0 Cerebral amyloid angiopathy Hilarioalexx Sawant, N.P. 03/11/2019 L98.9 Disorder of the [...] M.D. 03/05/2019 I25.10 Atherosclerotic heart disease of [place] Andrzej Curran M.D. coronary artery with 03/05/2019 [...] Curran M.D. breast Plan of Treatment Future Appointment(s):08/07/2019 8:30 am - Onseimo Johnson M.D. at [facility]10/15/2019 9:15 am - Isiah Silver M.D. at [place] [facility]09/04/2019 9:00 am - Andrzej Curran M.D. at [facility] Internal Medicine - [facility]07/24/2019 - Onesimo Johnson M.D.I10 Essential ( primary) hypertensionFollow up:1 yearI25.10 Atherosclerotic heart disease of [place] coronary artery with Functional Status Description No Information Available Mental Status Description No Information Available Referrals Refer to Dr Reason for Referral Status Appt Date Preston Nance MD Sent [address] [place] [address] [phone]
[2019-08-05 20:56] LABS: ABS Basophils 0.1 10^3/ul (0-0.2); ABS Eosinophils 0.5 10^3/ul (0-0.6); ABS Lymphocytes 1.3 10^3/ul (1.0-4.8); ABS Monocytes 0.6 10^3/ul (0-0.8); Eosinophil % 8.1 %; Hematocrit 39 % (42-52); Hemoglobin 13.3 g/dL (14.0-18.0); Lymphocyte % 19.6 %; Mean Corpuscular HGB Conc 34 g/dL (31-36); Mean Corpuscular Hemoglobin 31 pg (27-31); Mean Corpuscular Volume 90 fL (80-94); Mean Platelet Volume 9.3 fL (7.4-10.4); Platelet Count 185 10^3/uL (150-450); Red Blood Count 4.32 10^6 /uL (4.18-5.48); Red Cell Distribution Width 14 % (10-15); White Blood Count 6.6 10^3/uL (3.5-10.8)
[2019-08-05 21:15] LABS: Albumin 4.1 g/dL (3.2-5.2); Albumin/Globulin Ratio 1.6 (1-3); BUN/Creatinine Ratio 25.2 (8-20); Calcium 8.2 mg/dL (8.6-10.3); EGFR African American 84.1 (>60); EGFR Non-African American 69.5 (>60); Globulin 2.5 g/dL (2-4); Magnesium 1.9 mg/dL (1.9-2.7); Potassium 3.9 mmol/L (3.5-5.0); Total Bilirubin 0.5 mg/dL (0.2-1.0); Total Protein 6.6 g/dL (6.4-8.9)
[2019-08-05 21:16] LABS: Troponin I 0.01 ng/mL (<0.04)
[2019-08-05 21:42] LABS: TSH (Thyroid Stimulating Horm) 0.05 mcIU/mL (0.34-5.60)
--- NOTE | 2019-08-05 21:48 | ED ---
Dizziness - HPI Summary HPI Summary: 79-year-old male presents with dizziness today. He states he felt lightheaded. Denies any vertigo. No headache. No change in vision. No weakness. No chest pain or shortness breath. No abdominal pain. No difficulty ambulate. No urinary symptoms. Has never had this before. Was just admitted for chest pain workup which was negative a couple days ago. Has history of bradycardia. checked blood pressure as the 180 and the repeat it was 160. states that heart rate at that time was in the 60s. Has a known history of bradycardia. Heart rate is always in the 50s. - History Of Current Complaint Chief Complaint: EDHypertension Stated Complaint: HIGH BLOOD PRESSURE PER PT Time Seen by Provider: 08/05/19 20:41 - Allergies/Home Medications Allergies/Adverse Reactions: Allergies Allergy/AdvReac Type Severity Reaction Status Date / Time hesham Allergy Diarrhea Verified 08/05/19 18:46 Adhesive Tape Allergy Rash Verified 08/05/19 18:46 cat dander Allergy Anaphylatic Verified 08/05/19 18:46 Shock dubon Allergy Hives Verified 08/05/19 18:46 ciprofloxacin [From Cipro] Allergy Tore an Verified 08/05/19 18:46 achilles tendon diphenhydramine Allergy See Comment Verified 08/05/19 18:46 [From Benadryl] finasteride Allergy Hives Verified 08/05/19 18:46 lactose Allergy Gas Verified 08/05/19 18:46 Opioids - Morphine Analogues Allergy See Comment Verified 08/05/19 18:46 Opioids-Meperidine and Allergy See Comment Verified 08/05/19 18:46 Related Opioids-Methadone and Related Allergy See Comment Verified 08/05/19 18:46 Penicillins Allergy Hives Verified 08/05/19 18:46 tramadol Allergy See Comment Verified 08/05/19 18:46 GUM ESTONIAN Allergy Intermediate Intestinal Uncoded 02/23/19 08:35 cramps HAY FEVER Allergy Runny Nose Uncoded 02/23/19 08:35 Home Medications: Home Medications Econazole 1% CREAM (NF) [Econazole 1 % CREAM (NF)] 1 applic TOPICAL BID PRN [History Confirmed 08/05/19] Triamcinolone 0.1% CREAM (NF) [Kenalog 0.1% Cream (NF)] 1 applic TOPICAL BID [History Confirmed 08/05/19] PMH/Surg Hx/FS Hx/Imm Hx Endocrine/Hematology History: Reports: Hx Anticoagulant Therapy - aspirin , Hx Thyroid Disease - CANCER:thyroidectomy 2013 Denies: Hx Diabetes, Hx Anemia Cardiovascular History: Reports: Hx Angina, Hx Coronary Artery Disease - FOLLOWED BY DR SANTANA, Hx Hypercholesterolemia, Hx Hypertension - on meds, STATES WELL CONTROLLED, Hx Myocardial Infarction, Other Cardiovascular Problems/ Disorders - DR. SANTANA FOLLOWS-LAST SEEN ABOUT 1 YEAR AGO Denies: Hx Congestive Heart Failure, Hx Pacemaker/ICD, Hx Valvular Heart Disease Respiratory History: Reports: Hx Asthma Denies: Hx Chronic Obstructive Pulmonary Disease (COPD), Hx Lung Cancer GI History: Reports: Other GI Disorders - lactose intolerance Denies: Hx Gall Bladder Disease, Hx Gastrointestinal Bleed, Hx Jaundice, Hx Ulcer, Hx Urosepsis History: Reports: Hx Benign Prostatic Hyperplasia, Other Problems/ Disorders - BPH, bladder stone, uti's Denies: Hx Chronic Renal Failure, Hx Dialysis, Hx Kidney Stones, Hx Renal Disease Musculoskeletal History: Reports: 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 Basal cell carcinoma left nose 07/2016 Hx Chemotherapy: No Hx Radiation Therapy: No Hx Palliative Cancer Treatment: No - Surgical History Surgery Procedure, Year, and Place: tonsillectomy and adenoidectomy as a child - [facility]. appendectomy - [place]. left inguinal hernia repair [place]. [place] [facility] [place] [facility]. Typanostomy - TUBE IN EAR FOR FLUID - Right Ear. [place] [facility] [place] [facility] [place]ol's [place] [facility] [place] [facility] [place] moh's repair - [place]. LUMBAR -Laminectomy 07/2017 [facility] Hx Anesthesia Reactions: No - Immunization History Date of Tetanus Vaccine: utd Date of Influenza Vaccine: fall 2016 Infectious Disease History: No Infectious Disease History: Denies: Hx Clostridium Difficile, Hx Hepatitis, Hx Human Immunodeficiency Virus (HIV), Hx of Known/Suspected MRSA, Hx Shingles, Hx Tuberculosis, History Other Infectious Disease, Traveled Outside the [place] in Last 30 Days - Family History Known Family History: Positive: Hypertension, Other - mother - CVA, father - leukemia - Social History Alcohol Use: Occasionally Hx Substance Use: No Substance Use Type: Reports: None Hx Tobacco Use: No Smoking Status (MU): Never Smoked Tobacco Have You Smoked in the Last Year: No Review of Systems Negative: Fever Negative: Chest Pain Negative: Shortness Of Breath Neurological: Other - dizziness All Other Systems Reviewed And Are Negative: Yes Physical Exam Triage Information Reviewed: Yes Vital Signs On Initial Exam: Initial Vitals Temp Pulse Resp BP Pulse Ox 97.3 F 56 16 169/81 97 08/05/19 18:40 08/05/19 18:40 08/05/19 18:40 08/05/19 18:40 08/05/19 18:40 Vital Signs Reviewed: Yes Appearance: Positive: Well-Appearing Skin: Positive: Warm, Dry Head/Face: Positive: Normal Head/Face Inspection Eyes: Positive: Normal, EOMI, BAM, Conjunctiva Clear ENT: Positive: Normal ENT inspection, Pharynx normal, TMs normal Respiratory/Lung Sounds: Positive: Clear to Auscultation, Breath Sounds Present Cardiovascular: Positive: Normal, RRR Abdomen Description: Positive: Nontender, Soft Bowel Sounds: Positive: Present Musculoskeletal: Positive: Normal Neurological: Positive: Sensory/Motor Intact, Alert, Oriented to Person Place, Time, CN Intact II-III, Heel to Toe, Finger to Nose Psychiatric: Positive: Normal - [place] Coma Scale Best Eye Response: 4 - Spontaneous Best Motor Response: 6 - Obeys Commands Best Verbal Response: 5 - Oriented Coma Scale Total: 15 Diagnostics - Vital Signs Vital Signs Temp Pulse Resp BP Pulse Ox 08/05/19 18:40 97.3 F 56 16 169/81 97 - Laboratory Lab Results: Lab Results 08/05/19 08/05/19 08/05/19 Range/Units 20:51 20:51 20:51 WBC 6.6 (3.5-10.8) 10^3/uL RBC 4.32 (4.18-5.48) 10^6 /uL Hgb 13.3 L (14.0-18.0) g/dL Hct 39 L (42-52) % MCV 90 (80-94) fL MCH 31 (27-31) pg MCHC 34 (31-36) g/dL RDW 14 (10-15) % Plt Count 185 (150-450) 10^3/uL MPV 9.3 (7.4-10.4) fL Neut % (Auto) 61.4 % Lymph % (Auto) 19.6 % Rains % (Auto) 9.8 % Eos % (Auto) 8.1 % Baso % (Auto) 1.1 % Absolute Neuts (auto) 4.0 (1.5-7.7) 10^3/ul Absolute Lymphs (auto) 1.3 (1.0-4.8) 10^3/ul Absolute Monos (auto) 0.6 (0-0.8) 10^3/ul Absolute Eos (auto) 0.5 (0-0.6) 10^3/ul Absolute Basos (auto) 0.1 (0-0.2) 10^3/ul Absolute Nucleated RBC 0.0 10^3/ul Nucleated RBC % 0.0 Sodium 139 (135-145) mmol/L Potassium 3.9 (3.5-5.0) mmol/L Chloride 102 (101-111) mmol/L Carbon Dioxide 29 (22-32) mmol/L Anion Gap 8 (2-11) mmol/L BUN 26 H (6-24) mg/dL Creatinine 1.03 (0.67-1.17) mg/dL Est GFR ( Amer) 84.1 (>60) Est GFR (Non-Af Amer) 69.5 (>60) BUN/Creatinine Ratio 25.2 H (8-20) Glucose 109 H (70-100) mg/dL Lactic Acid 1.2 (0.5-2.0) mmol/L Calcium 8.2 L (8.6-10.3) mg/dL Magnesium 1.9 (1.9-2.7) mg/dL Total Bilirubin 0.50 (0.2-1.0) mg/dL AST 26 (13-39) U/L ALT 25 (7-52) U/L Alkaline Phosphatase 59 (34-104) U/L Troponin I 0.01 (<0.04) ng/mL Total Protein 6.6 (6.4-8.9) g/dL Albumin 4.1 (3.2-5.2) g/dL Globulin 2.5 (2-4) g/dL Albumin/Globulin Ratio 1.6 (1-3) TSH 0.05 L (0.34-5.60) mcIU/mL Result Diagrams: 08/05/19 20:51 08/05/19 20:51 Lab Statement: Any lab studies that have been ordered have been reviewed, and results considered in the medical decision making process. - EKG No standard instances Cardiac Rate: Bradycardia EKG Rhythm: Sinus Bradycardia Summary of EKG Findings: sinus bradycardia Re-Evaluation - Re-Evaluation First Eval Change: Unchanged Second Eval Re-Evaluation Time: 21:55 Change: Unchanged Dizzy Course/Dx - Course Course Of Treatment: 79-year-old male presents with dizziness today. He states he felt lightheaded. Denies any vertigo. No headache. No change in vision. No weakness. No chest pain or shortness breath. No abdominal pain. No difficulty ambulate. No urinary symptoms. Has never had this before. Was just admitted for chest pain workup which was negative a couple days ago. Has history of bradycardia. checked blood pressure as the 180 and the repeat it was 160. states that heart rate at that time was in the 60s. Has a known history of bradycardia. Heart rate is always in the 50s. On exam has normal neuro exam. Lungs CTA. Heart bradycardic. EKG shows bradycardia. lab work without significant abnormality. Will have follow-up with primary about thyroid. Patient was asymptomatic while in the ED. will have discharged to follow-up cardiology which has appointment this week for. Patient understands and agrees with plan. - Diagnoses Differential Diagnosis/HQI/PQRI: Coronary Artery Disease, CVA, Metabolic Abnormality Provider Diagnoses: Dizziness Discharge ED - Sign-Out/Discharge Documenting (check all that apply): Patient Departure Patient Received Moderate/Deep Sedation with Procedure: No - Discharge Plan Condition: Good Disposition: HOME Patient Education Materials: Dizziness (ED) Referrals: Andrzej Curran MD [Primary Care Provider] - Additional Instructions: Follow up with cardiology Return to ED if develop any new or worsening symptoms - Billing Disposition and Condition Condition: GOOD Disposition: Home - Attestation Statements Provider Attestation: I was available for consultation for this patient. I did not evaluate the patient or participate in any medical decision making or disposition decisions unless I am specifically named in the chart as having consulted on the patient. If I have consulted on the patient, please see my own ED note on the patient encounter. Marquise Huang MD
[2019-08-05 22:05] VITALS: BP 144/77
== END 2019-08-05 22:00 | disposition home or self-care (01) ==
LOC: ED 18:38
DX: R42 Dizziness and giddiness (principal); N40.0 Benign prostatic hyperplasia without lower urinary tract symptoms; Z79.899 Other long term (current) drug therapy; Z88.0 Allergy status to penicillin
CPT/HCPCS: 36415; 80053; 83605; 83735; 84443; 84484; 85025; 93005; 99282

== ENCOUNTER 2019-08-10 17:05 | Emergency (ER) | payer MEDICARE, BC ==
--- OUTSIDE RECORDS SUMMARY | 2019-08-10 17:11 | XMS REPORT | Continuity of Care Document ---
:1940 External Reference #:[id number] Author Name Onesimo Johnson M.D. (transmitted by agent of provider Renée López) Address [address] [place] [phone] Care Team Providers Name Role Phone Jc Lewis MD - Endocrinology, Care Team Information Robotics Mechanic [phone] Diabetes & Metabolism Janae Riley MD - Gastroenterology Care Team Information Robotics Mechanic Isiah Silver M.D. - Neurology Care Team Information Robotics Mechanic Problems Active Problems Provider Date Coronary arteriosclerosis [...] Isiah Silver M.D. Onset: 06/14/2018 Cerebrovascular disease sIiah Silver M.D. Onset: 06/14/2018 Mild cognitive disorder [...] Use Denies Drug Use Smoking Status Reviewed: 08/07/19 Patient has never smoked Exercise Type/Frequency Exercises [...] Andrzej Hernandez 03/07/2017 0.6mg Tablets acute gout flareBina [...] mouth every Unknown day 81mg Tablets DR Flomax 1 by mouth every Unknown 0.4mg Capsules day Ibuprofen one tablet by Unknown 600mg Tablets mouth q6 as needed pain Medications Administered in Office Medication SIG Qnty Indications Ordering Provider Date Technetium TC 99M Onesimo Guardado M.D. 10/23/2013 Per Unit Dose Up To 40 Millicuries Injection Immunizations CPT Code Status Date Vaccine Lot # [id number] Given 07/26/2019 Influenza Virus Vaccine, Quadrivalent, Split, Preservative Free 30531 Given 07/23/2018 Fluzone High Dose 28501 Given 07/27/2017 Influenza Virus Vaccine, Quadrivalent, Split, [id number] Preservative Free 33167 Given 09/01/2016 Influ Virus Vaccine, Quadrivalent, Split Virus, [id number] [address] Given 07/20/2015 Influenza Virus Vaccine, Quadrivalent, Split, [id number] Preservative Free 91212 Given 01/19/2015 Pneumococcal Conjugate Vaccine 13 Valent For [id number] Intramuscular Use 01925 Given 08/12/2014 Influenza Virus Vaccine, Quadrivalent, Split, [id number] Preservative Free 72127 Given 08/23/2013 Flu Vaccine Split Virus Preservative Free For [id number] Indiv 3Yr Older 71801 Given 09/26/2012 Tdap - Tetanus/Diptheria/Acellular Pertussis Q2038 Given 08/03/2012 Fluzone Vaccine 31029 Given 08/17/2011 Influenza Virus 3Yrs & Over 36497 Given 08/15/2010 Influenza Virus 3Yrs & Over 19524 Given 08/14/2008 Influenza Virus 3Yrs & Over 95854 Given 08/13/2007 Influenza Virus 3Yrs & Over 69371 Given 08/13/2007 Influenza Virus 3Yrs & Over 38420 65813 Given 11/22/2004 Pneumovax (History By Patient) 03357 Given 09/13/2002 Td (History By Patient) Vital Signs Date Vital Result Comment 08/07/2019 8:19am Height 68 inches 5'8" Weight 160.00 lb with shoes Heart Rate 56 /min BP Systolic Sitting 100 mmHg LA BP Diastolic Sitting 60 mmHg LA BP Systolic Standing 100 mmHg LA BP Diastolic Standing 66 mmHg LA BMI (Body Mass Index) 24.3 kg/m2 Ejection Fraction 60-65% Echo 08/01/19 07/24/2019 3:31pm Height 68 inches 5'8" Weight 161.00 lb with shoes Heart Rate 62 /min BP Systolic Sitting 108 mmHg RUe reg cuff BP Diastolic Sitting 70 mmHg RUe reg cuff BP Systolic Standing 102 mmHg Rue reg cuff BP Diastolic Standing 80 mmHg Rue reg cuff Respiratory Rate 13 /min BMI (Body Mass Index) 24.5 kg/m2 Ejection Fraction 50-55% ECHO 08/07/2013 Results Test Date Facility Test Result H/L Range Note Laboratory test 08/05/2019 [facility] Lactic Acid 1.2 mmol/L Normal 0.5-2.0 [address] [place] [address] [phone] CBC Auto Diff 08/05/2019 [facility] White Blood 6.6 10^3/uL Normal 3.5-10.[address] [place] [address] [phone] Red Blood Count 4.32 10^6/uL Normal 4.18-5.48 Hemoglobin 13.3 g/dL Low 14.0-18.0 Hematocrit 39 % Low 42-52 Mean Corpuscular Volume 90 fL Normal 80-94 Mean Corpuscular Hemoglobin 31 pg Normal 27-31 Mean Corpuscular HGB Conc 34 g/dL Normal 31-36 Red Cell Distribution Width 14 % Normal 10-15 Platelet Count 185 10^3/uL Normal 150-450 Mean Platelet Volume 9.3 fL Normal 7.4-10.4 Abs Neutrophils 4.0 10^3/uL Normal 1.5-7.7 Abs Lymphocytes 1.3 10^3/uL Normal 1.0-4.8 Abs Monocytes 0.6 10^3/uL Normal 0-0.8 Abs Eosinophils 0.5 10^3/uL Normal 0-0.6 Abs Basophils 0.1 10^3/uL Normal 0-0.2 Abs Nucleated RBC 0.0 10^3/uL Granulocyte % 61.4 % Lymphocyte % 19.6 % Monocyte % 9.8 % Eosinophil % 8.1 % Basophil % 1.1 % Nucleated Red Blood Cells % 0.0 Comp Metabolic 08/05/2019 [facility] Sodium 139 mmol/L Normal 135-[address] [place] [address] [phone] Potassium 3.9 mmol/L Normal 3.5-5.0 Chloride 102 mmol/L Normal 101-111 Co2 Carbon Dioxide 29 mmol/L Normal 22-32 Anion Gap 8 mmol/L Normal 2-11 Glucose 109 mg/dL High 70-100 Blood Urea Nitrogen 26 mg/dL High 6-24 Creatinine 1.03 mg/dL Normal 0.67-1.17 BUN/Creatinine Ratio 25.2 High 8-20 Calcium 8.2 mg/dL Low 8.6-10.3 Total Protein 6.6 g/dL Normal 6.4-8.9 Albumin 4.1 g/dL Normal 3.2-5.2 Globulin 2.5 g/dL Normal 2-4 Albumin/Globulin Ratio 1.6 Normal 1-3 Total Bilirubin 0.50 mg/dL Normal 0.2-1.0 Alkaline Phosphatase 59 U/L Normal 34-104 Alt 25 U/L Normal 7-52 Ast 26 U/L Normal 13-39 Egfr Non- 69.5 >60 Egfr 84.1 >60 2 Laboratory test 08/05/2019 [facility] Magnesium 1.9 mg/dL Normal 1.9-2.[address] [place] [address] [phone] Troponin-I (TnI) 0.01 ng/mL <0.04 3 TSH (Thyroid Stim Horm) 0.05 mcIU/mL Low 0.34-5.60 Laboratory 08/01/2019 [facility] B-Type 49 pg/mL <=[address] [place] [address] Peptide BNP [phone] CBC Auto Diff 08/01/2019 [facility] White Blood 5.8 Normal 3.5 -10.[address] Count 10^3/[place] [address] [phone] Red Blood Count 4.26 10^6/uL Normal 4.18-5.48 [...] Red Blood Cells % 0.1 Inr/Protime 08/01/2019 [facility] Inr 1.00 Normal 0.82-1.[address] [place] [address] [phone] Laboratory test 08/01/2019 [facility] Lactic Acid 1.3 Normal 0.5-2.0 [address] mmol/[place] [address] [phone] Comp Metabolic 08/01/2019 [facility] Sodium 140 Normal 135- [address] mmol/[place] [address] [phone] Potassium 3.8 mmol/L Normal 3.5-5.0 Chloride 104 [...] Egfr Non- 73.6 >60 Egfr 89.0 >60 6 Laboratory test 08/01/2019 [facility] Troponin-I (TnI) 0.00 ng/ mL <0.04 [address] [place] [address] [phone] TSH (Thyroid Stim Horm) 0.04 mcIU/mL Low 0.34-5.60 Lipid Profile 03/06/2019 [facility] Triglycerides 126 mg/dL 8, 9 (Trig/Chol/HDL) [address] [place], [place] [id number] [phone] Cholesterol 146 mg/dL 10 HDL Cholesterol 34.0 mg/dL 11 LDL Cholesterol 87 mg/dL 12 Testosterone 03/06/2019 [facility] Free 8.10 3.08-11.3 13 Free & Total [address] Testosterone ng/[place] [address] ng/dl [phone] Testosterone 352 ng/dL 240-950 14 Laboratory test 03/06/2019 [facility] TSH (Thyroid 0.08 Low 0.34-5.60 [address] Stim Horm) mcIU/[place] [address] [phone] Thyroglobulin 03/06/2019 [facility] Thyroglobulin <1.8 <4.0 [address] Antibody IU/mL [place], [place] [address] [phone] Thyroglobulin Tumor Marker <0.1 ng/mL 16 Thyroglobulin Interpretation See Comment 17 Urine Culture And 03/06/2019 [facility] Urine Culture SEE RESULT [address] BEL[address] [place], [place] [id number] [phone] Urinalysis Profile 03/06/2019 [facility] Urine Color Yellow [address] [place] [address] [phone] Urine Appearance Clear Urine Specific [place] 1.011 Normal 1.010-1.030 Urine pH 6.0 Normal 5-9 Urine Urobilinogen Negative Negative Urine Ketones Negative Negative Urine Protein Negative Negative Urine Leukocytes Negative Negative Urine Blood 1+ Abnormal Negative Urine Nitrite Negative Negative Urine Bilirubin Negative Negative Urine Glucose Negative Negative Urine White Blood Cell Trace(0-5/hpf) Absent Urine Red Blood Cell 1+(3-5/hpf) Abnormal Absent Urine Bacteria Absent Absent Comp Metabolic 03/06/2019 [facility] Sodium 143 mmol/L Normal 135-[address] [place] [address] [phone] Potassium 3.8 mmol/L Normal 3.5-5.0 Chloride 103 [...] Egfr Non- 68.1 >60 Egfr 82.4 >60 19 1 [facility] Severe Sepsis and Septic Shock Management Bundle Measure requires all lactic acids initially measuring >2.0 mmol/L be repeated. 2 Because ethnic data is not always [...] 5 Kidney failure <15 (or dialysis) 3 Troponin-I testing on Plasma Separator Tubes (PST) has a known false positive rate of 0.20-0.40%. All positive troponins reflex immediately to secondary confirmatory testing. Using the [employer] DxI 800 Access Immunoassay systems, the 99th percentile upper reference limit was demonstrated to be < 0.03 ng/mL. 4 Standard intensity warfarin therapeutic range: 2.0-3.0 High intensity warfarin therapeutic range: 2.5-3.5 5 [place] Severe Sepsis and Septic Shock Management Bundle Measure requires all lactic acids initially measuring >2.0 mmol/L be repeated. 6 Because ethnic data is not always [...] 5 Kidney failure <15 (or dialysis) 7 Troponin-I testing on Plasma Separator Tubes (PST) has a known false positive rate of 0.20-0.40%. All positive troponins reflex immediately to secondary confirmatory testing. Using the [employer] DxI 800 Access Immunoassay systems, the 99th percentile upper reference limit was demonstrated to be < 0.03 ng/mL. 8 FASTING 9 Desirable: <150 Borderline High: 150-199 High: 200-499 Very High: >500 10 Desirable: <200 Borderline High: 200-239 High: >239 11 Low: <40 Desirable: 40-60 High: >60 12 Desirable: <100 Near Optimal: 100-129 Borderline High: 130-159 High: 160-189 Very High: >189 13 ADDITIONAL INFORMATION Testing performed by [facility]. This test was developed and its performance characteristics determined by [facility] in a manner consistent with CLIA requirements. This test has not been cleared or approved by the U.S. Food and Drug Administration. 14 ADDITIONAL INFORMATION Testing performed by Liquid Chromatography-Tandem Mass Spectrometry (LC-MS/MS). This test was developed and its performance characteristics determined by [facility] in a manner consistent with CLIA requirements. This test has not been cleared or approved by the U.S. Food and Drug Administration. Test Performed by: [facility] [employer] [place] [address] 15 FASTING 16 REFERENCE VALUE Athyrotic <0.1 Intact Thyroid <=33 17 Thyroglobulin (Tg) levels must be interpreted in [...] testing methods are immunoenzymatic assays manufactured by [employer] and performed on the [employer]UsI 800. Values obtained from different assay methods or kits may be different and cannot be used interchangeably. The results cannot be interpreted as absolute evidence for the presence or absence of malignant disease. Test Performed by: [facility] [place] [address] 18 SEE RESULT BELOW Name: NANCY MERINO : [address]: Andrzej Curran III, MD Acct: [id number] Unit: [id number] AGE: 78 Location: [facility] Re03/06/19 SEX: M Status: REG REF SPEC: [id number] GIULIA: 03/06/[address] [facility] [address]: Andrzej Curran III, MD REQ: [id number] RECD: 03/06/19 STATUS: COMP _ SOURCE: URINE SPDESC: ORDERED: Urine Culture Procedure Result Reported Site Urine Culture Final 03/07/19- 1211 ML No Growth (<1,000 CFU/mL) * ML - Main Lab . END OF REPORT DEPARTMENT OF PATHOLOGY, [address] [place] [address] Vinicio Mendoza M.D. Director [facility] # [id number] 19 Because ethnic data is not always readily [...] (or dialysis) Procedures Date Code Description Status 08/07/2019 84043 EKG Tracing & Interpretation Completed 08/01/2019 57655 Treadmill Interp/Report Only Completed 08/01/2019 20263 Stress Test Supervsn W/Out I/R Completed 07/24/2019 46608 EKG Tracing & Interpretation Completed 02/15/2019 [id number] Mammogram Completed 10/25/2018 [id number] Colonoscopy Completed 01/21/2014 [id number] Colonoscopy Completed 02/20/2013 [id number] Diabetic Foot Exam Completed 08/09/2007 77871966 Colonoscopy Completed Medical Devices Description No Information Available Encounters Type Date Location Provider Dx Diagnosis Office Visit 07/24/2019 [facility] Onesimo Lopez I10 Essential ( primary) 3:45p Of Alexis Johnson M.D. hypertension I25.10 Athscl heart disease of [place] coronary artery w/o ang pctrs Office Visit 07/23/2019 10:00a [place] Hilario G31.84 Mild cognitive Neurologic Sawant, N.P. impairment, so [facility] stated I68.0 Cerebral amyloid angiopathy R42 Dizziness and giddiness Office Visit 05/14/2019 [facility] Hilario R42 Dizziness and 11:00a Clinic Jese, N.P. giddiness G31.84 Mild cognitive impairment, so stated I68.0 Cerebral amyloid angiopathy Office Visit 03/11/2019 9:00a [facility] Internal Andrzej Hernandez L98.9 Disorder of the Medicine - Miya Curran skin and Adithyaob subcutaneous tissue, unspecified R31.9 Hematuria, unspecified Office Visit 02/21/2019 [place] Isiah Silver, G31.84 Mild cognitive 11:15a Neurologic M.DChey impairment, so [facility] stated I68.0 Cerebral amyloid angiopathy Office Visit 02/11/2019 3:40p [facility] Internal Andrzej Hernandez Z80.3 Family history of Medicine - Jing Curran M.D. malignant neoplasm of breast Assessments Date Code Description Provider 08/07/2019 I10 Essential (primary) hypertension Onesimo Johnson M.D. 08/07/2019 I25.10 Atherosclerotic heart disease [place] Onesimo Johnson M.D. coronary artery with 08/07/2019 R42 Dizziness Onesimo Johnson M.D. 08/07/2019 R00.1 Bradycardia Onesimo Johnson M.D. 07/24/2019 I10 Essential (primary) hypertension Onesimo Johnson M.D. 07/24/2019 I25.10 Atherosclerotic heart disease of [place] Onesimo Johnson M.D. coronary artery with 07/23/2019 G31.84 Mild cognitive impairment, so stated Hilario Sawant, N.P. 07/23/2019 I68.0 Cerebral amyloid angiopathy Hilario Sawant, N.P. 07/23/2019 R42 Dizziness and giddiness Hilario Saawnt, N.P. 05/14/2019 R42 Dizziness and giddiness Hilario [...] M.D. 03/05/2019 I25.10 Atherosclerotic heart disease of [place] Andrzej Curran M.D. coronary artery with 03/05/2019 [...] Curran M.D. breast Plan of Treatment Future Appointment(s):08/14/2019 9:00 am - Nurse Visit IC at [facility]08/13/2019 9:30 am - Nurse Visit IC at [facility]2018 9:15 am - Isiah Silver M.D. at [facility]09/04 9:00 am - Andrzej Curran M.D. at [facility] Internal Medicine - [id number] - Onesimo Johnson M.D.I10 Essential (primary) hypertensionNew Orders: Holter Monitor, Ordered: 08/07/19Follow up:4 gimtqdD76.10 Atherosclerotic heart disease of [place] coronary artery withR42 PmwxqsdzaO53.1 Bradycardia Functional Status Description No Information Available Mental Status Description No Information Available Referrals Refer to Dr Reason for Referral Status Appt Date Preston Nance MD Sent [address] [place] [address] [phone]
--- OUTSIDE RECORDS SUMMARY | 2019-08-10 17:11 | XMS REPORT | Continuity of Care Document ---
:1940 External Reference #:[id number] Author Name Maria Fernanda Montes PA-C Address [address] [place] [address] Care Team Providers Name Role Phone Andrzej Curran MD Care Team Information Community Midwife [phone] Problems Active Problems Provider Date Essential hypertension [...] Patient has never smoked Smoking Status Reviewed: 08/09/19 Patient has never smoked Allergies, Adverse Reactions, Alerts Active Allergies Reaction Severity Comments Date Penicillin 11/11/2010 Opiates 11/11/2010 Benadryl 11/11/2010 Gum Nepali 11/11/2010 Medications Active Medications SIG Qnty Indications [...] CPT Code Status Date Vaccine Lot # [id number] Given Unknown Influenza Virus Vaccine, 3 Years Of Age And Above, Intramuscular Vital Signs Date Vital Result Comment 08/09/2019 9:44am Weight 165.00 lb Weight 74.844 kg Height 69 inches 5'9" Height in cm's 175.3 cm BMI (Body Mass Index) 24.4 kg/m2 07/25/2019 9:23am Weight 165.00 lb Weight 74.844 kg Height 69 inches 5'9" Height in cm's 175.3 cm BMI (Body Mass Index) 24.4 kg/m2 Results Description No Information Available Procedures Date Code Description Status 08/09/2019 67880 Tympanometry Completed 06/20/2019 35033 Tympanostomy W/Tube Local Or Topical Anes. Completed 06/06/2019 12214 Tympanometry Completed 06/06/2019 75057 Comprehensive Audiogram Completed Medical Devices Description No Information Available [...] bilateral H81.399 Other peripheral vertigo, unspecified ear Assessments Date Code Description Provider 08/09/2019 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, right Maria Fernanda Montes PA-C ear 08/09/2019 H90.3 Sensorineural hearing loss, Maria Fernanda Montes PA-C bilateral 08/09/2019 H81.399 Other peripheral vertigo, Maria Fernanda Montes PA-C unspecified ear 07/25/2019 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, right Preston Nance MD ear 07/25/2019 H90.3 Sensorineural hearing loss, Preston Nance MD bilateral 06/20/2019 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, right Preston Nance MD ear 06/06/2019 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, right Preston Nance MD ear 06/06/2019 H90.3 Sensorineural hearing loss, Romel Vazquez MA, [facility] bilateral 06/06/2019 H90.3 Sensorineural hearing loss, Preston Nance MD bilateral 06/06/2019 H81.399 Other peripheral vertigo, Preston Nance MD unspecified ear Plan of Treatment Future Appointment(s):01/24/2020 9:00 am - Maria Fernanda Montes PA-C at [place],After - JANA[facility] [place]-C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, right earH90.3 Sensorineural hearing loss, makwocrjaD49.399 Other peripheral vertigo, unspecified ear Functional Status Description No Information Available Mental Status Description No Information Available Referrals Description No Information Available
--- NOTE | 2019-08-10 17:28 | ED ---
Dizziness - HPI Summary HPI Summary: Pt is an 79 y/o M presenting to the ED brought in by EMS for dizziness characterized by vertigo. Per the pts , the pt has been experiencing episodes of vertigo intermittently for a while now, but this episode was the worst he has had. He has a tube placed in one of his ears that resolved his vertigo temporarily, but his tin roofer has not looked in his other ear. He has Meclizine at home that usually alleviates his sx after about 1 hour, but today he began experiencing nausea after 1 hour. He also notes difficulty ambulating. He last had an episode of vertigo on night, 08/08/19, that was resolved with the Meclizine. When he closes his eyes, he notes the dizziness is still there, described as room-spinning. - History Of Current Complaint Chief Complaint: EDDizziness Stated Complaint: VERTIGO PER EMS Time Seen by Provider: 08/10/19 17:18 Hx Obtained From: Patient, Family/Club Manager - Onset/Duration: Still Present, Suddenly Timing: Hours Severity Initially: Moderate Severity Currently: Moderate Character: Room Spinning, Dizzy Aggravating Factor(s): Nothing Alleviating Factor(s): Nothing Associated Signs And Symptoms: Positive: Nausea, Unsteady Gait - Allergies/Home Medications Allergies/Adverse Reactions: Allergies Allergy/AdvReac Type Severity Reaction Status Date / Time hesham Allergy Diarrhea Verified 08/10/19 17:15 Adhesive Tape Allergy Rash Verified 08/10/19 17:15 cat dander Allergy Anaphylatic Verified 08/10/19 17:15 Shock dubon Allergy Hives Verified 08/10/19 17:15 ciprofloxacin [From Cipro] Allergy Tore an Verified 08/10/19 17:15 achilles tendon diphenhydramine Allergy See Comment Verified 08/10/19 17:15 [From Benadryl] finasteride Allergy Hives Verified 08/10/19 17:15 lactose Allergy Gas Verified 08/10/19 17:15 Opioids - Morphine Analogues Allergy See Comment Verified 08/10/19 17:15 Opioids-Meperidine and Allergy See Comment Verified 08/10/19 17:15 Related Opioids-Methadone and Related Allergy See Comment Verified 08/10/19 17:15 Penicillins Allergy Hives Verified 08/10/19 17:15 tramadol Allergy See Comment Verified 08/10/19 17:15 GUM INDONESIAN Allergy Intermediate Intestinal Uncoded 02/23/19 08:35 cramps HAY FEVER Allergy Runny Nose Uncoded 02/23/19 08:35 PMH/Surg Hx/FS Hx/Imm Hx Previously Healthy: Yes Endocrine/Hematology History: Reports: Hx Anticoagulant Therapy - aspirin , Hx Thyroid Disease - CANCER:thyroidectomy 2013 Denies: Hx Diabetes, Hx Anemia Cardiovascular History: Reports: Hx Angina, Hx Coronary Artery Disease - FOLLOWED BY DR SANTANA, Hx Hypercholesterolemia, Hx Hypertension - on meds, STATES WELL CONTROLLED, Hx Myocardial Infarction, Other Cardiovascular Problems/ Disorders - DR. SANTANA FOLLOWS-LAST SEEN ABOUT 1 YEAR AGO Denies: Hx Congestive Heart Failure, Hx Pacemaker/ICD, Hx Valvular Heart Disease Respiratory History: Reports: Hx Asthma Denies: Hx Chronic Obstructive Pulmonary Disease (COPD), Hx Lung Cancer GI History: Reports: Other GI Disorders - lactose intolerance Denies: Hx Gall Bladder Disease, Hx Gastrointestinal Bleed, Hx Jaundice, Hx Ulcer, Hx Urosepsis History: Reports: Hx Benign Prostatic Hyperplasia, Other Problems/ Disorders - BPH, bladder stone, uti's Denies: Hx Chronic Renal Failure, Hx Dialysis, Hx Kidney Stones, Hx Renal Disease Musculoskeletal History: Reports: 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 Basal cell carcinoma left nose 07/2016 Hx Chemotherapy: No Hx Radiation Therapy: No Hx Palliative Cancer Treatment: No - Surgical History Surgery Procedure, Year, and Place: tonsillectomy and adenoidectomy as a child - [facility]. appendectomy - [place]. left inguinal hernia repair - [place]. cardiac stents x2 - [facility] [place]. quintuple bypass - [facility]. Typanostomy - TUBE IN EAR FOR FLUID - Right Ear. nasal cautery - [facility] [place]. thyroidectomy - [facility] [place]. bilateral cataract extraction with iol's - [facility] [place]. cystolitholapaxy - [facility] [place]. moh's repair - [place]. LUMBAR -Laminectomy 07/2017 [facility] [place] Hx Anesthesia Reactions: No - Immunization History Date of Tetanus Vaccine: utd Date of Influenza Vaccine: fall 2016 Infectious Disease History: No Infectious Disease History: Denies: Hx Clostridium Difficile, Hx Hepatitis, Hx Human Immunodeficiency Virus (HIV), Hx of Known/Suspected MRSA, Hx Shingles, Hx Tuberculosis, History Other Infectious Disease, Traveled Outside the in Last 30 Days - Family History Known Family History: Positive: Hypertension, Other - mother - CVA, father - leukemia - Social History Alcohol Use: Occasionally Hx Substance Use: No Substance Use Type: Reports: None Hx Tobacco Use: No Smoking Status (MU): Never Smoked Tobacco Have You Smoked in the Last Year: No Review of Systems Positive: Nausea Positive: Other - unsteady gait Neurological: Other - dizziness All Other Systems Reviewed And Are Negative: Yes Physical Exam - Summary Physical Exam Summary: Constitutional: Well-developed, Well-nourished, Alert. (-) Distressed Skin: Warm, Dry HENT: Normocephalic; Atraumatic Eyes: Conjunctiva normal Neck: Musculoskeletal ROM normal neck. (-) JVD, (-) Stridor, (-) Tracheal deviation Cardio: Rhythm regular, rate normal, Heart sounds normal; Intact distal pulses. Radial pulses are 2+ and symmetric. (-) Murmur Pulmonary/Chest wall: Effort normal. (-) Respiratory distress, (-) Wheezes, (-) Rales Abd: Soft. (-) Tenderness, (-) Distension, (-) Guarding, (-) Rebound Musculoskeletal: (-) Edema Lymph: (-) Cervical adenopathy Neuro: Alert, Oriented x3, Strength normal, Cranial nerves II-XII are grossly intact. (-) Dysmetria, (-) Nystagmus, (-) Ataxia by finger to nose testing, (-) Sensory deficit. NIH score 0. Fatigue nystagmus on R lateral gaze. Psych: Mood and affect Normal Triage Information Reviewed: Yes Vital Signs On Initial Exam: Initial Vitals Temp Pulse Resp BP Pulse Ox 97.4 F 55 18 152/77 96 08/10/19 17:07 08/10/19 17:07 08/10/19 17:07 08/10/19 17:07 08/10/19 17:07 Vital Signs Reviewed: Yes - Hector Coma Scale Best Eye Response: 4 - Spontaneous Best Motor Response: 6 - Obeys Commands Best Verbal Response: 5 - Oriented Coma Scale Total: 15 Procedures - Sedation Patient Received Moderate/Deep Sedation with Procedure: No Diagnostics - Vital Signs Vital Signs Temp Pulse Resp BP Pulse Ox 08/10/19 17:12 51 152/77 08/10/19 17:11 55 95 08/10/19 17:07 97.4 F 55 18 152/77 96 - Laboratory Result Diagrams: 08/10/19 17:45 08/10/19 17:45 Lab Statement: Any lab studies that have been ordered have been reviewed, and results considered in the medical decision making process. - EKG 1758 Cardiac Rate: Bradycardia - 48bpm EKG Rhythm: 1st Degree HB ST Segment: Normal Ectopy: None Summary of EKG Findings: EKG at 1751 shows sinus bradycardia at 48bpm with RBBB and 1st degree HB. No STEMI. National Institutes Of Health - NIH Scale Level of Consciousness: Alert/Keenly Responsive Ask Patient the Month and His/Her Age: Both Correct Ask Pt to Open/Close Eyes and Osteopathy Doctor/Release Non-Paretic Hand: Both Correctly Best Gaze (Only Horizontal Eye Movement): Normal Visual Field Testing: No Visual Loss Facial Paresis-Pt to Smile & Close Eyes or Grimace Symmetry: Normal/Symmetrical Motor Function - Right Arm: No Drift-Holds 10 Seconds Motor Function - Left Arm: No Drift-Holds 10 Seconds Motor Function - Right Leg: No Drift-Holds 10 Seconds Motor Function - Left Leg: No Drift-Holds 10 Seconds Limb Ataxia-Must be out of Proportion to Weakness Present: Absent Sensory (Use Pinprick to Test Arms/Legs/Trunk/Face): Normal Best Language (Describe Picture, Name Items): No Aphasia Dysarthria (Read Several Words): Normal Extinction and Inattention: No Abnormality Total Score: 0 Re-Evaluation - Re-Evaluation 1st re-eval Re-Evaluation Time: 20:43 Change: Improved Comment: Pt is feeling no vertigo and is ambulating with his normal gait. Dizzy Course/Dx - Course Course Of Treatment: Patient is here with vertigo. Patient suffers from vertigo that occurs frequently and has been present off-and-on for months. Patient has seen a neurologist and ENT doctor for this with no etiology. Patient had an NIH stroke scale of 0 upon arrival with a normal neurologic exam outside of nystagmus on horizontal gaze. Patient was given another dose of meclizine with resolution in his symptoms. Patient had a CT or an and CTA head/ neck which showed no acute abnormality. Patient did have a 2 mm aneurysm which she was made aware of. Patient had blood work performed which was grossly unremarkable outside of mild hyperthyroidism. Patient has follow-up with his neurologist in 12 days and will call his ENT to have further evaluation. I do not believe these symptoms represent a stroke given his frequent episodes of vertigo and normal neurologic exam. - Diagnoses Provider Diagnoses: Vertigo Discharge ED - Sign-Out/Discharge Documenting (check all that apply): Patient Departure - Discharge Plan Condition: Stable Disposition: HOME Patient Education Materials: Vertigo (ED) Referrals: Andrzej Curran MD [Primary Care Provider] - Huy Silver MD [Medical Doctor] - Preston Nance MD [Medical Doctor] - Additional Instructions: Follow up with Dr. Silver of neurology and Dr. Nance of ENT within the next 1-3 days. Return to the emergency department with any new or worsening symptoms, including vertigo that doesn't get better with the Meclizine, slurred speech, change in vision, or weakness in your arms/legs. - Billing Disposition and Condition Condition: STABLE Disposition: Home - Attestation Statements Document Initiated by Geovanna: Yes Documenting Scribe: Lakshmi Mason Provider For Whom Geovanna is Documenting (Include Credential): Pipe Mejia MD. Scribe Attestation: Lakshmi Klein, scribed for Pipe Mejia MD. on 08/10/19 at 2102. Scribe Documentation Reviewed: Yes Provider Attestation: The documentation as recorded by the Lakshmi mendez accurately reflects the service I personally performed and the decisions made by , Pipe Mejia MD. Status of Scribe Document: Viewed
[2019-08-10] MEDS ORDERED: NS 0.9% 1000 ML** 1,000 ML IV ONE (17:31)
[2019-08-10] MEDS ORDERED: Meclizine TAB* 12.5 MG PO ONE (17:40)
[2019-08-10 17:54] LABS: ABS Basophils 0.1 10^3/ul (0-0.2); ABS Eosinophils 0.4 10^3/ul (0-0.6); ABS Lymphocytes 0.8 10^3/ul (1.0-4.8); ABS Monocytes 0.6 10^3/ul (0-0.8); ABS Neutrophils 4.9 10^3/ul (1.5-7.7); Eosinophil % 5.8 %; Hematocrit 40 % (42-52); Hemoglobin 13.3 g/dL (14.0-18.0); Lymphocyte % 11.9 %; Mean Corpuscular HGB Conc 34 g/dL (31-36); Mean Corpuscular Hemoglobin 30 pg (27-31); Mean Corpuscular Volume 90 fL (80-94); Mean Platelet Volume 9.1 fL (7.4-10.4); Platelet Count 179 10^3/uL (150-450); Red Blood Count 4.39 10^6 /uL (4.18-5.48); Red Cell Distribution Width 14 % (10-15); White Blood Count 6.8 10^3/uL (3.5-10.8)
[2019-08-10 18:00] LABS: INR 0.97 (0.82-1.09)
[2019-08-10 18:13] LABS: Albumin 4.1 g/dL (3.2-5.2); Albumin/Globulin Ratio 1.6 (1-3); BUN/Creatinine Ratio 21.8 (8-20); Calcium 8.6 mg/dL (8.6-10.3); EGFR Non-African American 71.1 (>60); Globulin 2.5 g/dL (2-4); Potassium 4.2 mmol/L (3.5-5.0); Total Bilirubin 0.5 mg/dL (0.2-1.0); Total Protein 6.6 g/dL (6.4-8.9)
[2019-08-10] MEDS ORDERED: Iohexol 350* (CONTRAST) 500 ML MDV IV ONE (18:32)
[2019-08-10 20:26] LABS: TSH (Thyroid Stimulating Horm) 0.07 mcIU/mL (0.34-5.60)
[2019-08-10 20:28] LABS: Free T4 1.39 ng/dL (0.61-1.12)
[2019-08-10 21:47] VITALS: BP 169/79
== END 2019-08-10 20:55 | disposition home or self-care (01) ==
LOC: ED 17:05
DX: R42 Dizziness and giddiness (principal); I25.10 Atherosclerotic heart disease of native coronary artery without angina pectoris; E78.00 Pure hypercholesterolemia, unspecified; I10 Essential (primary) hypertension; I25.2 Old myocardial infarction; N40.0 Benign prostatic hyperplasia without lower urinary tract symptoms; J45.909 Unspecified asthma, uncomplicated; Z95.5 Presence of coronary angioplasty implant and graft; Z85.850 Personal history of malignant neoplasm of thyroid; Z79.82 Long term (current) use of aspirin; Z79.890 Hormone replacement therapy; Z79.899 Other long term (current) drug therapy; Z88.1 Allergy status to other antibiotic agents; Z88.5 Allergy status to narcotic agent; Z88.0 Allergy status to penicillin; Z88.8 Allergy status to other drugs, medicaments and biological substances
CPT/HCPCS: 36415; 70450; 70496; 70498; 80053; 84439; 84443; 84484; 85025; 85610; 93005; 99284; A9270-GY; Q9967

== ENCOUNTER 2019-09-22 08:49 | Emergency (ER) | payer MEDICARE, BC ==
--- OUTSIDE RECORDS SUMMARY | 2019-09-22 08:54 | XMS REPORT | Continuity of Care Document ---
:1940 External Reference #:[id number] Author Name Andrzej Curran M.D. (transmitted by agent of provider Misa Thompson ) Address [address], [place] [address] Care Team Providers Name Role Phone Jc Lewis MD - Endocrinology, Care Team Information Gold Layer Diabetes & Metabolism Janae Riley MD - Gastroenterology Care Team Information Gold Layer Isiah Silver M.D. - Neurology Care Team Information Gold Layer Problems Active Problems Provider Date Coronary arteriosclerosis [...] Use Denies Drug Use Smoking Status Reviewed: 09/09/19 Patient has never smoked Exercise Type/Frequency Exercises [...] Maleate 1 tab by mouth 90tabs Onesimo D. 07/29/2013 10mg every day Miya Johnson Tablets Nitroglycerin 1 sl as needed 25tabs Onesimo D. 0.4mg Miya Johnson Tablets Sub Lipitor 1 tab by mouth 90tabs Onesimo D. 40mg Tablets every day Miya Johnson Tylenol 2 tabs by mouth Unknown 325mg [...] CPT Code Status Date Vaccine Lot # [id number] Given 07/26/2019 Influenza Virus Vaccine, Quadrivalent, Split, Preservative Free 07753 Given 07/23/2018 Fluzone High Dose 44206 Given 07/27/2017 Influenza Virus Vaccine, Quadrivalent, Split, [id number] Preservative Free 28874 Given 09/01/2016 Influ Virus Vaccine, Quadrivalent, Split Virus, [place] [id number] [address] Given 07/20/2015 Influenza Virus Vaccine, Quadrivalent, Split, [id number] Preservative Free 21626 Given 01/19/2015 Pneumococcal Conjugate Vaccine 13 Valent For [id number] Intramuscular Use 54942 Given 08/12/2014 Influenza Virus Vaccine, Quadrivalent, Split, [id number] Preservative Free 06163 Given 08/23/2013 Flu Vaccine Split Virus Preservative Free For [id number] Indiv 3Yr Older 66259 Given 09/26/2012 Tdap - Tetanus/Diptheria/Acellular Pertussis [id number] Given 08/03/2012 Fluzone Vaccine 56883 Given 08/17/2011 Influenza Virus 3Yrs & Over 75932 Given 08/15/2010 Influenza Virus 3Yrs & Over 12194 Given 08/14/2008 Influenza Virus 3Yrs & Over 37790 Given 08/13/2007 Influenza Virus 3Yrs & Over 83441 Given 08/13/2007 Influenza Virus 3Yrs & Over 69650 58092 Given 11/22/2004 Pneumovax (History By Patient) 86535 Given 09/13/2002 Td (History By Patient) Vital Signs Date Vital Result Comment 09/09/2019 2:51pm Height 68 inches 5'8" Weight 156.00 lb Heart Rate 55 /min BP Systolic Sitting 121 mmHg BP Diastolic Sitting 69 mmHg BMI (Body Mass Index) 23.7 kg/m2 08/23/2019 9:36am Height 68 inches 5'8" Weight 156.00 lb Heart Rate 59 /min BP Systolic 108 mmHg BP Diastolic 76 mmHg BMI (Body Mass Index) 23.7 kg/m2 Results Test Acquired Date Facility Test Result H/L Range Note CBC Auto 08/10/2019 [facility] White Blood 6.8 10^3/uL Normal 3.5-10.[address] [place] [address] [phone] Red Blood Count 4.39 10^6/uL Normal 4.18-5.48 Hemoglobin 13.3 g/dL Low 14.0-18.0 Hematocrit 40 % Low 42-52 Mean Corpuscular Volume 90 fL Normal 80-94 Mean Corpuscular Hemoglobin 30 pg Normal 27-31 Mean Corpuscular HGB Conc 34 g/dL Normal 31-36 Red Cell Distribution Width 14 % Normal 10-15 Platelet Count 179 10^3/uL Normal 150-450 Mean Platelet Volume 9.1 fL Normal 7.4-10.4 Abs Neutrophils 4.9 10^3/uL Normal 1.5-7.7 Abs Lymphocytes 0.8 10^3/uL Low 1.0-4.8 Abs Monocytes 0.6 10^3/uL Normal 0-0.8 Abs Eosinophils 0.4 10^3/uL Normal 0-0.6 Abs Basophils 0.1 10^3/uL Normal 0-0.2 Abs Nucleated RBC 0.0 10^3/uL Granulocyte % 72.8 % Lymphocyte % 11.9 % Monocyte % 8.5 % Eosinophil % 5.8 % Basophil % 1.0 % Nucleated Red Blood Cells % 0.0 Inr/Protime 08/10/2019 [facility] Inr 0.97 Normal 0.82-1.[address] [place] [address] [phone] Comp Metabolic 08/10/2019 [facility] Sodium 138 mmol/L Normal 135-145 Panel [address] [place] [address] [phone] Potassium 4.2 mmol/L Normal 3.5-5.0 Chloride 101 mmol/L Normal 101-111 Co2 Carbon Dioxide 30 mmol/L Normal 22-32 Anion Gap 7 mmol/L Normal 2-11 Glucose 101 mg/dL High 70-100 Blood Urea Nitrogen 22 mg/dL Normal 6-24 Creatinine 1.01 mg/dL Normal 0.67-1.17 BUN/Creatinine Ratio 21.8 High 8-20 Calcium 8.6 mg/dL Normal 8.6-10.3 Total Protein 6.6 g/dL Normal 6.4-8.9 Albumin 4.1 g/dL Normal 3.2-5.2 Globulin 2.5 g/dL Normal 2-4 Albumin/Globulin Ratio 1.6 Normal 1-3 Total Bilirubin 0.50 mg/dL Normal 0.2-1.0 Alkaline Phosphatase 62 U/L Normal 34-104 Alt 18 U/L Normal 7-52 Ast 18 U/L Normal 13-39 Egfr Non- 71.1 >60 Egfr 86.0 >60 2 Laboratory test 08/10/2019 [facility] Troponin-I (TnI) 0.00 ng/ mL <0.04 3 finding [address] [place] [address] [phone] TSH (Thyroid Stim Horm) 0.07 mcIU/mL Low 0.34-5.60 Free T4 (Free Thyroxine) 1.39 ng/dL High 0.61-1.12 Laboratory test 08/05/2019 [facility] Lactic Acid 1.2 mmol/L Normal 0.5-2.0 4 finding [address] [place] [address] [phone] CBC Auto Diff 08/05/2019 [facility] White Blood 6.6 10^3/uL Normal 3.5-10.8 [address] [facility] [place] [address] [phone] Red Blood Count 4.32 10^6/uL Normal 4.18-5.48 [...] Blood Cells % 0.0 Comp Metabolic 08/05/2019 [facility] Sodium 139 mmol/L Normal 135-[address] [place] [address] [phone] Potassium 3.9 mmol/L Normal 3.5-5.0 Chloride 102 [...] Egfr Non- 69.5 >60 Egfr 84.1 >60 5 Laboratory test 08/05/2019 [facility] Magnesium 1.9 mg/dL Normal 1.9-2.[address] [place] [address] [phone] Troponin-I (TnI) 0.01 ng/mL <0.04 6 TSH (Thyroid Stim Horm) 0.05 mcIU/mL Low 0.34-5.60 Laboratory test 08/01/2019 [facility] Troponin-I (TnI) 0.00 ng/ mL <0.[address] [place] [address] [phone] TSH (Thyroid Stim Horm) 0.04 mcIU/mL Low 0.34-5.60 Comp Metabolic 08/01/2019 [facility] Sodium 140 mmol/L Normal 135-145 Panel [address] [place] [address] [phone] Potassium 3.8 mmol/L Normal 3.5-5.0 Chloride 104 [...] Egfr Non- 73.6 >60 Egfr 89.0 >60 8 Laboratory test 08/01/2019 [facility] Lactic 1.3 mmol/L Normal 0.5-2.0 [address] [place] [address] [phone] Inr/Protime 08/01/2019 [facility] Inr 1.00 Normal 0.82-1.[address] [place] [address] [phone] CBC Auto Diff 08/01/2019 [facility] White 5.8 Normal 3.5-10.[address] Blood 10^3/[place] [address] Count [phone] Red Blood Count 4.26 10^6/uL Normal 4.18-5.48 [...] % Nucleated Red Blood Cells % 0.1 Laboratory test 08/01/2019 [facility] B-Type 49 pg/mL <=100 finding [address] [place] [address] Peptide BNP [phone] 1 Standard intensity warfarin therapeutic range: 2.0-3.0 High intensity warfarin therapeutic range: 2.5-3.5 2 Because ethnic data is not always [...] immediately to secondary confirmatory testing. Using the [employer] DxI 800 Access Immunoassay systems, the 99th percentile upper reference limit was demonstrated to be < 0.03 ng/mL. 4 [facility] Severe Sepsis and Septic Shock Management Bundle Measure requires all lactic acids initially measuring >2.0 mmol/L be repeated. 5 Because ethnic data is not always readily [...] 15-29 5 Kidney failure <15 (or dialysis) 6 Troponin-I testing on Plasma Separator Tubes (PST) has a known false positive rate of 0.20-0.40%. All positive troponins reflex immediately to secondary confirmatory testing. Using the [employer] DxI 800 Access Immunoassay systems, the 99th percentile upper reference limit was demonstrated to be < 0.03 ng/mL. 7 Troponin-I testing on Plasma Separator Tubes (PST) has a known false positive rate of 0.20-0.40%. All positive troponins reflex immediately to secondary confirmatory testing. Using the [employer] DxI 800 Access Immunoassay systems, the 99th percentile upper reference limit was demonstrated to be < 0.03 ng/mL. 8 Because ethnic data is not always readily [...] 15-29 5 Kidney failure <15 (or dialysis) 9 [facility] Severe Sepsis and Septic Shock Management Bundle Measure requires all lactic acids initially measuring >2.0 mmol/L be repeated. 10 Standard intensity warfarin therapeutic range: 2.0-3.0 High intensity warfarin therapeutic range: 2.5-3.5 Procedures Date Code Description Status 08/17/2019 58181 Holter Monitor Review (24 hr)dr review & interp only Completed 08/13/2019 26866 ECG Monitor/Recording W/Visual Superimposition Completed Scanning 08/07/2019 49725 EKG Tracing & Interpretation Completed 08/01/2019 42669 ECHO Transthorasic Realtime 2D W Doppler & Color Flow Completed Hosp 08/01/2019 98493 Treadmill Interp/Report Only Completed 08/01/2019 42998 Stress Test Supervsn W/Out I/R Completed 07/24/2019 38139 EKG Tracing & Interpretation Completed 02/15/2019 [id number] Mammogram Completed 10/25/2018 [id number] Colonoscopy Completed 01/21/2014 [id number] Colonoscopy Completed 02/20/2013 860159025 Diabetic Foot Exam Completed 08/09/2007 88379102 Colonoscopy Completed Medical Devices Description No Information Available Encounters Type Date Location Provider Dx Diagnosis Office Visit 08/23/2019 [facility] Hilario Sawant, 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 angiopathy G31.84 Mild cognitive impairment, so stated R42 Dizziness and giddiness I67.1 Cerebral aneurysm, nonruptured Office Visit 08/07/2019 8:30a [facility] Onesimo Lopez I10 Essential (primary) Of Alexis Johnson M.D. hypertension I25.10 Athscl heart disease of [place] coronary artery w/o ang pctrs R42 Dizziness and giddiness R00.1 Bradycardia, unspecified R94.31 Abnormal electrocardiogram [ECG] [EKG] Office Visit 08/01/2019 [facility] Janice Barkley, R07.9 Chest pain, 8:40a Asssulyl martin M.D. unspecified Hospitalists Office Visit 07/24/2019 [facility] Onesimo Lopez I10 Essential 3:45p Of Alexis Johnson M.D. (primary) hypertension I25.10 Athscl heart disease of [place] coronary artery w/o ang pctrs Office Visit 07/23/2019 10:00a [facility] Hilario G31.84 Mild cognitive Neurologic Sawant, N.P. impairment, so [facility] stated I68.0 Cerebral amyloid angiopathy R42 Dizziness and giddiness Office Visit 05/14/2019 [facility] Hilario R42 Dizziness and 11:00a Clinic Sawant, N.P. giddiness G31.84 Mild cognitive impairment, so stated I68.0 Cerebral amyloid angiopathy Office Visit 03/11/2019 9:00a [facility] Internal Andrzej Hernandez L98.9 Disorder of the Medicine - Miya Curran skin and [facility] subcutaneous tissue, unspecified R31.9 Hematuria, unspecified Assessments Date Code Description Provider 09/09/2019 I10 Essential (primary) hypertension Andrzej Curran M.D. 09/09/2019 I68.0 Cerebral amyloid angiopathy Andrzej Curran M.D. 09/09/2019 G31.84 Mild cognitive impairment, so stated Andrzej Curran M.D. 09/09/2019 I25.10 Atherosclerotic heart disease of Andrzej Curran M.D. [place] coronary artery with 08/23/2019 I68.0 Cerebral amyloid angiopathy Hilario Sawant, N.P. 08/23/2019 G31.84 Mild cognitive impairment, so stated Hilario Sawant, N.P. 08/23/2019 R42 Dizziness and giddiness Hilario Sawant, N.P. 08/23/2019 I67.1 Cerebral aneurysm, nonruptured Hilario Sawant, N.P. 08/17/2019 I10 Essential (primary) hypertension Onesimo Johnson M.D. 08/17/2019 R00.0 Tachycardia, unspecified Onesimo Johnson M.D. 08/13/2019 I10 Essential (primary) hypertension Nurse Visit IC 08/13/2019 R00.1 Bradycardia, unspecified Nurse Visit IC 08/07/2019 I10 Essential (primary) hypertension Onesimo Johnson M.D. 08/07/2019 I25.10 Atherosclerotic heart disease of Onesimo Johnson M.D. [place] coronary artery with 08/07/2019 R42 Dizziness Onesimo Johnson M.D. 08/07/2019 R00.1 Bradycardia Onesimo Johnson M.D. 08/07/2019 R94.31 Abnormal electrocardiogram [ECG] [EKG] Onesimo Johnson M.D. 08/01/2019 R07.9 Chest pain, unspecified Janice Barkley M.D. 08/01/2019 R07.9 Chest pain, unspecified Pipo Gómez M.D. 08/01/2019 R07.9 Chest pain, unspecified Ernesto Mahajan M.D., [facility] 07/24/2019 I10 Essential (primary) hypertension Onesimo Johnson M.D. 07/24/2019 I25.10 Atherosclerotic heart disease of Onesimo Johnson M.D. [place] coronary artery with 07/23/2019 G31.84 Mild cognitive impairment, so stated Hilarioroselyn Sawant, N.P. 07/23/2019 I68.0 Cerebral amyloid angiopathy Hilario Sawant, N.P. 07/23/2019 R42 Dizziness and giddiness Hilario Sawant, N.P. 05/14/2019 R42 Dizziness and giddiness Hilario Sawant, N.P. 05/14/2019 G31.84 Mild cognitive impairment, so stated Hilarioroselyn Sawant, N.P. 05/14/2019 I68.0 Cerebral amyloid angiopathy Hilario Sawant, N.P. 03/11/2019 L98.9 Disorder of the skin and subcutaneous Andrzej Curran M.D. tissue, unspecified 03/11/2019 R31.9 Hematuria, unspecified Andrzej Curran M.D. Plan of Treatment Future Appointment(s):03/12/2020 9:20 am - Andrzej Curran M.D. at [facility] Internal Medicine - [facility]10/15/2019 9:15 am - Isiah Silver M.D. at [facility]09/09/2019 - Andrzej Curran M.D.I10 Essential ( primary) hypertensionComments:BPs good; previous vertigo sx better with staying better hydrated, but pt has been drinking 8 glasses of water daily; repeat BMP advised to recheck sodium levelFollow up:wellness exam in March 2020 or prnI68.0 Cerebral amyloid angiopathyComments:Following with mvrysauvgT07.84 Mild cognitive impairment, so vwgssxB20.10 Atherosclerotic heart disease of [place] coronary artery withComments:Stable with cardiology recheck last month. (+) [facility] [place] with chest pain; nuclear stress test with a small area of ischemia, but labs (-) for OR. No cardiac c/o at present Functional Status Description No Information Available Mental Status Description No Information Available Referrals Refer to Dr Reason for Referral Status Appt Date Alo Rubio, PH.D. Sent [address] [place], [place] [id number] [phone] Preston Nance MD Closed [address] [place] [address] [phone]
--- OUTSIDE RECORDS SUMMARY | 2019-09-22 08:55 | XMS REPORT | Continuity of Care Document ---
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 [phone] Problems Active Problems Provider Date Essential hypertension [...] Patient has never smoked Smoking Status Reviewed: 08/15/19 Patient has never smoked Allergies, Adverse Reactions, Alerts Active Allergies Reaction Severity Comments Date Penicillin 11/11/2010 Opiates 11/11/2010 Benadryl 11/11/2010 Gum Icelandic 11/11/2010 Medications Active Medications SIG Qnty Indications [...] CPT Code Status Date Vaccine Lot # [id number] Given Unknown Influenza Virus Vaccine, 3 Years Of Age And Above, Intramuscular Vital Signs Date Vital Result Comment 08/15/2019 11:27am Weight 165.00 lb Weight 74.844 kg Height 69 inches 5'9" Height in cm's 175.3 cm BMI (Body Mass Index) 24.4 kg/m2 08/09/2019 9:44am Weight 165.00 lb Weight 74.844 kg Height 69 inches 5'9" Height in cm's 175.3 cm BMI (Body Mass Index) 24.4 kg/m2 Results Description No Information Available Procedures Date Code Description Status 08/09/2019 47808 Tympanometry Completed 06/20/2019 94755 Tympanostomy W/Tube Local Or Topical Anes. 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 PA-C otitis media, right ear H90.3 Sensorineural hearing loss, bilateral H81.399 Other peripheral vertigo, unspecified ear Office Visit 07/25/2019 9:30a [facility] 11/06/07 Preston Hernandez 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 MD [place] otitis media, right ear H90.3 Sensorineural hearing loss, bilateral Office Visit 06/06/2019 10:30a [facility] 11/06/07 Preston Hernandez 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 rodger Nance MD otitis media, right ear H90.3 Sensorineural hearing loss, bilateral H81.399 Other peripheral vertigo, unspecified ear Assessments Date Code Description Provider 08/15/2019 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, right Preston Nance MD ear 08/15/2019 H81.399 Other peripheral vertigo, Perston Nance MD unspecified ear 08/09/2019 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, right Yancy Crast, AU.D ear 08/09/2019 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
--- OUTSIDE RECORDS SUMMARY | 2019-09-22 08:55 | XMS REPORT | Continuity of Care Document ---
:1940 External Reference #:[id number] Author Name Hilario Sawant N.P. (transmitted by agent of provider Valentina Juarez) Address [address] [facility], [place] [address] Care Team Providers Name Role Phone Jc Lewis MD - Endocrinology, Care Team Information Class C Driver [phone] Diabetes & Metabolism Janae Riley MD - Gastroenterology Care Team Information Class C Driver Isiah Silver M.D. - Neurology Care Team Information Class C Driver [phone] Problems Active Problems Provider Date Coronary arteriosclerosis [...] Use Denies Drug Use Smoking Status Reviewed: 08/23/19 Patient has never smoked Exercise Type/Frequency Exercises [...] Lipitor 1 tab by mouth 90tabs Onesimo DChey 40mg Tablets every day Miya Johnson Tylenol [...] Indications Ordering Provider Date Technetium TC 99M TetrOnesimo marr M.D. 10/23/2013 Per Unit Dose Up To 40 Millicuries Injection Immunizations CPT Code Status Date Vaccine Lot # [id number] Given 07/26/2019 Influenza Virus Vaccine, Quadrivalent, Split, Preservative Free 52819 Given 07/23/2018 Fluzone High Dose 37080 Given 07/27/2017 Influenza Virus Vaccine, Quadrivalent, Split, [id number] Preservative Free 27030 Given 09/01/2016 Influ Virus Vaccine, Quadrivalent, Split Virus, [id number] [address] Given 07/20/2015 Influenza Virus Vaccine, Quadrivalent, Split, [id number] Preservative Free 54032 Given 01/19/2015 Pneumococcal Conjugate Vaccine 13 Valent For [id number] Intramuscular Use 32386 Given 08/12/2014 Influenza Virus Vaccine, Quadrivalent, Split, [id number] Preservative Free 99958 Given 08/23/2013 Flu Vaccine Split Virus Preservative Free For [id number] Indiv 3Yr Older 43799 Given 09/26/2012 Tdap - Tetanus/Diptheria/Acellular Pertussis [id number] Given 08/03/2012 Fluzone Vaccine 51604 Given 08/17/2011 Influenza Virus 3Yrs & Over 34437 Given 08/15/2010 Influenza Virus 3Yrs & Over 04074 Given 08/14/2008 Influenza Virus 3Yrs & Over 32005 Given 08/13/2007 Influenza Virus 3Yrs & Over 97834 Given 08/13/2007 Influenza Virus 3Yrs & Over 16352 36552 Given 11/22/2004 Pneumovax (History By Patient) 62989 Given 09/13/2002 Td (History By Patient) Vital Signs Date Vital Result Comment 08/23/2019 9:36am Height 68 inches 5'8" Weight 156.00 lb Heart Rate 59 /min BP Systolic 108 mmHg BP Diastolic 76 mmHg BMI (Body Mass Index) 23.7 kg/m2 08/07/2019 8:19am Height 68 inches 5'8" Weight 160.00 lb with shoes Heart Rate 56 /min BP Systolic Sitting 100 mmHg LA BP Diastolic Sitting 60 mmHg LA BP Systolic Standing 100 mmHg LA BP Diastolic Standing 66 mmHg LA BMI (Body Mass Index) 24.3 kg/m2 Ejection Fraction 60-65% Echo 08/01/19 Results Test Date Facility Test Result H/L Range Note CBC Auto 08/10/[address] [facility] White Blood 6.8 10^3/uL Normal 3.5-10.[address] [place] [address] [phone] Red Blood Count 4.39 10^6/uL Normal 4.18-5.48 [...] Red Blood Cells % 0.0 Inr/Protime 08/10/[address] [facility] Inr 0.97 Normal 0.82-1.[address] [place] [address] [phone] Comp Metabolic 08/10/[address] [facility] Sodium 138 mmol/L Normal 135-145 Panel [address] [place] [address] [phone] Potassium 4.2 mmol/L Normal 3.5-5.0 Chloride 101 [...] Egfr 86.0 >60 2 Laboratory test 08/10/[address] [facility] Troponin-I (TnI) 0.00 ng/ mL <0.04 3 finding [address] [place] [address] [phone] TSH (Thyroid Stim Horm) 0.07 mcIU/mL Low 0.34-5.60 Free T4 (Free Thyroxine) 1.39 ng/dL High 0.61-1.12 Laboratory test 08/05/[address] [facility] Lactic Acid 1.2 mmol/L Normal 0.5-2.0 4 finding [address] [place] [address] [phone] CBC Auto Diff 08/05/[address] [facility] White Blood 6.6 10^3/uL Normal 3.5-10.[address] [place] [address] [phone] Red Blood Count 4.32 10^6/uL Normal 4.18-5.48 [...] Blood Cells % 0.0 Comp Metabolic 08/05/[address] [facility] Sodium 139 mmol/L Normal 135-145 Panel [address] [place] [address] [phone] Potassium 3.9 mmol/L Normal 3.5-5.0 Chloride 102 [...] Egfr 84.1 >60 5 Laboratory test 08/05/[address] [facility] Magnesium 1.9 mg/dL Normal 1.9-2.7 finding [address] [place] [address] [phone] Troponin-I (TnI) 0.01 ng/mL <0.04 6 TSH (Thyroid Stim Horm) 0.05 mcIU/mL Low 0.34-5.60 Laboratory test 08/01/[address] [facility] Troponin-I (TnI) 0.00 ng/ mL <0.04 7 finding [address] [place] [address] [phone] TSH (Thyroid Stim Horm) 0.04 mcIU/mL Low 0.34-5.60 Comp Metabolic 08/01/[address] [facility] Sodium 140 mmol/L Normal 135-145 Panel [address] [place] [address] [phone] Potassium 3.8 mmol/L Normal 3.5-5.0 Chloride 104 [...] Egfr 89.0 >60 8 Laboratory test 08/01/[address] [facility] Lactic 1.3 mmol/L Normal 0.5-2.0 9 finding 101 [facility] [place] [address] [phone] Inr/Protime 08/01/[address] [facility] Inr 1.00 Normal 0.82-1.09 10 [place] [address] [phone] CBC Auto Diff 08/01/[address] [facility] White 5.8 Normal 3.5-10.[address] Blood 10^3/[place] [address] Count [phone] Red Blood Count 4.26 10^6/uL Normal 4.18-5.48 [...] Nucleated Red Blood Cells % 0.1 Laboratory 08/01/[address] [facility] B-Type 49 pg/mL <=100 test finding [address] [place] [address] Peptide BNP [phone] Comp Metabolic 03/06/[address] [facility] Sodium 143 Normal 135- 145 [address] mmol/[place] [address] [phone] Potassium 3.8 mmol/L Normal 3.5-5.0 Chloride 103 [...] Egfr Non- 68.1 >60 Egfr 82.4 >60 12 Urinalysis Profile 03/06/[address] [facility] Urine Color Yellow [address] [place] [address] [phone] Urine Appearance Clear Urine Specific [place] 1.011 Normal 1.010-1.030 Urine pH 6.0 Normal 5-9 Urine Urobilinogen Negative Negative Urine Ketones Negative Negative Urine Protein Negative Negative Urine Leukocytes Negative Negative Urine Blood 1+ Abnormal Negative Urine Nitrite Negative Negative Urine Bilirubin Negative Negative Urine Glucose Negative Negative Urine White Blood Cell Trace(0-5/hpf) Absent Urine Red Blood Cell 1+(3-5/hpf) Abnormal Absent Urine Bacteria Absent Absent Lipid Profile 03/06/[address] [facility] Triglycerides 126 mg/dL 13 (Trig/Chol/HDL) [address] [place] [address] [phone] Cholesterol 146 mg/dL 14 HDL Cholesterol 34.0 mg/dL 15 LDL Cholesterol 87 mg/dL 16 Testosterone 03/06/[address] [facility] Free 8.10 3.08-11.3 17 Free & Total Testosterone ng/[place] [address] ng/dl [phone] Testosterone 352 ng/dL 240-950 18 Laboratory test 03/06/[address] [facility] TSH (Thyroid 0.08 Low 0.34-5.[address] Stim Horm) mcIU/[place] [address] [phone] Thyroglobulin 03/06/[address] [facility] Thyroglobulin <1.8 <4.[address] Antibody IU/[place] [address] [phone] Thyroglobulin Tumor Marker <0.1 ng/mL 20 Thyroglobulin Interpretation See Comment 21 Urine Culture And 03/06/[address] [facility] Urine Culture SEE RESULT [address] [place] [address] [phone] 1 Standard intensity warfarin therapeutic range: 2.0-3.0 [...] immediately to secondary confirmatory testing. Using the [employer] DxI 800 Access Immunoassay systems, the 99th percentile upper reference limit was demonstrated to be < 0.03 ng/mL. 4 [facility] Severe Sepsis and Septic Shock Management [...] 5 Kidney failure <15 (or dialysis) 9 [facility] Severe Sepsis and Septic Shock Management Bundle Measure requires all lactic acids initially measuring >2.0 mmol/L be repeated. 10 Standard intensity warfarin therapeutic range: 2.0-3.0 High intensity warfarin therapeutic range: 2.5-3.5 11 FASTING 12 Because ethnic data is not always readily [...] 15-29 5 Kidney failure <15 (or dialysis) 13 Desirable: <150 Borderline High: 150-199 High: 200-499 Very High: >500 14 Desirable: <200 Borderline High: 200-239 High: >239 15 Low: <40 Desirable: 40-60 High: >60 16 Desirable: <100 Near Optimal: 100-129 Borderline High: 130-159 High: 160-189 Very High: >189 17 ADDITIONAL INFORMATION Testing performed by [facility]. This test was developed and its performance characteristics determined by [facility] in a manner consistent with CLIA requirements. This test has not been cleared or approved by the U.S. Food and Drug Administration. 18 ADDITIONAL INFORMATION Testing performed by Liquid Chromatography-Tandem Mass Spectrometry (LC-MS/MS). This test was developed and its performance characteristics determined by [facility] in a manner consistent with CLIA requirements. This test has not been cleared or approved by the U.S. Food and Drug Administration. Test Performed by: [facility] [address] [place] [address] 19 FASTING 20 REFERENCE VALUE Athyrotic <0.1 Intact Thyroid <=33 21 Thyroglobulin (Tg) levels must be interpreted in [...] testing methods are immunoenzymatic assays manufactured by [employer] and performed on the [employer] DXI 800. Values obtained from different assay methods or kits may be different and cannot be used interchangeably. The results cannot be interpreted as absolute evidence for the presence or absence of malignant disease. Test Performed by: [facility] [address] [place] [address] 22 SEE RESULT BELOW Name: NANCY MERINO : [address]: Andrzej Curran III, MD Acct: [id number] Unit: [id number] AGE: 78 Location: [facility] Re03/06/19 SEX: M Status: REG REF SPEC: [id number] GIULIA: 03/06/19 [facility] DR: Andrzej Curran III, MD REQ: [id number] RECD: 03/06/19 STATUS: COMP _ SOURCE: URINE SPDESC: ORDERED: Urine Culture Procedure Result Reported Site Urine Culture Final 03/07/19- 1211 ML No Growth (<1,000 CFU/mL) * ML - Main Lab . END OF REPORT DEPARTMENT OF PATHOLOGY, [address] [place] [address] Vinicio Mendoza M.D. Director [facility] # [id number] Procedures Date Code Description Status 08/17/2019 83826 Holter Monitor Review (24 hr)dr review & interp only Completed 08/13/2019 29664 ECG Monitor/Recording W/Visual Superimposition Completed Scanning 08/07/2019 95625 EKG Tracing & Interpretation Completed 08/01/2019 11709 ECHO Transthorasic Realtime 2D W Doppler & Color Flow Completed Hosp 08/01/2019 38042 Treadmill Interp/Report Only Completed 08/01/2019 38551 Stress Test Supervsn W/Out I/R Completed 07/24/2019 70367 EKG Tracing & Interpretation Completed 02/15/2019 [id number] Mammogram Completed 10/25/2018 [id number] Colonoscopy Completed 01/21/2014 [id number] Colonoscopy Completed 02/20/2013 359190156 Diabetic Foot Exam Completed 08/09/2007 76634403 Colonoscopy Completed Medical Devices Description No Information Available Encounters Type Date Location Provider Dx Diagnosis Office Visit 08/07/2019 [facility] Onesimo Lopez I10 Essential ( primary) 8:30a Of Alexsi Johnson M.D. hypertension I25.10 Athscl heart disease of [place] coronary artery w/o ang pctrs R42 Dizziness and giddiness R00.1 Bradycardia, unspecified R94.31 Abnormal electrocardiogram [ECG] [EKG] Office Visit 07/24/2019 3:45p [facility] Onesimo Lopez I10 Essential (primary) Of Alexis Johnson M.D. hypertension I25.10 Athscl heart disease of [place] coronary artery w/o ang pctrs Office Visit 07/23/2019 10:00a [place] Hilario G31.84 Mild cognitive Neurologic Sawant, N.P. impairment, so [facility] stated I68.0 Cerebral amyloid angiopathy R42 Dizziness and giddiness Office Visit 05/14/2019 [facility] Hilario R42 Dizziness and 11:00a Clinic Sawant, N.P. giddiness G31.84 Mild cognitive impairment, so stated I68.0 Cerebral amyloid angiopathy Office Visit 03/11/2019 9:00a [facility] Internal Andrzej Hernandez L98.9 Disorder of the Medicine - Miya Curran skin and [facility] subcutaneous tissue, unspecified R31.9 Hematuria, unspecified Assessments Date Code Description Provider 08/23/2019 I68.0 Cerebral amyloid angiopathy Hilario Sawant, [...] Atherosclerotic heart disease of Onesimo Johnson M.D. [place] coronary artery with 08/07/2019 R42 Dizziness Onesimo Johnson M.D. 08/07/2019 R00.1 Bradycardia Onesimo Johnson M.D. 08/07/2019 R94.31 Abnormal electrocardiogram [ECG] [EKG] Onesimo Johnson M.D. 08/01/2019 R07.9 Chest pain, unspecified Janice Barkley M.D. 08/01/2019 R07.9 Chest pain, unspecified Pipo Gómez M.D. 08/01/2019 R07.9 Chest pain, unspecified Ernesto Mahajan M.D., [facility] 07/24/2019 I10 Essential (primary) hypertension Onesimo Johnson M.D. 07/24/2019 I25.10 Atherosclerotic heart disease of Onesimo Johnson M.D. [place] coronary artery with 07/23/2019 G31.84 Mild cognitive impairment, so stated Hilario Saawnt, N.P. 07/23/2019 I68.0 Cerebral amyloid angiopathy Hilarioroselyn Sawant, N.P. 07/23/2019 R42 Dizziness and giddiness Hilario Sawant, N.P. 05/14/2019 R42 Dizziness and giddiness Hilario Sawant, N.P. 05/14/2019 G31.84 Mild cognitive impairment, so stated Hilario Jese, N.P. 05/14/2019 I68.0 Cerebral amyloid angiopathy Hilario [...] M.D. 03/05/2019 I25.10 Atherosclerotic heart disease of Andrzej Curran M.D. [place] coronary artery with 03/05/2019 C73 Malignant neoplasm of thyroid gland Andrzej Curran M.D. 03/05/2019 N40.0 Benign prostatic hyperplasia without Andrzej Curran M.D. lower urinary tract sym 03/05/2019 E78.00 Pure hypercholesterolemia, unspecified Andrzej Curran M.D. 03/05/2019 R35.0 Frequency of micturition Andrzej Curran M.D. Plan of Treatment Future Appointment(s):09/09/2019 3:00 pm - Andrzej Curran M.D. at [facility] Internal Medicine - [facility]10/15/2019 9:15 am - Isiah Silver M.D. at [place] [facility]08/23/2019 - Hilario Sawant N.P.I68.0 Cerebral amyloid angiopathyFollow up:Keep follow up with Dr SilverRecommendations:Continue drinking plenty of water Perform the exercised we provided after the duurpvgX24.84 Mild cognitive impairment, so qnoeioZ10 Dizziness and lyjajcetrN14.1 Cerebral aneurysm, nonrupturedReferral:Alo Rubio, PH.D., Surgery,NeurologicalRecommendations:if possible they prefer [place] please obtain a disc of the CTA of head and neck done in the ER. Functional Status Description No Information Available Mental Status Description No Information Available Referrals Refer to Reason for Referral Status Appt Date Alo Rubio, PH.D. Created [address] [place] [address] [phone] Preston Nance MD Closed [address] [place] [address] [phone]
[2019-09-22 09:10] VITALS: BP 130/76
--- NOTE | 2019-09-22 09:22 | UC ---
Skin Complaint HPI - HPI Summary HPI Summary: Pt c/o itching on lower legs that started last Monday09/20/19. Pt has tried some otc lotions to no effect. Pt states itching has started on L lower arm - noticed this AM. - History of Current Complaint Chief Complaint: UCSkin Time Seen by Provider: 09/22/19 09:01 Stated Complaint: SKIN COMPLAINT Hx Obtained From: Patient Onset/Duration: Sudden Onset, Lasting Weeks Onset Severity: Mild Current Severity: Mild Pain Intensity: 0 Location: Generalized Character: Pruritus, Redness - Allergy/Home Medications Allergies/Adverse Reactions: Allergies Allergy/AdvReac Type Severity Reaction Status Date / Time hesham Allergy Diarrhea Verified 09/22/19 09:00 Adhesive Tape Allergy Rash Verified 09/22/19 09:00 cat dander Allergy Anaphylatic Verified 09/22/19 09:00 Shock dubon Allergy Hives Verified 09/22/19 09:00 ciprofloxacin [From Cipro] Allergy Tore an Verified 09/22/19 09:00 achilles tendon diphenhydramine Allergy See Comment Verified 09/22/19 09:00 [From Benadryl] finasteride Allergy Hives Verified 09/22/19 09:00 lactose Allergy Gas Verified 09/22/19 09:00 Opioids - Morphine Analogues Allergy See Comment Verified 09/22/19 09:00 Opioids-Meperidine and Allergy See Comment Verified 09/22/19 09:00 Related Opioids-Methadone and Related Allergy See Comment Verified 09/22/19 09:00 Penicillins Allergy Hives Verified 09/22/19 09:00 tramadol Allergy See Comment Verified 09/22/19 09:00 GUM UKRAINIAN Allergy Intermediate Intestinal Uncoded 09/22/19 09:00 cramps HAY FEVER Allergy Runny Nose Uncoded 09/22/19 09:00 Home Medications: Home Medications Dutasteride 0.5 mg PO DAILY 09/22/19 [History Confirmed 09/22/19] PMH/Surg Hx/FS Hx/Imm Hx Previously Healthy: Yes Other History Of: Anticoagulant Therapy - aspirin Negative For: HIV, Hepatitis B - ASA taken daily., Hepatitis C - Surgical History Surgical History: Yes Surgery Procedure, Year, and Place: tonsillectomy and adenoidectomy as a child - [facility]. appendectomy - [place]. left inguinal hernia repair - [place]. cardiac stents x2 - [facility] [place]. quintuple bypass - [facility]. Typanostomy - TUBE IN EAR FOR FLUID - Right Ear. nasal cautery - [facility] [place]. thyroidectomy - [facility] [place]. bilateral cataract extraction with iol's - [facility] [place]. cystolitholapaxy - [facility] [place]. moh's repair - [place]. LUMBAR -Laminectomy 07/2017 [facility] - Family History Known Family History: Positive: Hypertension, Other - mother - CVA, father - leukemia - Social History Alcohol Use: Rare Substance Use Type: None Smoking Status (MU): Never Smoked Tobacco Have You Smoked in the Last Year: No - Immunization History Most Recent Influenza Vaccination: 2016 Most Recent Tetanus Shot: 2011 Most Recent Pneumonia Vaccination: 2003 Review of Systems All Other Systems Reviewed And Are Negative: Yes Skin: Positive: Other - dry itchy skin Is Patient Immunocompromised?: No Physical Exam Triage Information Reviewed: Yes Appearance: Well-Appearing, Well-Nourished, Pain Distress Vital Signs: Initial Vital Signs Temp 97.2 F 09/22/19 09:05 Pulse 66 09/22/19 09:05 Resp 18 09/22/19 09:05 BP 130/76 09/22/19 09:05 Pulse Ox 98 09/22/19 09:05 Vital Signs Reviewed: Yes Eye Exam: Normal ENT Exam: Normal Neck exam: Normal Respiratory Exam: Normal Cardiovascular Exam: Normal Abdominal Exam: Normal Bowel Sounds: Positive: Present Musculoskeletal Exam: Normal Neurological Exam: Normal Psychological Exam: Normal Skin: Positive: Other - skin on legs and arms is flaky and dry, mild dermatitis down center of front legs and behind knees Course/Dx - Course Course Of Treatment: hx obtained, exam performed ,meds reviewed, treated for dermatitis - Diagnoses Provider Diagnosis: Dermatitis Discharge ED - Sign-Out/Discharge Documenting (check all that apply): Patient Departure All imaging exams completed and their final reports reviewed: No Studies - Discharge Plan Condition: Stable Disposition: HOME Prescriptions: Triamcinolone 0.1% OINT(NF) [Kenalog 0.1% OINT(NF)] 1 applic TOPICAL BID #1 tube Patient Education Materials: Contact Dermatitis (ED) Referrals: Andrzej Curran MD [Primary Care Provider] - Additional Instructions: 1. use the medication as prescribed. 2. Use lotion daily to help with the dry skin - Billing Disposition and Condition Condition: STABLE Disposition: Home
== END 2019-09-22 09:37 | disposition home or self-care (01) ==
LOC: UCEAST 08:49
DX: L30.9 Dermatitis, unspecified (principal); Z91.09 Other allergy status, other than to drugs and biological substances; Z91.018 Allergy to other foods; Z88.1 Allergy status to other antibiotic agents; Z88.8 Allergy status to other drugs, medicaments and biological substances; Z91.011 Allergy to milk products; Z88.5 Allergy status to narcotic agent; Z88.0 Allergy status to penicillin; Z95.5 Presence of coronary angioplasty implant and graft; Z79.82 Long term (current) use of aspirin
CPT/HCPCS: 99212; G0463

== ENCOUNTER 2020-01-02 10:33 | Day surgery (SDC) | payer MEDICARE, BC ==
--- NOTE | 2020-01-01 16:15 | HP ---
CC: Dr. Curran * DATE OF ADMISSION: 01/02/2020. This patient is scheduled for Same Day Surgery admission by Dr. Pearson. ATTENDING SURGEON: Dr. José Miguel Pearson * (dictated by Harriett James NP). CHIEF COMPLAINT: Right inguinal hernia. HISTORY OF PRESENT ILLNESS: The patient is an 79-year-old male, recently evaluated by Dr. Pearson with complaints of right groin pain. The patient saw his primary care provider, Dr. Curran, recently and was diagnosed with a right inguinal hernia. The patient is status post left inguinal hernia report 40 years ago. The patient reports that the pain is worse by the end of the day and was relieved with rest and Tylenol. He denies any nausea, vomiting, constipation or change in bowel habits. Dr. Pearson examined the patient and notes a palpable reducible right inguinal hernia. Dr. Pearson reviewed the findings with the patient and has recommended robotic right inguinal hernia repair with mesh as a same day surgery procedure with general anesthesia. Dr. Pearson described the nature of the surgical procedure, the rationale for the procedure, the relevant risks and benefits, and today I reviewed the expected postoperative care and recovery. The patient and his had a chance to ask questions and stated that they understand the information and are satisfied with the answers given to their questions. The patient will sign consent on the day of surgery. The patient saw Dr. Onesimo Johnson from Cardiology this morning and has been cleared to proceed with the recommended surgery. Please see Dr. Johnson's consultation note from 12/31/2019 for further details. 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 PAST SURGICAL HISTORY: Coronary artery bypass grafting for five vessel disease at [facility] 20 years, coronary artery stenting five years ago at [facility] after a small myocardial infarction, total thyroidectomy for papillary thyroid cancer, left inguinal hernia repair 40 years ago, extraction of bladder stone, spinal surgery, appendectomy, ear surgery. MEDICATIONS: 1. Levothyroxine 150 mcg one tablet daily. 2. Enalapril 10 mg one tablet daily. 3. Lipitor 40 mg one tablet daily. 4. Meclizine 25 mg one tablet as needed for vertigo. 5. Flomax 0.4 mg one tablet daily. 6. Ibuprofen 600 mg every six hours prn pain. 7. Aspirin 81 mg p.o. daily which Dr. Pearson instructed the patient to continue in the perioperative period. 8. Tums Ultra 1,000 mg four tablets daily. 9. Claritin 10 mg one tablet daily prn. 10. Tylenol 650 mg every 4 hours prn pain. 11. Nitroglycerin 0.4 mg one tablet sublingual as needed. 12. Colcrys 0.6 mg two tablets by mouth with acute gout flare, none recently. 13. Calcitriol 0.5 mcg at directed. ALLERGIES: PENICILLIN CAUSES HIVES, NARCOTICS CAUSE SEVERE URINARY RETENTION, HE ALSO HAS UNSPECIFIED REACTIONS TO BENADRYL, CIPRO CAUSED ACHILLES TENDONITIS , PROSCAR CAUSED HIVES, TRAMADOL CAUSED TREMORS. HE IS ALSO ALLERGIC TO POLLEN , FRESH CHERRIES, CAT DANDER AND CAM. FAMILY HISTORY: Father with a history of leukemia and colon cancer. Mother with a history of stroke. No known anesthesia complications, bleeding tendencies, or clotting disorders. SOCIAL HISTORY: He is and his accompanied him to the visit and is very supportive. 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 He has never been a smoker. He denies the use of alcohol or other substances. REVIEW OF SYSTEMS: Constitutional: No fevers or chills. He currently has a mild cold with a runny nose, but no cough or fever or body aches. Endocrine: No diabetes, status post total thyroidectomy for thyroid cancer. Hematologic: No easy bruising or bleeding. No history of blood transfusions. Respiratory: No dyspnea on exertion. No chronic cough. Cardiovascular: No current anginal chest pain. Earlier in December he reported a few episodes of chest pain and underwent an exercise nuclear stress test at [facility] on 2019. There was no evidence of ischemia. He has been cleared by Dr. Johnson to proceed with surgery as indicated. Please see Dr. Johnson's note for further information. Gastrointestinal: No nausea, vomiting, diarrhea, or constipation. Genitourinary: No dysuria. Musculoskeletal: Mild lower back pain. Osteoarthritis in many joints. Integumentary: No chronic rashes or skin changes. Neurologic: He is suffering with short-term memory loss. His gait is steady, but slow. He denies any headache, blurred vision or areas of numbness. Psychiatric: No reported anxiety, depression or insomnia. PHYSICAL EXAMINATION GENERAL: The patient is an 79-year-old male, well-developed, well-nourished, in no acute distress. VITAL SIGNS: Height 69 inches, weight 163 pounds, body mass index 24. Blood pressure 118/62, pulse 64 and regular, respiratory rate 18, temperature 98.3 tympanic. SKIN: Warm, dry, intact. HEENT: Benign. NECK: Supple. No carotid bruits. No cervical lymphadenopathy. LUNGS: Breath sounds bilaterally clear and equal. HEART: Regular rate and rhythm. No murmurs or rubs appreciated. ABDOMEN: Active bowel sounds. Soft, nondistended, nontender throughout. No obvious masses, organomegaly, or ventral hernias. Well-healed surgical incisions. Inguinal exam done by Dr. Pearson. Right inguinal canal is consistent with a reducible hernia. Testicles are normally descended. EXTREMITIES: Warm without edema. He has 2+ pulses throughout. No skin ulcerations. RECTAL: Exam deferred. NEUROLOGIC: Alert and oriented times three. Steady gait. IMPRESSION: Right inguinal hernia. PLAN: Same Day Surgery admission to Dr. Pearson's service tomorrow, January 02, 2020 for robotic right inguinal hernia repair with mesh. MORRO JAMES NP [id number]/[facility] #: [id number] ELADIO
[~2020-01-02 10:33] MED LIST changes: +Buffered Lidocaine 1% SYRIN* 1 ML/SYRINGE INTRADERM ONE; -Famotidine IV* 10 MG/ML 2 ML (20 mg) IV ONE; +Lactated Ringers 1000 ML Bag* 1,000 ML IV SCH; -Metoclopramide TAB* 10 MG PO ONE
[2020-01-02] MEDS ORDERED: Clindamycin 900 MG/D5W BAG(*) 900 MG/50 ML BAG IVPB ONE (10:50)
[2020-01-02] MEDS ORDERED: Heparin VIAL(*) 5000 UNITS/ML VIAL (FIVE THOUSAND) ONE (10:50)
[2020-01-02] MEDS ORDERED: Buffered Lidocaine 1% SYRIN* 1 ML/SYRINGE INTRADERM ONE (10:51)
[2020-01-02] MEDS ORDERED: Bupivacaine 0.5% W/EPI SDV* 30 ML VIAL ONE (11:53)
[2020-01-02] MEDS ORDERED: fentaNYL* 50 MCG/ML 2 ML VIAL (100 MCG VIAL) ONE (12:18)
[2020-01-02] MEDS ORDERED: Ketorolac INJ* 30 MG/ML 1 ML VIAL ONE (12:39)
[2020-01-02] MEDS ORDERED: Propofol* 10 MG/ML 20 ML BTL ONE (12:39)
[2020-01-02] MEDS ORDERED: Succinylcholine* 20 MG/ML 10 ML VIAL ONE (12:39)
[2020-01-02] MEDS ORDERED: Lidocaine 2% PF * 5 ML VIAL ONE (12:39)
[2020-01-02] MEDS ORDERED: Dexamethasone IV* 4 MG/ML 1 ML (4 MG) ONE (12:39)
[2020-01-02] MEDS ORDERED: Ondansetron INJ* 2 MG/ML VIAL ONE (12:39)
[2020-01-02] MEDS ORDERED: EPHEDrine (Pressors)* 50 MG/ML VIAL ONE (12:41)
[2020-01-02] MEDS ORDERED: Cisatracurium* 2 MG/ML MDV 5 ML ONE (12:45)
--- NOTE | 2020-01-02 14:58 | BRIEFOPN ---
Brief Operative/Procedure Note - Operation Details Pre-Op Diagnosis: Right inguinal hernia Post-Op Diagnosis: Right inguinal hernia Procedures: Robotic right inguinal hernia repair with mesh Surgeon(s)/Proceduralists: Dr. Pearson. Assist: Hammad Anesthesia: GETA Estimated Blood Loss: scant Findings: As above Specimen(s)/Culture(s) Description: None Complications: None
[2020-01-02] MEDS ORDERED: hydrALAZINE IV* 20 MG/ML VIAL ONE (14:59)
[2020-01-02] MEDS ORDERED: HYDROmorphone INJ1* 1 MG/ML SYRINGE IV PRN (15:00)
[2020-01-02] MEDS ORDERED: Acetaminophen TAB* 325 MG PO PRN (15:00)
[2020-01-02] MEDS ORDERED: Naloxone* 0.4 MG/ML 1 ML VIAL IV PRN (15:00)
[2020-01-02 17:01] VITALS: BP 150/80
--- NOTE | 2020-01-03 02:16 | OP ---
CC: Dr. Andrzej Curran, [facility]. * DATE OF OPERATION: 01/02/20 - [facility] DATE OF : 38 SURGEON: Dr. Pearson. MASTER [employer] YACHT: RAY Jordan. and JANAY Gutierrez ANESTHESIA: General anesthesia. PRE-OP DIAGNOSIS: Right inguinal hernia. POST-OP DIAGNOSIS: Right inguinal hernia. OPERATIVE PROCEDURE: Robotic right inguinal hernia repair with mesh. ESTIMATED BLOOD LOSS: Minimal. FLUIDS: Minimal crystalloid fluid given. SPECIMEN: None. COUNTS: Lap pad count and instrument count correct at the end of the procedure. FINDINGS: Direct and indirect right inguinal hernias. COMPLICATIONS: None. DESCRIPTION OF PROCEDURE: The patient was identified in the preoperative area. He was marked accordingly. Consent was signed. He was then taken to the operating room and placed on the operating table in the supine position. Preoperative antibiotics were given. Sequential devices were placed in bilateral lower extremities. General anesthesia was induced. The patient's abdomen was clipped of hair, prepped and draped in a standard surgical fashion, time-out was performed. A supra-umbical incision was made. The skin edges were elevated and Veress needle inserted into the abdominal cavity, which was then allowed to insufflate to a pressure of 15 mmHg. A 8 mm robotic trocar was then placed in the left upper quadrant and the camera placed through this. There was no evidence of injury from the trocar insertion. The Veress needle, which was then removed. A 8 mm trocar was then placed at the umbilical incision and a 12 mm trocar was placed at the right upper quadrant. Review of the abdomen showed no free fluid. There was an obvious right inguinal hernia with omentum extending into this. There was no evidence of a left inguinal hernia. The table was placed in a Trendelenburg position and the robot was brought in and docked. Instruments placed accordingly and then I turned attention to the console. The peritoneum of the lateral aspect of the right lower abdomen was taken down with tg. This was extended towards the median umbilical ligament and blunt and sharp dissection was used to open up the preperitoneal space, right down to Raymundo's ligament. We were able to see pubis symphysis and even across the midline with our dissection. A direct hernia was identified. This was reduced in its entirety. We opened up the lateral space in the preperitoneal area and Bogros space and then we isolated the indirect sac. This was a large sac and with gentle traction as well as sharp dissection, we were able to reduce this in its entirety. Small rent was made in the peritoneum approximately 1 cm in one spot. I visualized the spermatic structures along with vas. The full myopectineal orifice was cleared off and exposed for the placement of the mesh. Next, a Bard 3DMax large right side mesh was brought in and placed appropriately over the orifice and sutured superiorly on the left and right side of the epigastric vessels and then at the Raymundo's ligament with a 3-0 Vicryl suture. It lay in the appropriate fascia without being taut or wrinkled. Next, the peritoneum was reapproximated with 3-0 V-Loc suture in a running fashion. We picked up the hernia sac within the suture line. Next, the small rent in the peritoneum was closed with a single 3-0 Vicryl suture. Review of the mesh showed that there was no wrinkling. The abdomen was collapsed. Trocar was removed under direct vision and all three skin incisions were reapproximated with 4-0 Monocryl subcuticular sutures followed by Steri-Strips and sterile dressing. The patient tolerated the procedure well, was woken up in the OR, and transferred back in stable condition. [id number]/[facility] #: [id number] ELADIO
== END 2020-01-02 16:45 | disposition home or self-care (01) ==
LOC: OR 10:33
PROVIDERS: ATTEND Surgery
DX: K40.90 Unilateral inguinal hernia, without obstruction or gangrene, not specified as recurrent (principal); I25.10 Atherosclerotic heart disease of native coronary artery without angina pectoris; I25.2 Old myocardial infarction; Z95.5 Presence of coronary angioplasty implant and graft; Z95.1 Presence of aortocoronary bypass graft; H81.10 Benign paroxysmal vertigo, unspecified ear; Z85.850 Personal history of malignant neoplasm of thyroid; M19.90 Unspecified osteoarthritis, unspecified site; I10 Essential (primary) hypertension; E78.00 Pure hypercholesterolemia, unspecified; Z88.0 Allergy status to penicillin; Z88.8 Allergy status to other drugs, medicaments and biological substances
CPT/HCPCS: 49650; S2900; C1781; J0330; J0360; J1100; J1644; J1885; J2405; J2704; J3010

== ENCOUNTER 2021-03-25 17:40 | Observation (INO) ==
[2021-03-26 00:25] LABS: Hematocrit 38 % (42-52); Hemoglobin 12.7 g/dL (14.0-18.0); Mean Corpuscular HGB Conc 33 g/dL (31-36); Mean Corpuscular Hemoglobin 31 pg (27-31); Mean Corpuscular Volume 92 fL (80-94); Mean Platelet Volume 9.3 fL (7.4-10.4); Platelet Count 192 10^3/uL (150-450); Red Blood Count 4.16 10^6 /uL (4.18-5.48); Red Cell Distribution Width 15 % (10-15); White Blood Count 7.3 10^3/uL (3.5-10.8)
[2021-03-26 00:50] LABS: Albumin 4.3 g/dL (3.2-5.2); Albumin/Globulin Ratio 1.6 (1-3); CRP High Sensitivity 0.7 mg/L (<2.00); Calcium 8.6 mg/dL (8.6-10.3); EGFR African American 77.7 (>60); EGFR Non-African American 64.2 (>60); Globulin 2.7 g/dL (2-4); Potassium 3.6 mmol/L (3.5-5.0); Total Bilirubin 0.5 mg/dL (0.2-1.0)
[2021-03-26 04:33] LABS: Urine Appearance Clear; Urine Bilirubin Negative (Negative); Urine Blood Negative (Negative); Urine Color Straw; Urine Glucose Negative (Negative); Urine Ketones Negative (Negative); Urine Nitrite Negative (Negative); Urine Protein Negative (Negative); Urine Specific Gravity 1.008 (1.002-1.030); Urine Urobilinogen Negative (Negative)
[2021-03-26] MEDS: Calcium (OSCAL) 500 mg TAB PO SCH ×2 (07:55→11:29)
[2021-03-26] MEDS ORDERED: Cholecalciferol (VIT D3) 1,000 unit TAB PO SCH (09:00)
[2021-03-26] MEDS ORDERED: Enoxaparin 40 MG/0.4 ML SYR SUBCUT SCH (09:00)
[2021-03-26 15:32] VITALS: BP 119/56
== END 2021-03-26 17:00 | disposition home or self-care (01) ==
LOC: MED 17:40 → ED 17:40
PROVIDERS: ADMIT Internal Medicine; ATTEND Pediatrics

== ENCOUNTER 2021-09-04 17:29 | Inpatient (IN) ==
[2021-09-04] MEDS: Enoxaparin 40 MG/0.4 ML SYR SUBCUT SCH (22:47)
[2021-09-04] MEDS: Polyethylene Glycol 3350 17 GM PACKET PO SCH (22:47)
[2021-09-05] MEDS: Polyethylene Glycol 3350 17 GM PACKET PO SCH (21:01)
[2021-09-05] MEDS: Enoxaparin 40 MG/0.4 ML SYR SUBCUT SCH (21:02)
[2021-09-06 07:43] VITALS: BP 142/72
== END 2021-09-06 13:00 | DRG 884 ==
LOC: SSU → SUATTDRO 17:29
PROVIDERS: ADMIT Hospitalist; ATTEND Hospitalist

== ENCOUNTER 2023-03-09 05:44 | Inpatient (IN) ==
[2023-03-09] MEDS ORDERED: Lactated Ringers 1000 ml BAG 1,000 ML IV ONE ×2 (06:28→11:18)
[2023-03-09 06:46] LABS: Hematocrit 35.9 % (38-53); Mean Corpuscular Hemoglobin 27.3 pg (27-33); Mean Corpuscular Hgb Conc 33.5 g/dL (31-36); Mean Corpuscular Volume 81.5 fL (80-97); Mean Platelet Volume 7.6 fL (7.5-11.2); Platelet Count 296 10^3/uL (150-450); Red Blood Count 4.41 10^6/uL (4.06-5.63); Red Cell Distribution Width 17.4 % (12-17); White Blood Count 29.8 10^3/uL (3.6-10.2)
[2023-03-09] MEDS ORDERED: Pantoprazole 80 mg in NS BAG 80 MG/250 ML BAG IV SCH (07:00)
[2023-03-09 07:14] LABS: INR 1.12 (0.88-1.18)
[2023-03-09 07:15] LABS: Urine Appearance Turbid; Urine Bilirubin Negative (Negative); Urine Blood 3+ (Negative); Urine Color Yellow; Urine Glucose Negative (Negative); Urine Ketones Negative (Negative); Urine Nitrite Positive (Negative); Urine Protein 2+(100 mg/dL) (Negative); Urine Specific Gravity 1.012 (1.002-1.030); Urine Urobilinogen Negative (Negative)
[2023-03-09 07:24] LABS: Urine Bacteria 1+ (Absent); Urine Red Blood Cell 3+(>10/hpf) (Absent); Urine White Blood Cell 3+(>20/hpf) (Absent)
[2023-03-09 07:54] LABS: ALT 23 U/L (7-52); Albumin 3.5 g/dL (3.2-5.2); Albumin/Globulin Ratio 1.3 (1-3); Alkaline Phosphatase 259 U/L (35-149); Blood Urea Nitrogen 15 mg/dL (6-24); C Reactive Protein 90.97 mg/L (<8.01); CO2 Carbon Dioxide 25 mmol/L (22-32); Calcium 6.9 mg/dL (8.6-10.3); Chloride 98 mmol/L (101-111); Creatinine, Serum 0.88 mg/dL (0.67-1.17); Globulin 2.7 g/dL (2-4); Glucose 138 mg/dL (70-100); Lipase < 10 U/L (11.0-82.0); Sodium 136 mmol/L (135-145); Total Protein 6.2 g/dL (6.4-8.9); eGFR CKD-EPI 85.3 (>60)
[2023-03-09 08:13] LABS: Anion Gap 13 mmol/L (2-16)
[2023-03-09 08:36] LABS: ABS Basophils 0.1 10^3/uL (0.0-0.1); ABS Lymphocytes 0.2 10^3/uL (1.0-4.8); ABS Monocytes 0.8 10^3/uL (0.0-1.1); ABS Neutrophils 28.7 10^3/uL (1.5-7.6); ABS Nucleated RBC 0.01 10^3/ul; Lymphocyte % 0.7 %
[2023-03-09] MEDS ORDERED: Iohexol 350 (CONTRAST) 500 ML MDV IV ONE (08:50)
[2023-03-09 09:31] LABS: Magnesium 1.5 mg/dL (1.9-2.7); Potassium Redraw 3.5 mmol/L (3.5-5.0)
[2023-03-09] MEDS ORDERED: Ondansetron 4 mg VIAL 2 MG/ML 2 ml VIAL IV ONE (10:50)
[2023-03-09] MEDS ORDERED: Ondansetron 4 mg VIAL 2 MG/ML 2 ml VIAL ONE (10:51)
[2023-03-09] MEDS ORDERED: cefTRIAXone 1 gm/50 mL D5W 1 GM/50 ML BAG IV ONE (10:52)
[2023-03-09] MEDS ORDERED: Magnesium Sulfate IV 3 GM in NS 0.9% 100 ml BAG 100 ML IVPB ONE (11:14)
[2023-03-09] MEDS ORDERED: Ondansetron 4 mg VIAL 2 MG/ML 2 ml VIAL IV PRN (11:55)
[2023-03-09] MEDS: Pantoprazole VIAL 40 MG VIAL IV SCH (13:14)
[2023-03-09 14:20] LABS: Hematocrit 33.3 % (38-53); Hemoglobin 11.2 g/dL (13.2-16.3)
[2023-03-10] MEDS: Polyethylene Glycol 3350 17 GM PACKET PO SCH ×2 (00:06→20:04)
[2023-03-10] MEDS: Pantoprazole VIAL 40 MG VIAL IV SCH ×2 (01:36→14:22)
[2023-03-10 06:52] LABS: CO2 Carbon Dioxide 27 mmol/L (22-32); Calcium 6.6 mg/dL (8.6-10.3); Chloride 101 mmol/L (101-111); Sodium 137 mmol/L (135-145)
[2023-03-10 06:56] LABS: Anion Gap 9 mmol/L (2-16)
[2023-03-10 06:58] LABS: Blood Urea Nitrogen 15 mg/dL (6-24); Creatinine, Serum 0.79 mg/dL (0.67-1.17); Glucose 110 mg/dL (70-100); eGFR CKD-EPI 88.1 (>60)
[2023-03-10 07:04] LABS: ABS Basophils 0.1 10^3/uL (0.0-0.1); ABS Eosinophils 0.1 10^3/uL (0.0-0.5); ABS Lymphocytes 0.5 10^3/uL (1.0-4.8); ABS Monocytes 0.8 10^3/uL (0.0-1.1); ABS Neutrophils 11.4 10^3/uL (1.5-7.6); ABS Nucleated RBC 0.01 10^3/ul; Eosinophil % 0.9 %; Hematocrit 30.6 % (38-53); Hemoglobin 10.3 g/dL (13.2-16.3); Mean Corpuscular Hemoglobin 26.9 pg (27-33); Mean Corpuscular Hgb Conc 33.5 g/dL (31-36); Mean Corpuscular Volume 80.3 fL (80-97); Mean Platelet Volume 7.4 fL (7.5-11.2); Nucleated Red Blood Cells % 0.1 /100 WBC (0.0-0.4); Platelet Count 234 10^3/uL (150-450); Red Blood Count 3.82 10^6/uL (4.06-5.63); Red Cell Distribution Width 17.3 % (12-17); White Blood Count 12.9 10^3/uL (3.6-10.2)
[2023-03-10] MEDS ORDERED: cefTRIAXone 1 gm/50 mL D5W 1 GM/50 ML BAG IV SCH (09:30)
[2023-03-10 09:42] LABS: Magnesium 2.3 mg/dL (1.9-2.7)
[2023-03-10] MEDS: KCL 20 MEQ/100 ML IVPREMIX 20 MEQ/100 ML BAG IV SCH ×2 (09:44→12:00)
[2023-03-10] MEDS: cefTRIAXone 1 gm/50 mL D5W 1 GM/50 ML BAG IV SCH (14:22)
[2023-03-10 15:48] LABS: Hematocrit 30.3 % (38-53); Hemoglobin 10.1 g/dL (13.2-16.3)
[2023-03-11] MEDS: Pantoprazole VIAL 40 MG VIAL IV SCH (01:33)
[2023-03-11 05:54] LABS: ABS Eosinophils 0.4 10^3/uL (0.0-0.5); ABS Lymphocytes 0.5 10^3/uL (1.0-4.8); ABS Monocytes 0.7 10^3/uL (0.0-1.1); ABS Neutrophils 6.5 10^3/uL (1.5-7.6); Eosinophil % 4.4 %; Hematocrit 30.2 % (38-53); Hemoglobin 10.4 g/dL (13.2-16.3); Lymphocyte % 6.5 %; Mean Corpuscular Hemoglobin 27.6 pg (27-33); Mean Corpuscular Hgb Conc 34.4 g/dL (31-36); Mean Corpuscular Volume 80.2 fL (80-97); Mean Platelet Volume 7.1 fL (7.5-11.2); Platelet Count 225 10^3/uL (150-450); Red Blood Count 3.76 10^6/uL (4.06-5.63); White Blood Count 8.2 10^3/uL (3.6-10.2)
[2023-03-11 06:19] LABS: Creatinine, Serum 0.83 mg/dL (0.67-1.17); Potassium 3.3 mmol/L (3.5-5.0); eGFR CKD-EPI 86.8 (>60)
[2023-03-11 06:22] LABS: Calcium 6.2 mg/dL (8.6-10.3)
[2023-03-11] MEDS ORDERED: Potassium Chlor 20 meq TAB.ER PO ONE (07:32)
[2023-03-11] MEDS ORDERED: Calcium Carb (TUMS) 500 mg CHEW TAB PO SCH (09:00)
[2023-03-11 09:14] LABS: Magnesium 1.8 mg/dL (1.9-2.7)
[2023-03-11] MEDS: Calcium Carb (TUMS) 500 mg CHEW TAB PO SCH ×5 (09:50→21:22)
[2023-03-11] MEDS: cefTRIAXone 1 gm/50 mL D5W 1 GM/50 ML BAG IV SCH (11:36)
[2023-03-11] MEDS: Polyethylene Glycol 3350 17 GM PACKET PO SCH (21:23)
[2023-03-12 06:23] LABS: ABS Eosinophils 0.4 10^3/uL (0.0-0.5); ABS Lymphocytes 0.8 10^3/uL (1.0-4.8); ABS Monocytes 0.8 10^3/uL (0.0-1.1); ABS Neutrophils 4.8 10^3/uL (1.5-7.6); Hematocrit 33.8 % (38-53); Hemoglobin 11.6 g/dL (13.2-16.3); Lymphocyte % 11.4 %; Mean Corpuscular Hemoglobin 27.7 pg (27-33); Mean Corpuscular Hgb Conc 34.2 g/dL (31-36); Mean Corpuscular Volume 81.1 fL (80-97); Mean Platelet Volume 7.2 fL (7.5-11.2); Platelet Count 276 10^3/uL (150-450); Red Blood Count 4.17 10^6/uL (4.06-5.63); Red Cell Distribution Width 17.1 % (12-17); White Blood Count 6.7 10^3/uL (3.6-10.2)
[2023-03-12 06:49] LABS: Calcium 6.6 mg/dL (8.6-10.3); Creatinine, Serum 0.74 mg/dL (0.67-1.17); Magnesium 1.7 mg/dL (1.9-2.7); Potassium 3.3 mmol/L (3.5-5.0); eGFR CKD-EPI 89.9 (>60)
[2023-03-12 06:59] LABS: TSH Ultra Thyroid Stim Horm 11.14 mcIU/mL (0.34-5.60)
[2023-03-12 08:46] LABS: Free T4 0.94 ng/dL (0.61-1.12)
[2023-03-12] MEDS: Calcium Carb (TUMS) 500 mg CHEW TAB PO SCH ×4 (10:37→19:55)
[2023-03-12] MEDS: cefTRIAXone 1 gm/50 mL D5W 1 GM/50 ML BAG IV SCH (12:59)
[2023-03-12] MEDS: Polyethylene Glycol 3350 17 GM PACKET PO SCH (19:55)
[2023-03-13] MEDS: Calcium Carb (TUMS) 500 mg CHEW TAB PO SCH (08:49)
[2023-03-13 08:55] LABS: Rapid COVID-19 Molecular Undetected (Undetected)
[2023-03-13 09:13] LABS: ABS Eosinophils 0.4 10^3/uL (0.0-0.5); ABS Lymphocytes 0.8 10^3/uL (1.0-4.8); ABS Monocytes 0.6 10^3/uL (0.0-1.1); ABS Nucleated RBC 0.01 10^3/ul; Eosinophil % 6.3 %; Hematocrit 37.3 % (38-53); Hemoglobin 12.6 g/dL (13.2-16.3); Lymphocyte % 11.5 %; Mean Corpuscular Hemoglobin 27.7 pg (27-33); Mean Corpuscular Hgb Conc 33.7 g/dL (31-36); Mean Corpuscular Volume 82.2 fL (80-97); Mean Platelet Volume 7.3 fL (7.5-11.2); Nucleated Red Blood Cells % 0.1 /100 WBC (0.0-0.4); Platelet Count 301 10^3/uL (150-450); Red Blood Count 4.54 10^6/uL (4.06-5.63); Red Cell Distribution Width 16.6 % (12-17); White Blood Count 6.9 10^3/uL (3.6-10.2)
[2023-03-13 09:20] VITALS: BP 169/72
[2023-03-13 09:48] LABS: Calcium 6.9 mg/dL (8.6-10.3); Creatinine, Serum 0.8 mg/dL (0.67-1.17); Magnesium 1.7 mg/dL (1.9-2.7); Potassium 3.4 mmol/L (3.5-5.0); eGFR CKD-EPI 87.8 (>60)
[2023-03-13] MEDS: cefTRIAXone 1 gm/50 mL D5W 1 GM/50 ML BAG IV SCH (10:50)
[2023-03-13] MEDS ORDERED: Potassium Chloride LIQUID 20 MEQ/15 ML LIQUID PO SCH (11:00)
[2023-03-13] MEDS ORDERED: Potassium Chlor 20 meq TAB.ER PO SCH (11:00)
[2023-03-14 12:22] LABS: ALP Liver 1 165.6 IU/L (16.2-70.2); ALP Liver 1% 63.7 % (27.8-76.3); ALP Liver 2 33.5 IU/L (0.0-5.8); ALP Liver 2% 12.9 % (0.0-8.0); ALP Placental Not Present; Alkaline Phosphate 260 U/L (40 - 129)
== END 2023-03-13 13:05 | DRG 698 ==
LOC: ED 05:44 → SUATTDRO 11:12 → EDHOLD 11:12 → MED 16:14
PROVIDERS: ADMIT Internal Medicine; ATTEND Pediatrics

== ENCOUNTER 2023-08-12 10:13 | Observation (INO) ==
[2023-08-12 10:45] LABS: ABS Eosinophils 0.3 10^3/uL (0.0-0.5); ABS Lymphocytes 0.6 10^3/uL (1.0-4.8); ABS Monocytes 0.6 10^3/uL (0.0-1.1); ABS Neutrophils 5.5 10^3/uL (1.5-7.6); Eosinophil % 4.1 %; Hematocrit 36.7 % (38-53); Hemoglobin 12.5 g/dL (13.2-16.3); Mean Corpuscular Hemoglobin 28.2 pg (27-33); Mean Corpuscular Hgb Conc 34.1 g/dL (31-36); Mean Corpuscular Volume 82.8 fL (80-97); Mean Platelet Volume 8.1 fL (7.5-11.2); Platelet Count 296 10^3/uL (150-450); Red Blood Count 4.44 10^6/uL (4.06-5.63); Red Cell Distribution Width 16.4 % (12-17); White Blood Count 7.1 10^3/uL (3.6-10.2)
[2023-08-12 10:57] LABS: Albumin 3.8 g/dL (3.2-5.2); Anion Gap 10 mmol/L (2-16); CO2 Carbon Dioxide 28 mmol/L (22-32); Chloride 100 mmol/L (101-111); Potassium 4.1 mmol/L (3.5-5.0); Sodium 138 mmol/L (135-145)
[2023-08-12 11:00] LABS: Activated Partial Thrombo Time 29.5 seconds (26.0-38.0); INR 1.04 (0.83-1.13)
[2023-08-12 11:03] LABS: ALT 17 U/L (7-52); AST 20 U/L (13-39); Albumin/Globulin Ratio 1.3 (1-3); Alkaline Phosphatase 222 U/L (35-149); Blood Urea Nitrogen 20 mg/dL (6-24); Cholesterol 229 mg/dL; Creatinine, Serum 1.04 mg/dL (0.67-1.17); Globulin 2.9 g/dL (2-4); Glucose 146 mg/dL (70-100); HDL Cholesterol 30.6 mg/dL; LDL Cholesterol 163 mg/dL; Total Protein 6.7 g/dL (6.4-8.9); Triglycerides 175 mg/dL; eGFR CKD-EPI 70.8 (>60)
[2023-08-12 12:50] LABS: Urine Appearance Cloudy; Urine Bilirubin Negative (Negative); Urine Blood 1+ (Negative); Urine Color Yellow; Urine Glucose Negative (Negative); Urine Ketones Negative (Negative); Urine Nitrite Positive (Negative); Urine Protein Negative (Negative); Urine Urobilinogen Negative (Negative)
[2023-08-12] MEDS ORDERED: cefTRIAXone 1 gm/50 mL D5W 1 GM/50 ML BAG IV ONE (12:59)
[2023-08-12] MEDS ORDERED: NS 0.9% 1000 ml BAG 1,000 ML IV ONE (12:59)
[2023-08-12 13:11] LABS: Urine Bacteria 1+ (Absent); Urine Red Blood Cell 2+(6-10/hpf) (Absent); Urine White Blood Cell 3+(>20/hpf) (Absent)
[2023-08-12 18:16] LABS: HDL Cholesterol 31.7 mg/dL
[2023-08-12] MEDS: Polyethylene Glycol 3350 17 GM PACKET PO SCH (23:10)
[2023-08-13 05:44] LABS: ABS Basophils 0.1 10^3/uL (0.0-0.1); ABS Eosinophils 0.5 10^3/uL (0.0-0.5); ABS Monocytes 0.7 10^3/uL (0.0-1.1); ABS Neutrophils 4.8 10^3/uL (1.5-7.6); ABS Nucleated RBC 0.01 10^3/ul; Eosinophil % 6.6 %; Hematocrit 36.5 % (38-53); Hemoglobin 12.6 g/dL (13.2-16.3); Mean Corpuscular Hemoglobin 28.2 pg (27-33); Mean Corpuscular Hgb Conc 34.4 g/dL (31-36); Mean Corpuscular Volume 81.8 fL (80-97); Mean Platelet Volume 8.1 fL (7.5-11.2); Nucleated Red Blood Cells % 0.2 /100 WBC (0.0-0.4); Platelet Count 268 10^3/uL (150-450); Red Blood Count 4.46 10^6/uL (4.06-5.63); White Blood Count 7.1 10^3/uL (3.6-10.2)
[2023-08-13 05:59] LABS: Calcium 6.9 mg/dL (8.6-10.3); Creatinine, Serum 0.94 mg/dL (0.67-1.17); Potassium 3.6 mmol/L (3.5-5.0); eGFR CKD-EPI 79.9 (>60)
[2023-08-13] MEDS ORDERED: Calcium Gluconate 3 GM in NS 0.9% 250 ml 250 ML IV ONE (07:33)
[2023-08-13] MEDS: Potassium Chlor 20 meq TAB.ER PO SCH (08:20)
[2023-08-13] MEDS ORDERED: Piperacillin/Tazobac 3.375 BAG 3.375 GM/100 ML BAG IV ONE (12:38)
[2023-08-13] MEDS ORDERED: Zosyn per Pharmacy NOTE FOLLOW UP SCH (13:00)
[2023-08-13] MEDS: ZOSYN 3.375 GM Q8H per EXTENDED INFUSION IV SCH (18:00)
[2023-08-13] MEDS: Polyethylene Glycol 3350 17 GM PACKET PO SCH ×2 (20:34→20:49)
[2023-08-14] MEDS: ZOSYN 3.375 GM Q8H per EXTENDED INFUSION IV SCH ×4 (02:02→19:52)
[2023-08-14 05:38] LABS: ABS Eosinophils 0.6 10^3/uL (0.0-0.5); ABS Lymphocytes 0.7 10^3/uL (1.0-4.8); ABS Monocytes 0.7 10^3/uL (0.0-1.1); ABS Neutrophils 5.3 10^3/uL (1.5-7.6); ABS Nucleated RBC 0.01 10^3/ul; Hematocrit 35.6 % (38-53); Hemoglobin 12.3 g/dL (13.2-16.3); Mean Corpuscular Hemoglobin 28.3 pg (27-33); Mean Corpuscular Hgb Conc 34.4 g/dL (31-36); Mean Corpuscular Volume 82.3 fL (80-97); Nucleated Red Blood Cells % 0.1 /100 WBC (0.0-0.4); Platelet Count 281 10^3/uL (150-450); Red Blood Count 4.33 10^6/uL (4.06-5.63); Red Cell Distribution Width 15.8 % (12-17); White Blood Count 7.4 10^3/uL (3.6-10.2)
[2023-08-14 05:59] LABS: Albumin 3.6 g/dL (3.2-5.2); Albumin/Globulin Ratio 1.2 (1-3); Calcium 7.2 mg/dL (8.6-10.3); Creatinine, Serum 1.09 mg/dL (0.67-1.17); Globulin 2.9 g/dL (2-4); Magnesium 1.8 mg/dL (1.9-2.7); Potassium 3.7 mmol/L (3.5-5.0); Total Bilirubin 0.7 mg/dL (0.2-1.0); Total Protein 6.5 g/dL (6.4-8.9); eGFR CKD-EPI 66.9 (>60)
[2023-08-14] MEDS: Potassium Chlor 20 meq TAB.ER PO SCH (10:14)
[2023-08-14] MEDS ORDERED: Haloperidol 5 mg/ml SDV IV/IM 5 MG/ML AMP IV SLOW PU ONE (18:19)
[2023-08-14] MEDS: Polyethylene Glycol 3350 17 GM PACKET PO SCH (20:22)
[2023-08-15] MEDS: ZOSYN 3.375 GM Q8H per EXTENDED INFUSION IV SCH ×2 (03:48→12:33)
[2023-08-15] MEDS ORDERED: Magnesium Sulfate 2 gm BAG 2 GM/50 ML BAG IVPB ONE (08:36)
[2023-08-15] MEDS ORDERED: Potassium Chlor 10 meq TAB PO ONE (08:37)
[2023-08-15] MEDS: Potassium Chlor 20 meq TAB.ER PO SCH (10:06)
[2023-08-15 11:45] LABS: Rapid COVID-19 Molecular Undetected (Undetected)
[2023-08-15 13:27] VITALS: BP 125/68
== END 2023-08-15 14:45 ==
LOC: EDHOLD 10:13 → ED 10:13 → MEDTELE 08-13 14:41
PROVIDERS: ADMIT Internal Medicine; ATTEND Internal Medicine